=== PATIENT | male | born 1935 | race Caucasian/White ===

== ENCOUNTER 2019-05-20 05:11 | Emergency (ER) | payer MEDICARE, OTHER, SELFPAY ==
[2019-05-20 05:15] VITALS: BP 189/98; PULSE 67; RESP 18; TEMP 36.6; O2SAT 97; BMI 30.7
--- NOTE | 2019-05-20 05:26 | ED_ITS ---
Entered by Cherrie Lancaster, acting as scribe for Cindy Zamora May 20, 2019 05:11 Documented by User: Cindy Zaomra 05/20/19 06:03 HPI - Chest Pain General: Chief Complaint: Chest Pain Stated Complaint: CHEST PAINS Time Seen by Provider: 05/20/19 05:27 Source: patient Mode of arrival: ambulatory Limitations: no limitations History of Present Illness: HPI narrative: 84 yo m came to the er pov for chest pain. Onset was last night. Pt states that his chest pain is worse when he breaths in. Pt states that a week ago he fell on his left side and ever since he has had some pain. Pt states that the pain in his chest got worse last night. MD complaint: chest pain Onset (ago): day(s) (last night) Onset: during rest Pain radiation: none Severity: mild Treatment prior to arrival: nitroglycerin PFSH ED PFSH: Statuses (acute, chronic, etc) shown below reflect problem list status as previously entered and may not be historically accurate Medical History (Updated 05/20/19 @ 08:21 by Mohinder Jordan MD) Atrial fibrillation (Acute) CAD (coronary artery disease) (Acute) Diabetes mellitus (Acute) HTN (hypertension) (Acute) Peritoneal dialysis status (Acute) Renal failure (Acute) Thyroid disease (Acute) TIA (transient ischemic attack) (Acute) Surgical History S/P aortic valve replacement (Acute) S/P CABG (coronary artery bypass graft) (Acute) Family History Other CAD (coronary artery disease) Diabetes Myocardial infarction Social History Smoking and tobacco status: never smoked Physical Exam Const: COMMON NORMALS: no apparent distress, oriented x3, no limitations, healthy appearing and well nourished EXAM LIMITATIONS: no altered mental status GENERAL APPEARANCE: cooperative, well kempt and well developed ORIENTATION/CONSCIOUSNESS: Yes awake HENMT: COMMON NORMALS: normocephalic, head/scalp atraumatic, hearing grossly normal bilaterally, external ears normal, EAC's normal, external nose normal and moist oral mucous membranes HEAD & SCALP: normal to inspection, normocephalic and atraumatic FACE & SINUS: normal facial exam and face symmetric NOSE: external nose normal and nares normal EXTERNAL EAR: Yes external ears normal EXTERNAL AUDITORY CANAL: EAC's normal MOUTH: oral and palatal mucosa normal and tongue normal Eye: COMMON NORMALS: PERRL, EOMs intact bilaterally, conjunctivae normal and no scleral icterus GENERAL EYE: normal appearance of both eyes and normal light reflex CONJUNCTIVA: Yes conjunctivae normal SCLERA: sclerae normal CORNEA: Yes corneas normal PUPIL: Yes PERRL DIRECT OPHTHALMOSCOPY: Yes normal light reflex Neck/C-Spine: COMMON NORMALS: full ROM, no lymphadenopathy, supple, no meningeal signs and no JVD GENERAL: Yes normal visual inspection and Yes trachea midline CERVICAL SPINE: Yes cervical ROM normal Chest: COMMONS NORMALS: inspection of chest normal and palpation of chest normal Resp: COMMON NORMALS: normal respiratory effort, no retractions, no use of accessory muscles and clear to auscultation bilaterally EFFORT & INSPECTION: Yes able to speak in complete sentences AUSCULTATION: clear to auscultation bilaterally Cardio: COMMON NORMALS: no JVD, regular rate, regular rhythm, S1 normal heart sound, S2 normal heart sound, no gallops, no clicks, no murmurs and no rub JUGULAR VENOUS DISTENTION: no JVD RATE: regular rate RHYTHM: regular rhythm HEART SOUNDS: S1 normal and S2 normal GI: COMMON NORMALS: soft to palpation, non-tender, no hepatosplenomegaly and no masses INSPECTION: Yes normal to inspection PALPATION: Yes soft and Yes no hepatosplenomegaly : COMMON NORMALS: Yes no CVA tenderness BLADDER/KIDNEY EXAM: Yes no CVA tenderness Back/Pelvis: COMMON NORMALS: no CVA tenderness, thoracic and lumbar spine normal to inspection, no thoracic nor lumbar tenderness and thoraco-lumbar ROM normal Extremity: COMMON NORMALS: normal to inspection, full ROM, normal capillary refill, no joint enlargement, no clubbing, cyanosis or edema and no calf tenderness Neuro: COMMON NORMALS: oriented x3, CN's II-XII intact bilaterally, moves all extremities, no focal motor deficits and no sensory deficits noted MENINGEAL SIGNS: Yes no meningeal signs Psych: COMMON NORMALS: mental status grossly normal, thought process normal, cooperative, affect normal, speech normal and activity/motor behavior normal APPEARANCE: Yes well kempt SPEECH: Yes normal speech THOUGHT PROCESS: normal thought process Skin: COMMON NORMALS: no rashes or lesions noted, skin turgor normal, no jaundice, no petechiae and no mottling GENERAL SKIN EXAM: no rashes or lesions noted and turgor normal Course Vital Signs: Vital signs: Vital Signs Temperature 98.1 F 05/20/19 08:34 Pulse Rate 68 05/20/19 08:34 Respiratory Rate 17 05/20/19 08:34 Blood Pressure 143/81 05/20/19 08:34 Pulse Oximetry 99 05/20/19 08:34 MDM - Chest Pain Lab Data: Labs: Lab Results 05/20/19 05/20/19 05/20/19 Range/Units 05:55 05:55 05:55 WBC 8.8 (4.0-10.0) 10^3/ uL RBC 5.24 (4.1-5.3) 10^6/u L Hgb 15.1 (11.7-16.6) g/dL Hct 45.5 (42.0-52.0) % MCV 86.8 (80-94) fL MCH 28.8 (28.0-34.0) pg MCHC 33.2 (30.0-36.0) g/dL RDW 13.2 (12.1-15.1) % Plt Count 141 (130-400) 10^3/c mm MPV 11.2 H (7.4-10.4) fL Neut % (Auto) 70.3 % Lymph % (Auto) 16.0 % Marshall % (Auto) 9.5 % Eos % (Auto) 3.4 % Baso % (Auto) 0.3 % Neut # (Auto) 6.2 (1.8-7.7) 10^3/u L Lymph # (Auto) 1.4 (0.8-4.8) 10^3/u L Marshall # (Auto) 0.8 (0.2-0.9) 10^3/u L Eos # (Auto) 0.3 (0.0-0.8) 10^3/u L Baso # (Auto) 0.0 (0.0-0.1) 10^3/u L Nucleated RBC % (a uto) 0 % Nucleated RBCs # 0.0 /100WBC Sodium 139 (136-145) mmol/L Potassium 4.0 (3.5-5.1) mmol/L Chloride 102 (98-107) mmol/L Carbon Dioxide 28 (22-29) mmol/L Anion Gap 13.0 (5-19) BUN 53 H (8-23) mg/dL Creatinine 3.5 H (0.7-1.2) mg/dL Glucose 122 H (74-106) mg/dL Calcium 9.7 (8.5-10.5) mg/dL Magnesium 2.5 H (1.7-2.3) mg/dL Total Bilirubin 0.4 (0.15-1.2) mg/dL AST 26 (0-40) U/L ALT 17 (0-41) U/L Alkaline Phosphata se 103 (40-130) IU/L Troponin T Baselin e 54 H (0-15) ng/mL Troponin T 120 Min [facility] (0-15) ng/mL Delta Troponin T (0-10) ABS# Total Protein 6.4 L (6.6-8.7) g/dL Albumin 3.7 (3.5-5.2) g/dL Globulin 2.7 (1.3-4.6) g/dL 05/20/19 Range/Units 07:50 WBC (4.0-10.0) 10^3/ uL RBC (4.1-5.3) 10^6/u L Hgb (11.7-16.6) g/dL Hct (42.0-52.0) % MCV (80-94) fL MCH (28.0-34.0) pg MCHC (30.0-36.0) g/dL RDW (12.1-15.1) % Plt Count (130-400) 10^3/c mm MPV (7.4-10.4) fL Neut % (Auto) % Lymph % (Auto) % Marshall % (Auto) % Eos % (Auto) % Baso % (Auto) % Neut # (Auto) (1.8-7.7) 10^3/u L Lymph # (Auto) (0.8-4.8) 10^3/u L Marshall # (Auto) (0.2-0.9) 10^3/u L Eos # (Auto) (0.0-0.8) 10^3/u L Baso # (Auto) (0.0-0.1) 10^3/u L Nucleated RBC % (a uto) % Nucleated RBCs # /100WBC Sodium (136-145) mmol/L Potassium (3.5-5.1) mmol/L Chloride (98-107) mmol/L Carbon Dioxide (22-29) mmol/L Anion Gap (5-19) BUN (8-23) mg/dL Creatinine (0.7-1.2) mg/dL Glucose (74-106) mg/dL Calcium (8.5-10.5) mg/dL Magnesium (1.7-2.3) mg/dL Total Bilirubin (0.15-1.2) mg/dL AST (0-40) U/L ALT (0-41) U/L Alkaline Phosphata se (40-130) IU/L Troponin T Baselin e (0-15) ng/mL Troponin T 120 Min [facility] 49.07 H (0-15) ng/mL Delta Troponin T -4.93 L (0-10) ABS# Total Protein (6.6-8.7) g/dL Albumin (3.5-5.2) g/dL Globulin (1.3-4.6) g/dL Discharge Plan Discharge Patient Disposition: Home, Self-Care Clinical Impression: Chest pain Qualifiers: Chest pain type: unspecified Qualified Code(s): R07.9 - Chest pain, unspecified Condition: Stable Prescriptions: No Action cholecalciferol (vitamin D3) 1,000 unit capsule 1,000 unit PO QDAY RF: 0 gabapentin 100 mg capsule 200 mg PO BID RF: 0 escitalopram oxalate 20 mg tablet 20 mg PO QDAY RF: 0 furosemide 40 mg tablet 40 mg PO BID RF: 0 metoprolol tartrate 25 mg tablet 25 mg PO BID RF: 0 warfarin 1 mg tablet 1 mg PO DIRECTED RF: 0 tamsulosin 0.4 mg capsule 0.4 mg PO DAILY RF: 0 levothyroxine 88 mcg capsule 88 mcg PO DAILY RF: 0 isosorbide mononitrate 30 mg tablet extended release 24 hr 30 mg PO DAILY RF: 0 Lantus U-100 Insulin 100 unit/mL solution 10 unit SUBCUT DAILY RF: 0 Novolog U-100 Insulin aspart 100 unit/mL solution 5 unit SUBCUT .sliding scale RF: 0 nitroglycerin [Nitrostat] 0.4 mg tablet, sublingual 0.4 mg SUBLINGUAL DIRECTED RF: 0 atorvastatin 20 mg tablet 20 mg PO DAILY RF: 0 losartan 100 mg tablet 100 mg PO QDAY 30 Days Qty: 30 RF: 3 Discharge Orders: Discharge Order (Routine); Ordered 05/20/19 Ordered By: Mohinder Jordan Referrals: John Kauffman MD [Family Provider] - 4-7 days Discharge Diet: Advance as tolerated Discharge Activity: Resume usual activity Patient Instructions: Chest Pain (ED) Discharge Date/Time: 05/20/19 08:36 Coding Level of Care Code ED Sampler Pickup for Chg Fwd Exam Problem Focused Documented by User: Mohinder Jordan MD 05/20/19 09:04 HPI - Chest Pain General: Chief Complaint: Chest Pain Stated Complaint: CHEST PAINS Time Seen by Provider: 05/20/19 05:27 [facility] ED PFSH: Statuses (acute, chronic, etc) shown below reflect problem list status as previously entered and may not be historically accurate Medical History (Updated 05/20/19 @ 08:21 by Mohinder Jordan MD) Atrial fibrillation (Acute) CAD (coronary artery disease) (Acute) Diabetes mellitus (Acute) HTN (hypertension) (Acute) Peritoneal dialysis status (Acute) Renal failure (Acute) Thyroid disease (Acute) TIA (transient ischemic attack) (Acute) Surgical History S/P aortic valve replacement (Acute) S/P CABG (coronary artery bypass graft) (Acute) Family History Other CAD (coronary artery disease) Diabetes Myocardial infarction Social History Smoking and tobacco status: never smoked Course Vital Signs: Vital signs: Vital Signs Temperature 98.1 F 05/20/19 08:34 Pulse Rate 68 05/20/19 08:34 Respiratory Rate 17 05/20/19 08:34 Blood Pressure 143/81 05/20/19 08:34 Pulse Oximetry 99 05/20/19 08:34 MDM - Chest Pain MDM Narrative: Medical decision making narrative: Patient presents here with chest pain after a fall that is likely muscular in nature. Repeat troponin has no delta. patient is well-appearing here and EKGs are normal as well. He is stable for discharge and is to follow-up with primary care doctor in 3 to 5 days and return if worsening. Lab Data: Labs: Lab Results 05/20/19 05/20/19 05/20/19 Range/Units 05:55 05:55 05:55 WBC 8.8 (4.0-10.0) 10^3/ uL RBC 5.24 (4.1-5.3) 10^6/u L Hgb 15.1 (11.7-16.6) g/dL Hct 45.5 (42.0-52.0) % MCV 86.8 (80-94) fL MCH 28.8 (28.0-34.0) pg MCHC 33.2 (30.0-36.0) g/dL RDW 13.2 (12.1-15.1) % Plt Count 141 (130-400) 10^3/c mm MPV 11.2 H (7.4-10.4) fL Neut % (Auto) 70.3 % Lymph % (Auto) 16.0 % Marshall % (Auto) 9.5 % Eos % (Auto) 3.4 % Baso % (Auto) 0.3 % Neut # (Auto) 6.2 (1.8-7.7) 10^3/u L Lymph # (Auto) 1.4 (0.8-4.8) 10^3/u L Marshall # (Auto) 0.8 (0.2-0.9) 10^3/u L Eos # (Auto) 0.3 (0.0-0.8) 10^3/u L Baso # (Auto) 0.0 (0.0-0.1) 10^3/u L Nucleated RBC % (a uto) 0 % Nucleated RBCs # 0.0 /100WBC Sodium 139 (136-145) mmol/L Potassium 4.0 (3.5-5.1) mmol/L Chloride 102 (98-107) mmol/L Carbon Dioxide 28 (22-29) mmol/L Anion Gap 13.0 (5-19) BUN 53 H (8-23) mg/dL Creatinine 3.5 H (0.7-1.2) mg/dL Glucose 122 H (74-106) mg/dL Calcium 9.7 (8.5-10.5) mg/dL Magnesium 2.5 H (1.7-2.3) mg/dL Total Bilirubin 0.4 (0.15-1.2) mg/dL AST 26 (0-40) U/L ALT 17 (0-41) U/L Alkaline Phosphata se 103 (40-130) IU/L Troponin T Baselin e 54 H (0-15) ng/mL Troponin T 120 Min [facility] (0-15) ng/mL Delta Troponin T (0-10) ABS# Total Protein 6.4 L (6.6-8.7) g/dL Albumin 3.7 (3.5-5.2) g/dL Globulin 2.7 (1.3-4.6) g/dL 05/20/19 Range/Units 07:50 WBC (4.0-10.0) 10^3/ uL RBC (4.1-5.3) 10^6/u L Hgb (11.7-16.6) g/dL Hct (42.0-52.0) % MCV (80-94) fL MCH (28.0-34.0) pg MCHC (30.0-36.0) g/dL RDW (12.1-15.1) % Plt Count (130-400) 10^3/c mm MPV (7.4-10.4) fL Neut % (Auto) % Lymph % (Auto) % Marshall % (Auto) % Eos % (Auto) % Baso % (Auto) % Neut # (Auto) (1.8-7.7) 10^3/u L Lymph # (Auto) (0.8-4.8) 10^3/u L Marshall # (Auto) (0.2-0.9) 10^3/u L Eos # (Auto) (0.0-0.8) 10^3/u L Baso # (Auto) (0.0-0.1) 10^3/u L Nucleated RBC % (a uto) % Nucleated RBCs # /100WBC Sodium (136-145) mmol/L Potassium (3.5-5.1) mmol/L Chloride (98-107) mmol/L Carbon Dioxide (22-29) mmol/L Anion Gap (5-19) BUN (8-23) mg/dL Creatinine (0.7-1.2) mg/dL Glucose (74-106) mg/dL Calcium (8.5-10.5) mg/dL Magnesium (1.7-2.3) mg/dL Total Bilirubin (0.15-1.2) mg/dL AST (0-40) U/L ALT (0-41) U/L Alkaline Phosphata se (40-130) IU/L Troponin T Baselin e (0-15) ng/mL Troponin T [address] [facility] 49.07 H (0-15) ng/mL Delta Troponin T -4.93 L (0-10) ABS# Total Protein (6.6-8.7) g/dL Albumin (3.5-5.2) g/dL Globulin (1.3-4.6) g/dL EKG Data^: EKG 1: Attestation: I personally reviewed and interpreted this EKG as follows: EKG interpretation date: 05/20/19 EKG interpretation time: 07:13 Interpretation: nsr hr [address] or t wave abnormalities qrs 150 qtc 449 Discharge Plan Discharge Patient Disposition: Home, Self-Care Clinical Impression: Chest pain Qualifiers: Chest pain type: unspecified Qualified Code(s): R07.9 - Chest pain, unspecified Condition: Stable Prescriptions: No Action cholecalciferol (vitamin D3) 1,000 unit capsule 1,000 unit PO QDAY RF: 0 gabapentin 100 mg capsule 200 mg PO BID RF: 0 escitalopram oxalate 20 mg tablet 20 mg PO QDAY RF: 0 furosemide 40 mg tablet 40 mg PO BID RF: 0 metoprolol tartrate 25 mg tablet 25 mg PO BID RF: 0 warfarin 1 mg tablet 1 mg PO DIRECTED RF: 0 tamsulosin 0.4 mg capsule 0.4 mg PO DAILY RF: 0 levothyroxine 88 mcg capsule 88 mcg PO DAILY RF: 0 isosorbide mononitrate 30 mg tablet extended release 24 hr 30 mg PO DAILY RF: 0 Lantus U-100 Insulin 100 unit/mL solution 10 unit SUBCUT DAILY RF: 0 Novolog U-100 Insulin aspart 100 unit/mL solution 5 unit SUBCUT .sliding scale RF: 0 nitroglycerin [Nitrostat] 0.4 mg tablet, sublingual 0.4 mg SUBLINGUAL DIRECTED RF: 0 atorvastatin 20 mg tablet 20 mg PO DAILY RF: 0 losartan 100 mg tablet 100 mg PO QDAY 30 Days Qty: 30 RF: 3 Discharge Orders: Discharge Order (Routine); Ordered 05/20/19 Ordered By: Mohinder Jordan Referrals: John Kauffman MD [Family Provider] - 4-7 days Discharge Diet: Advance as tolerated Discharge Activity: Resume usual activity Patient Instructions: Chest Pain (ED) Discharge Date/Time: 05/20/19 08:36 Coding Level of Care Code ED Sampler Pickup for Chg Fwd Exam Problem Focused The documentation recorded by the Tonny chinchilla Stephanie Lyn, accurately reflects the service I personally performed and the decisions made by Sera bass Eli N May 20, 2019 05:11
--- NOTE | 2019-05-20 05:27 | PC.NURSE ---
EKG done at 0525 and shown to ER doctor
--- NOTE | 2019-05-20 05:37 | XR_ITS ---
WS: [id number] Portable AP upright chest, 05/20/2019 Clinical Data: cough Comparison: Lateral chest, 01/01/2018. Findings: No nodules, masses or effusions are seen. The heart is normal. The pulmonary vascularity is not increased. No pneumonia or pneumothorax is seen. The aortic arch and descending aorta show calci fication and tortuosity. There is minimal linear atelectasis at both lung bases. Monitor leads on the chest wall. There is an orthopedic anchor in the left humeral head. XR/XR chest 1V portable [id number] Impression: Atherosclerosis.
--- NOTE | 2019-05-20 05:38 | ECG_ITS ---
Measurements Intervals Bryce Rate: 57 P: ID: 0 QRS: -52 QRSD: 143 T: 7 QT: 432 QTc: 424 ATRIAL FLUTTER/TACHYCARDIA WITH SLOW VENTRICULAR RESPONSE LEFT AXIS DEVIATION [QRS AXIS < -30] LEFT BUNDLE BRANCH BLOCK [120+ ms QRS DURATION, 80+ ms Q/S IN V1/V2, 85+ ms R IN I/aVL/V5/V6] Compared to ECG 10/13/2016 16:05:00 Left-axis deviation now present Left bundle-branch block now present Intraventricular conduction delay no longer present Myocardial infarct finding no longer present Electronically Signed On 05-20-2019 15:55:22 3D DESIGNER by Ino Richter M.D. [id number]
[2019-05-20 06:00] LABS: Basophils % 0.3 %; Eosinophils # 0.3 10^3/uL (0.0-0.8); Eosinophils % 3.4 %; Hematocrit 45.5 % (42.0-52.0); Hemoglobin 15.1 g/dL (11.7-16.6); Lymphocytes # 1.4 10^3/uL (0.8-4.8); Mean Corpuscular HGB Conc 33.2 g/dL (30.0-36.0); Mean Corpuscular Hemoglobin 28.8 pg (28.0-34.0); Mean Corpuscular Volume 86.8 fL (80-94); Mean Platelet Volume 11.2 fL (7.4-10.4); Monocytes # 0.8 10^3/uL (0.2-0.9); Monocytes % 9.5 %; Neutrophils # 6.2 10^3/uL (1.8-7.7); Neutrophils % 70.3 %; Nucleated Red Blood Cells % 0 %; Platelet Count 141 10^3/cmm (130-400); Red Blood Count 5.24 10^6/uL (4.1-5.3); Red Cell Distribution Width 13.2 % (12.1-15.1); White Blood Count 8.8 10^3/uL (4.0-10.0)
[2019-05-20] MEDS: sodium chloride 0.9% 1,000 ML 100 ML IV (06:10)
[2019-05-20 06:13] VITALS: BP 124/70; PULSE 60; RESP 13; TEMP 36.9
--- NOTE | 2019-05-20 06:17 | PC.NURSE ---
Introduced self to patient and initiated vital signs. Pt is A&O x 4 and agreeable. Pt states that the reason for the ER visit today is due to left side chest pain which presented yesterday PM. Pt states that he fell last week on his side and also carried a heavy load of groceries into his home yesterday. Reassured patient of needs and will continue to monitor.
[2019-05-20 06:18] LABS: Alanine Aminotransferase 17 U/L (0-41); Albumin Level 3.7 g/dL (3.5-5.2); Alkaline Phosphatase 103 IU/L (40-130); Aspartate Amino Transferase 26 U/L (0-40); Blood Urea Nitrogen 53 mg/dL (8-23); Calcium 9.7 mg/dL (8.5-10.5); Carbon Dioxide 28 mmol/L (22-29); Chloride 102 mmol/L (98-107); Globulin 2.7 g/dL (1.3-4.6); Glucose 122 mg/dL (74-106); Magnesium 2.5 mg/dL (1.7-2.3); Sodium 139 mmol/L (136-145); Total Bilirubin 0.4 mg/dL (0.15-1.2); Total Protein 6.4 g/dL (6.6-8.7)
[2019-05-20 06:25] LABS: Troponin(5th) Baseline 54 ng/mL (0-15)
[2019-05-20 07:22] VITALS: BP 142/78; PULSE 68; RESP 16; O2SAT 97
--- NOTE | 2019-05-20 07:38 | ECG_ITS ---
Measurements Intervals Lane Rate: 67 P: 93 DE: 192 QRS: 242 QRSD: 150 T: 182 QT: 433 QTc: 460 Atrial flutter ARM LEADS REVERSED [INVERTED P AND QRS IN I] Incomplete left bundle branch block Left axis deviation Compared to ECG 10/13/2016 16:05:00 Intraventricular conduction delay no longer present Electronically Signed On 05-20-2019 15:59:15 [employer] by Ino Richter M.D. [id number]
[2019-05-20 07:44] VITALS: BP 159/81; PULSE 68; RESP 18; TEMP 36.6; O2SAT 97
[2019-05-20 08:14] LABS: Troponin 5 2HR 49.07 ng/mL (0-15)
[2019-05-20 08:34] VITALS: BP 143/81; PULSE 68; RESP 17; TEMP 36.7; O2SAT 99
== END 2019-05-20 08:36 | disposition home or self-care (01) ==
PROVIDERS: Emergency Medicine; Emergency Provider Emergency Medicine; Family Provider Family Medicine
DX: R07.9 Chest pain, unspecified (principal); Z79.01 Long term (current) use of anticoagulants; Z79.4 Long term (current) use of insulin; I48.91 Unspecified atrial fibrillation; I25.10 Atherosclerotic heart disease of native coronary artery without angina pectoris; E11.9 Type 2 diabetes mellitus without complications; I10 Essential (primary) hypertension; Z86.73 Personal history of transient ischemic attack (TIA), and cerebral infarction without residual deficits; Z95.1 Presence of aortocoronary bypass graft; E07.9 Disorder of thyroid, unspecified
CPT/HCPCS: 36415; 71045; 80053; 83735; 84484; 85025; 93005; 96360; 99283; J7030

== ENCOUNTER → 2019-11-08 13:18 | Outpatient (BNVA) | payer MEDICARE, OTHER, SELFPAY | PROVIDERS: Family Provider Family Medicine; Visit Provider Dermatology | DX: D48.9 Neoplasm of uncertain behavior, unspecified (principal); Z85.828 Personal history of other malignant neoplasm of skin | CPT/HCPCS: 11102; 11103; 88305; 99203 ==

== ENCOUNTER → 2019-11-11 09:58 | Outpatient (BNVA) | payer MEDICARE, OTHER, SELFPAY | PROVIDERS: Family Provider Family Medicine; Visit Provider Dermatology | DX: D48.9 Neoplasm of uncertain behavior, unspecified (principal) | CPT/HCPCS: 88304 ==

== ENCOUNTER 2019-12-07 15:10 | Outpatient (CLI) | payer MEDICARE, OTHER, SELFPAY ==
--- NOTE | 2019-12-07 15:00 | USCV_ITS ---
Heber Roach Age: 84 Gender: M : 1935 Exam Date: 12/07/2019 15:30 Ordering Phys: Kelin Rosas MD ([email or web address]) Technologist: Francia Morrison Exam Location: [facility] [place] Indication: CVA Risk Factors: Unknown Previous Vascular Surgery: Unknown Right Brachial BP: / Left Brachial BP: / Right Left Velocity (cm/s) Spectral Plaque Velocity (cm/s) Spectral Plaque Syst/Diast Broadening Syst/Diast Broadening 71.70/ 29.80 Prox CCA 63.80 / 12.90 49.30/ 11.20 Mid CCA 47.50 / 11.50 34.70/ 10.70 Distal CCA 48.90 / 8.80 60.70/ 19.70 Prox ICA 48.90 / 17.70 61.20/ 18.80 Mid ICA 55.80 / 17.30 62.50/ 19.90 Distal ICA 48.40 / 15.00 76.90 ECA 86.90 1.27 ICA/CCA 1.17 Antegrade Vertebral Antegrade 45.30/ 11.50 cm/s 29.00/ 9.70 cm/s Tri Subclavian Tri 70.30 53.20 FINDINGS Moderate dense irregular plaques bilaterally at the bifurcations and proximal internal carotid arteries. Intimal thickening and minimal plaques in the common carotid arteries bilaterally Antegrade flow in the vertebral arteries bilaterally Normal Doppler flow velocities in the external carotid arteries bilaterally CONCLUSIONS Moderate dense irregular plaques bilaterally at the bifurcations and proximal internal carotid arterieswith velocity elevation consistent with 16-49% stenosis. Intimal thickening and minimal plaques in the common carotid arteries bilaterally. Compared to the previous study from 09/09/2013, there is some progression of disease bilaterally Dr Douglas Vazquez MD [facility] (Electronically Signed) Final Date: 07 December 2019 21:11 S
== END 2019-12-07 15:11 | disposition home or self-care (01) ==
LOC: RAD 15:11
PROVIDERS: PCP Family Medicine; Visit Provider Internal Medicine Cardiovascular Disease
DX: G45.9 Transient cerebral ischemic attack, unspecified (principal)
CPT/HCPCS: 93880

== ENCOUNTER 2019-12-10 09:00 | Inpatient (IN) | payer MEDICARE, OTHER, SELFPAY ==
[2019-12-10] VITALS (63 sets, daily range): BP systolic 132–226; BP diastolic 52–126; PULSE 27–108; RESP 12–31; TEMP 36.5–36.9; O2SAT 89–97; BMI 30.4
--- NOTE | 2019-12-10 09:19 | W.ED.ARRPALP ---
HPI - Arrhythmia/Palpitations General: Chief Complaint: Arrhythmia/Palpitations Stated Complaint: LOW HR/WEAKNESS Time Seen by Provider: 12/10/19 09:19 History of Present Illness: HPI narrative: 84-year-old male brought in by the complaining of bradycardia. He is on metoprolol he took all of his medications this morning. He is a history of atrial fibrillation and also takes warfarin. Denies any change in medications recently.. He has had a little abdominal pain a few days ago but that resolved he denies any fever. He has a chronic baseline productive cough that does not change in character or volume. He has been a little tired and weak for the last few days whenever he tries to exert himself he has very poor stamina. This was quite a bit worse last night they did note that when they checked his heart rate last night it was in the 30s as well. On arrival here he is in the low 30s. MD complaint: irregular heart beat and atrial fibrillation Onset (ago): hour(s) Duration: constant Severity: moderate Context: occurred during rest and occurred during exertion Arrhythmia history: atrial fibrillation and on anti-coagulants Associated symptoms: Reports other (Early fatigue poor stamina); Deny anxiety, nausea, syncope or vomiting Review of Systems Const: Denies: fever(s), chills, body aches, fatigue, malaise or night sweats Eyes: Denies: change in vision or blurry vision ENMT: Denies: throat pain, oral sores, dental pain, nasal discharge or nasal congestion Card: Denies: chest pain, palpitations, irregular heart rhythm, edema, syncope, dyspnea on exertion, orthopnea or leg pain with exertion Resp: Denies: dyspnea, productive cough, non-productive cough or wheezing GI: Denies: abdominal pain, nausea, vomiting, hematemesis, coffee ground emesis, dysphagia, heartburn, diarrhea, constipation, GI cramping, hematochezia or melena : Denies: flank pain, difficulty urinating, dysuria, urinary frequency, urinary urgency, urinary incontinence or hematuria Musc: Denies: neck pain, back pain, extremity pain, extremity swelling, joint pain or joint swelling Skin/Breast: Denies: rash, pruritus or erythema Neuro: Denies: headache(s), numbness in extremities, weakness in extremities, sensory changes, lack of coordination, difficulty walking, frequent falls, dizziness, vertigo or confusion Psych: Denies: anxiety, depression, loss of interest, visual hallucinations, auditory hallucinations, suicidal ideation or homicidal ideation Endo: Denies: polyuria, polydipsia, tired all the time or cold intolerance Jasmeet/Lymph: Denies: easy bruising, easy bleeding, petechiae, enlarged lymph nodes or tender lymph nodes PFSH ED PFSH: Medical History (Updated 12/10/19 @ 14:50 by Timoteo Hernandez DO) Atrial fibrillation CAD (coronary artery disease) CHF (congestive heart failure) Diabetes mellitus End stage renal disease HTN (hypertension) Peritoneal dialysis catheter in place Peritoneal dialysis status Renal failure Thyroid disease TIA (transient ischemic attack) Surgical History (Updated 12/10/19 @ 14:50 by Timoteo Hernandez DO) S/P aortic valve replacement S/P CABG (coronary artery bypass graft) Family History (Updated 12/10/19 @ 12:36 by Tc Perdomo MD) Father Stroke Other CAD (coronary artery disease) Diabetes Myocardial infarction Social History Smoking and tobacco status: never smoked Alcohol intake: current History of recent travel: No Physical Exam Const: COMMON NORMALS: no acute distress GENERAL APPEARANCE: cooperative and comfortable ORIENTATION/CONSCIOUSNESS: Yes awake, Yes oriented to person, Yes oriented to place and Yes oriented to time HENMT: COMMON NORMALS: normocephalic and atraumatic HEAD & SCALP: normocephalic and atraumatic Eye: COMMON NORMALS: Equal, round and reactive pupils present, EOMs intact bilaterally, conjunctivae normal and no scleral icterus CONJUNCTIVA: Yes conjunctivae normal PUPIL: Yes Equal, round and reactive pupils present Neck/C-Spine: COMMON NORMALS: full ROM, no lymphadenopathy, supple and no JVD Lymph: LYMPHATIC: no lymphadenopathy noted and no lymphedema noted Resp: COMMON NORMALS: normal respiratory effort, No retractions, No use of accessory muscles and clear to auscultation bilaterally AUSCULTATION: clear to auscultation bilaterally Cardio: COMMON NORMALS: no JVD RATE: bradycardic RHYTHM: abnormal rhythm irregularly irregular HEART SOUNDS: Murmur heart sound present systolic Location: apex Intensity: IV/ GI: COMMON NORMALS: Soft to palpation and No hepatosplenomegaly present AUSCULTATION: Yes normoactive bowel sounds PALPATION: Yes Soft to palpation, No Tenderness to palpation present (GI), No Guarding due to palpation present (GI) and Yes No hepatosplenomegaly present Extremity: COMMON NORMALS: normal to inspection, capillary refill normal, no clubbing, cyanosis or edema, no calf tenderness and no pedal edema Neuro: SENSORIUM/ORIENTATION: Yes oriented to person, Yes oriented to place and Yes oriented to time Skin: COMMON NORMALS: no rashes or lesions noted GENERAL SKIN EXAM: no rashes or lesions noted Course Vital Signs: Vital signs: Vital Signs Temperature 97.7 F 12/10/19 09:09 Pulse Rate 40 L 12/10/19 13:00 Respiratory Rate 12 12/10/19 13:00 Blood Pressure 185/71 12/10/19 12:51 Pulse Oximetry 96 12/10/19 13:00 MDM - Arrhythmia/Palpitations MDM Narrative: Medical decision making narrative: While work-up was in process patient bradycardia down into the 20s was given 0.5 mg of atropine her heart rate increased transiently to the 70s and then decreased back to the 40s again patient symptoms did improve briefly. Patient had another episode and given a full milligram of atropine with he did have significant anxiety just prior to being discharge from the ER to the ICU was given 1/2 mg Ativan which resulted in a fairly significant amount of sedation reassurance given to the that is typical for an older person even with a small dose of Ativan. Lesser results only went up into the 50s or 60s for period of time. Lab Data: Labs: Lab Results 12/10/19 12/10/19 12/10/19 Range/Units 09:22 09: 09: WBC 8.6 (4.0-10.0) 10^3/ uL RBC 4.72 (4.1-5.3) 10^6/u L Hgb 13.8 (11.7-16.6) g/dL Hct 42.6 (42.0-52.0) % MCV 90.3 (80-94) fL MCH 29.2 (28.0-34.0) pg MCHC 32.4 (30.0-36.0) g/dL RDW 12.7 (12.1-15.1) % Plt Count 159 (130-400) 10^3/c mm MPV 11.6 H (7.4-10.4) fL Neut % (Auto) 61.5 % Lymph % (Auto) 21.8 % Freestone % (Auto) 10.4 % Eos % (Auto) 5.1 % Baso % (Auto) 0.7 % Neut # (Auto) 5.26 (1.8-7.7) 10^3/u L Lymph # (Auto) 1.9 (0.8-4.8) 10^3/u L Fre[place] # (Auto) 0.9 (0.2-0.9) 10^3/u L Eos # (Auto) 0.4 (0.0-0.8) 10^3/u L Baso # (Auto) 0.1 (0.0-0.1) 10^3/u L Nucleated RBC % (a uto) 0 % Nucleated RBCs # 0.0 /100WBC PT (12.1-14.9) SECO NDS INR (0.8-1.2) Sodium 138 (136-145) mmol/L Potassium 4.5 (3.5-5.1) mmol/L Chloride 104 (98-107) mmol/L Carbon Dioxide 25 (22-29) mmol/L Anion Gap 13.5 (5-19) BUN 45 H (8-23) mg/dL Creatinine 3.6 H (0.7-1.2) mg/dL GFR Calculation Not Reportable Glucose 147 H (65-115) mg/dL Calculated Osmolal ity 287 (285-295) mOsm/k g Calcium 9.3 (8.5-10.5) mg/dL Total Bilirubin 0.2 (0.15-1.2) mg/dL AST 27 (0-40) U/L ALT 19 (0-41) U/L Alkaline Phosphata se 116 (40-130) IU/L Troponin T Baselin e 60 H (0-15) ng/L Troponin T 120 Min alfonso (0-15) ng/L Delta Troponin T (0-10) ABS# Total Protein 5.6 L (6.6-8.7) g/dL Albumin 3.6 (3.5-5.2) g/dL Globulin 2.0 (1.3-4.6) g/dL 08/22/20 08/22/20 Range/Units 09:22 11:30 WBC (4.0-10.0) 10^3/ uL RBC (4.1-5.3) 10^6/u L Hgb (11.7-16.6) g/dL Hct (42.0-52.0) % MCV (80-94) fL MCH (28.0-34.0) pg MCHC (30.0-36.0) g/dL RDW (12.1-15.1) % Plt Count (130-400) 10^3/c mm MPV (7.4-10.4) fL Neut % (Auto) % Lymph % (Auto) % [place] % (Auto) % Eos % (Auto) % Baso % (Auto) % Neut # (Auto) (1.8-7.7) 10^3/u L Lymph # (Auto) (0.8-4.8) 10^3/u L Freestone # (Auto) (0.2-0.9) 10^3/u L Eos # (Auto) (0.0-0.8) 10^3/u L Baso # (Auto) (0.0-0.1) 10^3/u L Nucleated RBC % (a uto) % Nucleated RBCs # /100WBC PT 22.70 H (12.1-14.9) SECO NDS INR 1.93 H (0.8-1.2) Sodium (136-145) mmol/L Potassium (3.5-5.1) mmol/L Chloride (98-107) mmol/L Carbon Dioxide (22-29) mmol/L Anion Gap (5-19) BUN (8-23) mg/dL Creatinine (0.7-1.2) mg/dL GFR Calculation Glucose (65-115) mg/dL Calculated Osmolal ity (285-295) mOsm/k g Calcium (8.5-10.5) mg/dL Total Bilirubin (0.15-1.2) mg/dL AST (0-40) U/L ALT (0-41) U/L Alkaline Phosphata se (40-130) IU/L Troponin T Baselin e (0-15) ng/L Troponin T 120 Min alfonso 56.95 H (0-15) ng/L Delta Troponin T -3.05 L (0-10) ABS# Total Protein (6.6-8.7) g/dL Albumin (3.5-5.2) g/dL Globulin (1.3-4.6) g/dL Discharge Plan Discharge Patient Disposition: Admitted As Inpatient Admit Provider: Tc Perdomo Clinical Impression: Bradycardia, S/P aortic valve replacement, Atrial fibrillation, End stage renal disease, Peritoneal dialysis catheter in place Condition: Stable Interventions: ED Discharge Assessment Last Done: 12/10/19 12:51 ED Charges Last Done: 12/10/19 12:51 Discharge Date/Time: 12/10/19 13:30 Coding Level of Care Code 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
--- NOTE | 2019-12-10 09:32 | XR_ITS ---
WS: [id number] EXAM: AP CHEST: PORTABLE UPRIGHT DATE OF EXAM: 12/10/2019, 1010 hours COMPARISON: Chest x-ray from 05/20/2019 HISTORY: Patient is 84 years old with dyspnea. FINDINGS: The cardiac silhouette is upper limits of normal in size. The mediastinal contours are similar. Louis cified plaque in the aorta. Calcified lymph nodes left hilum. The pulmonary vascularity is normal. Lungs are clear. Calcified granuloma upper outer left chest again seen. There is no effusion or pne umothorax. Bone density appears slightly decreased. Post surgical anchor again noted in the left nina ulder. XR/XR chest 1V portable [id number] IMPRESSION: No acute pulmonary disease.
--- NOTE | 2019-12-10 09:33 | ECG_ITS ---
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 Measurements Intervals [place] Rate: 37 P: [place]: -1 QRS: -45 QRSD: 132 T: -46 QT: 540 QTc: 424 Interpretive Statements ATRIAL FLUTTER/TACHYCARDIA WITH SLOW VENTRICULAR RESPONSE INTRAVENTRICULAR CONDUCTION DELAY [130+ ms QRS DURATION] SEPTAL MYOCARDIAL INFARCTION , Probably old [40+ ms Q WAVE IN V1/V2] INTERPRETATION BASED ON A DEFAULT AGE OF 40 YEARS Compared to ECG 05/20/2019 07:13:26 Intraventricular conduction delay now present Myocardial infarct finding now present Left bundle-branch block no longer present Left-axis deviation no longer present Electronically Signed On 12-10-2019 19:18:06 CDT by Ean Hoover M.D. [id number] f
[2019-12-10 09:46] LABS: Basophils # 0.1 10^3/uL (0.0-0.1); Basophils % 0.7 %; Eosinophils # 0.4 10^3/uL (0.0-0.8); Eosinophils % 5.1 %; Hematocrit 42.6 % (42.0-52.0); Hemoglobin 13.8 g/dL (11.7-16.6); Lymphocytes # 1.9 10^3/uL (0.8-4.8); Lymphocytes % 21.8 %; Mean Corpuscular HGB Conc 32.4 g/dL (30.0-36.0); Mean Corpuscular Hemoglobin 29.2 pg (28.0-34.0); Mean Corpuscular Volume 90.3 fL (80-94); Mean Platelet Volume 11.6 fL (7.4-10.4); Monocytes # 0.9 10^3/uL (0.2-0.9); Monocytes % 10.4 %; Neutrophils # 5.26 10^3/uL (1.8-7.7); Neutrophils % 61.5 %; Nucleated Red Blood Cells % 0 %; Platelet Count 159 10^3/cmm (130-400); Red Blood Count 4.72 10^6/uL (4.1-5.3); Red Cell Distribution Width 12.7 % (12.1-15.1); White Blood Count 8.6 10^3/uL (4.0-10.0)
[2019-12-10] MEDS: atropine 0.1 mg/mL Syr 10 mL 0.5 MG IVP (09:54)
[2019-12-10 10:09] LABS: INR 1.93 (0.8-1.2)
[2019-12-10 10:15] LABS: Alanine Aminotransferase 19 U/L (0-41); Albumin Level 3.6 g/dL (3.5-5.2); Alkaline Phosphatase 116 IU/L (40-130); Anion Gap 13.5 (5-19); Aspartate Amino Transferase 27 U/L (0-40); Carbon Dioxide 25 mmol/L (22-29); Chloride 104 mmol/L (98-107); Glucose 147 mg/dL (65-115); Potassium 4.5 mmol/L (3.5-5.1); Sodium 138 mmol/L (136-145); Total Bilirubin 0.2 mg/dL (0.15-1.2); Total Protein 5.6 g/dL (6.6-8.7)
[2019-12-10 10:18] LABS: Troponin(5th) Baseline 60 ng/L (0-15)
[2019-12-10 10:31] LABS: Blood Urea Nitrogen 45 mg/dL (8-23); Calcium 9.3 mg/dL (8.5-10.5); Osmolality Calculated 287 mOsm/kg (285-295)
--- NOTE | 2019-12-10 10:41 | PC.NURSE ---
Pt HR dropped to 27bpm. Dr Hernandez notified.VO received to give 1mg atropine IVP now.
[2019-12-10] MEDS: atropine 0.1 mg/mL Syr 10 mL 1 MG IVP (10:44)
--- NOTE | 2019-12-10 11:33 | ECG_ITS ---
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 Measurements Intervals [place] Rate: 40 P: [place]: -1 QRS: -47 QRSD: 134 T: -43 QT: 501 QTc: 410 Interpretive Statements ATRIAL FLUTTER/TACHYCARDIA WITH SLOW VENTRICULAR RESPONSE INTRAVENTRICULAR CONDUCTION DELAY [130+ ms QRS DURATION] SEPTAL MYOCARDIAL INFARCTION , OF INDETERMINATE AGE [40+ ms Q WAVE IN V1/V2] Compared to ECG 12/10/2019 09:27:16 No significant changes Electronically Signed On 12-12-2019 12:13:38 CDT by Ean Hoover M.D. [id number]
[2019-12-10 12:04] LABS: Troponin 5 2HR 56.95 ng/L (0-15)
[2019-12-10 12:11] LABS: Troponin 5 2HR Delta -3.05 ABS# (0-10)
--- NOTE | 2019-12-10 12:28 | P.HP_ITS ---
Providers/Chief Complaint Admitting Physician: Tc Perdomo MD Primary Care Provider: John Kauffman MD Chief Complaint: LOW HR/WEAKNESS History of Present Illness Heber Roach is a 84 year old male presents to [facility] department with 2 to 3 days feeling very weak and being bradycardic down to 20s in the ER. Patient is on metoprolol for treatment of atrial fibrillation for long period of time but never had any issues prior. He denies any chest pain. He reports chronic dyspnea on exertion which is unchanged. He denies cough or difficulty swallowing. He is on peritoneal dialysis and denies any abdominal pain. Reports that he still makes some urine but denies dysuria. He reports being on laxative every day to have normal bowel movement. He denies seeing blood or black stool. In ER he was given 1 dose of atropine with improvement of his heart rate to 70s but then gradually came down to 40s. He is not symptomatic cardiac cabrera during my evaluation in ER. He complains of low back pain because of very uncomfortable gurney in ER. He usually reports being active to some degree. [place] and does some work on daily basis. He lives with his for more than 60 years. Reports that on December 19 he is scheduled to see a ediscovery project manager to be evaluated for home oxygen. He is diabetic for many years and had last cardiac intervention with stent in 2001. Reports that he had total of 3 stents placed. Reports that in 2007 he had bioprosthetic aortic valve replacement. He is on warfarin for stroke prevention. Reports that previously he had TIA and did not develop any neurological sequela. He could not sleep well last night but cannot tell me why. Review of Systems Narrative: Except as mentioned. Const: Denies: fever(s) or chills (But does report feeling cold lately.) Eyes: Denies: change in vision ENMT: Denies: throat pain or change in hearing Card: Denies: chest pain, edema or lightheadedness Resp: Reports: dyspnea; Denies: productive cough GI: Reports: constipation; Denies: abdominal pain, nausea, vomiting, dysphagia, diarrhea, hematochezia or melena Musc: Denies: joint pain or joint swelling Skin/Breast: Denies: rash or erythema Neuro: Denies: headache(s) or weakness in extremities (But does report being generally weak in the last 2 to 3 days.) Psych: Denies: depression or suicidal ideation Endo: Denies: excessive sweating Jasmeet/Lymph: Denies: easy bleeding or tender lymph nodes All/Imm: Denies: throat swelling Medications/Allergies Home Medications Medication Instructions Recorded Confirmed Last Taken Type atorvastatin 20 mg tablet 20 mg PO DAILY tab 05/10/19 12/10/19 12/09/19 History insulin aspart U-100 100 unit/mL 5 unit SUBCUT .sliding scale ml 05/10/19 12/10/19 Unknown History subcutaneous solution insulin glargine 100 unit/mL 10 unit SUBCUT DAILY ml 05/10/19 12/10/19 12/09/19 History subcutaneous solution levothyroxine 88 mcg capsule 88 mcg PO DAILY cap 05/10/19 12/10/19 12/09/19 History metoprolol tartrate 25 mg tablet 25 mg PO BID 05/10/19 12/10/19 12/10/19 History nitroglycerin 0.4 mg sublingual 0.4 mg SUBLINGUAL DIRECTED tab 05/10/19 12/10/19 Unknown History tablet tamsulosin 0.4 mg capsule 0.4 mg PO DAILY cap 05/10/19 12/10/19 12/10/19 History warfarin 1 mg tablet 1 mg PO DIRECTED tab 05/10/19 12/10/19 12/09/19 History cholecalciferol (vitamin D3) 25 1,000 unit PO DAILY 05/11/19 12/10/19 12/10/19 History mcg (1,000 unit) capsule gabapentin 100 mg capsule 200 mg PO BID cap 05/11/19 12/10/19 12/10/19 History amlodipine 5 mg tablet 2.5 mg PO BID 90 Days #90 tab 06/08/19 12/10/19 12/10/19 Rx aspirin 81 mg tablet,delayed 81 mg PO DAILY 11/11/19 12/10/19 12/10/19 History release donepezil 5 mg tablet 5 mg PO DAILY 11/11/19 12/10/19 12/09/19 History furosemide 20 mg tablet 20 mg PO DAILY #90 tab 11/11/19 12/10/19 12/09/19 Rx furosemide 40 mg tablet 40 mg PO DAILY tab 11/11/19 12/10/19 12/10/19 History isosorbide mononitrate 30 mg 30 mg PO DAILY #90 each 11/15/19 12/10/19 12/10/19 Rx tablet,extended release 24 hr Allergies Allergy/AdvReac Type Severity Reaction Status Date / Time apple Allergy Unknown Unknown Verified 12/10/19 11:43 morphine Allergy Unknown Unknown Verified 12/10/19 11:43 oxycodone [From Percocet] Allergy Unknown Unknown Verified 12/10/19 11:43 PFSH Acute PFSH: Medical History Atrial fibrillation CAD (coronary artery disease) CHF (congestive heart failure) Diabetes mellitus HTN (hypertension) Peritoneal dialysis status Renal failure Thyroid disease TIA (transient ischemic attack) Surgical History S/P aortic valve replacement S/P CABG (coronary artery bypass graft) Family History (Updated 12/10/19 @ 12:36 by Tc Perdomo MD) Father Stroke Other CAD (coronary artery disease) Diabetes Myocardial infarction Social History Smoking and tobacco status: never smoked Alcohol intake: current History of recent travel: No Vitals/I&O/Wt Last Vital Signs Temp 97.7 F 12/10/19 09:09 Pulse 39 L 12/10/19 12:00 Resp 22 H 12/10/19 12:00 BP 185/71 12/10/19 12:00 Pulse Ox 96 12/10/19 12:00 Weight last 48 hrs Weight 90.718 kg Physical Exam Const: COMMON NORMALS: no acute distress and patient oriented x3 OTHER: Somewhat somnolent. HENMT: COMMON NORMALS: normocephalic and atraumatic HEAD & SCALP: normocephalic and atraumatic Eye: COMMON NORMALS: EOMs intact bilaterally, conjunctivae normal and no scleral icterus CONJUNCTIVA: Yes conjunctivae normal Neck/C-Spine: COMMON NORMALS: no lymphadenopathy and no meningeal signs Lymph: LYMPHATIC: no lymphadenopathy noted Chest: COMMONS NORMALS: normal palpation of entire chest wall Resp: COMMON NORMALS: No use of accessory muscles and clear to auscultation bilaterally AUSCULTATION: clear to auscultation bilaterally Cardio: COMMON NORMALS: No murmurs present (Cardio) RATE: regular rate and bradycardic OTHER: No lower extremity edema GI: COMMON NORMALS: Soft to palpation and non-tender PALPATION: Yes Soft to palpation RECTAL EXAM: Yes deferred OTHER: Peritoneal catheter noted. Patient has small ventral hernia in epigastric area. : COMMON NORMALS: Yes no CVA tenderness BLADDER/KIDNEY EXAM: Yes no CVA tenderness Back/Pelvis: COMMON NORMALS: no CVA tenderness and thoracic and lumbar spine normal to inspection Extremity: COMMON NORMALS: normal to inspection and capillary refill normal Neuro: COMMON NORMALS: patient oriented x3 and no focal motor deficits SENSORIUM/ORIENTATION: Yes oriented to person, Yes oriented to place, Yes oriented to time and Yes somnolent MENINGEAL SIGNS: Yes no meningeal signs Psych: COMMON NORMALS: mental status grossly normal, Normal thought process present and cooperative THOUGHT PROCESS: Normal thought process present Skin: COMMON NORMALS: no rashes or lesions noted GENERAL SKIN EXAM: no rashes or lesions noted Data : 12/10/19 09:22 12/10/19 09:22 A&P Assessment and plan (1) Atrial flutter: Status: Acute (2) Bradycardia: This appears to be related to metoprolol. [place] felt unlikely. Status: Acute (3) Warfarin-induced coagulopathy: Status: Acute (4) End stage renal disease: Status: Acute (5) Peritoneal dialysis catheter in place: Status: Acute (6) Diabetes mellitus: Status: Acute Additional A&P Information PLAN: Patient will be closely monitored in ICU. Dr. Hernandez to consult cardiology. Atropine at bedside for heart rate less than 40. Hold shin blocking agents and allow several days to clear metoprolol and hopefully heart rate recovers. Patient may need to have temporary pacemaker placement. Patient is not in heart failure currently. We will continue warfarin for now and monitor hemoglobin and platelets. Nephrology service was consulted by Dr. Hernandez for peritoneal dialysis. I will check peritoneal dialysate fluid for signs of infection. Continue warfarin. No need for DVT prophylaxis. Restart other home medications including for hypothyroidism. Attestations Medical Necessity Statement*: Patient with symptomatic bradycardia requires close ICU monitoring, treatment and evaluation. I expect patient will require more than 2 midnights. Time Spent in Patient Care: Greater than 35 minutes Coding Level of Care Code Acute Vision Specialist for [facility] Diagnoses Atrial flutter I48.92 Bradycardia R00.1 Warfarin-induced coagulopathy D68.32; T45.515A End stage renal disease N18.6 Peritoneal dialysis catheter in place Z99.2 Diabetes mellitus E11.9
[2019-12-10 13:02] LABS: Glucose Point of Care 96 mg/dL (70-110)
[2019-12-10] MEDS: LORazepam 2 mg/mL INJ 1 mL 0.5 MG IVP (13:07)
--- NOTE | 2019-12-10 15:33 | ECG_ITS ---
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 Measurements Intervals [place] Rate: 45 P: [place]: -1 QRS: -53 QRSD: 134 T: -2 QT: 454 QTc: 395 Interpretive Statements ATRIAL FLUTTER/TACHYCARDIA WITH SLOW VENTRICULAR RESPONSE INTRAVENTRICULAR CONDUCTION DELAY [130+ ms QRS DURATION] SEPTAL MYOCARDIAL INFARCTION of indeterminate age compared to ECG 12/10/2019 11:32:27 No significant changes Electronically Signed On 12-12-2019 12:11:35 CDT by Ean Hoover M.D. [id number]
[2019-12-10 15:55] LABS: Troponin 5 6HR 54.33 ng/L (0-15)
[2019-12-10 16:02] LABS: Troponin 5 6HR Delta -5.67 ng/L (0-12)
[2019-12-10] MEDS: hyDRALAzine 20 mg/mL INJ 1 mL 10 MG IVP ×2 (16:52→19:36)
--- NOTE | 2019-12-10 16:58 | PC.NURSE ---
Peritoneal Dialysis Pt's states she uses two bags of 1.5% dialysis solution (each bag is 2,000 mls). First bag at infused at 1600. Second bag infused at 2000 and drained in AM. Seven days per week.
--- NOTE | 2019-12-10 17:08 | P.CONIM_ITS ---
Providers/Reason For Consult Consulting Physican/Specialty*: Dr. Ean Hoover/cardiology Reason for Consult*: A. fib with slow ventricular response/bradycardia Requesting Physcian: Dr. Hernandez Attending Physician: Tc Perdomo MD Primary Care Provider: John Kauffman MD History of Present Illness History of Present Illness 84 year old male with past medical history of atrial fibrillation on Coumadin, diabetes, hypertension and TIA, ESRD on peritoneal dialysis, coronary artery disease with cardiac intervention in 2001 and a bioprosthetic aortic valve replacement in 2007. He presented to the ER with 2 to 3 days feeling very weak and being bradycardic down to 20s in the ER. Patient is on metoprolol 25 mg twice daily for treatment of atrial fibrillation for long period of time but never had any issues prior. In the ER he was given a dose of atropine which increased heart rate to 70s but then it dropped again to 40s. At the time of my evaluation, patient had received a dose of Ativan in the ER and seemed confused since. His heart rate currently is in 40s to 50s. He is hypertensive. On review of his EKG, he is an atrial flutter with variable block. Review of Systems General: Reports: ROS unobtainable due to mental status Meds/Allergies Home Medications and Allergies Home Medications Medication Instructions Recorded Confirmed Last Taken Type atorvastatin 20 mg tablet 20 mg PO DAILY tab 05/10/19 12/10/19 12/09/19 History insulin aspart U-100 100 unit/mL 5 unit SUBCUT .sliding scale ml 05/10/19 12/10/19 Unknown History subcutaneous solution insulin glargine 100 unit/mL 10 unit SUBCUT DAILY ml 05/10/19 12/10/19 12/09/19 History subcutaneous solution levothyroxine 88 mcg capsule 88 mcg PO DAILY cap 05/10/19 12/10/19 12/09/19 History metoprolol tartrate 25 mg tablet 25 mg PO BID 05/10/19 12/10/19 12/10/19 History nitroglycerin 0.4 mg sublingual 0.4 mg SUBLINGUAL DIRECTED tab 05/10/19 12/10/19 Unknown History tablet tamsulosin 0.4 mg capsule 0.4 mg PO DAILY cap 05/10/19 12/10/19 12/10/19 History warfarin 1 mg tablet 1 mg PO DIRECTED tab 05/10/19 12/10/19 12/09/19 History cholecalciferol (vitamin D3) 25 1,000 unit PO DAILY 05/11/19 12/10/19 12/10/19 History mcg (1,000 unit) capsule gabapentin 100 mg capsule 200 mg PO BID cap 05/11/19 12/10/19 12/10/19 History amlodipine 5 mg tablet 2.5 mg PO BID 90 Days #90 tab 06/08/19 12/10/19 12/10/19 Rx aspirin 81 mg tablet,delayed 81 mg PO DAILY 11/11/19 12/10/19 12/10/19 History release donepezil 5 mg tablet 5 mg PO DAILY 11/11/19 12/10/19 12/09/19 History furosemide 20 mg tablet 20 mg PO DAILY #90 tab 11/11/19 12/10/19 12/09/19 Rx furosemide 40 mg tablet 40 mg PO DAILY tab 11/11/19 12/10/19 12/10/19 History isosorbide mononitrate 30 mg 30 mg PO DAILY #90 each 11/15/19 12/10/19 12/10/19 Rx tablet,extended release 24 hr Allergies Allergy/AdvReac Type Severity Reaction Status Date / Time apple Allergy Unknown Unknown Verified 12/10/19 11:43 morphine Allergy Unknown Unknown Verified 12/10/19 11:43 oxycodone [From Percocet] Allergy Unknown Unknown Verified 12/10/19 11:43 PFSH Acute PFSH: Medical History Atrial fibrillation CAD (coronary artery disease) CHF (congestive heart failure) Diabetes mellitus End stage renal disease HTN (hypertension) Peritoneal dialysis catheter in place Peritoneal dialysis status Renal failure Thyroid disease TIA (transient ischemic attack) Surgical History S/P aortic valve replacement S/P CABG (coronary artery bypass graft) Family History Father Stroke Other CAD (coronary artery disease) Diabetes Myocardial infarction Social History Smoking and tobacco status: never smoked Alcohol intake: current History of recent travel: No Vitals/I&O/Wt Last Vital Signs Temp 97.7 F 12/10/19 09:09 Pulse 40 L 12/10/19 13:00 Resp 12 12/10/19 13:00 BP 185/71 12/10/19 12:51 Pulse Ox 96 12/10/19 13:00 Weight last 48 hrs Weight 200 lb Physical Exam Narrative: EXAM NARRATIVE: GENERAL: Patient is alert, and appears confused ,oriented to person. [] NECK: No jugular vein distension. [] HEENT: No cyanosis. No icterus. No pallor. [] HEART: Bradycardic. Significant grade 4/6 systolic murmur, no rub or gallop. [] LUNGS: Clear to auscultate bilaterally. [] ABDOMEN: Soft, nontender and nondistended. Large abdominal hernia [] CENTRAL NERVOUS SYSTEM: Grossly nonfocal. [] EXTREMITIES: Lower extremities with no significant edema bilaterally. Pulses pal pable in the lower extremities, both dorsalis pedis and posterior tibial. [] A&P Assessment and plan (1) Bradycardia: Status: Acute (2) Atrial flutter: Status: Acute (3) HTN (hypertension): Status: Acute (4) S/P aortic valve replacement: Status: Acute Patient is in atrial flutter with variable block and is bradycardic. At time of my evaluation his heart rate has been running in 40s to 50s. He appeared confused and this was reported since getting Ativan. He is hypertensive. I would recommend keeping him off of any AV shin blocking agents at this time. Telemetry monitoring. Have atropine available on bedside. No indication for transvenous pacing at this time but we will continue monitoring. His blood pressure is significantly high. Please restart his p.o. amlodipine and as needed IV hydralazine to control the blood pressure. Continue anticoagulation with Coumadin. Thank you for involving us with care of this patient. We will continue to follow him. Please call with questions. 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
--- NOTE | 2019-12-10 17:41 | P.CONIM_ITS ---
Providers/Reason For Consult Consulting Physican/Specialty*: [facility]/Telenephrology Reason for Consult*: ESRD management and dialysis need Attending Physician: Tc Perdomo MD Primary Care Provider: John Kauffman MD History of Present Illness History of Present Illness Heber Roach is a 84 year old male with h/o ESRD on peritoneal dialysis presented to ER with generalised weakness, found to be bradycardic, so got atropine, admitted to ICU for further management. BP fluctuating. Pt slightly confused Review of Systems Const: Reports: malaise; Denies: fever(s) or chills Card: Reports: edema; Denies: chest pain, palpitations, lightheadedness or dyspnea on exertion Resp: Denies: dyspnea or productive cough GI: Denies: abdominal pain, nausea, vomiting or diarrhea Skin/Breast: Denies: rash Neuro: Reports: confusion Meds/Allergies Home Medications and Allergies Home Medications Medication Instructions Recorded Confirmed Last Taken Type atorvastatin 20 mg tablet 20 mg PO DAILY tab 05/10/19 12/10/19 12/09/19 History insulin aspart U-100 100 unit/mL 5 unit SUBCUT .sliding scale ml 05/10/19 12/10/19 Unknown History subcutaneous solution insulin glargine 100 unit/mL 10 unit SUBCUT DAILY ml 05/10/19 12/10/19 12/09/19 History subcutaneous solution levothyroxine 88 mcg capsule 88 mcg PO DAILY cap 05/10/19 12/10/19 12/09/19 History metoprolol tartrate 25 mg tablet 25 mg PO BID 05/10/19 12/10/19 12/10/19 History nitroglycerin 0.4 mg sublingual 0.4 mg SUBLINGUAL DIRECTED tab 05/10/19 12/10/19 Unknown History tablet tamsulosin 0.4 mg capsule 0.4 mg PO DAILY cap 05/10/19 12/10/19 12/10/19 History warfarin 1 mg tablet 1 mg PO DIRECTED tab 05/10/19 12/10/19 12/09/19 History cholecalciferol (vitamin D3) 25 1,000 unit PO DAILY 05/11/19 12/10/19 12/10/19 History mcg (1,000 unit) capsule gabapentin 100 mg capsule 200 mg PO BID cap 05/11/19 12/10/19 12/10/19 History amlodipine 5 mg tablet 2.5 mg PO BID 90 Days #90 tab 06/08/19 12/10/19 12/10/19 Rx aspirin 81 mg tablet,delayed 81 mg PO DAILY 11/11/19 12/10/19 12/10/19 History release donepezil 5 mg tablet 5 mg PO DAILY 11/11/19 12/10/19 12/09/19 History furosemide 20 mg tablet 20 mg PO DAILY #90 tab 11/11/19 12/10/19 12/09/19 Rx furosemide 40 mg tablet 40 mg PO DAILY tab 11/11/19 12/10/19 12/10/19 History isosorbide mononitrate 30 mg 30 mg PO DAILY #90 each 11/15/19 12/10/19 12/10/19 Rx tablet,extended release 24 hr Allergies Allergy/AdvReac Type Severity Reaction Status Date / Time apple Allergy Unknown Unknown Verified 12/10/19 11:43 morphine Allergy Unknown Unknown Verified 12/10/19 11:43 oxycodone [From Percocet] Allergy Unknown Unknown Verified 12/10/19 11:43 PFSH Acute PFSH: Medical History Atrial fibrillation CAD (coronary artery disease) CHF (congestive heart failure) Diabetes mellitus End stage renal disease HTN (hypertension) Peritoneal dialysis catheter in place Peritoneal dialysis status Renal failure Thyroid disease TIA (transient ischemic attack) Surgical History S/P aortic valve replacement S/P CABG (coronary artery bypass graft) Family History Father Stroke Other CAD (coronary artery disease) Diabetes Myocardial infarction Social History Smoking and tobacco status: never smoked Alcohol intake: current History of recent travel: No Vitals/I&O/Wt Last Vital Signs Temp 97.7 F 12/10/19 09:09 Pulse 40 L 12/10/19 13:00 Resp 12 12/10/19 13:00 BP 185/71 12/10/19 12:51 Pulse Ox 96 12/10/19 13:00 Weight last 48 hrs Weight 90.718 kg Physical Exam Const: COMMON NORMALS: no acute distress EXAM LIMITATIONS: altered mental status GENERAL APPEARANCE: comfortable ORIENTATION/CONSCIOUSNESS: Yes awake Resp: COMMON NORMALS: clear to auscultation bilaterally AUSCULTATION: clear to auscultation bilaterally Cardio: COMMON NORMALS: S1 normal heart sound present and S2 normal heart sound present RATE: bradycardic HEART SOUNDS: S1 normal heart sound present and S2 normal heart sound present GI: AUSCULTATION: Yes normoactive bowel sounds OTHER: PD catheter+ Extremity: GENERAL: Yes edema Skin: COMMON NORMALS: no rashes or lesions noted GENERAL SKIN EXAM: no rashes or lesions noted A&P Assessment and plan (1) End stage renal disease: Pt does not know his peritoneal dialysis regimen. Will get the info from his family. No indication of any dialysis tonight. Status: Acute (2) Bradycardia: Agree with holding metoprolol. 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
[2019-12-10] MEDS: nitroglycerin drip 50 MG/250 ML PREMIX IV (19:50)
[2019-12-10] MEDS: sennosides 8.6 mg Tablet 17.2 MG PO (19:51)
[2019-12-10] MEDS: gabapentin 100 mg Capsule 200 MG PO (20:01)
--- NOTE | 2019-12-10 20:42 | PC.NURSE ---
[id number]- Pt arrived on unit at 1328 from ED on bed. Pt was administered Ativan immediately before transfer per 's request. Pt extremely agitated upon arrival. Attempting to climb out of bed as ED nurse wheeling into room. Pt pulling off telemetry patches and O2 pulse ox. Pt extremely confused. ED nurse stated that pt's stated last time he received Ativan he acted similar. Unable to convince pt to remain in bed. Pt continued pulling at all of medical monitoring equipment. Pt believed he was trapped against his will. Refused all meds. Refused all medical monitoring devices. Dr Perdomo notified. Sitter requested. Order received but no sitter available. Pt unsteadily walked out of room multiple times. Attempted to walk in other pt's rooms multiple times. I was unable to manage pt safely on my own. Charge nurse and community recreation programmer asked for help. Charge nurse, community recreation programmer and myself unable to control pt. Pt stated he was going to slap us. Security called hoping that a male presence would help calm pt and maintain his safety. Security arrived. Pt responded well to male safety security officer. Continued to get out of bed. structural engineering drafting officer, house super, and myself remained with pt. Pt remains unsteady on feet this entire time. Swaying. Confused to everything except his person. Attempted to phone and son multiple times. eventually notified. Arrived at 1620 via security. Pt immediately calms and becomes pleasant. Pt remains calm and only gets out of bed twice for . Pt much more friendly and calm. asked to stay with pt past visiting hours due to staffing concerns and concerns for pt's safety. Pt remains calm and appears to be sleeping at times. Continues to refuse BP cuff but much more pleasant. leaves and pt tolerates. Seems to be much more coherent and aware of situation and place.
--- NOTE | 2019-12-10 20:54 | PC.NURSE ---
1830 Pt's creping machine operator helper notified of elevated BP. Orders received. Pt allows administration.
[2019-12-10 21:46] LABS: Glucose Point of Care 143 mg/dL (70-110)
[2019-12-11] VITALS (73 sets, daily range): BP systolic 115–227; BP diastolic 69–135; PULSE 41–85; RESP 12–32; TEMP 36.6–37.1; O2SAT 91–97
[2019-12-11] MEDS: acetaminophen 325 mg Tablet 650 MG PO ×2 (03:38→08:20)
[2019-12-11 03:51] LABS: INR 1.81 (0.8-1.2)
[2019-12-11 03:53] LABS: Basophils # 0.1 10^3/uL (0.0-0.1); Basophils % 0.6 %; Eosinophils # 0.2 10^3/uL (0.0-0.8); Eosinophils % 2.2 %; Hematocrit 42.1 % (42.0-52.0); Hemoglobin 13.7 g/dL (11.7-16.6); Lymphocytes # 1.4 10^3/uL (0.8-4.8); Lymphocytes % 14.4 %; Mean Corpuscular HGB Conc 32.5 g/dL (30.0-36.0); Mean Corpuscular Hemoglobin 29.2 pg (28.0-34.0); Mean Corpuscular Volume 89.8 fL (80-94); Mean Platelet Volume 11.6 fL (7.4-10.4); Monocytes # 0.8 10^3/uL (0.2-0.9); Monocytes % 8.4 %; Neutrophils # 7.07 10^3/uL (1.8-7.7); Neutrophils % 74.2 %; Nucleated Red Blood Cells % 0 %; Platelet Count 148 10^3/cmm (130-400); Red Blood Count 4.69 10^6/uL (4.1-5.3); Red Cell Distribution Width 12.7 % (12.1-15.1); White Blood Count 9.5 10^3/uL (4.0-10.0)
[2019-12-11 03:59] LABS: Alanine Aminotransferase 16 U/L (0-41); Albumin Level 3.5 g/dL (3.5-5.2); Alkaline Phosphatase 105 IU/L (40-130); Aspartate Amino Transferase 24 U/L (0-40); Blood Urea Nitrogen 45 mg/dL (8-23); Calcium 8.4 mg/dL (8.5-10.5); Carbon Dioxide 25 mmol/L (22-29); Chloride 107 mmol/L (98-107); Creatinine Clr Calc Pharmacy 19.4011; Globulin 2.2 g/dL (1.3-4.6); Glucose 146 mg/dL (65-115); Osmolality Calculated 291 mOsm/kg (285-295); Sodium 140 mmol/L (136-145); Total Bilirubin 0.5 mg/dL (0.15-1.2); Total Protein 5.7 g/dL (6.6-8.7)
[2019-12-11 04:00] LABS: Magnesium 2.3 mg/dL (1.7-2.3)
[2019-12-11 04:05] LABS: Anion Gap 12.4 (5-19); Potassium 4.4 mmol/L (3.5-5.1)
[2019-12-11 07:21] LABS: Glucose Point of Care 111 mg/dL (70-110)
[2019-12-11] MEDS: levothyroxine 88 mcg Tablet PO (08:06)
[2019-12-11] MEDS: atorvastatin 40 mg Tablet 20 MG PO (08:07)
[2019-12-11] MEDS: pantoprazole DR 40 mg Tablet PO (08:07)
[2019-12-11] MEDS: FUROsemide 40 mg Tablet PO (08:07)
[2019-12-11] MEDS: tamsulosin 0.4 mg Capsule PO (08:08)
[2019-12-11] MEDS: donepezil 5 MG Tablet PO (08:08)
[2019-12-11] MEDS: aspirin 81 mg EC Tablet PO (08:08)
[2019-12-11] MEDS: gabapentin 100 mg Capsule 200 MG PO ×2 (08:09→17:07)
[2019-12-11] MEDS: amlodipine 5 mg Tablet 2.5 MG PO (08:09)
[2019-12-11] MEDS: FUROsemide 20 mg Tablet PO (08:10)
[2019-12-11] MEDS: isosorbide mononitrate ER 30 mg Tablet PO (08:10)
--- NOTE | 2019-12-11 08:57 | P.PN_ITS ---
Subjective Subjective: Interval history: Patient denies shortness of breath or chest pain this morning. Patient is much more oriented. He was able to recall name of president. His heart rate improved and is in the 70s this morning. Patient had no peritoneal dialysis yesterday therefore fluid was not sent for analysis. Vitals/I&O/Wt Last Vital Signs Temp 97.9 F 12/11/19 04:00 Pulse 73 12/11/19 08:15 Resp 17 12/11/19 08:15 BP 176/90 12/11/19 08:15 Pulse Ox 95 12/11/19 08:15 12/10/19 12/11/19 12/11/19 22:59 06:59 14:59 Intake Total 108.525 / 108.525 328.525 / 437.050 481.003 / 481.003 Output Total 575 / 575 550 / 1125 0 / 0 Balance -466.475 / -466.475 -221.475 / -687.950 481.003 / 481.003 Weight last 48 hrs Weight 90.832 kg Weight 90.718 kg Physical Exam Const: COMMON NORMALS: no acute distress and patient oriented x3 Resp: COMMON NORMALS: normal respiratory effort and clear to auscultation bilaterally AUSCULTATION: clear to auscultation bilaterally Cardio: COMMON NORMALS: regular rate, regular rhythm and S2 normal heart sound present RATE: regular rate RHYTHM: regular rhythm HEART SOUNDS: S2 normal heart sound present OTHER: No lower extremity edema GI: COMMON NORMALS: Normal to inspection, nondistended, normoactive bowel sounds present, Soft to palpation and non-tender PALPATION: Yes Soft to palpation Neuro: COMMON NORMALS: patient oriented x3 and no focal motor deficits Data : 12/11/19 03:15 12/11/19 03:15 A&P Assessment and plan (1) Atrial flutter: Status: Acute (2) Bradycardia: This appears to be related to metoprolol. DE felt unlikely. Status: Acute (3) Warfarin-induced coagulopathy: Status: Acute (4) End stage renal disease: Status: Acute (5) Peritoneal dialysis catheter in place: Status: Acute (6) Diabetes mellitus: Status: Acute Additional A&P Information PLAN: I think it is safe for patient to be transferred to stepdown unit. We will monitor patient for 1 more day. Will send dialysate fluid for analysis today. Restart all antihypertensive medications patient takes at home. Advance to consistent carbohydrate diet Physical therapy. Appreciate Dr. Hoover's help. Attestations Medical Necessity Statement*: Patient with significant bradycardia requires close inpatient monitoring and treatment until deemed safe for discharge. 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
--- NOTE | 2019-12-11 09:44 | PC.CHAP ---
Pastoral Care Encounter/Spiritual Assessment Type of Contact [] Declined locomotive boilermaker visit [] Patient/Family/Request visit [] Outpatient visit [] Follow-up visit [] Physician referral [] Code/Alert [X] Routine visit [] Staff referral [] Actively dying [X] Patient sleeping [] Family support [] [] Out of room [] Palliative care [] [] Receiving care in room [] Pre-surgical visit [] Trauma [] Long length of stay [] ICU visit [] Other: Relational/Emotional Strength [] Patient feels connected with others/family/visitors/staff [] Distress [] Loneliness/isolation [] Abandonment Spirituality of Patient [] Person of Sofia [] Attends Spiritism of their Sofia [] Believes in Prayer [] Reads Bible or Baptist materials [] There are Spiritual issues to be addressed Steam Service Inspector Interventions [] Prayer [] Active listening [] Non-anxious presence [] Spiritual/emotional support [] Crisis/trauma care [] Spiritual counseling [] Bereavement support [] Provided bereavement packet [] Provided Bible/devotional materials [] Provided toy/stuffed animal, coloring book to patient or family member [] Provided Communion [] Anointing/[place] [] Salvation [] Completed spiritual assessment [] Other: Impact on Illness or Injury [] Angry [] Fearful [] Anxious [] Often cries [] Exhaustion [] Unable to work [] Unable to attend oriental orthodox [] Unable to walk/stand [] Unable to read [] Unable to drive [] Unable to eat/drink [] Unable to sleep [] Unable to be with family [] Patient intubated [] Other: Summary Time spent with patient
--- NOTE | 2019-12-11 09:57 | PC.NURSE ---
call to cardiology Patient currently in a-flutter with multiple pauses. heart rate is dropping to the mid 30s and 40s during these pauses. Pauses last approximately 3-5seconds. Patient hear rate will then jump back up to mid 70s in a-flutter again. notified of this and came down to evaluate patient. Per dr, that this is most likely cause of sleep apnea. continue to monitor patient and keep patient on telemetry. still okay to transfer patient off unit. Telemetry strips printed off and placed in patient chart. vital signs WNL during pauses. will continue to monitor.
[2019-12-11] MEDS: hyDRALAzine 20 mg/mL INJ 1 mL 10 MG IVP (10:30)
[2019-12-11 11:12] LABS: Glucose Point of Care 214 mg/dL (70-110)
[2019-12-11] MEDS: ondansetron 2 mg/ML SDV 2 mL 4 MG IVP (11:56)
[2019-12-11] MEDS: warfarin 5 mg Tablet PO (14:22)
--- NOTE | 2019-12-11 15:37 | PM.PN ---
Subjective Subjective: Interval history: I am seeing him in follow up for his ESRD management and dialsis needs. Feeling better, no nausea or vomiting Medications: Reviewed: Yes Vitals/I&O/Wt Last Vital Signs Temp 98.5 F 12/11/19 12:00 Pulse 70 12/11/19 14:15 Resp 20 H 12/11/19 14:15 BP 154/79 12/11/19 14:15 Pulse Ox 97 12/11/19 14:15 12/11/19 12/11/19 12/11/19 06:59 14:59 22:59 Intake Total 328.525 / 437.050 596.253 / 596.253 Output Total 550 / 1125 0 / 0 Balance -221.475 / -687.950 596.253 / 596.253 Weight last 48 hrs Weight 90.832 kg Weight 90.718 kg Physical Exam Const: COMMON NORMALS: no acute distress, patient oriented x3 and alert GENERAL APPEARANCE: cooperative ORIENTATION/CONSCIOUSNESS: Yes awake Resp: COMMON NORMALS: clear to auscultation bilaterally AUSCULTATION: clear to auscultation bilaterally Cardio: COMMON NORMALS: S1 normal heart sound present and S2 normal heart sound present HEART SOUNDS: S1 normal heart sound present and S2 normal heart sound present GI: AUSCULTATION: Yes normoactive bowel sounds Extremity: GENERAL: Yes edema Neuro: COMMON NORMALS: patient oriented x3 SENSORIUM/ORIENTATION: Yes alert Skin: COMMON NORMALS: no rashes or lesions noted GENERAL SKIN EXAM: no rashes or lesions noted Data : 12/11/19 03:15 12/11/19 03:15 A&P Assessment and plan (1) End stage renal disease: As per pt/s his PD regimen includes only 2 exchanges with 1.5%, 2 lit at 4pm and 8pm, so will do it tonight. 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
--- NOTE | 2019-12-11 17:00 | PC.NURSE ---
Call to Physician Patient does home PD. helps assist patient with PD at home. nurse called and informed Dr that patient is needing assistance with exchanges at . approved for , Betty to come in at to help assist. quality control supervisor and security notified. called report to JUDITH Nickerson.
[2019-12-11 17:06] LABS: Glucose Point of Care 214 mg/dL (70-110)
[2019-12-11] MEDS: nitroglycerin drip 50 MG/250 ML PREMIX 9 MG IV (17:08)
[2019-12-11 19:01] LABS: Glucose Point of Care 81 mg/dL (70-110)
[2019-12-11 20:23] LABS: Glucose Point of Care 206 mg/dL (70-110)
--- NOTE | 2019-12-11 20:25 | PC.NURSE ---
PT IS RESTING IN BED. PT DENIES PAIN AT THIS TIME. PT BS 206 AND REFUSES INSULIN BECAUSE HE ISN'T GOING TO EAT. WILL NOTIFY DR OR REFUSAL. WILL CONTINUE TO MONITOR.
[2019-12-11] MEDS: sennosides 8.6 mg Tablet 17.2 MG PO (20:39)
--- NOTE | 2019-12-11 21:44 | P.PN_ITS ---
Subjective Subjective: Interval history: Patient is doing well today. He is alert and patient is doing well today. He is alert and oriented. His heart rates have trended from 60s to 70s. He is still hypertensive. On nitro drip. Medications: Reviewed: Yes Vitals/I&O/Wt Last Vital Signs Temp 98.3 F 12/11/19 18:00 Pulse 75 12/11/19 18:00 Resp 20 H 12/11/19 18:00 BP 148/87 12/11/19 18:00 Pulse Ox 95 12/11/19 18:00 12/11/19 12/11/19 12/11/19 06:59 14:59 22:59 Intake Total 328.525 / 437.050 596.253 / 596.253 259.4 / 855.653 Output Total 550 / 1125 0 / 0 Balance -221.475 / -687.950 596.253 / 596.253 259.4 / 855.653 Weight last 48 hrs Weight 200 lb 4 oz Weight 200 lb Physical Exam Narrative: EXAM NARRATIVE: GENERAL: Patient is alert, awake and oriented x3. [] NECK: No jugular vein distension. [] HEENT: No cyanosis. No icterus. No pallor. [] HEART: Irregularly irregular. has grade 4/6 systolic murmur, rub or gallop. [] LUNGS: Clear to auscultate bilaterally. [] ABDOMEN: Soft, nontender and nondistended. Positive bowel sounds. No guarding, rebound or tenderness. [] CENTRAL NERVOUS SYSTEM: Grossly nonfocal. [] EXTREMITIES: Lower extremities with no significant edema. Pulses palpable in the lower extremities, both dorsalis pedis and posterior tibial Data : 12/11/19 03:15 12/11/19 03:15 A&P Assessment and plan (1) Bradycardia: Status: Acute (2) Atrial flutter: Status: Acute (3) HTN (hypertension): Status: Acute (4) S/P aortic valve replacement: Status: Acute Patient is in atrial flutter with variable block, Bradycardia has resolved. Keep holding metoprolol. Increase amlodipine to 10mg daily. Wean off nitro gtt.Continue anticoagulation with Coumadin. I have encouraged patient to start using CPAP as MAX can contribute to low heart rates Event monitor at time of discharge to monitor the heart rates closely and manage medications accordingly. Please call with questions Attestations Medical Necessity Statement*: Bradycardia Coding Level of Care Code Acute Services Rep for [facility] [place] [facility] Diagnoses Bradycardia R00.1 Atrial flutter I48.92 HTN (hypertension) I10 S/P aortic valve replacement Z95.2
[2019-12-12] VITALS (17 sets, daily range): BP systolic 114–173; BP diastolic 60–98; PULSE 73–112; RESP 14–26; TEMP 36.7; O2SAT 93–98
[2019-12-12 05:23] LABS: Basophils % 0.4 %; Eosinophils # 0.3 10^3/uL (0.0-0.8); Eosinophils % 3.6 %; Hematocrit 40.4 % (42.0-52.0); Hemoglobin 13.1 g/dL (11.7-16.6); Lymphocytes # 1.3 10^3/uL (0.8-4.8); Lymphocytes % 14.9 %; Mean Corpuscular HGB Conc 32.4 g/dL (30.0-36.0); Mean Corpuscular Hemoglobin 29.1 pg (28.0-34.0); Mean Corpuscular Volume 89.8 fL (80-94); Mean Platelet Volume 11.8 fL (7.4-10.4); Monocytes # 0.9 10^3/uL (0.2-0.9); Neutrophils # 5.94 10^3/uL (1.8-7.7); Neutrophils % 69.7 %; Nucleated Red Blood Cells % 0 %; Platelet Count 157 10^3/cmm (130-400); Red Cell Distribution Width 12.7 % (12.1-15.1); White Blood Count 8.5 10^3/uL (4.0-10.0)
--- NOTE | 2019-12-12 05:33 | PC.NURSE ---
PT IS RESTING IN BED. DENIES PAIN AT THIS TIME. PD IS STILL DWELLING AT THIS TIME. TO BE DRAINED AT 0800. WILL CONTINUE TO MONITOR.
[2019-12-12 05:47] LABS: INR 1.93 (0.8-1.2)
[2019-12-12 05:48] LABS: Alanine Aminotransferase 14 U/L (0-41); Albumin Level 3.3 g/dL (3.5-5.2); Alkaline Phosphatase 104 IU/L (40-130); Anion Gap 12.1 (5-19); Aspartate Amino Transferase 20 U/L (0-40); Blood Urea Nitrogen 38 mg/dL (8-23); Calcium 8.5 mg/dL (8.5-10.5); Carbon Dioxide 26 mmol/L (22-29); Chloride 105 mmol/L (98-107); Globulin 2.9 g/dL (1.3-4.6); Glucose 163 mg/dL (65-115); Magnesium 2.3 mg/dL (1.7-2.3); Osmolality Calculated 289 mOsm/kg (285-295); Potassium 4.1 mmol/L (3.5-5.1); Sodium 139 mmol/L (136-145); Total Bilirubin 0.5 mg/dL (0.15-1.2); Total Protein 6.2 g/dL (6.6-8.7)
[2019-12-12 06:07] LABS: Albumin Peritoneal Fluid 0.2 g/dL; Total Protein Peritoneal Fluid 0.2 g/dL
[2019-12-12 06:23] LABS: Glucose Point of Care 143 mg/dL (70-110)
--- NOTE | 2019-12-12 08:15 | PC.NURSE ---
Initiated peritoneal dialysis draining at 0750. Patient knowledgeable about process and aseptic technique. Drained 1800ml. Fluid is light clear yellow with no sediment.
[2019-12-12] MEDS: donepezil 5 MG Tablet PO (09:32)
[2019-12-12] MEDS: atorvastatin 40 mg Tablet 20 MG PO (09:32)
[2019-12-12] MEDS: FUROsemide 40 mg Tablet PO (09:32)
[2019-12-12] MEDS: FUROsemide 20 mg Tablet PO (09:32)
[2019-12-12] MEDS: aspirin 81 mg EC Tablet PO (09:32)
[2019-12-12] MEDS: tamsulosin 0.4 mg Capsule PO (09:32)
[2019-12-12] MEDS: isosorbide mononitrate ER 30 mg Tablet PO (09:33)
[2019-12-12] MEDS: levothyroxine 88 mcg Tablet PO (09:33)
[2019-12-12] MEDS: pantoprazole DR 40 mg Tablet PO (09:33)
[2019-12-12] MEDS: amlodipine 10 mg Tablet PO (09:33)
[2019-12-12] MEDS: gabapentin 100 mg Capsule 200 MG PO (09:33)
--- NOTE | 2019-12-12 10:50 | PC.PT ---
During rounding, noted that pt will d/c home today. PT eval was ordered but now seems unnecessary. Nursing staff reports that pt is independent with mobility and gait. Nursing relates that eval is no longer needed. Will notify supervising therapist.
--- NOTE | 2019-12-12 11:09 | PM.DCS ---
Discharge Providers Date of Admission: 12/10/19 12:03 Date of Discharge: December 12, 2019 Attending Provider at Admission: Tc Perdomo MD Attending Provider at Discharge: Tc Perdomo MD Primary Care Provider: John Kauffman MD Diagnoses at Discharge Discharge Diagnosis (1) Bradycardia: Status: Acute (2) Atrial flutter: Status: Acute (3) HTN (hypertension): Status: Acute (4) S/P aortic valve replacement: Status: Acute Reason for Visit Reason for Visit: LOW HR/WEAKNESS Hospital Course Discharge Summary: Patient presented with bradycardia secondary to metoprolol. Patient was admitted and closely monitored. Heart rate gradually improved and this morning patient reports feeling much better and strong enough to be dismissed home. He denies shortness of breath or chest pain. Denies abdominal pain. He was getting his peritoneal dialysis as scheduled and was doing well. His peritoneal dialysate fluid does not appear to be infected. He will continue with warfarin for stroke prevention. He was seen by cardiology service and deemed safe to be dismissed home. Outpatient 21-day event monitor was requested and will be followed by Dr. Rosas. Physical Exam Const: COMMON NORMALS: no acute distress and patient oriented x3 Resp: COMMON NORMALS: normal respiratory effort and clear to auscultation bilaterally AUSCULTATION: clear to auscultation bilaterally Cardio: COMMON NORMALS: S2 normal heart sound present RHYTHM: abnormal rhythm irregularly irregular HEART SOUNDS: S2 normal heart sound present OTHER: No lower extremity edema GI: COMMON NORMALS: Normal to inspection, nondistended, normoactive bowel sounds present, Soft to palpation and non-tender PALPATION: Yes Soft to palpation Neuro: COMMON NORMALS: patient oriented x3 and no focal motor deficits Discharge Data Data Completed and Pending: Completed Studies During Hospitalization Category Date Time Status XR chest 1V diogenes ble [id number] Stat Exams 12/10/19 09:32 Completed Pending at discharge Category Date Time Status Body Fluid Cultur e & GS Routine Lab 12/11/19 20:30 Results Complete Blood Co unt w/Auto AM LABS Lab 12/13/19 04:00 Ordered Complete Blood Co unt w/Auto AM LABS Lab 12/14/19 04:00 Ordered Comprehensive Met abolic Panel AM LA BS Lab 12/13/19 04:00 Ordered Comprehensive Met abolic Panel AM LA BS Lab 12/14/19 04:00 Ordered Magnesium AM LABS Lab 12/13/19 04:00 Ordered Magnesium AM LABS Lab 12/13/19 04:00 Ordered Magnesium AM LABS Lab 12/14/19 04:00 Ordered Prothrombin Time INR AM LABS Lab 12/13/19 04:00 Ordered Urinalysis and Mi croscopic Routine Lab 12/11/19 20:50 Ordered Labs from last 24 hours 12/12/19 12/12/19 12/12/19 06:10 04:54 04:54 WBC RBC Hgb Hct MCV MCH MCHC RDW Plt Count MPV Neut % (Auto) Lymph % (Auto) [place] % (Auto) Eos % (Auto) Baso % (Auto) Neut # (Auto) Lymph # (Auto) [place] # (Auto) Eos # (Auto) Baso # (Auto) Nucleated RBC % (a uto) Nucleated RBCs # PT 22.80 H INR 1.93 H Sodium 139 Potassium 4.1 Chloride 105 Carbon Dioxide 26 Anion Gap 12.1 BUN 38 H Creatinine 3.4 H GFR Calculation Not Reportable Glucose 163 H POC Glucose 143 Calculated Osmolal ity 289 Calcium 8.5 Magnesium 2.3 Total Bilirubin 0.5 AST 20 ALT 14 Alkaline Phosphata se 104 Total Protein 6.2 L Albumin 3.3 L Globulin 2.9 Peritoneal pH Peritoneal Tot Pro tein Peritoneal Albumin Peritoneal LDH Peritoneal Glucose 12/12/19 12/11/19 12/11/19 04:54 20:30 20:06 WBC 8.5 RBC 4.50 Hgb 13.1 Hct 40.4 L MCV 89.8 MCH 29.1 MCHC 32.4 RDW 12.7 Plt Count 157 MPV 11.8 H Neut % (Auto) 69.7 Lymph % (Auto) 14.9 J[place] % (Auto) 11.0 Eos % (Auto) 3.6 Baso % (Auto) 0.4 Neut # (Auto) 5.94 Lymph # (Auto) 1.3 [place] # (Auto) 0.9 Eos # (Auto) 0.3 Baso # (Auto) 0.0 Nucleated RBC % (a uto) 0 Nucleated RBCs # 0.0 PT INR Sodium Potassium Chloride Carbon Dioxide Anion Gap BUN Creatinine GFR Calculation Glucose POC Glucose 206 Calculated Osmolal ity Calcium Magnesium Total Bilirubin AST ALT Alkaline Phosphata se Total Protein Albumin Globulin Peritoneal pH 7.0 Peritoneal Tot Pro tein 0.2 Peritoneal Albumin 0.2 Peritoneal LDH 10.0 Peritoneal Glucose 799.0 12/11/19 12/11/19 12/10/19 17:04 11:09 18:01 WBC RBC Hgb Hct MCV MCH MCHC RDW Plt Count MPV Neut % (Auto) Lymph % (Auto) [place] % (Auto) Eos % (Auto) Baso % (Auto) Neut # (Auto) Lymph # (Auto) [place] # (Auto) Eos # (Auto) Baso # (Auto) Nucleated RBC % (a uto) Nucleated RBCs # PT INR Sodium Potassium Chloride Carbon Dioxide Anion Gap BUN Creatinine GFR Calculation Glucose POC Glucose 214 214 81 Calculated Osmolal ity Calcium Magnesium Total Bilirubin AST ALT Alkaline Phosphata se Total Protein Albumin Globulin Peritoneal pH Peritoneal Tot Pro tein Peritoneal Albumin Peritoneal LDH Peritoneal Glucose Vitals: Last Vital Signs Temp 98.0 F 12/12/19 10:40 Pulse 76 12/12/19 10:40 Resp 21 H 12/12/19 10:40 BP 154/82 12/12/19 10:40 Pulse Ox 98 12/12/19 10:40 Discharge Plan Discharge Patient Disposition: Home Condition: Stable Prescriptions: Continued cholecalciferol (vitamin D3) 1,000 unit capsule 1,000 unit PO DAILY RF: 0 gabapentin 100 mg capsule 200 mg PO BID RF: 0 warfarin 1 mg tablet 1 mg PO DIRECTED RF: 0 tamsulosin 0.4 mg capsule 0.4 mg PO DAILY RF: 0 levothyroxine 88 mcg capsule 88 mcg PO DAILY RF: 0 Lantus U-100 Insulin 100 unit/mL solution 10 unit SUBCUT DAILY RF: 0 Novolog U-100 Insulin aspart 100 unit/mL solution 5 unit SUBCUT .sliding scale RF: 0 nitroglycerin [Nitrostat] 0.4 mg tablet, sublingual 0.4 mg SUBLINGUAL DIRECTED RF: 0 atorvastatin 20 mg tablet 20 mg PO DAILY RF: 0 aspirin [Adult Aspirin Regimen] 81 mg tablet,delayed release (DR/EC) 81 mg PO DAILY RF: 0 donepezil [Aricept] 5 mg tablet 5 mg PO DAILY RF: 0 furosemide 40 mg tablet 40 mg PO DAILY RF: 0 furosemide 20 mg tablet 20 mg PO DAILY Qty: 90 RF: 3 amlodipine 5 mg tablet 2.5 mg PO BID 90 Days Qty: 90 RF: 3 isosorbide mononitrate 30 mg tablet extended release 24 hr 30 mg PO DAILY Qty: 90 RF: 3 Discontinued metoprolol tartrate 25 mg tablet 25 mg PO BID RF: 0 Discharge Orders: Discharge Order (Routine); Ordered 12/12/19 Ordered By: Tc Perdomo Referrals: Kelin Rosas MD [Physician] - 01/12/20 John Kauffman MD [Primary Care Provider] - 4-7 days Discharge Diet: Advance as tolerated Discharge Activity: Increase activity as tolerated Activity Restrictions/Additional Instructions: Please call your doctor or present to emergency department if your condition worsens or you develop diarrhea, lightheadedness, fatigue or see blood in your stool or black stool. Please do not take metoprolol as it is likely the cause of your bradycardia. Please follow-up with Dr. Rosas primary care physician and keep your blood sugar, blood pressure and heart rate log 3 times daily to present to your doctors for medication adjustment. 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
--- NOTE | 2019-12-12 11:25 | PC.NURSE ---
walked pt 75 ft he wak with no walker he held on to my hand he had no issues
[2019-12-12 11:35] LABS: Glucose Point of Care 103 mg/dL (70-110)
--- NOTE | 2019-12-12 14:27 | PC.NURSE ---
patient refused 1400 dose of warfarin due to discharge and patient reports he takes it at night and would like to resume his home schedule tonight.
--- NOTE | 2019-12-12 15:44 | PC.NURSE ---
Patient discharged and staff transported patient via w/c to heart care services per orders with spouse present. All patient belongings and discharge instructions were sent with patient. Patient verbalized understanding of discharge instructions. Patient denies any further questions at this time. IV line discontinued, catheter tip intact, patient tolerated well.
== END 2019-12-12 15:35 | disposition home or self-care (01) | DRG 308 ==
LOC: ER 09:19 → ICU 12:21 → CSU 12-11 17:21
PROVIDERS: Family Medicine; Admitting Provider Internal Medicine; PCP Family Medicine; Visit Provider Internal Medicine
DX: R00.1 Bradycardia, unspecified (principal); N18.6 End stage renal disease; I12.0 Hypertensive chronic kidney disease with stage 5 chronic kidney disease or end stage renal disease; N25.81 Secondary hyperparathyroidism of renal origin; T44.7X5A Adverse effect of beta-adrenoreceptor antagonists, initial encounter; I48.91 Unspecified atrial fibrillation; Z99.2 Dependence on renal dialysis; E11.22 Type 2 diabetes mellitus with diabetic chronic kidney disease; I25.10 Atherosclerotic heart disease of native coronary artery without angina pectoris; Z95.5 Presence of coronary angioplasty implant and graft; Z95.3 Presence of xenogenic heart valve; Z79.01 Long term (current) use of anticoagulants; Z86.73 Personal history of transient ischemic attack (TIA), and cerebral infarction without residual deficits; I48.92 Unspecified atrial flutter; Z79.4 Long term (current) use of insulin; Z79.82 Long term (current) use of aspirin
CPT/HCPCS: 12345; 36415; 36416; 71045; 80053; 82042; 82945; 82962; 83615; 83735; 83986; 84157; 84484; 85025; 85610; 87070; 87075; 87205; 90935; 93005; 93880; 96372; 96375; 99283; J0360; J0461; J1815; J2060; J2405; J3490; Q3014

== ENCOUNTER 2021-03-21 07:01 | Outpatient (CLI) | payer MEDICARE, OTHER, SELFPAY ==
--- NOTE | 2021-03-21 07:15 | USCV_ITS ---
Heber Roach Age: 86 Gender: M : 1935 Exam Date: 03/21/2021 07:29 Ordering Phys: Kelin Rosas MD ([email or web address]) Technologist: ALESHIA [place] [facility] [place]: SOB BP: 128 / 70 HR: 45 Rhythm: Sinus Technical Quality: Technically difficult study MEASUREMENTS (Male / Female) Normal Values 2D ECHO LV Diastolic Diameter PLAX 2.8 cm 4.2 - 5.9 / 3.9 - 5.3 cm LV Systolic Diameter PLAX 1.8 cm IVS Diastolic Thickness 1.8 cm 0.6 - 1.0 / 0.6 - 0.9 cm IVS Systolic Thickness 1.8 cm LVPW Diastolic Thickness 3.0 cm 0.6 - 1.0 / 0.6 - 0.9 cm LVPW Systolic Thickness 3.0 cm LVOT Diameter 2.0 cm LV Ejection Fraction 2D Teich 67.6 % LV Ejection Fraction MOD 2C 65.3 % LV Ejection Fraction 2C AL 64.4 % LA Diameter 4.5 cm LA Width 4.1 cm LA Height 6.2 cm RA Width 3.9 cm RA Height 5.2 cm Aorta at Sinotubular Diameter 2.3 cm M-MODE Aortic Annulus Diameter 3.0 cm LA Ao Ratio MM 1.6 MV E Point Septal Separation 0.7 cm DOPPLER AV Peak Velocity 473.0 cm/s LVOT Peak Velocity 108.0 cm/s AV Area Cont Eq vti 0.7 cm squared AV Area Cont Eq pk 0.7 cm squared MV Area PHT 2.3 cm squared Mitral E to A Ratio 0.8 MV E' Velocity 59.0 cm/s TR Peak Velocity 292.8 cm/s TR Peak Gradient 34.3 mmHg TR Mean Velocity 222.3 cm/s TR Mean Gradient 20.8 mmHg TR Velocity Time Integral 85.2 cm FINDINGS Left Ventricle Normal left ventricular cavity size. Normal left ventricular systolic function. No regional wall motion abnormalities. Left ventricular ejection fraction is estimated at 67 %. Grade I/IV diastolic dysfunction (abnormal relaxation filling pattern), normal to mildly elevated filling pressures. Right Ventricle The right ventricle is normal in size and function. RVSP could not be calculated due to incomplete tricuspid regurgitation velocity profile. Right Atrium The right atrium is normal in size. Left Atrium Mildly increased left atrial size. Mitral Valve Structurally normal mitral valve without significant stenosis or prolapse. There is no mitral regurgitation. Aortic Valve Bioprosthetic aortic valve is sitting normally. Severe bioprosthetic aortic valve stenosis, mean gradient 49.3 mmHg, RAYO 0.71 cm squared. Vbgs-we-mjivsrwi aortic valve regurgitation. Velocity across the aortic valve is 4.7 m/s Tricuspid Valve Mild tricuspid valve regurgitation. Pulmonic Valve Structurally normal pulmonic valve without significant stenosis. There is no pulmonic regurgitation. Pericardium Normal pericardium without effusion. Aorta Normal ascending aorta dimension. CONCLUSIONS 1-Normal left ventricular cavity size. Normal left ventricular systolic function. No regional wall motion abnormalities. Left ventricular ejection fraction is estimated at 67 %. Grade I/IV diastolic dysfunction (abnormal relaxation filling pattern), normal to mildly elevated filling pressures. 2-Bioprosthetic aortic valve is sitting normally. Severe bioprosthetic aortic valve stenosis, mean gradient 49.3 mmHg, RAYO 0.71 cm squared. Lqjz-hr-jggvtamr aortic valve regurgitation. Velocity across the aortic valve is 4.7 m/s 3-Structurally normal mitral valve without significant stenosis or prolapse. There is no mitral regurgitation. 4-Mild tricuspid valve regurgitation. 5-The right ventricle is normal in size and function. RVSP could not be calculated due to incomplete tricuspid regurgitation velocity profile. 6-There is no pericardial effusion. 7-When compared to the prior echocardiogram dated 07 January 2019 bioprosthetic aortic valve moderate stenosis has worsened to severe now. Kelin Rosas MD (Electronically Signed) Final Date: 26 March 2021 18:32 S
== END 2021-03-21 07:02 | disposition home or self-care (01) ==
LOC: RAD 07:04
PROVIDERS: PCP Family Medicine; Visit Provider Internal Medicine Cardiovascular Disease
DX: I08.2 Rheumatic disorders of both aortic and tricuspid valves (principal); R06.02 Shortness of breath; Z95.2 Presence of prosthetic heart valve
CPT/HCPCS: 93306

== ENCOUNTER → 2021-05-20 11:20 | Outpatient (BNVA) | payer MEDICARE, OTHER, SELFPAY | PROVIDERS: PCP Family Medicine; Referring Provider Internal Medicine Cardiovascular Disease; Visit Provider Internal Medicine Cardiovascular Disease | DX: I35.0 Nonrheumatic aortic (valve) stenosis (principal); I50.9 Heart failure, unspecified; I48.91 Unspecified atrial fibrillation; R55 Syncope and collapse; Z20.822 Contact with and (suspected) exposure to COVID-19 | CPT/HCPCS: 80048; 85025; 85610; 87635 ==

== ENCOUNTER 2021-05-23 07:32 | Outpatient (CLI) | payer MEDICARE, OTHER, SELFPAY ==
[2021-05-23] VITALS (21 sets, daily range): BP systolic 150–193; BP diastolic 77–145; PULSE 67–84; RESP 12–24; TEMP 36.8; O2SAT 93–98; BMI 32.4
--- NOTE | 2021-05-23 07:30 | XACV_ITS ---
Exam Room: 2 Ht: 170 cm Wt: 94 kg BSA: 2.14 m2 Gender: Male : 1935 Any Known Allergies: Other Exam Priority: Routine Procedure(s): Procedure Description: Diagnostic procedure Procedure Description: PCI procedure Procedure Description: Venous Graft Catheterization Procedure Description: SWEET Graft Catheterization Procedure Description: Coronary Angiography Diagnostic Cath Status: Elective Diagnostic Findings * Left Main has no disease. * Mid Left Anterior Descending: total occlusion, LEILA: 0 flow. * Left Internal Mammary Artery to Mid Left Anterior Descending graft: patent. * Proximal Right Coronary Artery: significant 80% stenosis, LEILA: 3 flow. * Mid Circumflex: obstructive 60% stenosis, LEILA: 3 flow. * First Obtuse Marginal Branch Segment: moderate 50% stenosis, LEILA: 3 flow. * Second Obtuse Marginal Branch Segment: severe 90% stenosis, LEILA: 1 flow. * Ascending Aorta to Second Obtuse Marginal Branch Segment graft: patent. * Two grafts visualized. * Coronary angiography shows right dominance. PCI Status: Elective Conclusions 1. Indication for coronary angiogram: 86-year-old male past medical history significant for history of aortic valve replacement, multivessel coronary artery disease with 2 grafts saphenous venous grafts to obtuse marginal and SWEET to LAD with history of end-stage renal disease on peritoneal dialysis. Both saphenous venous graft to obtuse marginal 2 and SWEET to LAD was patent. 2. Please note that patient has torturous iliac and aorta, despite of using long sheath including 45 and 90 cm flexor kinking of catheters were noted. Patient was also noncoperative. He had left main without significant disease mid LAD was known to be occluded, SWEET to mid LAD is patent, obtuse marginal 1 has proximal 50% stenosis mid circumflex has 60% stenosis while obtuse marginal 2 has long 90% stenosis which was bypassed with saphenous venous graft appeared to be patent. RCA has proximal significant 80 3. - 4. 85% stenosis this vessel was not bypassed. Initial plan was to perform IFR of mid left circumflex and PCI of proximal RCA as patient is going for aortic valve replacement however because of extreme tortuosity of the aorta not good engagement of guide catheter and noncoperation of the patient on the table with movements, we aborted intervention with the plan as patient may will be going for surgery or TAVR during that procedure those vessels can be addressed.. 5. There is total occlusion coronary artery disease with three vessel disease. 6. Two coronary grafts visualized: all grafts patent. 7. Patient has prior CABG. Recommendations * Usual post-cath care with. Diagnostic RX Recommendation: PCI w/o planned CABG Pressures Phase:Rest AO : 148 / 69 ( 101 ) @ 8:31:00 AM 127 / 76 ( 100 ) @ 8:36:00 AM 143 / 78 ( 108 ) @ 8:41:00 AM 188 / 65 ( 110 ) @ 8:54:00 AM 179 / 87 ( 122 ) @ 9:13:00 AM 197 / 93 ( 126 ) @ 9:20:00 AM Clinical Evaluation EBL: 5mL-10mL Procedural Details Procedure Consent Obtained. Pre-Procedure Time Out. Identified patient by full name and date of as verbalized by the patient/guarantor. Does the consent match the physician's order: Yes. Accurate & Complete Informed Consent: Yes. Inpatient/Outpatient History & Physical on Chart: Yes. If H&P is completed, is and addenduem needed: Yes; If yes, is the addendum complete: Yes. Visualize and Verify Site with Patient/Guarantor: N/A. Relevant Radiology Images available: Yes. Pre-op teaching completed and patient verbalized understanding. The risks, benefits, and alternatives of sedation and/or procedure were discussed by physician. The patient agrees to continue. Procedure started. [facility] Clinical Fraility Score: 4: Vulnerable. Supervisor Smoke Control Indications: Pre-operative Evaluation. Correct patient, site and procedure confirmed by cath team. PERRLA. Strong, equal hand wing coverer bilaterally. Lungs clear x 5 lobes. A 20 gauge IV was started in the right wrist using aseptic technique. IV Fluids: 0.9% NaCl at KVO. 0 mL infused prior to central lab technician. Oxygen started at 2liters/min via nasal canula. right groin was prepped with chloroprep then draped in the usual sterile fashion. Physician notified. Baseline sample Acquired. HR: 87 BPM. Physician arrived. Physician scrubbed in. Immediate Pre-Procedure Time Out. Correct Patient: Yes; Correct Procedure: Yes; Correct Site: Yes; Correct Patient Position: Yes; Correct Supplies: Yes; Dried Flammable Prep: Yes; Blood Products Available: N/A;. Lidocaine 1% infiltrated to the right groin. Arterial access obtained with micropuncture set. A Right femoral angiogram was performed to determine safe placement of closure device. A 5 [place] JL4 catheter in over wire. Catheter out. Sheath upsized to a 6 Fr. A 5 [place] JL4 catheter in over wire. Catheter out. Sheath upsized to a 6 Fr. A 5 [place] JL4 catheter in over wire. Catheter removed over the standard wire. 6 [place] XB 3.5 guide catheter was inserted over the wire. Guide catheter out. A new 6 [place] XB 3.5 guide catheter was inserted over the wire. Multiple views taken of left coronary artery. Catheter removed over the standard wire. A 5 [place] JR4 catheter in over wire. Multiple views taken of right coronary artery. SVG's to OM visualized and patent. SWEET to LAD visualized. Catheter removed over the standard wire. Physician review of cine films. PCI Indication: CAD (without ischemic symptoms). Side port of sheath attached to Normal Saline flush at KVO to maintain patency. 6 [place] JR 4 guide catheter was inserted over the wire. Guide catheter out. 6 [place] AL 0.75 guide catheter was inserted over the wire. [place] guidewire was advanced through the guide catheter to lesion in the mid RCA. Wire out. Guide catheter out. The 45cm 6Fr Flexor sheath exchanged for a 90cm 6Fr sheath. wire out. Inventory is TR Glidewire Angled Stiff Shaft .035 260cm. glidewire inserted. 6 [place] JR 4 guide catheter was inserted over the wire. Guide catheter out. 6 [place] JR 4 guide 125cm catheter was inserted over the wire. [place] guidewire was advanced through the guide catheter to lesion in the mid RCA. 2.5x15mm balloon inserted and advanced through the catheter. Balloon out. Wire out. Guide catheter out. The long sheath exchanged for a short 6Fr sheath. Side port of sheath attached to Normal Saline flush at KVO to maintain patency. A Angio-Seal VIP Lot#[id number] ([facility]) was successful obtaining hemostatsis at the Right Femoral artery insertion site. Post Procedure: Pulses reassessed and unchanged. PERRLA. Strong, equal hand wing coverer bilaterally. No VTE prophylaxis required. Total IV fluids: 135 mL. Complications: None. Estimated blood loss: 5mL-10mL. Responsiveness - Normal response to verbal stimuli; alert and oriented, PERRLA. Airway - Unaffected, no intervention required; spontaneous ventilation. Circulation: W/N/L, pulses unchanged. Nausea/Vomiting: No. Procedure completed. Patient transferred by stretcher to CPRU. Vital chart was stopped. Access Site Site: Right Femoral artery Sheath Size: 6 Fr Hemostasis Method: Angio-Seal VIP ([facility]) Hemostasis Success: Successful Procedure Medications Start: 10:02 AM Stop: 10:02 AM Medication: Versed 1 mg and Fentanyl 25 mcg Amount: 0.5 Route: I.V. Start: 10:58 AM Stop: 10:58 AM Medication: Plavix Amount: 600 mg Route: P.O. Start: 10:58 AM Stop: 10:58 AM Medication: Aggrastat 12.5 mg/250 mL Amount: 47 ml Route: I.V. bolus Start: 10:58 AM Stop: 10:58 AM Medication: Versed 1 mg and Fentanyl 25 mcg Amount: 0.5 Route: I.V. I, the attending physician, have reviewed and verified all procedure medications. Yes, all medications given per verbal order History/Risk Factors Hypertension: Yes Dyslipidemia: No Peripheral Arterial Disease (PAD): No Myocardial Infarction ([place]): No Obesity: No Renal Disease: Yes Dialysis: Current Prior Interventions PCI: No CABG: Yes Valve Surgery: No Report Signatures Finalized by Kelin Rosas MD on 05/28/2021 04:05 PM
[2021-05-23] MEDS: diphenhydrAMINE 50 mg Capsule PO (08:22)
--- NOTE | 2021-05-23 09:53 | W.PM.OPSFHP ---
Same Day Surgery H&P Indication for Procedure/HPI DATE OF PROCEDURE: May 23, 2021 CHIEF COMPLAINT/INDICATIONFOR SURGICAL PROCEDURE: Preaortic valve replacement PREOP DIAGNOSIS: Prevalve surgery angiogram of coronaries/PCI if indicated PLANNED PROCEDURE: Operation Date: 05/23/21 08:30 Proposed Procedures p Cardiac Catheterization(Left) - Kelin Rosas MD 86-year-old male past medical history significant for end-stage renal disease on peritoneal dialysis, history of CABG, atrial fibrillation history of aortic valve replacement history of PCI hypertension hyperlipidemia who is here for a redo aortic valve stenosis for severe aortic valve stenosis at [facility]. We have been asked to do prevalve angiogram for coronaries and graft with possible intervention if indicated. Patient has been explained all risk benefit and alternative for the procedure. He understand risk for stroke worsening of renal function electrolyte imbalance major minor bleed vascular injury urgent emergent bypass surgery and nerve damage. He understood along with his and give us permission to proceed with it. Medications/Allergies* Home Medications Medication Instructions Recorded Confirmed Type atorvastatin 20 mg tablet 20 mg PO DAILY tab 05/10/19 05/22/21 History insulin aspart U-100 100 unit/mL 5 unit SUBCUT .sliding scale ml 05/10/19 05/23/21 History subcutaneous solution (Novolog U-100 Insulin aspart) insulin glargine 100 unit/mL 10 unit SUBCUT DAILY ml 05/10/19 05/23/21 History subcutaneous solution (Lantus U-100 Insulin) levothyroxine 88 mcg capsule 88 mcg PO DAILY cap 05/10/19 05/23/21 History nitroglycerin 0.4 mg sublingual 0.4 mg SUBLINGUAL DIRECTED tab 05/10/19 05/22/21 History tablet (Nitrostat) warfarin 1 mg tablet 1 mg PO DIRECTED tab 05/10/19 05/22/21 History cholecalciferol (vitamin D3) 25 1,000 unit PO DAILY 05/11/19 05/22/21 History mcg (1,000 unit) capsule gabapentin 100 mg capsule 200 mg PO BID cap 05/11/19 05/22/21 History aspirin 81 mg tablet,delayed 81 mg PO DAILY 11/11/19 05/22/21 History release (Adult Aspirin Regimen) amlodipine 5 mg tablet 5 mg PO BID tab 02/01/20 05/22/21 History furosemide 40 mg tablet 40 mg PO BID tab 01/08/21 05/22/21 History tamsulosin 0.4 mg capsule 0.4 mg PO BID cap 01/08/21 05/22/21 History Allergies/Adverse Reactions Allergy/AdvReac Type Severity Reaction Status Date / Time apple Allergy Unknown Unknown Verified 04/03/21 14:54 morphine Allergy Unknown Unknown Verified 04/03/21 14:54 oxycodone [From Percocet] Allergy Unknown Unknown Verified 04/03/21 14:54 lorazepam [From Ativan] AdvReac Intermediate ADR-Agitate Verified 04/03/21 14:54 d Current Medications: Generic Name Dose Route Start Last Admin Trade Name Freq PRN Reason Stop Dose Admin Sodium Chloride 1,000 mls @ 50 mls/hr 05/23/21 07:30 05/23/21 08:23 Sodium Chloride 0.9% IV 05/24/21 03:29 Not Given .Q20H ONE Pertinent History/Comorbid Conditions* Medical History (Updated 04/03/21 @ 15:22 by RADHA Vargas) Aortic stenosis Atrial fibrillation CAD (coronary artery disease) CHF (congestive heart failure) Diabetes mellitus End stage renal disease HTN (hypertension) Peritoneal dialysis catheter in place Peritoneal dialysis status Renal failure Thyroid disease TIA (transient ischemic attack) Surgical History (Updated 12/10/19 @ 14:50 by Timoteo Hernandez DO) S/P aortic valve replacement S/P CABG (coronary artery bypass graft) Family History (Updated 12/10/19 @ 12:36 by Tc Perdomo MD) Father Diabetes CAD (coronary artery disease) Myocardial infarction Stroke Father Social History Alcohol intake: current History of recent travel: No Pertinent Exam Findings alert, oriented x 3, clear to auscultation bilaterally, regular rate & rhythm (Irregularly irregular) and operative site marked GENERAL: Patient is alert, awake and oriented x3. NECK: No jugular vein distension. HEENT: No cyanosis. No icterus. No pallor. HEART: Regular S1 and S2.2/6 systolic murmur, rub or gallop. LUNGS: Clear to auscultate bilaterally. Conscious Sedation Assessment PATIENT ASSESSED PRIOR TO SEDATION, WITH NO CHANGE NOTED: Yes AIRWAY EVAL/ANESTHESIA PLAN: ASA II and Risks, benefits & alternatives of sedation and/or procedure discussed Recommendations Surgery/Procedure today Other Plans: We will proceed coronary angiogram and PCI if indicated before the valve. Right groin approach will be adapted. 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
--- NOTE | 2021-05-23 11:58 | PC.NURSE ---
received pt via bed post cath. pt sleepy but able to wake and talk when stimulated. pt educated on restrictions of legs and stated understanding. pt complains of his back hurting and a bit of heartburn, but no pain at the site of procedure. pt placed on monitor and will be monitored per protocol. site dry and intact with no hematoma or bruising noted. plan is to bedrest for 3 hrs and will be up and home in 4 if no complications. pt family now at bedside and also state they understand his restriction of his leg.
--- NOTE | 2021-05-23 12:33 | PC.NURSE ---
poc glucose result of 103, no insulin needed.
[2021-05-23 12:53] LABS: Glucose Point of Care 103 mg/dL (70-110)
== END 2021-05-23 16:56 | disposition home or self-care (01) ==
PROVIDERS: PCP Family Medicine; Visit Provider Internal Medicine Cardiovascular Disease
DX: I35.0 Nonrheumatic aortic (valve) stenosis (principal); I25.10 Atherosclerotic heart disease of native coronary artery without angina pectoris; I25.82 Chronic total occlusion of coronary artery; E11.22 Type 2 diabetes mellitus with diabetic chronic kidney disease; I13.2 Hypertensive heart and chronic kidney disease with heart failure and with stage 5 chronic kidney disease, or end stage renal disease; I50.9 Heart failure, unspecified; N18.6 End stage renal disease; Z99.2 Dependence on renal dialysis; Z95.1 Presence of aortocoronary bypass graft; I48.91 Unspecified atrial fibrillation; E78.5 Hyperlipidemia, unspecified; Z79.4 Long term (current) use of insulin; Z79.82 Long term (current) use of aspirin; Z86.73 Personal history of transient ischemic attack (TIA), and cerebral infarction without residual deficits; Z82.49 Family history of ischemic heart disease and other diseases of the circulatory system; Z82.3 Family history of stroke
CPT/HCPCS: 36415; 36416; 82962; 93455; C1725; C1760; C1769; C1887; C1894; J1644; J2250; J3010; J7030; Q0163; Q9967

== ENCOUNTER → 2021-08-14 14:42 | Outpatient (BNVA) | payer MEDICARE, OTHER, SELFPAY | PROVIDERS: PCP Family Medicine; Visit Provider Internal Medicine Cardiovascular Disease | DX: I48.19 Other persistent atrial fibrillation (principal); I35.0 Nonrheumatic aortic (valve) stenosis; I11.0 Hypertensive heart disease with heart failure; I50.32 Chronic diastolic (congestive) heart failure; I25.10 Atherosclerotic heart disease of native coronary artery without angina pectoris; E11.9 Type 2 diabetes mellitus without complications; Z95.1 Presence of aortocoronary bypass graft; Z79.4 Long term (current) use of insulin | CPT/HCPCS: 99214 ==

== ENCOUNTER 2021-08-19 14:42 | Outpatient (RCR) | payer MEDICARE, OTHER, SELFPAY | END 2021-09-17 23:59 | disposition home or self-care (01) | LOC: CR 14:42 | PROVIDERS: PCP Family Medicine; Referring Provider Internal Medicine Cardiovascular Disease; Visit Provider Internal Medicine Cardiovascular Disease | DX: Z95.2 Presence of prosthetic heart valve (principal) | CPT/HCPCS: 93798 ==

== ENCOUNTER 2021-09-19 14:02 | Outpatient (RCR) | payer MEDICARE, OTHER, SELFPAY | END 2021-10-17 23:59 | disposition home or self-care (01) | LOC: CR 14:02 | PROVIDERS: PCP Family Medicine; Referring Provider Internal Medicine Cardiovascular Disease; Visit Provider Internal Medicine Cardiovascular Disease | DX: Z95.2 Presence of prosthetic heart valve (principal) | CPT/HCPCS: 93798 ==

== ENCOUNTER 2021-10-18 14:35 | Outpatient (RCR) | payer MEDICARE, OTHER, SELFPAY | END 2021-11-17 23:59 | disposition home or self-care (01) | LOC: CR 14:35 | PROVIDERS: PCP Family Medicine; Referring Provider Internal Medicine Cardiovascular Disease; Visit Provider Internal Medicine Cardiovascular Disease | DX: Z95.2 Presence of prosthetic heart valve (principal) | CPT/HCPCS: 93798 ==

== ENCOUNTER 2021-11-16 09:48 | Emergency (ER) | payer MEDICARE, OTHER, SELFPAY ==
--- NOTE | 2021-11-16 09:52 | XRR_ITS ---
PROCEDURE INFORMATION: Exam: XR Chest Exam date and time: 11/16/2021 10:44 AM Age: 86 years old Clinical indication: Cough and dyspnea; Additional info: Dyspnea/cough TECHNIQUE: Imaging protocol: Radiologic exam of the chest. Views: 1 view. COMPARISON: CR XR chest 1V portable [id number] 12/10/2019 10:09 AM FINDINGS: Lungs: Unremarkable. No consolidation. Pleural spaces: Unremarkable. No pleural effusion. No pneumothorax. Heart/Mediastinum: Unremarkable. No cardiomegaly. Bones/joints: Unremarkable. XR/XR chest 1V portable [id number] IMPRESSION: No acute findings.
[2021-11-16 09:55] VITALS: BP 156/94; PULSE 104; RESP 18; TEMP 36.8; O2SAT 94; BMI 33.3
--- NOTE | 2021-11-16 10:15 | ECG_ITS ---
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 Measurements Intervals [place] Rate: 83 P: [place]: QRS: -65 QRSD: 145 T: 65 QT: 394 QTc: 464 Interpretive Statements ATRIAL FLUTTER/TACHYCARDIA INTRAVENTRICULAR CONDUCTION DELAY [130+ ms QRS DURATION] Compared to ECG 12/10/2019 15:45:27 Myocardial infarct finding no longer present Electronically Signed On 11-16-2021 11:58:24 CDT by Ino Richter M.D. [id number]
[2021-11-16 10:26] LABS: Basophils # 0.1 10^3/uL (0.0-0.1); Basophils % 0.6 %; Eosinophils # 0.2 10^3/uL (0.0-0.8); Eosinophils % 2.4 %; Hematocrit 40.5 % (42.0-52.0); Hemoglobin 13.5 g/dL (11.7-16.6); Lymphocytes # 1.3 10^3/uL (0.8-4.8); Lymphocytes % 15.2 %; Mean Corpuscular HGB Conc 33.3 g/dL (30.0-36.0); Mean Corpuscular Hemoglobin 28.9 pg (28.0-34.0); Mean Corpuscular Volume 86.7 fl (80-94); Mean Platelet Volume 11.1 fL (7.4-10.4); Monocytes # 1.2 10^3/uL (0.2-0.9); Monocytes % 14.1 %; Neutrophils # 5.51 10^3/uL (1.8-7.7); Neutrophils % 67.3 %; Nucleated Red Blood Cells % 0 %; Platelet Count 154 10^3/cmm (130-400); Red Blood Count 4.67 10^6/uL (4.1-5.3); Red Cell Distribution Width 13.2 % (12.1-15.1); White Blood Count 8.2 10^3/uL (4.0-10.0)
--- NOTE | 2021-11-16 10:41 | ED_ITS ---
HPI - Weakness General: Chief complaint: Weakness Stated complaint: WEAKNESS; COVID EXPOSURE Time Seen by Provider: 11/16/21 09:52 Source: patient Mode of arrival: EMS Limitations: other (Mild cognitive deficits.) History of Present Illness: 86-year-old male presents emergency room complaining of low-grade fever weakness and cough for the last 2 days. No nausea vomiting no diarrhea. He is alert and oriented answers all questions but does seem to have a little bit of cognitive deficit. He answers well to time place and person but when asked more about his symptoms he is not able to provide a lot of detail. He does have a history of coronary disease and previously had a valvuloplasty. He is diabetic and is on clopidogrel. He has not previously tested positive for COVID he has been vaccinated. He is concerned he may have contracted COVID. His is here with relatively similar symptoms. He is on peritoneal dialysis. MD Complaint: generalized weakness Onset (ago): minute(s) Duration: intermittent Location: generalized Severity: mild Relieving factors: none Exacerbating factors: none Context: recent illness Associated symptoms: Reports chills, fever(s), headache(s), myalgias and nausea; Denies chest pain, confusion, melena, decreased appetite, diaphoresis, dysuria, easy bruising, short of breath, syncope or vomiting Review of Systems Const: Reports: fever(s) and chills; Denies: fatigue, malaise or diaphoresis ENMT: Denies: throat pain, ear or mastoid pain, nasal discharge or nasal congestion Card: Denies: chest pain or syncope Resp: Reports: dyspnea and non-productive cough; Denies: productive cough GI: Reports: nausea; Denies: abdominal pain, vomiting or melena : Denies: flank pain, difficulty urinating, dysuria, urinary frequency or urinary urgency Skin/Breast: Denies: rash or pruritus Neuro: Reports: headache(s); Denies: confusion Jasmeet/Lymph: Denies: easy bruising PFSH ED PFSH: Medical History Aortic stenosis Atrial fibrillation CAD (coronary artery disease) CHF (congestive heart failure) Diabetes mellitus End stage renal disease HTN (hypertension) Peritoneal dialysis catheter in place Peritoneal dialysis status Renal failure Sleep apnea Thyroid disease TIA (transient ischemic attack) Surgical History S/P aortic valve replacement S/P CABG (coronary artery bypass graft) S/P cataract surgery S/P knee surgery S/P PTCA (percutaneous transluminal coronary angioplasty) S/P shoulder surgery Family History Father Stroke Other CAD (coronary artery disease) Diabetes Myocardial infarction Social History Smoking and tobacco status: never smoked Alcohol intake: current History of recent travel: No Physical Exam Const: COMMON NORMALS: no acute distress GENERAL APPEARANCE: cooperative and comfortable ORIENTATION/CONSCIOUSNESS: Yes awake, Yes oriented to person, Yes oriented to place and Yes oriented to time HENMT: COMMON NORMALS: normocephalic, atraumatic and hearing grossly normal bilaterally HEAD & SCALP: normocephalic and atraumatic Lymph: LYMPHATIC: no lymphadenopathy noted and no lymphedema noted Resp: COMMON NORMALS: normal respiratory effort, No retractions, No use of accessory muscles and clear to auscultation bilaterally AUSCULTATION: clear to auscultation bilaterally Cardio: COMMON NORMALS: regular rate, regular rhythm and No murmurs present (Cardio) RATE: regular rate RHYTHM: regular rhythm GI: COMMON NORMALS: Soft to palpation and No hepatosplenomegaly present AUSCULTATION: Yes normoactive bowel sounds PALPATION: Yes Soft to palpation, No Tenderness to palpation present (GI), No Guarding due to palpation present (GI) and Yes No hepatosplenomegaly present Extremity: COMMON NORMALS: normal to inspection, capillary refill normal, no clubbing, cyanosis or edema, no calf tenderness and no pedal edema Neuro: SENSORIUM/ORIENTATION: Yes oriented to person, Yes oriented to place and Yes oriented to time Skin: COMMON NORMALS: no rashes or lesions noted GENERAL SKIN EXAM: no rashes or lesions noted Course Vital Signs: Vital signs: Vital Signs Temperature 98.3 F 11/16/21 09:55 Pulse Rate 82 11/16/21 11:57 Respiratory Rate 16 11/16/21 11:57 Blood Pressure 164/78 11/16/21 11:57 Pulse Oximetry 98 11/16/21 11:57 Oxygen Delivery Me thod 11/16/21 11:57 MDM - Weakness Medical Decision Making Based on history and on exposures suspect patient has COVID. He also has end- stage renal disease which is being addressed. His potassium is normal. We will go ahead and discharge patient home continue on his regular regimen of medications contact him when the results are returned on the COVID. Because of his end-stage renal disease he is not a candidate for pack Slo-Bid. Medical Records I reviewed the patient's medical records. Lab Data I reviewed the patient's lab results. : 11/16/21 10:10 11/16/21 10:10 Radiology Impressions Chest X-Ray 11/16/21 09:52 IMPRESSION: No acute findings. Laboratory Results WBC 8.2 10^3/uL (4.0-10.0) 11/16/21 10:10 RBC 4.67 10^6/uL (4.1-5.3) 11/16/21 10:10 Hgb 13.5 g/dL (11.7-16.6) 11/16/21 10:10 Hct 40.5 % (42.0-52.0) L 11/16/21 10:10 MCV 86.7 fl (80-94) 11/16/21 10:10 MCH 28.9 pg (28.0-34.0) 11/16/21 10:10 MCHC 33.3 g/dL (30.0-36.0) 11/16/21 10:10 RDW 13.2 % (12.1-15.1) 11/16/21 10:10 Plt Count 154 10^3/cmm (130-400) 11/16/21 10:10 MPV 11.1 fL (7.4-10.4) H 11/16/21 10:10 Neut % (Auto) 67.3 % 11/16/21 10:10 Lymph % (Auto) 15.2 % 11/16/21 10:10 Fisher % (Auto) 14.1 % 11/16/21 10:10 Eos % (Auto) 2.4 % 11/16/21 10:10 Baso % (Auto) 0.6 % 11/16/21 10:10 Neut # (Auto) 5.51 10^3/uL (1.8-7.7) 11/16/21 10:10 Lymph # (Auto) 1.3 10^3/uL (0.8-4.8) 11/16/21 10:10 Fisher # (Auto) 1.2 10^3/uL (0.2-0.9) H 11/16/21 10:10 Eos # (Auto) 0.2 10^3/uL (0.0-0.8) 11/16/21 10:10 Baso # (Auto) 0.1 10^3/uL (0.0-0.1) 11/16/21 10:10 Nucleated RBC % (auto) 0 % 11/16/21 10:10 Nucleated RBCs # 0.0 /100WBC 11/16/21 10:10 Sodium 138 mmol/L (136-145) 11/16/21 10:10 Potassium 3.9 mmol/L (3.5-5.1) 11/16/21 10:10 Chloride 98 mmol/L (98-107) 11/16/21 10:10 Carbon Dioxide 27 mmol/L (22-29) 11/16/21 10:10 Anion Gap 16.9 (5-19) 11/16/21 10:10 BUN 60 mg/dL (8-23) H 11/16/21 10:10 Creatinine 5.9 mg/dL (0.7-1.2) H* 11/16/21 10:10 GFR Calculation Not Reportable 11/16/21 10:10 Glucose 197 mg/dL (65-115) H 11/16/21 10:10 Calculated Osmolality 308 mOsm/kg (285-295) H 11/16/21 10:10 Calcium 9.4 mg/dL (8.5-10.5) 11/16/21 10:10 Coronavirus 229E (PCR) Not detected (NOT DETECT) 11/16/21 10:10 SARS-CoV-2 (PCR) Detected (NOT DETECT) A 11/16/21 10:10 Discharge Plan Discharge Patient Disposition: Home Clinical Impression: Suspected 2019-nCoV infection, End stage renal disease, Peritoneal dialysis catheter in place Condition: Stable Prescriptions: No Action cholecalciferol (vitamin D3) 1,000 unit capsule 1,000 unit PO DAILY gabapentin 100 mg capsule 300 mg PO DIRECTED Rx Instructions: Pt states that he takes 100 mg am and 200 mg pm clopidogrel 75 mg tablet 75 mg PO DAILY warfarin 10 mg tablet 5 mg PO DAILY Rx Instructions: Dose being adjusted by Dr. Kauffman levothyroxine 88 mcg capsule 88 mcg PO DAILY Lantus U-100 Insulin 100 unit/mL solution 10 unit SUBCUT DAILY Rx Instructions: Pt states the takes this at 9:00. Novolog U-100 Insulin aspart 100 unit/mL solution 5 unit SUBCUT .sliding scale nitroglycerin [Nitrostat] 0.4 mg tablet, sublingual 0.4 mg SUBLINGUAL DIRECTED atorvastatin 20 mg tablet 20 mg PO DAILY tamsulosin 0.4 mg capsule 0.4 mg PO DAILY furosemide 40 mg tablet 40 mg PO BID Rx Instructions: Take 1 tablet by mouth every morning. amlodipine 5 mg tablet 5 mg PO BID Rx Instructions: Take 1 tablet by mouth every morning isosorbide mononitrate 30 mg tablet extended release 24 hr 30 mg PO DAILY Qty: 90 3RF Discharge Orders: Discharge ED (Routine); Ordered 11/16/21 Ordered By: Timoteo Hernandez Referrals: John Kauffman MD [Primary Care Provider] - Discharge Diet: Usual diet Discharge Activity: Limit activity as instructed Patient Instructions: COVID-19 (Coronavirus Disease 2019) (ED), Opioid Safety Activity Restrictions/Additional Instructions: You were tested for COVID-19 I do suspect he may have it given the history of known exposure and your symptoms. We will contact you with results when they are available recommend you main self quarantine until that time. Monitor home oxygen sats with finger oximeter as instructed by nursing at the time of discharge. Coding Level of Care Code ED Assistant Distribution Manager for Ramu Fwwilbert Exam Comprehensive
[2021-11-16 10:45] LABS: Anion Gap 16.9 (5-19); Blood Urea Nitrogen 60 mg/dL (8-23); Calcium 9.4 mg/dL (8.5-10.5); Carbon Dioxide 27 mmol/L (22-29); Chloride 98 mmol/L (98-107); Glucose 197 mg/dL (65-115); Osmolality Calculated 308 mOsm/kg (285-295); Potassium 3.9 mmol/L (3.5-5.1); Sodium 138 mmol/L (136-145)
[2021-11-16 10:59] VITALS: BP 127/82; PULSE 93; RESP 17; O2SAT 97
[2021-11-16 11:00] VITALS: BP 144/88; PULSE 91; RESP 19; O2SAT 95
[2021-11-16 11:57] VITALS: BP 164/78; PULSE 82; RESP 16; O2SAT 98
[2021-11-16 12:28] LABS: Adenovirus Not Detected (NOT DETECT); Chlamydia Pneumoniae Not Detected (NOT DETECT); Coronavirus 229E,HKU1,NL63,OC4 Not Detected (NOT DETECT); Human Metapneumovirus Not Detected (NOT DETECT); Human Rhinovirus/Enterovirus Not Detected (NOT DETECT); Influenza A Not Detected (NOT DETECT); Influenza A H1 Not Detected (NOT DETECT); Influenza A H1-2009 Not Detected (NOT DETECT); Influenza A H3 Not Detected (NOT DETECT); Influenza B Not Detected (NOT DETECT); Mycoplasma Pneumoniae Not Detected (NOT DETECT); Parainfluenza Virus Type 1 Not Detected (NOT DETECT); Parainfluenza Virus Type 2 Not Detected (NOT DETECT); Parainfluenza Virus Type 3 Not Detected (NOT DETECT); Parainfluenza Virus Type 4 Not Detected (NOT DETECT); Respiratory Syncytial Virus A Not Detected (NOT DETECT); Respiratory Syncytial Virus B Not Detected (NOT DETECT); SARS-COV-2 Detected (NOT DETECT)
--- NOTE | 2021-11-16 12:32 | PC.NURSE ---
notified about postive covid reslt
== END 2021-11-16 12:15 | disposition home or self-care (01) ==
PROVIDERS: Emergency Provider Family Medicine; PCP Family Medicine
DX: U07.1 COVID-19 (principal); I13.2 Hypertensive heart and chronic kidney disease with heart failure and with stage 5 chronic kidney disease, or end stage renal disease; E11.22 Type 2 diabetes mellitus with diabetic chronic kidney disease; N18.6 End stage renal disease; I50.9 Heart failure, unspecified; Z99.2 Dependence on renal dialysis; Z79.01 Long term (current) use of anticoagulants; Z79.02 Long term (current) use of antithrombotics/antiplatelets; Z79.4 Long term (current) use of insulin; I25.10 Atherosclerotic heart disease of native coronary artery without angina pectoris; Z86.73 Personal history of transient ischemic attack (TIA), and cerebral infarction without residual deficits; Z95.1 Presence of aortocoronary bypass graft
CPT/HCPCS: 71045; 80048; 85025; 87635; 93005; 99285

== ENCOUNTER 2021-12-03 06:00 | Outpatient (RCR) | payer MEDICARE, OTHER, SELFPAY | END 2021-12-18 23:59 | disposition home or self-care (01) | LOC: SPT 06:00 | PROVIDERS: PCP Family Medicine; Referring Provider Family Medicine; Visit Provider Family Medicine | DX: R53.1 Weakness (principal) | CPT/HCPCS: 97110; 97161 ==

== ENCOUNTER 2021-12-19 06:00 | Outpatient (RCR) | payer MEDICARE, OTHER, SELFPAY | END 2022-01-17 23:59 | disposition home or self-care (01) | LOC: SPT 06:00 | PROVIDERS: PCP Family Medicine; Visit Provider Family Medicine | DX: R53.1 Weakness (principal) | CPT/HCPCS: 97110; 97116 ==

== ENCOUNTER → 2021-12-25 14:37 | Outpatient (BNVA) | payer MEDICARE, OTHER, SELFPAY | PROVIDERS: PCP Family Medicine; Visit Provider Internal Medicine Cardiovascular Disease | DX: I35.0 Nonrheumatic aortic (valve) stenosis (principal); I11.0 Hypertensive heart disease with heart failure; I50.9 Heart failure, unspecified; I48.91 Unspecified atrial fibrillation; E11.9 Type 2 diabetes mellitus without complications | CPT/HCPCS: 99214 ==

== ENCOUNTER 2022-01-18 06:00 | Outpatient (RCR) | payer MEDICARE, OTHER, SELFPAY | END 2022-02-17 23:59 | disposition home or self-care (01) | LOC: SPT 06:00 | PROVIDERS: PCP Family Medicine; Visit Provider Family Medicine | DX: R53.1 Weakness (principal) | CPT/HCPCS: 97110; 97116 ==

== ENCOUNTER 2022-02-18 16:49 | Inpatient (IN) | payer MEDICARE, OTHER, SELFPAY ==
[2022-02-18] VITALS (21 sets, daily range): BP systolic 126–212; BP diastolic 75–143; PULSE 84–133; RESP 16–21; TEMP 37.9; O2SAT 91–99; BMI 29.4
[2022-02-18 17:14] LABS: Glucose Point of Care 257 mg/dL (70-110)
--- NOTE | 2022-02-18 17:17 | PC.NURSE ---
pt unable to transfer self from wheelchair to bed, required 3 staff to assist him into the bed, pt noted to have emesis in basin with him. pt is oriented to self and place, disoriented to month and year. pt asking if this year is 1987. Pt having difficulty following commands, nurse assisted pt to open eyes, PERRL at 4 mm bilat. pt's reports pt received peritoneal dialysis nightly, last dialysis was yesterday. pt skin pink/warm/dry.
--- NOTE | 2022-02-18 17:21 | ECG_ITS ---
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 Measurements Intervals [place] Rate: 84 P: [place]: QRS: -26 QRSD: 153 T: 139 QT: 366 QTc: 434 Interpretive Statements UNCERTAIN REGULAR RHYTHM LEFT BUNDLE BRANCH BLOCK [120+ ms QRS DURATION, 80+ ms Q/S IN V1/V2, 85+ ms R IN I/aVL/V5/V6] LATERAL MYOCARDIAL INFARCTION , OF INDETERMINATE AGE [40+ ms Q WAVE AND/OR ST/T ABNORMALITY IN I/aVL/V5/V6] Compared to ECG 11/16/2021 10:15:29 Left bundle-branch block now present Myocardial infarct finding now present Atrial flutter no longer present Intraventricular conduction delay no longer present Heavy Baseline artifact, need to repeat Electronically Signed On 02-18-2022 21:46:39 CDT by Douglas Vazquez M.D. [id number]
--- NOTE | 2022-02-18 17:36 | CTR_ITS ---
PROCEDURE INFORMATION: Exam: CT Head Without Contrast Exam date and time: 02/18/2022 5:48 PM Age: 86 years old Clinical indication: Stroke-like symptoms; Altered mental status/memory loss; Additional info: Symptoms of acute stroke TECHNIQUE: Imaging protocol: Computed tomography of the head without contrast. Radiation optimization: All CT scans at this facility use at least one of these dose optimization techniques: automated exposure control; mA and/or kV adjustment per patient size (includes targeted exams where dose is matched to clinical indication); or iterative reconstruction. Other technique: STROKE PROTOCOL was implemented. COMPARISON: No relevant prior studies available. RADIATION DOSE METRICS: Total DLP (mGy-cm): 1080.98 FINDINGS: Brain: There is moderate cortical atrophy. Low-density changes in the white matter are consistent with nonspecific small vessel chronic ischemic change. There is no intracranial mass, hemorrhage or edema. 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 Cerebral ventricles: No ventriculomegaly. Paranasal sinuses: Visualized sinuses are unremarkable. No fluid levels. Mastoid air cells: Visualized mastoid air cells are well aerated. Bones/joints: There is old healed blowout fracture medial wall right orbit. Soft tissues: Unremarkable. CT/CT head thrombolytic [id number] IMPRESSION: Atrophy, chronic ischemic changes and old infarct. No acute intracranial abnormality. ASSESSMENT: ASPECTS ([place] Stroke Program Early CT Score) is 10.
--- NOTE | 2022-02-18 17:37 | ED_ITS ---
HPI - Altered Mental Status General: Chief Complaint: Altered Mental Status Stated Complaint: Headache, slurred speech Time Seen by Provider: 02/18/22 17:30 Source: patient and family Mode of arrival: wheelchair Limitations: no limitations History of Present Illness: This patient was transported to the emergency department accompanied by his spouse. She gives the majority of the history. She states that he was at his normal state of affairs in [facility] until approximately 2 PM he complained of a headache. He states that this was occurring during her lunch. States that since that time he has progressively become more confused. She states he did throw up his lunch after the onset of symptoms. She states there was no fall or trauma associated with his current presentation. He has a history of aortic valve replacement both an open procedure and then a TAVR done recently. States he also takes Coumadin because of atrial fibrillation. He also has chronic kidney disease and gets peritoneal dialysis on a nightly basis. Timing confirmed by: spouse Consistency of symptoms: Getting Worse Associated symptoms: Reports no associated symptoms Review of Systems Const: Denies: fever(s) or chills Eyes: Denies: change in vision ENMT: Denies: throat pain or odynophagia Card: Reports: irregular heart rhythm; Denies: chest pain, syncope or pre-syncope Resp: Denies: dyspnea, productive cough or non-productive cough GI: Reports: vomiting; Denies: abdominal pain or diarrhea : Denies: flank pain, difficulty urinating or dysuria Musc: Denies: neck pain, back pain, extremity pain or extremity swelling Skin/Breast: Denies: rash or pruritus Neuro: Reports: headache(s) and difficulty communicating thoughts; Denies: seizure-like activity Jasmeet/Lymph: Denies: easy bruising PFSH ED PFSH: Medical History Aortic stenosis Atrial fibrillation CAD (coronary artery disease) CHF (congestive heart failure) Diabetes mellitus End stage renal disease HTN (hypertension) Peritoneal dialysis catheter in place Peritoneal dialysis status Renal failure Sleep apnea Thyroid disease TIA (transient ischemic attack) Surgical History S/P aortic valve replacement S/P CABG (coronary artery bypass graft) S/P cataract surgery S/P knee surgery S/P PTCA (percutaneous transluminal coronary angioplasty) S/P shoulder surgery Family History Father Stroke Other CAD (coronary artery disease) Diabetes Myocardial infarction Social History Smoking and tobacco status: never smoked Alcohol intake: current History of recent travel: No Physical Exam Narrative: Patient keeps his eyes closed will open his eyes to command. He will answer simple questions and 1 word answers but does not engage in any prolonged conversation. Const: COMMON NORMALS: average body habitus and alert GENERAL APPEARANCE: anxious ORIENTATION/CONSCIOUSNESS: Yes awake HENMT: COMMON NORMALS: normocephalic, atraumatic, Normal nasal mucous membranes and turbinates present, moist oral mucous membranes and oropharynx nor mal HEAD & SCALP: normocephalic and atraumatic FACE & SINUS: normal facial exam NOSE: Normal nasal mucous membranes and turbinates present Eye: COMMON NORMALS: Equal, round and reactive pupils present, EOMs intact bilaterally and conjunctivae normal CONJUNCTIVA: Yes conjunctivae normal PUPIL: Yes Equal, round and reactive pupils present Neck/C-Spine: COMMON NORMALS: supple, no meningeal signs, no JVD and No carotid bruits Chest: COMMONS NORMALS: normal inspection of the chest Resp: COMMON NORMALS: normal respiratory effort, No use of accessory muscles and clear to auscultation bilaterally AUSCULTATION: clear to auscultation bilaterally Cardio: COMMON NORMALS: no JVD and Peripheral pulses 2+ throughout JUGULAR VENOUS DISTENTION: no JVD RHYTHM: abnormal rhythm irregularly irregular HEART SOUNDS: Murmur heart sound present (4/6 systolic) PERIPHERAL PULSES: Peripheral pulses 2+ throughout GI: COMMON NORMALS: Normal to inspection, nondistended, normoactive bowel sounds present, Soft to palpation and non-tender PALPATION: Yes Soft to palpation OTHER: He has PD catheter site does not have any erythema or drainage. His abdomen is soft to palpation. No peritoneal signs. : COMMON NORMALS: Yes no CVA tenderness BLADDER/KIDNEY EXAM: Yes no CVA tenderness Back/Pelvis: COMMON NORMALS: no CVA tenderness, thoracic and lumbar spine normal to inspection and no thoracic nor lumbar tenderness Extremity: COMMON NORMALS: normal to inspection, full ROM, capillary refill normal, no calf tenderness and no pedal edema Neuro: SENSORIUM/ORIENTATION: Yes alert and Yes Orientation impaired MENINGEAL SIGNS: Yes no meningeal signs SPEECH: abnormal speech MOTOR EXAM: Abnormal motor strength present Skin: COMMON NORMALS: no rashes or lesions noted, turgor normal and no jaundice GENERAL SKIN EXAM: no rashes or lesions noted and turgor normal Course Reevaluation(s): Reevaluation #1: Patient's head CT was reviewed. Repeat examination reveals him to be still active and to answer most if any questions. He will deny that he is having any pain at this time but otherwise would not get to be extensive answers. No other new findings. Time: 18:38 Reevaluation #2: We will send peritoneal fluid, give a small bolus of IV fluids and begin empiric antibiotics. At this point have no other indication of etiology of his mental status changes other than perhaps uremic encephalopathy. He is nonfocal on his clinical neurologic exam. Time: 19:30 Reevaluation #3: The patient remains unchanged. I have shared current status and the results of her work-up in detail with the spouse who is appropriately concerned. At this point we are treating him for uncertain etiology to his encephalopathy we will plan on admitting, continue antibiotics, begin peritoneal dialysis and follow his response. Time: 21:15 Consultations: Consultation #1: Discussed with the evening hospitalist and reviewed all current findings. She agreed to admit Time: 21:15 Vital Signs: Vital signs: Vital Signs Pulse Rate 86 02/18/22 20:30 Respiratory Rate 18 02/18/22 20:30 Blood Pressure 182/143 02/18/22 20:30 Pulse Oximetry 97 02/18/22 20:30 Oxygen Delivery Me thod 02/18/22 17:00 MDM - Altered Mental Status Medical Decision Making Patient with a known history of chronic atrial fibrillation, status post aortic valve replacement x2, chronic kidney disease on peritoneal dialysis presented with altered mental status that progressed over this afternoon prior to arrival to the emergency department. Initial work-up to exclude acute hemorrhagic CVA o r other acute pathologies were unrevealing. The differential was then broadened to include potential infection, to include Villanueva bacterial peritoneal peritonitis, uremic encephalopathy etc. He was empirically loaded with antibiotics and continued supportive care and will be admitted to the hospital for further care and work-up. Differential Diagnosis Likely altered mental status Medical Records I reviewed the patient's medical records. Lab Data I reviewed the patient's lab results. : 02/18/22 17:21 02/18/22 17:[address] 02/18/22 17:36 IMPRESSION: Atrophy, chronic ischemic changes and old infarct. No acute intracranial abnormality. ASSESSMENT: ASPECTS ([place] Stroke Program Early CT Score) is 10. Abdomen/Pelvis CT 02/18/22 19:30 IMPRESSION: 1. No acute abdominopelvic abnormality is identified. 2. Bilateral hyperdense renal lesions are incompletely characterized on single phase noncontrast imaging. Most likely proteinaceous cysts, but solid lesions cannot be excluded. COMMENTS: Consistent with the [employer]'s Incidental Findings Committee white paper (J Am Chandra Radiol 2018): Any incidental renal lesion less than 1 cm or classified as too small to characterize, or any incidental cystic renal lesion characterized as simple-appearing, is likely benign. No follow-up imaging is recommended for these lesions per consensus recommendations based on imaging criteria. Laboratory Results WBC 16.2 10^3/uL (4.0-10.0) H 02/18/22 17:21 RBC 4.20 10^6/uL (4.1-5.3) 02/18/22 17:21 Hgb 13.0 g/dL (11.7-16.6) 02/18/22 17:21 Hct 36.8 % (42.0-52.0) L 02/18/22 17:21 MCV 87.6 fl (80-94) 02/18/22 17:21 MCH 31.0 pg (28.0-34.0) 02/18/22 17:21 MCHC 35.3 g/dL (30.0-36.0) 02/18/22 17:21 RDW 12.4 % (12.1-15.1) 02/18/22 17:21 Plt Count 225 10^3/cmm (130-400) 02/18/22 17:21 MPV 11.2 fL (7.4-10.4) H 02/18/22 17:21 Neut % (Auto) 78.0 % 02/18/22 17:21 Lymph % (Auto) 7.3 % 02/18/22 17:21 [place] % (Auto) 10.9 % 02/18/22 17: Eos % (Auto) 1.6 % 02/18/22 17:21 Baso % (Auto) 0.2 % 02/18/22 17:21 Neut # (Auto) 12.62 10^3/uL (1.8-7.7) H 02/18/22 17:21 Lymph # (Auto) 1.2 10^3/uL (0.8-4.8) 02/18/22 17:21 [place] # (Auto) 1.8 10^3/uL (0.2-0.9) H 02/18/22 17:21 Eos # (Auto) 0.3 10^3/uL (0.0-0.8) 02/18/22 17:21 Baso # (Auto) 0.0 10^3/uL (0.0-0.1) 02/18/22 17:21 Nucleated RBC % (auto) 0 % 02/18/22 17: Nucleated RBCs # 0.0 /100WBC 02/18/22 17:21 PT 28.30 SECONDS (12.1-14.9) H 02/18/22 17:21 INR 2.62 (0.8-1.2) H 02/18/22 17:21 APTT 32.5 SECONDS (23.9-36.7) 02/18/22 17:21 Sodium 134 mmol/L (136-145) L 02/18/22 17:21 Potassium 4.5 mmol/L (3.5-5.1) 02/18/22 17:21 Chloride 94 mmol/L (98-107) L 02/18/22 17:21 Carbon Dioxide 22 mmol/L (22-29) 02/18/22 17:21 Anion Gap 22.5 (5-19) H 02/18/22 17:21 BUN 98 mg/dL (8-23) H* D 02/18/22 17:21 Creatinine 7.0 mg/dL (0.7-1.2) H* 02/18/22 17:21 GFR Calculation Not Reportable 02/18/22 17:21 Glucose 256 mg/dL (65-115) H 02/18/22 17:21 POC Glucose 257 mg/dL (70-110) H 02/18/22 17:11 Calculated Osmolality 317 mOsm/kg (285-295) H 02/18/22 17:21 Calcium 9.7 mg/dL (8.5-10.5) 02/18/22 17:21 Total Bilirubin 0.4 mg/dL (0.15-1.2) 02/18/22 17:21 AST 25 U/L (0-40) 02/18/22 17:21 ALT 20 U/L (0-41) 02/18/22 17:21 Alkaline Phosphatase 100 U/L (40-130) 02/18/22 17:21 Total Protein 7.2 g/dL (6.6-8.7) 02/18/22 17:21 Albumin 4.0 g/dL (3.5-5.2) 02/18/22 17:21 Globulin 3.2 g/dL (1.3-4.6) 02/18/22 17:21 EKG Data EKG 1: I personally reviewed and interpreted this EKG as follows: Interpretation: EKG shows a ventricular rate of 84 bpm. No discernible P waves at this time. Has a widening QRS complex consistent with a left bundle branch block. Some baseline tremor but no obvious acute ST-T wave changes.This patient QRS complexes appear to be unchanged from EKG in 2020 Discharge Plan Discharge Patient Disposition: Admitted As Inpatient Clinical Impression: Encephalopathy, Chronic kidney disease, Atrial fibrillation, chronic, Chronic uremia Condition: Stable Prescriptions: No Action cholecalciferol (vitamin D3) 1,000 unit capsule 1,000 unit PO DAILY gabapentin 100 mg capsule 300 mg PO DIRECTED Rx Instructions: Pt states that he takes 100 mg am and 200 mg pm clopidogrel 75 mg tablet 75 mg PO DAILY warfarin 10 mg tablet 5 mg PO DAILY Rx Instructions: Dose being adjusted by Dr. Kauffman: 10mg and 5mg all other days levothyroxine 88 mcg capsule 88 mcg PO DAILY Lantus U-100 Insulin 100 unit/mL solution 10 unit SUBCUT DAILY Rx Instructions: Pt states the takes this at 9:00. Novolog U-100 Insulin aspart 100 unit/mL solution 5 unit SUBCUT .sliding scale nitroglycerin [Nitrostat] 0.4 mg tablet, sublingual 0.4 mg SUBLINGUAL DIRECTED atorvastatin 20 mg tablet 20 mg PO DAILY tamsulosin 0.4 mg capsule 0.4 mg PO DAILY furosemide 40 mg tablet 40 mg PO BID Rx Instructions: Take 1 tablet by mouth every morning. amlodipine 5 mg tablet 5 mg PO BID Rx Instructions: Take 1 tablet by mouth every morning isosorbide mononitrate 30 mg tablet extended release 24 hr 30 mg PO DAILY Qty: 90 3RF Referrals: John Kauffman MD [Primary Care Provider] - Coding Level of Care Code ED Digital Sales Director for Chg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
--- NOTE | 2022-02-18 17:46 | PC.NURSE ---
pt taken to CT via stretcher
[2022-02-18 17:53] LABS: Basophils % 0.2 %; Eosinophils # 0.3 10^3/uL (0.0-0.8); Eosinophils % 1.6 %; Hematocrit 36.8 % (42.0-52.0); Lymphocytes # 1.2 10^3/uL (0.8-4.8); Lymphocytes % 7.3 %; Mean Corpuscular HGB Conc 35.3 g/dL (30.0-36.0); Mean Corpuscular Volume 87.6 fl (80-94); Mean Platelet Volume 11.2 fL (7.4-10.4); Monocytes # 1.8 10^3/uL (0.2-0.9); Monocytes % 10.9 %; Neutrophils # 12.62 10^3/uL (1.8-7.7); Nucleated Red Blood Cells % 0 %; Platelet Count 225 10^3/cmm (130-400); Red Cell Distribution Width 12.4 % (12.1-15.1); White Blood Count 16.2 10^3/uL (4.0-10.0)
[2022-02-18 18:00] LABS: INR 2.62 (0.8-1.2); Partial Thromboplastin Time 32.5 SECONDS (23.9-36.7)
[2022-02-18 18:07] LABS: Alanine Aminotransferase 20 U/L (0-41); Alkaline Phosphatase 100 U/L (40-130); Anion Gap 22.5 (5-19); Aspartate Amino Transferase 25 U/L (0-40); Calcium 9.7 mg/dL (8.5-10.5); Carbon Dioxide 22 mmol/L (22-29); Chloride 94 mmol/L (98-107); Globulin 3.2 g/dL (1.3-4.6); Glucose 256 mg/dL (65-115); Osmolality Calculated 317 mOsm/kg (285-295); Potassium 4.5 mmol/L (3.5-5.1); Sodium 134 mmol/L (136-145); Total Bilirubin 0.4 mg/dL (0.15-1.2); Total Protein 7.2 g/dL (6.6-8.7)
[2022-02-18 18:11] LABS: Blood Urea Nitrogen 98 mg/dL (8-23)
--- NOTE | 2022-02-18 19:15 | PC.NURSE ---
report given to JUDITH Shell
--- NOTE | 2022-02-18 19:30 | CTR_ITS ---
PROCEDURE INFORMATION: Exam: CT Abdomen And Pelvis Without Contrast Exam date and time: 02/18/2022 7:39 PM Age: 86 years old Clinical indication: Abnormal findings; Abnormal lab test; Abnormal kidney function lab tests and elevated wbc; Prior surgery; Surgery type: Cabg. Aortic valve. Cardiac stents. Dialysis cath. Patient HX: Elevated wbc and creat of 7.0. Patient unresponsive. ; Additional info: Mschanges and evaluating for abd pathology TECHNIQUE: Imaging protocol: Computed tomography of the abdomen and pelvis without contrast. Radiation optimization: All CT scans at this facility use at least one of these dose optimization techniques: automated exposure control; mA and/or kV adjustment per patient size (includes targeted exams where dose is matched to clinical indication); or iterative reconstruction. COMPARISON: CT abdomen pelvis wo con [id number] 10/15/2016 10:17 AM RADIATION DOSE METRICS: Total DLP (mGy-cm): 1112.99 FINDINGS: Tubes, catheters and devices: Left lower quadrant tunneled peritoneal dialysis catheter with unremarkable position. Heart: Dilated cardiac chambers. TAVR. Liver: Normal. No mass. Gallbladder and bile ducts: Normal. No calcified stones. No ductal dilation. Pancreas: Normal. No ductal dilation. Spleen: Normal. No splenomegaly. Adrenal glands: Normal. No mass. Kidneys and ureters: Severely atrophic renal parenchyma. Negative hydronephrosis. Bilateral renal lesions of variable densities including simple cysts and other small hyperdense lesions, some of which have enlarged to a mild degree since comparison. Stomach and bowel: Diverticulosis coli. No inflammatory bowel wall thickening. Negative bowel obstruction. Negative for bowel perforation. Appendix: No evidence of appendicitis. Intraperitoneal space: Unremarkable. No free air. No significant fluid collection. Vasculature: Diffuse abdominal aorta atherosclerosis without aneurysm. Lymph nodes: Unremarkable. No enlarged lymph nodes. Urinary bladder: Unremarkable as visualized. Reproductive: Unremarkable as visualized. Bones/joints: The lumbar spine demonstrates marked discogenic and apophyseal joint degenerative changes at multiple levels. Soft tissues: Large epigastric region fat containing ventral abdominal wall hernia CT/CT abdomen pelvis wo con [id number] IMPRESSION: 1. No acute abdominopelvic abnormality is identified. 2. Bilateral hyperdense renal lesions are incompletely characterized on single phase noncontrast imaging. Most likely proteinaceous cysts, but solid lesions cannot be excluded. COMMENTS: Consistent with the [employer]'s Incidental Findings Committee white paper (J Am Chandra Radiol 2018): Any incidental renal lesion less than 1 cm or classified as too small to characterize, or any incidental cystic renal lesion characterized as simple-appearing, is likely benign. No follow-up imaging is recommended for these lesions per consensus recommendations based on imaging criteria.
[2022-02-18] MEDS: iohexol 350 mg/mL 500 mL Btl (per mL) IV (19:46)
[2022-02-18] MEDS: sodium chloride 0.9% 250 ML IV (20:09)
[2022-02-18 21:14] LABS: Lactate (Lactic Acid level) 1.3 mmol/L (0.5-2.2)
[2022-02-18] MEDS: piperacillin-tazobactam 3.375 GM in sodium chloride 0.9% (plus) 50 ML IV (21:18)
[2022-02-18 21:38] LABS: Mononuclear #, Pertinoneal Fl 0.045 10^3/uL; Polynuclear # Cells, Perit 0.007 10^3/uL
[2022-02-18 21:39] LABS: SARS Covid-2 Antigen negative (Negative)
[2022-02-18 21:50] LABS: Amphetamines Screen Urine Negative (Negative); Barbiturates Screen Urine Negative (Negative); Benzodiazepines Screen Urine Negative (Negative); Cocaine Screen Urine Negative (Negative); Opiate Screen Urine Negative (Negative); PCP Screen Urine Negative (Negative); THC Screen Urine Negative (Negative)
--- NOTE | 2022-02-18 22:20 | PC.NURSE ---
ADMIT NOTE Pt was received to floor from ER. Is unresponsive to any commands. Opened eyes when moved to bed from [facility] but will not respond verbally or follow any commands. says he does not respond to her either. Tells me he had c/o severe headache earlier in the day then just became less and less responsive. Says he is normally alert, oriented and up walking. Tells me he hardly ever has headaches. Was reported by ER nurse with that pt was responding with one word answers then later was no longer doing so. VS done and BP is improved. Has temp of 100.5 AX. RN completing admission assessment. Dr Yao was notified of concern for pts LOC and she is going to come see pt.
--- NOTE | 2022-02-18 22:25 | PC.NURSE ---
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 She states every night patient is to have area cleansed with soap and water, vaseline applied, and bandaid x 7 days. Started 02-14-22. also states patient is allergic to most tape, and that she uses silk tape only for patient.
[2022-02-18 22:40] LABS: Appearance, Peritoneal Fluid Clear (Clear); Color, Peritoneal Fluid Pale Yellow (Pale Yellow); Cyto Order Verification Order Verified
[2022-02-18 22:41] LABS: RBC Pertioneal Fluid 1000 10^3/uL; WBC Peritoneal Fluid 52 /uL
[2022-02-18 22:59] LABS: Urine Appearance Clear (CLEAR); Urine Color Yellow (Yellow)
[2022-02-18 23:00] LABS: Blood Urine 2+ (Negative); Glucose Urine UA 2+ (Normal); Ketones Urine Negative (Negative); Protein Urine 3+ (Negative); Specific Gravity, Urine 1.015 (1.005-1.030); pH Urine 5 (5-7)
[2022-02-18 23:01] LABS: Add Urine Microscopic? YES; Bilirubin Urine Neg (Negative); Leukocyte Esterase Urine Negative (Negative); Nitrate Urine Negative (Negative); Urobilinogen Urine Norm (Negative)
--- NOTE | 2022-02-18 23:01 | ECG_ITS ---
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 Measurements Intervals [place] Rate: 87 P: -10 DE: 159 QRS: -46 QRSD: 151 T: 77 QT: 377 QTc: 454 Interpretive Statements SINUS RHYTHM WITH SINUS ARRHYTHMIA LEFT AXIS DEVIATION [QRS AXIS < -30] LEFT BUNDLE BRANCH BLOCK [120+ ms QRS DURATION, 80+ ms Q/S IN V1/V2, 85+ ms R IN I/aVL/V5/V6] Compared to ECG 02/18/2022 17:23:53 Left-axis deviation now present Myocardial infarct finding no longer present Electronically Signed On 02-19-2022 12:09:07 CDT by Netta Rodriguez M.D. [email or web address]
--- NOTE | 2022-02-18 23:02 | PC.NURSE ---
PATIENT CAME UP FROM ED BY STRETCHER WITH AT BEDSIDE. 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 PATIENT'S STATES THAT THIS BEHAVIOR IS ABNORMAL FOR HIM. DR HERNANDEZ CONTACTED TO ASSESS PATIENT. DR HERNANDEZ SPOKE WITH FAMILY REGARDING CAUSES OF CURRENT STATUS. CODE STATUS INQUIRED ABOUT AND FAMILY NOT COMPLETELY SURE. PATIENT REMAINS FULL CODE UNTIL OTHERWISE INDICATED.
[2022-02-18 23:03] LABS: Add Urine Culture? No
--- NOTE | 2022-02-18 23:04 | PM.HP ---
Providers/Chief Complaint Admitting Physician: Regina Yao MD Primary Care Provider: John Kauffman MD Chief Complaint: Headache, slurred speech History of Present Illness Heber Roach is a 86 year old male with PMH CAD, A fib, AVR 2007 with bioprosthetic AV valve more recently s/p TAVR 06/2021, HTN, CKD on PD nightly. Patient is brought to the emergency room today by his for reports that he was in his usual state of health until about 2 PM this afternoon. Then he started to complain of severe headache which was not relieved by 3 Tylenol's that was given. Soon after his started noting slurring of his speech and word finding difficulty. At first this did not seem abnormal as he has a history of dementia, however as the day progressed he started to become less responsive, increasingly lethargic. At the onset of symptoms he was able to speak a few simple words to his , however later this evening he has become nonverbal. He needed a two-person assist to get into the car and come into the emergency room, he was dragging and shuffling his feet whereas at baseline he is able to ambulate with a cane. Review of systems is obtained by his at bedside is negative for any chest pain dyspnea palpitations prior to onset of the symptoms. He had 1 episode of emesis yesterday and had been complaining of some vague abdominal discomfort. He also had 2 episodes of diarrhea. thinks that is why his abdomen appears to be more distended similar to when he had C. difficile colitis in the past. He does have a ventral hernia, however it is easily reducible, no signs of incarceration. He has not had any fever or chills recently. No recent URI symptoms or cough. He has a history of bioprosthetic AV valve replacement in 2007, more recently status post TAVR in June of this year at [facility] in [place] for severe aortic stenosis. No perisurgical complications. No past history of infective endocarditis. He undergoes PD every night, has been on PD at least the past 7 to 8 years. Current catheter has been in place for about 5 years. Has a history of PD associated peritonitis about 8 years ago. No recent changes in medications. No history of opiate or sedative use. He has been on prednisone 50 mg p.o. daily for the last 5 days for a pruritic skin rash which appears to be now resolving. No other history of chronic steroid use. Review of Systems General: Reports: ROS unobtainable due to mental status Medications/Allergies Home Medications Medication Instructions Recorded Confirmed Last Taken Type atorvastatin 20 mg tablet 20 mg PO BEDTIME 05/10/19 02/18/22 1 Day Ago History ~02/17/22 insulin aspart U-100 100 unit/mL See Rx Instructions .Route .COMPLEX 05/10/19 02/18/22 05/22/21 12:00 History subcutaneous solution (Novolog U-100 Insulin aspart) insulin glargine 100 unit/mL 15 unit SUBCUT BEDTIME 05/10/19 02/18/22 05/22/21 20:00 History subcutaneous solution (Lantus U-100 Insulin) levothyroxine 88 mcg capsule 88 mcg PO QAM 05/10/19 02/18/22 02/18/22 History nitroglycerin 0.4 mg sublingual 0.4 mg sublingual DIRECTED 05/10/19 02/18/22 Unknown History tablet (Nitrostat) amlodipine 5 mg tablet 5 mg PO BID 02/01/20 02/18/22 02/18/22 History furosemide 40 mg tablet 40 mg PO BID 01/08/21 02/18/22 02/18/22 History isosorbide mononitrate 30 mg 30 mg PO DAILY #90 ea 02/26/21 02/18/22 02/18/22 Rx tablet,extended release 24 hr clopidogrel 75 mg tablet 75 mg PO DAILY 08/14/21 02/18/22 02/18/22 History gabapentin 100 mg capsule 100 mg PO DAILY 08/14/21 02/18/22 02/18/22 History tamsulosin 0.4 mg capsule 0.4 mg PO DAILY 08/14/21 02/18/22 02/18/22 History warfarin 10 mg tablet See Rx Instructions .Route .COMPLEX 12/25/21 02/18/22 1 Day Ago History ~02/17/22 diphenhydramine 25 ml BEDTIME PRN Sleep 02/18/22 Unknown History mg-acetaminophen 500 mg/15 mL oral solution gabapentin 100 mg capsule 200 mg PO BEDTIME 02/18/22 02/18/22 1 Day Ago History ~02/17/22 prednisone 50 mg tablet 50 mg PO DAILY 02/18/22 02/18/22 02/18/22 History vit B,C-folic ac 800 mcg-zinc 12.5 1 tab PO DAILY 02/18/22 02/18/22 02/18/22 History mg-selen-D3 2,000 unit-vit E tablet (RenaPlex-D) Allergies Allergy/AdvReac Type Severity Reaction Status Date / Time apple Allergy Unknown ADR-Nausea Verified 02/18/22 22:00 morphine Allergy Unknown ADR-Confusi Verified 02/18/22 22:00 on oxycodone [From Percocet] Allergy Unknown ADR-Confusi Verified 02/18/22 22:00 on adhesive tape Allergy ALGY-Rash Verified 02/18/22 22:27 lorazepam [From Ativan] AdvReac Intermediate ADR-Agitate Verified 04/03/21 14:54 d any pain pills or sleeping Allergy ADR-Confusi Uncoded 02/18/22 22:00 pills on PFSH Acute PFSH: Medical History Aortic stenosis Atrial fibrillation CAD (coronary artery disease) CHF (congestive heart failure) Diabetes mellitus End stage renal disease HTN (hypertension) Peritoneal dialysis catheter in place Peritoneal dialysis status Renal failure Sleep apnea Thyroid disease TIA (transient ischemic attack) Surgical History S/P aortic valve replacement S/P CABG (coronary artery bypass graft) S/P cataract surgery S/P knee surgery S/P PTCA (percutaneous transluminal coronary angioplasty) S/P shoulder surgery Family History Father Stroke Other CAD (coronary artery disease) Diabetes Myocardial infarction Social History Smoking and tobacco status: never smoked Alcohol intake: current History of recent travel: No Vitals/I&O/Wt Last Vital Signs Pulse 84 02/18/22 21:31 Resp 18 02/18/22 21:31 BP 165/129 02/18/22 21:31 Pulse Ox 96 02/18/22 21:31 O2 Del Method 02/18/22 17:00 02/18/22 02/18/22 02/19/22 14:59 22:59 06:59 Intake Total 250 / 250 Balance 250 / 250 Weight last 48 hrs Weight 92.986 kg Physical Exam Narrative: General: Lethargic, obtunded does not follow any commands. HEENT: PERRLA, pupils bilaterally equal and reactive, pallors not present Chest: Normal vesicular breath sounds, no added sounds, equal good air entry bilaterally, noted to be coughing intermittently during exam. CVS: S1-S2 irregular, systolic murmur , no tachycardia, no gallops, no rubs Abdomen: Soft, PD catheter in place near umbilicus, no obvious discharge at entry site. No surrounding cellulitis. Noted ventral hernia, no signs of incarceration or obstruction. Neuro: Unable to complete neuro exam as patient is not following any commands. Does flinch on palpation of the abdomen and pressure on bilateral lower extremities. Data : 02/18/22 17:21 02/18/22 17:21 Other Labs: Radiology Impressions Head CT 02/18/22 17:36 IMPRESSION: Atrophy, chronic ischemic changes and old infarct. No acute intracranial abnormality. ASSESSMENT: ASPECTS ([place] Stroke Program Early CT Score) is 10. Abdomen/Pelvis CT 02/18/22 19:30 IMPRESSION: 1. No acute abdominopelvic abnormality is identified. 2. Bilateral hyperdense renal lesions are incompletely characterized on single phase noncontrast imaging. Most likely proteinaceous cysts, but solid lesions cannot be excluded. COMMENTS: Consistent with the [employer]'s Incidental Findings Committee white paper (J Am Chandra Radiol 2018): Any incidental renal lesion less than 1 cm or classified as too small to characterize, or any incidental cystic renal lesion characterized as simple-appearing, is likely benign. No follow-up imaging is recommended for these lesions per consensus recommendations based on imaging criteria. Laboratory Results WBC 16.2 10^3/uL (4.0-10.0) H 02/18/22 17:21 RBC 4.20 10^6/uL (4.1-5.3) 02/18/22 17:21 Hgb 13.0 g/dL (11.7-16.6) 02/18/22 17:21 Hct 36.8 % (42.0-52.0) L 02/18/22 17:21 MCV 87.6 fl (80-94) 02/18/22 17:21 MCH 31.0 pg (28.0-34.0) 02/18/22 17: MCHC 35.3 g/dL (30.0-36.0) 02/18/22 17: RDW 12.4 % (12.1-15.1) 02/18/22 17:21 Plt Count 225 10^3/cmm (130-400) 02/18/22 17:21 MPV 11.2 fL (7.4-10.4) H 02/18/22 17: Neut % (Auto) 78.0 % 02/18/22 17:21 Lymph % (Auto) 7.3 % 02/18/22 17:21 [place] % (Auto) 10.9 % 02/18/22 17: Eos % (Auto) 1.6 % 02/18/22 17: Baso % (Auto) 0.2 % 02/18/22 17: Neut # (Auto) 12.62 10^3/uL (1.8-7.7) H 02/18/22 17: Lymph # (Auto) 1.2 10^3/uL (0.8-4.8) 02/18/22 17: [place] # (Auto) 1.8 10^3/uL (0.2-0.9) H 02/18/22 17: Eos # (Auto) 0.3 10^3/uL (0.0-0.8) 02/18/22 17: Baso # (Auto) 0.0 10^3/uL (0.0-0.1) 02/18/22 17: Nucleated RBC % (auto) 0 % 02/18/22 17: Nucleated RBCs # 0.0 /100WBC 02/18/22 17: PT 28.30 SECONDS (12.1-14.9) H 02/18/22 17: INR 2.62 (0.8-1.2) H 02/18/22 17: APTT 32.5 SECONDS (23.9-36.7) 02/18/22 17:21 Specimen Type Arterial 02/18/22 23:00 Sample Site Radial, left 02/18/22 23:00 ABG pH 7.46 (7.35-7.45) H 02/18/22 23:00 ABG pCO2 34.0 mmHg (35-45) L 02/18/22 23:00 ABG pO2 62.6 mmHg (80.0-100.0) L 02/18/22 23:00 ABG HCO3 24.2 mmol/L (22-26) 02/18/22 23:00 ABG O2 Saturation 95.4 02/18/22 23:00 ABG Base Excess 0.8 mmol/L (-2.0-2.0) 02/18/22 23:00 Sebas Test Pos 02/18/22 23:00 A-a O2 Gradient 5.9 mmHg (5-10) 02/18/22 23:00 Hematocrit 37.4 % (42-52) L 02/18/22 23:00 Hgb O2 Saturation 93.3 % (95-100) L 02/18/22 23:00 Carboxyhemoglobin 1.2 %THgb (0.4-20.1) 02/18/22 23:00 Methemoglobin 0.9 % (0.4-1.5) 02/18/22 23:00 Total Hemoglobin 12.2 g/dL (14-18) L 02/18/22 23:00 Sodium 135.0 mmol/L (131-143) 02/18/22 23:00 Potassium 3.9 mmol/L (3.5-5.0) 02/18/22 23:00 Glucose 304.0 mg/dL (70-115) H 02/18/22 23:00 Ionized Calcium 1.2 mmol/L (1.1-1.4) 02/18/22 23:00 O2 Delivery Device Room air 02/18/22 23:00 FiO2 21.0 % 02/18/22 23:00 Weed Burner ID glc 02/18/22 23:00 Sodium 134 mmol/L (136-145) L 02/18/22 17:21 Potassium 4.5 mmol/L (3.5-5.1) 02/18/22 17:21 Chloride 94 mmol/L (98-107) L 02/18/22 17:21 Carbon Dioxide 22 mmol/L (22-29) 02/18/22 17:21 Anion Gap 22.5 (5-19) H 02/18/22 17:21 BUN 98 mg/dL (8-23) H* D 02/18/22 17:21 Creatinine 7.0 mg/dL (0.7-1.2) H* 02/18/22 17:21 GFR Calculation Not Reportable 02/18/22 17:21 Glucose 256 mg/dL (65-115) H 02/18/22 17:21 POC Glucose 257 mg/dL (70-110) H 02/18/22 17:11 Calculated Osmolality 317 mOsm/kg (285-295) H 02/18/22 17:21 Lactate 1.3 mmol/L (0.5-2.2) 02/18/22 20:50 Calcium 9.7 mg/dL (8.5-10.5) 02/18/22 17:21 Total Bilirubin 0.4 mg/dL (0.15-1.2) 02/18/22 17:21 AST 25 U/L (0-40) 02/18/22 17:21 ALT 20 U/L (0-41) 02/18/22 17:21 Alkaline Phosphatase 100 U/L (40-130) 02/18/22 17:21 Total Protein 7.2 g/dL (6.6-8.7) 02/18/22 17:21 Albumin 4.0 g/dL (3.5-5.2) 02/18/22 17:21 Globulin 3.2 g/dL (1.3-4.6) 02/18/22 17:21 Urine Color Yellow (Yellow) 02/18/22 20:35 Urine Appearance Clear (CLEAR) 02/18/22 20:35 Urine pH 5 (5-7) 02/18/22 20:35 Ur Specific [place] 1.015 (1.005-1.030) 02/18/22 20:35 Urine Protein 3+ (Negative) H 02/18/22 20:35 Urine Glucose (UA) 2+ (Normal) H 02/18/22 20:35 Urine Ketones Negative (Negative) 02/18/22 20:35 Urine Blood 2+ (Negative) H 02/18/22 20:35 Urine Nitrate Negative (Negative) 02/18/22 20:35 Urine Bilirubin Neg (Negative) 02/18/22 20:35 Urine Urobilinogen Norm mg/dL (Negative) 02/18/22 20:35 Ur Leukocyte Esterase Negative (Negative) 02/18/22 20:35 Amorphous Sediment Not Reportable 02/18/22 20:35 Peritoneal Color Pale yellow (Pale Yellow) 02/18/22 20:45 Peritoneal Appearance Clear (Clear) 02/18/22 20:45 Peritoneal WBC 52 /uL 02/18/22 20:45 Peritoneal RBC 1000 10^3/uL 02/18/22 20:45 Periton Mononu # Auto 0.045 10^3/uL 02/18/22 20:45 Mononuclear WBCs % 86.500 % 02/18/22 20:45 Polynuclear WBCs % 13.500 % 02/18/22 20:45 Perit Polynuc WBCs # 0.007 10^3/uL 02/18/22 20:45 Urine Opiates Screen Negative ng/mL (Negative) 02/18/22 20:35 Ur Barbiturates Screen Negative ng/mL (Negative) 02/18/22 20:35 Ur Phencyclidine Scrn Negative ng/mL (Negative) 02/18/22 20:35 Ur Amphetamines Screen Negative ng/mL (Negative) 02/18/22 20:35 U Benzodiazepines Scrn Negative ng/mL (Negative) 02/18/22 20:35 Urine Cocaine Screen Negative ng/mL (Negative) 02/18/22 20:35 U Marijuana (THC) Screen Negative ng/mL (Negative) 02/18/22 20:35 SARS-CoV-2 Ag (Rapid) negative (Negative) 02/18/22 21:20 Micro: Microbiology 02/18/22 21:20 Blood Culture - Preliminary Blood SPECIMEN COLLECTED 02/18/22 21:10 Blood Culture - Preliminary Blood SPECIMEN COLLECTED A&P Assessment and plan (1) Altered mental status: Patient presenting today with altered mental status with symptoms starting at about 2 PM. Through the day he has had progressive worsening in mentation. Currently appears to be encephalopathic. CT head upon admission negative for any intracranial bleeding. Changes of chronic ischemic disease are noted. Ischemic stroke certainly remains a possibility at this time. Patient is already on appropriate management with Plavix 75 mg p.o. daily, statin and appropriately anticoagulated with warfarin with an INR of 2.6. He is not a candidate for tPA. Last echocardiogram from March 2021 with LVEF of 67%, bioprosthetic AV valve with severe AV stenosis. He has had a TAVR in the interim. We will check echocardiogram again today. Other differentials include metabolic encephalopathy. Will check urine drug screen, TSH, ammonia level, EKG and troponin series. To evaluate for possible infection including PD peritonitis given elevated white blood cell count, diarrhea and pain with abdominal palpation, will check acetic fluid cell count, culture, blood culture, UA with reflex culture if positive, C. difficile PCR. Empiric ceftriaxone 1 g IV every 24 while undergoing infectious work-up. Patient is currently able to maintain his airway, saturating 96% on room air, respiratory rate at 15/min. He is currently hemodynamically stable. Through the night we will allow for permissive hypertension for possibility of stroke. (2) Atrial fibrillation, chronic: Currently rate controlled. Continue warfarin with target INR of 2-3. If patient remains significantly somnolent and unable to tolerate p.o. intake over the next 24 hours or so may need to switch to Lovenox versus heparin. (3) Severe aortic stenosis: Status post TAVR June 2021 Check echocardiogram (4) Chronic kidney disease: On peritoneal dialysis. Nephrology consult to maintain PD inpatient. Plan DVT prophylaxis: Currently on warfarin, INR 2.6, Full code for now, however contemplating DNR/DNI given his multiple comorbidities and advanced age, has not decided yet. Attestations Medical Necessity Statement*: Anticipate greater than 2 midnight admission for above defined care. 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
[2022-02-18 23:12] LABS: ABG PH Result 7.46 (7.35-7.45); Alveolar-Arterial Oxygen Gradi 5.9 mmHg (5-10); Arterial Blood Gas Hematocrit 37.4 % (42-52); Base Excess ABG 0.8 mmol/L (-2.0-2.0); Blood Gas Allen Test Pos; Blood Gas Operator Identificat glc; Blood Gas Sample Site Radial, left; Blood Gas Sample Type Arterial; Carboxyhemoglobin 1.2 %THgb (0.4-20.1); HCO3 ABG 24.2 mmol/L (22-26); HGB O2 Sat 93.3 % (95-100); Ionized Calcium Level - ABG 1.2 mmol/L (1.1-1.4); Methemoglobin 0.9 % (0.4-1.5); Oxygen Device ROOM AIR; Oxygen Saturation ABG 95.4; PO2 ABG 62.6 mmHg (80.0-100.0); Potassium Level - ABG 3.9 mmol/L (3.5-5.0); Total Hemoglobin 12.2 g/dL (14-18)
[2022-02-18 23:19] LABS: Amorphous Sediment Urine 2+ /hpf; Hyaline Casts Urine 0-4 /lpf; RBC Urine 0-4 /hpf (0-2); Squamous Epithelial Cell Urine 0-4 /hpf (0-5); WBC Urine 0-4 /hpf (0-5)
--- NOTE | 2022-02-18 23:22 | P.CONIM_ITS ---
Providers/Reason For Consult Consulting Physician/Specialty*: nancy lawrence md / telenephrology Reason for Consult*: ESRD care Requesting Physician: Dr Regina Yao Attending Physician: Regina Yao MD Primary Care Provider: John Kauffman MD History of Present Illness History of Present Illness Heber Roach is a 86 year old male w/ PMHX of ESRD on PD, IDDM, CAD, a fib, AVR in 2007 w/ bioprosthetic AV valve more recently s/p TAVR 06/2021, HTN. Pt was admitted earlier today w/ h/a, slurred speech, AMS, and weakness. renal called for ESRD care. Review of Systems 2 Narrative: weakness, lethargy, AMS, poor appetite. Medications/Allergies Home Medications Medication Instructions Recorded Confirmed Last Taken Type atorvastatin 20 mg tablet 20 mg PO BEDTIME 05/10/19 02/18/22 1 Day Ago History ~02/17/22 insulin aspart U-100 100 unit/mL See Rx Instructions .Route .COMPLEX 05/10/19 02/18/22 05/22/21 12:00 History subcutaneous solution (Novolog U-100 Insulin aspart) insulin glargine 100 unit/mL 15 unit SUBCUT BEDTIME 05/10/19 02/18/22 05/22/21 20:00 History subcutaneous solution (Lantus U-100 Insulin) levothyroxine 88 mcg capsule 88 mcg PO QAM 05/10/19 02/18/22 02/18/22 History nitroglycerin 0.4 mg sublingual 0.4 mg sublingual DIRECTED 05/10/19 02/18/22 Unknown History tablet (Nitrostat) amlodipine 5 mg tablet 5 mg PO BID 02/01/20 02/18/22 02/18/22 History furosemide 40 mg tablet 40 mg PO BID 01/08/21 02/18/22 02/18/22 History isosorbide mononitrate 30 mg 30 mg PO DAILY #90 ea 02/26/21 02/18/22 02/18/22 Rx tablet,extended release 24 hr clopidogrel 75 mg tablet 75 mg PO DAILY 08/14/21 02/18/22 02/18/22 History gabapentin 100 mg capsule 100 mg PO DAILY 08/14/21 02/18/22 02/18/22 History tamsulosin 0.4 mg capsule 0.4 mg PO DAILY 08/14/21 02/18/22 02/18/22 History warfarin 10 mg tablet See Rx Instructions .Route .COMPLEX 12/25/21 02/18/22 1 Day Ago History ~02/17/22 diphenhydramine 25 ml BEDTIME PRN Sleep 02/18/22 Unknown History mg-acetaminophen 500 mg/15 mL oral solution gabapentin 100 mg capsule 200 mg PO BEDTIME 02/18/22 02/18/22 1 Day Ago History ~02/17/22 prednisone 50 mg tablet 50 mg PO DAILY 02/18/22 02/18/22 02/18/22 History vit B,C-folic ac 800 mcg-zinc 12.5 1 tab PO DAILY 02/18/22 02/18/22 02/18/22 History mg-selen-D3 2,000 unit-vit E tablet (RenaPlex-D) Allergies Allergy/AdvReac Type Severity Reaction Status Date / Time apple Allergy Unknown ADR-Nausea Verified 02/18/22 22:00 morphine Allergy Unknown ADR-Confusi Verified 02/18/22 22:00 on oxycodone [From Percocet] Allergy Unknown ADR-Confusi Verified 02/18/22 22:00 on adhesive tape Allergy ALGY-Rash Verified 02/18/22 22:27 lorazepam [From Ativan] AdvReac Intermediate ADR-Agitate Verified 04/03/21 14:54 d any pain pills or sleeping Allergy ADR-Confusi Uncoded 02/18/22 22:00 pills on PFSH Acute PFSH: Medical History Aortic stenosis Atrial fibrillation CAD (coronary artery disease) CHF (congestive heart failure) Diabetes mellitus End stage renal disease HTN (hypertension) Peritoneal dialysis catheter in place Peritoneal dialysis status Renal failure Sleep apnea Thyroid disease TIA (transient ischemic attack) Surgical History S/P aortic valve replacement S/P CABG (coronary artery bypass graft) S/P cataract surgery S/P knee surgery S/P PTCA (percutaneous transluminal coronary angioplasty) S/P shoulder surgery Family History Father Stroke Other CAD (coronary artery disease) Diabetes Myocardial infarction Social History Smoking and tobacco status: never smoked Alcohol intake: current History of recent travel: No Vitals/I&O/Wt Last Vital Signs Pulse 84 02/18/22 21:31 Resp 18 02/18/22 21:31 BP 165/129 02/18/22 21:31 Pulse Ox 96 02/18/22 21:31 O2 Del Method 02/18/22 21:40 02/18/22 02/18/22 02/19/22 14:59 22:59 06:59 Intake Total 250 / 250 Balance 250 / 250 Weight last 48 hrs Weight 92.986 kg Physical Exam Narrative: examined w/ RN- telehealth visit comfortable in bed, NARD- minimally responsive heent- nc/at neck supple lungs clear heart reg abd soft, nt, nd, + bs ext no edema neuro- minimally responsive to pain Data : 02/18/22 17:21 02/18/22 17:21 Micro: Microbiology 02/18/22 21:20 Blood Culture - Preliminary Blood SPECIMEN COLLECTED 02/18/22 21:10 Blood Culture - Preliminary Blood SPECIMEN COLLECTED A&P Assessment and plan (1) End stage renal disease: 86 year old male w/ PMHX of ESRD on PD, IDDM, CAD, a fib, AVR in 2007 w/ bioprosthetic AV valve more recently s/p TAVR 06/2021, HTN. Pt was admitted earlier today w/ h/a, slurred speech, AMS, and weakness. renal called for ESRD care. 1. AMS- per medicine- evaluate for CVA vs infection vs other 2. eSRD- CAPD - 4 exchanges a day of low glucose -pd cell count 52 wbc, 1000 rbc- bloody- monitor 3. hgb high for ESRD- no MCKAY 4. resp alkalosis per medicine 5. hyponatremia- mild and gluc of 256 Plan see above informed consent for telehealth obtained from family seen w/ rN- telehelath discussed w/ Dr Yao time spent 50 min Consult Attestations Medical Necessity Statement: AMS Time Spent in Patient Care: Greater than 35 minutes (>than 50% of time spent in counselling and/or direct pt care on unit) . 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
[2022-02-18 23:26] LABS: Ammonia 25 umol/L (16-60)
[2022-02-18] MEDS: famotidine 20 mg/2 mL INJ IVP (23:53)
[2022-02-18] MEDS: FUROsemide 10 mg/mL SDV 2mL 20 MG IVP (23:53)
[2022-02-18] MEDS: cefTRIAXone 1,000 MG in sodium chloride 0.9% (plus) 50 ML 100 MG IV (23:54)
[2022-02-18 23:57] LABS: Troponin(5th) Baseline 97 ng/L (0-15)
[2022-02-19] VITALS (14 sets, daily range): BP systolic 170–210; BP diastolic 81–108; PULSE 84–107; RESP 16–23; TEMP 36.8–38.1; O2SAT 91–97
[2022-02-19 00:04] LABS: Thyroid Stimulating Hormone 0.22 uIU/mL (0.27-4.20)
--- NOTE | 2022-02-19 00:49 | ECG_ITS ---
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 Measurements Intervals [place] Rate: 86 P: -25 MT: 171 QRS: -46 QRSD: 148 T: 80 QT: 380 QTc: 457 Interpretive Statements SINUS RHYTHM LEFT AXIS DEVIATION [QRS AXIS < -30] LEFT BUNDLE BRANCH BLOCK [120+ ms QRS DURATION, 80+ ms Q/S IN V1/V2, 85+ ms R IN I/aVL/V5/V6] Compared to ECG 02/18/2022 23:01:28 Sinus arrhythmia no longer present Electronically Signed On 02-19-2022 12:14:03 CDT by Netta Rodriguez M.D. [id number]
[2022-02-19 03:15] LABS: Troponin 5 2HR 105.2 ng/L (0-15); Troponin 5 2HR Delta 8.2 ABS# (0-10)
--- NOTE | 2022-02-19 03:19 | PC.NURSE ---
CRITICAL LABS TAKEN, TROPONIN REPORTED 102.2. DR HERNANDEZ NOTIFIED VIA SECURE MESSAGING.
--- NOTE | 2022-02-19 03:50 | PC.NURSE ---
Dr. Yao notified of patient having pauses on heart monitor. Heart rate ranges from 100 at times to 40 at times. Images of pauses and rhythm from tele monitor sent to doctor via voalte.
--- NOTE | 2022-02-19 04:25 | ECG_ITS ---
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 Measurements Intervals [place] Rate: 80 P: -11 FL: 173 QRS: -47 QRSD: 149 T: 79 QT: 384 QTc: 445 Interpretive Statements SINUS RHYTHM WITH SINUS ARRHYTHMIA LEFT AXIS DEVIATION [QRS AXIS < -30] LEFT BUNDLE BRANCH BLOCK [120+ ms QRS DURATION, 80+ ms Q/S IN V1/V2, 85+ ms R IN I/aVL/V5/V6] Compared to ECG 02/19/2022 00:49:41 No significant changes Electronically Signed On 02-19-2022 12:13:58 CDT by Netta Rodriguez M.D. [id number]
[2022-02-19 05:09] LABS: Basophils % 0.2 %; Hematocrit 35.3 % (42.0-52.0); Hemoglobin 12.2 g/dL (11.7-16.6); Lymphocytes # 0.7 10^3/uL (0.8-4.8); Lymphocytes % 3.8 %; Mean Corpuscular HGB Conc 34.6 g/dL (30.0-36.0); Mean Corpuscular Hemoglobin 30.7 pg (28.0-34.0); Mean Corpuscular Volume 88.7 fl (80-94); Mean Platelet Volume 10.9 fL (7.4-10.4); Monocytes # 2.4 10^3/uL (0.2-0.9); Monocytes % 13.4 %; Neutrophils # 14.78 10^3/uL (1.8-7.7); Neutrophils % 81.4 %; Nucleated Red Blood Cells % 0 %; Platelet Count 198 10^3/cmm (130-400); Red Blood Count 3.98 10^6/uL (4.1-5.3); Red Cell Distribution Width 12.6 % (12.1-15.1); White Blood Count 18.1 10^3/uL (4.0-10.0)
[2022-02-19] MEDS: perflutren protein-a microsphr 0.22 mg/mL SDV 3 mL IV (05:33)
[2022-02-19 05:42] LABS: Alanine Aminotransferase 21 U/L (0-41); Albumin Level 3.6 g/dL (3.5-5.2); Alkaline Phosphatase 84 U/L (40-130); Anion Gap 19.5 (5-19); Aspartate Amino Transferase 22 U/L (0-40); Calcium 9.1 mg/dL (8.5-10.5); Carbon Dioxide 23 mmol/L (22-29); Chloride 97 mmol/L (98-107); Globulin 2.7 g/dL (1.3-4.6); Glucose 330 mg/dL (65-115); Magnesium 2.8 mg/dL (1.7-2.3); Osmolality Calculated 322 mOsm/kg (285-295); Potassium 4.5 mmol/L (3.5-5.1); Sodium 135 mmol/L (136-145); Total Bilirubin 0.4 mg/dL (0.15-1.2); Total Protein 6.3 g/dL (6.6-8.7)
[2022-02-19 06:04] LABS: Troponin 5 6HR 123.2 ng/L (0-15); Troponin 5 6HR Delta 26.2 ng/L (0-12)
[2022-02-19 06:05] LABS: Blood Urea Nitrogen 95 mg/dL (8-23)
[2022-02-19 06:51] LABS: T3 Free 1.6 PG/ML (2.0-4.4)
[2022-02-19 06:51] LABS: Glucose Point of Care 307 mg/dL (70-110)
--- NOTE | 2022-02-19 07:10 | PC.NURSE ---
Dr. Yao notified of blood pressure of 210/110.
--- NOTE | 2022-02-19 07:27 | P.PN_ITS ---
Subjective Subjective: minimally responsive to pain and voice. not verbal. not interactive. Medications: Reviewed: Yes Medication Review Details: Current Medications Acetaminophen (Acetaminophen 650 Mg Supp) 650 mg RI Q6H PRN PRN Reason: pain, fever Atorvastatin Calcium (Atorvastatin 40 Mg Tablet) 20 mg PO BEDTIME [facility] Clopidogrel Bisulfate (Clopidogrel 75 Mg Tablet) 75 mg PO DAILY [facility] Dextrose (Dextrose 50% Syringe 50 Ml) 25 ml IVP ONCE PRN; Protocol PRN Reason: hypoglycemia protocol Dextrose (Dextrose 50% Syringe 50 Ml) 50 ml IVP PRN PRN; Protocol PRN Reason: hypoglycemia protocol Famotidine (Famotidine 20 Mg/2 Ml Inj) 20 mg IVP Q12H [facility] Last Admin: 02/18/22 23:53 Dose: 20 mg Furosemide (Furosemide 10 Mg/Ml Sdv 2ml) 20 mg IVP Q12H [facility] Last Admin: 02/18/22 23:53 Dose: 20 mg Glucagon (Glucagon 1 Mg/Ml Inj 1 Ml) 1 mg IM ONCE PRN; Protocol PRN Reason: Adult Acute Hypoglycemia Prot. Ceftriaxone Sodium 1,000 mg/ (Sodium Chloride) 50 mls @ 100 mls/hr IV Q24H [facility]; Protocol Last Titration: 02/19/22 00:43 Dose: Infused Dextrose (D5w) 500 mls @ 100 mls/hr IV ONCE PRN; Protocol PRN Reason: Adult Acute Hypoglycemia Prot Insulin Human Lispro (Insulin Lispro 100 Unit/1 Ml) 0 unit SUBCUT WM&BEDTIME [facility]; Protocol Isosorbide Mononitrate (Isosorbide Mononitrate Er 30 Mg Tablet) 30 mg PO DAILY [facility] Lactulose (Lactulose Oral Liq 20 Gm/30 Ml Udc) 20 gm PO Q12H PRN PRN Reason: CONSTIPATION Levothyroxine Sodium (Levothyroxine 88 Mcg Tablet) 88 mcg PO QAM [facility] Last Admin: 02/19/22 04:58 Dose: Not Given Ondansetron HCl (Ondansetron 2 Mg/Ml Sdv 2 Ml) 4 mg IVP Q8H PRN PRN Reason: vomiting, or N/V if npo Peritoneal Dialysis Solution (Dianeal Low Ca W/1.5% Dex 2,000 Ml Bag) 2,000 ml INTRAPERIT QID [facility] Tamsulosin HCl (Tamsulosin 0.4 Mg Capsule) 0.4 mg PO DAILY [facility] Warfarin Sodium (Warfarin 10 Mg Tablet) 10 mg PO [id number]@1400 [facility] Warfarin Sodium (Warfarin 5 Mg Tablet) 5 mg PO [id number]@1400 [facility] Vitals/I&O/Wt Last Vital Signs Temp 99.2 F 02/19/22 03:27 Pulse 85 02/19/22 03:27 Resp 17 02/19/22 03:27 BP 197/90 02/19/22 03:27 Pulse Ox 91 02/19/22 03:27 O2 Del Method 02/19/22 03:27 02/18/22 02/19/22 02/19/22 22:59 06:59 14:59 Intake Total 250 / 250 100 / 350 Output Total 550 / 550 Balance 250 / 250 -450 / -200 Weight last 48 hrs Weight 92.986 kg Physical Exam Narrative: examined w/ RN- telehealth visit comfortable in bed, NARD- minimally responsive to pain bp noted and elevated heent- nc/at neck supple lungs clear heart reg abd soft, nt, nd, + bs ext no edema neuro- minimally responsive to pain Data : 02/19/22 04:55 02/19/22 04:55 Micro: Microbiology 02/18/22 21:20 Blood Culture - Preliminary Blood SPECIMEN COLLECTED 02/18/22 21:10 Blood Culture - Preliminary Blood SPECIMEN COLLECTED A&P Assessment and plan (1) End stage renal disease: 86 year old male w/ PMHX of ESRD on PD, IDDM, CAD, a fib, AVR in 2007 w/ bioprosthetic AV valve more recently s/p TAVR 06/2021, HTN. Pt was admitted earlier today w/ h/a, slurred speech, AMS, and weakness. renal called for ESRD care. 1. AMS- per medicine- evaluate for CVA vs infection vs other 2. eSRD- CAPD - 4 exchanges a day of low glucose -pd cell count 52 wbc, 1000 rbc- bloody- monitor 3. hgb high for ESRD- no MCKAY 4. resp alkalosis per medicine 5. hypertension- slowly correct-in case of cva 6. dm control per medicine seen and examined w/ RN- telehealth visit time spent 30 min Plan see above Attestations Medical Necessity Statement*: ams, htn Time Spent in Patient Care: 16 - 35 minutes (>than 50% of time spent in counselling and/or direct pt care on unit) . Coding Level of Care Code Acute Certified Alcohol And Drug Counselor for [facility] Fwd Diagnoses End stage renal disease N18.6
--- NOTE | 2022-02-19 07:27 | PC.NURSE ---
BEDSIDE REPORT GIVEN TO RAMBO WONG.
[2022-02-19] MEDS: hyDRALAzine 20 mg/mL INJ 1 mL 10 MG IVP (07:37)
--- NOTE | 2022-02-19 08:01 | PC.PHAR ---
Addendum entered by Annalisa Hilario 02/19/22 11:07: called pts irasema no answer Addendum entered by Annalisa Hilario 02/19/22 09:03: pt unable to verify medications-called pts [facility]ema [phone] no answer Original Note: [facility]
--- NOTE | 2022-02-19 08:40 | USCV_ITS ---
Heber Roach Age: 86 Gender: M : 1935 Exam Date: 02/19/2022 09:02 Ordering Phys: José Antonio Chaudhry MD Technologist: RENETTA [place] [facility] [place]: AMS Risk Factors: Previous Vascular Surgery: Right Brachial BP: / Left Brachial BP: / Right Left Velocity (cm/s) Spectral Plaque Velocity (cm/s) Spectral Plaque Syst/Diast Broadening Syst/Diast Broadening 98.10/ 5.50 Prox CCA 134.70/ 20.10 78.30/ 5.50 Mid CCA 146.80/ 12.10 83.80/ 9.90 Hetro Distal CCA 84.10 / 7.90 Hetro 68.40/ 7.80 Hetro Prox ICA 103.90/ 17.10 Hetro 79.40/ 16.50 Hetro Mid ICA 89.40 / 15.80 Hetro 73.90/ 9.90 Hetro Distal ICA 103.90/ 21.00 Hetro 149.10 Hetro ECA Hetro 0.81 ICA/CCA 0.71 Antegrade Vertebral Antegrade 128.8/ 25.00 cm/s 99.90/ 11.80 cm/s 0 Tri Subclavian Tri 257.4 153.8 0 0 FINDINGS TDS due to PT altered mental status. 3 nursing students helping hold PT's arms down and head. PT movement limited exam. PT somewhat combative. CONCLUSIONS Right ICA stenosis <50%. Moderate atheromatous plaque right carotid bulb/ICA. Left ICA stenosis <50%. Moderate atheromatous plaque left carotid bulb/ICA. Normal antegrade Doppler flow noted in the right vertebral artery. Normal antegrade Doppler flow noted in the left vertebral artery. Nicholas Persaud MD (Electronically Signed) Final Date: 19 February 2022 16:38 S
--- NOTE | 2022-02-19 08:41 | XR_ITS ---
WS: [id number] PORTABLE CHEST HISTORY: fever COMPARISON: 11/16/2021 Lung volumes are decreased. Benign granuloma LEFT upper lobe. Partial obscuration the LEFT hemidiaphragm is probably an area of atelectasis or the heart shadow. No pneumonia. No pleural effusion or pneumothorax. Cardiac size: Mildly enlarged cardiac silhouette. Mediastinum/Aorta: Moderate atherosclerosis aorta. Aortic valve and stent noted. No osseous abnormality seen. XR/XR chest 1V portable [id number] IMPRESSION: 1. No pneumonia. 2. Partial atelectasis LEFT lung base. 3. Ectatic thoracic aorta. 4. Aortic valve replacement with proximal stent.
[2022-02-19 09:34] LABS: Procalcitonin 0.96 ng/mL (0-0.5)
[2022-02-19] MEDS: sodium chloride 0.9% 1,000 ML 75 ML IV ×2 (09:57→22:58)
[2022-02-19] MEDS: piperacillin-tazobactam 3.375 GM in sodium chloride 0.9% (plus) 50 ML IV ×2 (09:58→23:04)
[2022-02-19] MEDS: Dianeal low Ca w/1.5% dex 2,000 mL Bag 2000 ML INTRAPERIT ×3 (10:00→21:30)
--- NOTE | 2022-02-19 10:29 | P.PN_ITS ---
Subjective Subjective: Patient was seen this morning, is alert, but moans, does not really follow commands, overnight, had low-grade fevers, is hypertensive Vitals/I&O/Wt Last Vital Signs Temp 99.9 F H 02/19/22 08:00 Pulse 88 02/19/22 08:00 Resp 18 02/19/22 08:00 BP 210/108 02/19/22 08:00 Pulse Ox 97 02/19/22 08:00 O2 Del Method 02/19/22 08:00 02/18/22 02/19/22 02/19/22 22:59 06:59 14:59 Intake Total 250 / 250 100 / 350 Output Total 550 / 550 Balance 250 / 250 -450 / -200 Weight last 48 hrs Weight 92.986 kg Physical Exam Const: COMMON NORMALS: no acute distress EXAM LIMITATIONS: altered mental status ORIENTATION/CONSCIOUSNESS: Yes awake; not oriented to person, not oriented to place and not oriented to time OTHER: Not alert to person place or time Resp: COMMON NORMALS: normal respiratory effort, No retractions, No use of accessory muscles and clear to auscultation bilaterally AUSCULTATION: clear to auscultation bilaterally Cardio: COMMON NORMALS: regular rate, regular rhythm, S1 normal heart sound present and S2 normal heart sound present RATE: regular rate RHYTHM: regul ar rhythm HEART SOUNDS: S1 normal heart sound present and S2 normal heart sound present GI: COMMON NORMALS: Normal to inspection, nondistended, normoactive bowel sounds present, non-tender and no masses Extremity: COMMON NORMALS: no pedal edema Neuro: SENSORIUM/ORIENTATION: No oriented to person, No oriented to place and No oriented to time Data : 02/19/22 04:55 02/19/22 04:55 Micro: Microbiology 02/18/22 21:20 Blood Culture - Preliminary Blood SPECIMEN COLLECTED 02/18/22 21:10 Blood Culture - Preliminary Blood SPECIMEN COLLECTED A&P Assessment and plan (1) Altered mental status: Patient presenting today with altered mental status with symptoms starting at about 2 PM. Through the day he has had progressive worsening in mentation. Currently appears to be encephalopathic, and his symptoms are global CT head upon admission negative for any intracranial bleeding. Changes of chronic ischemic disease are noted. Ischemic stroke certainly remains a possibility at this time., MRI of the brain ordered Patient is already on appropriate management with Plavix 75 mg p.o. daily, statin and appropriately anticoagulated with warfarin with an INR of 2.6. He is not a candidate for tPA. Monitor INR, as he has inability to take p.o. intake, will switch over to heparin drip Last echocardiogram from March 2021 with LVEF of 67%, bioprosthetic AV valve with severe AV stenosis. He has had a TAVR in the interim. We will check echocardiogram again today. Other differentials include metabolic encephalopathy. Secondary to uremia, receiving peritoneal dialysis Possible UTI, started on Zosyn Chest x-ray does show atelectasis left lung base, possible pneumonia with his fevers, encephalopathy, continue Zosyn, add on vancomycin, MRSA nares PCR sputum cultures Follow urine cultures, blood cultures, sputum cultures, COVID testing, flu testing To evaluate for possible infection including PD peritonitis given elevated white blood cell count, diarrhea and pain with abdominal palpation, will check acetic fluid cell count, culture, blood culture, UA with reflex culture if positive, C. difficile PCR. Continue Zosyn Patient is currently able to maintain his airway, saturating 96% on room air, respiratory rate at 15/min. He is currently hemodynamically stable. Through the night we will allow for permissive hypertension for possibility of stroke. Treat if systolic greater than 220 or diastolic greater than 120 neurochecks, aspiration precautions, and NIH stroke scale (2) Atrial fibrillation, chronic: Currently rate controlled. Continue warfarin with target INR of 2-3. Will place on heparin drip. (3) Severe aortic stenosis: Status post TAVR June 2021 Check echocardiogram (4) Chronic kidney disease: On peritoneal dialysis. Nephrology consult to maintain PD inpatient. Plan DVT prophylaxis: Currently on warfarin, repeat INR pending, start heparin drip Insulin-dependent diabetes mellitus, low-dose sliding scale Full code for now, however contemplating DNR/DNI given his multiple comorbidities and advanced age, has not decided yet. Attestations Medical Necessity Statement*: Patient requires hospitalization for concerns for acute CVA, encephalopathy, Coding Level of Care Code Acute Car Wiper for [facility] Fwd Diagnoses Altered mental status R41.82 Atrial fibrillation, chronic I48.20 Severe aortic stenosis I35.0 Chronic kidney disease N18.9
[2022-02-19 10:30] LABS: Glucose Point of Care 265 mg/dL (70-110)
[2022-02-19 11:12] LABS: INR 2.44 (0.8-1.2)
[2022-02-19] MEDS: FUROsemide 10 mg/mL SDV 2mL 20 MG IVP ×2 (11:26→23:40)
[2022-02-19] MEDS: famotidine 20 mg/2 mL INJ IVP ×2 (11:26→23:40)
[2022-02-19 11:40] LABS: Cortisol Random 34.35 ug/dL (2.47-19.5)
[2022-02-19 11:47] LABS: Glucose Point of Care 337 mg/dL (70-110)
[2022-02-19] MEDS: insulin lispro 100 unit/1 mL SUBCUT ×3 (12:51→21:46)
[2022-02-19 16:46] LABS: Add Urine Microscopic? YES; Bilirubin Urine Neg (Negative); Blood Urine 3+ (Negative); Glucose Urine UA 4+ (Normal); Ketones Urine Negative (Negative); Leukocyte Esterase Urine Negative (Negative); Nitrate Urine Negative (Negative); Protein Urine 3+ (Negative); Specific Gravity, Urine 1.015 (1.005-1.030); Urine Appearance Clear (CLEAR); Urine Color Yellow (Yellow); Urobilinogen Urine Norm (Negative); pH Urine 5 (5-7)
[2022-02-19 16:50] LABS: Bacteria Urine 1+ /hpf; RBC Urine 25-40 /hpf (0-2); Squamous Epithelial Cell Urine 0-4 /hpf (0-5)
[2022-02-19 16:51] LABS: Add Urine Culture? No; Hyaline Casts Urine 0-4 /lpf; Mucus Urine 1+ /hpf
[2022-02-19 16:56] LABS: Influenza A by IFA negative (Negative); Influenza B by IFA negative (Negative)
[2022-02-19 17:11] LABS: Glucose Point of Care 152 mg/dL (70-110)
[2022-02-19] MEDS: vancomycin 1,000 MG in sodium chloride 0.9% 250 ML 250 MG IV (17:17)
--- NOTE | 2022-02-19 17:25 | PC.SLP ---
The patient has not been alert enough to participate in a COLLECTIONS CLERK evaluation today. COLLECTIONS CLERK will attempt to evaluate tomorrow morning, if the patient is able.
--- NOTE | 2022-02-19 17:28 | PC.NURSE ---
Notified Dr. Chaudhry vanc was hung late and Hydralazine PO. Patient unresponsive. Dr. Chaudhry stated to hold.
[2022-02-19 18:19] LABS: Adenovirus Not Detected (NOT DETECT); Chlamydia Pneumoniae Not Detected (NOT DETECT); Coronavirus 229E,HKU1,NL63,OC4 Not Detected (NOT DETECT); Human Metapneumovirus Not Detected (NOT DETECT); Human Rhinovirus/Enterovirus Not Detected (NOT DETECT); Influenza A Not Detected (NOT DETECT); Influenza A H1 Not Detected (NOT DETECT); Influenza A H1-2009 Not Detected (NOT DETECT); Influenza A H3 Not Detected (NOT DETECT); Influenza B Not Detected (NOT DETECT); Mycoplasma Pneumoniae Not Detected (NOT DETECT); Parainfluenza Virus Type 1 Not Detected (NOT DETECT); Parainfluenza Virus Type 2 Not Detected (NOT DETECT); Parainfluenza Virus Type 3 Not Detected (NOT DETECT); Parainfluenza Virus Type 4 Not Detected (NOT DETECT); Respiratory Syncytial Virus A Not Detected (NOT DETECT); Respiratory Syncytial Virus B Not Detected (NOT DETECT); SARS-COV-2 Not Detected (NOT DETECT)
--- NOTE | 2022-02-19 18:23 | PC.NURSE ---
Notified Dr. Chaudhry for 1 positive blood culture bottle of four with gram positive cocci in chains
[2022-02-19 21:46] LABS: Glucose Point of Care 197 mg/dL (70-110)
[2022-02-19] MEDS: heparin drip 25,000 UNIT/500 ML PREMIX 28 UNIT IV (22:55)
[2022-02-19] MEDS: heparin 5,000 unit/mL INJ 1 mL IV (22:58)
--- NOTE | 2022-02-19 23:22 | USCV_ITS ---
Heber Roach Age: 86 Gender: M : 1935 Exam Date: 02/19/2022 01:43 Ordering Phys: Regina Yao MD Technologist: VALDEZ Exam Location: [facility] [place] Indication: CP, dyspnea, history CAD, Afib. AVR bio 2007, TAVR 06/2021. HTN, CKD, slurred speech, nonverbal now. prior 03/21/2021 BP: 165 / 129 HR: 84 Rhythm: Sinus Technical Quality: Technically difficult study with Optison MEASUREMENTS (Male / Female) Normal Values 2D ECHO LV Diastolic Diameter PLAX 4.1 cm 4.2 - 5.9 / 3.9 - 5.3 cm LV Systolic Diameter PLAX 2.8 cm IVS Diastolic Thickness 1.6 cm 0.6 - 1.0 / 0.6 - 0.9 cm IVS Systolic Thickness 1.6 cm LVPW Diastolic Thickness 1.7 cm 0.6 - 1.0 / 0.6 - 0.9 cm LVPW Systolic Thickness 1.8 cm LVOT Diameter 1.9 cm LV Ejection Fraction 2D Teich 59.2 % LV Ejection Fraction MOD 2C 57.5 % LV Ejection Fraction 2C AL 59.1 % LA Diameter 7.1 cm LA Width 5.8 cm LA Height 7.5 cm RA Width 3.1 cm RA Height 4.6 cm Aorta at Sinotubular Diameter 2.5 cm DOPPLER AV Peak Velocity 426.3 cm/s LVOT Peak Velocity 132.0 cm/s AV Area Cont Eq vti 1.0 cm squared AV Area Cont Eq pk 0.9 cm squared MV Peak Velocity 130.0 cm/s MV Area PHT 2.4 cm squared Mitral E to A Ratio 0.9 MV E' Velocity 70.0 cm/s Mitral E to MV E' Ratio 9.6 Mitral E to LV E' Lateral Ratio 9.0 Mitral E to LV E' Septal Ratio 10.3 TR Peak Velocity 318.0 cm/s TR Peak Gradient 40.4 mmHg TV Peak E Velocity 63.0 cm/s Right Atrial Pressure 10.0 mmHg Pulmonary Artery Systolic Pressu 50.4 mmHg PV Peak Velocity 157.0 cm/s RV Acceleration Time 0.1 s RV Ejection Time 0.3 s RV AcT/ET 0.3 FINDINGS Left Ventricle Normal left ventricular cavity size. Normal left ventricular systolic function. Left ventricular ejection fraction is estimated at 65 %. No diagnostic regional wall motion abnormality. Abnormal septal motion. Right Ventricle Normal right ventricular size and systolic function. Right Atrium Normal right atrial size. Left Atrium Moderately increased left atrial size. Mitral Valve Mildly thickened mitral valve. No mitral valve stenosis. Aortic Valve Aortic valve not well visualized. S/p TAVR of bioprosthetic aortic valve. Possible prosthetic aortic valve stenosis. Peak velocity 4.2 m/s, peak gradient 69 mmHg, mean gradient 33 mmHg, RAYO 1.1 cm squared. DVI=0.31. AT =95 msec. No significant valvular or perivalvular regurgitation. Tricuspid Valve Tricuspid valve not well visualized. Pulmonic Valve Pulmonic valve not well visualized. Pericardium No pericardial effusion. Aorta Aorta not well visualized. IVC Inferior vena cava not visualized. CONCLUSIONS 1. This is a technically very difficult study. Optison was used per protocol. 2. S/p TAVR of bioprosthetic aortic valve. Possible prosthetic aortic valve stenosis. Peak velocity 4.2 m/s, peak gradient 69 mmHg, mean gradient 33 mmHg, RAYO 1.1 cm squared. DVI=0.31. AT =95 msec. No significant valvular or perivalvular regurgitation. 3. When compared to study dated 03/21/2021, there is TAVR valve now. No studies available post TAVR to compare to. Netta Rodriguez MD (Electronically Signed) Final Date: 19 February 2022 16:53 S
[2022-02-20] VITALS (13 sets, daily range): BP systolic 154–216; BP diastolic 75–102; PULSE 82–108; RESP 17–26; TEMP 36.6–39.4; O2SAT 94–96
[2022-02-20] MEDS: Dianeal low Ca w/1.5% dex 2,000 mL Bag 2000 ML INTRAPERIT ×4 (03:18→20:30)
[2022-02-20 05:02] LABS: Basophils % 0.2 %; Eosinophils # 0.1 10^3/uL (0.0-0.8); Eosinophils % 0.5 %; Hematocrit 38.4 % (42.0-52.0); Lymphocytes % 5.6 %; Mean Corpuscular HGB Conc 33.9 g/dL (30.0-36.0); Mean Corpuscular Hemoglobin 30.4 pg (28.0-34.0); Mean Corpuscular Volume 89.9 fl (80-94); Mean Platelet Volume 11.1 fL (7.4-10.4); Monocytes # 2.1 10^3/uL (0.2-0.9); Monocytes % 11.2 %; Neutrophils # 14.53 10^3/uL (1.8-7.7); Neutrophils % 79.5 %; Nucleated Red Blood Cells % 0 %; Platelet Count 190 10^3/cmm (130-400); Red Blood Count 4.27 10^6/uL (4.1-5.3); White Blood Count 18.3 10^3/uL (4.0-10.0)
[2022-02-20 05:15] LABS: INR 2.55 (0.8-1.2)
[2022-02-20 05:20] LABS: Lactate (Lactic Acid level) 1.1 mmol/L (0.5-2.2)
[2022-02-20 05:23] LABS: Alanine Aminotransferase 18 U/L (0-41); Albumin Level 3.8 g/dL (3.5-5.2); Alkaline Phosphatase 87 U/L (40-130); Anion Gap 17.5 (5-19); Aspartate Amino Transferase 20 U/L (0-40); Blood Urea Nitrogen 80 mg/dL (8-23); Calcium 9.3 mg/dL (8.5-10.5); Carbon Dioxide 22 mmol/L (22-29); Chloride 101 mmol/L (98-107); Globulin 2.8 g/dL (1.3-4.6); Glucose 262 mg/dL (65-115); Magnesium 2.5 mg/dL (1.7-2.3); Osmolality Calculated 317 mOsm/kg (285-295); Phosphorus 4.4 mg/dL (2.5-4.5); Potassium 3.5 mmol/L (3.5-5.1); Sodium 137 mmol/L (136-145); Total Bilirubin 0.7 mg/dL (0.15-1.2); Total Protein 6.6 g/dL (6.6-8.7)
[2022-02-20 05:28] LABS: Procalcitonin 1.16 ng/mL (0-0.5)
[2022-02-20 06:04] LABS: Partial Thromboplastin Time > 150.0 SECONDS (23.9-36.7)
[2022-02-20 06:18] LABS: Glucose Point of Care 262 mg/dL (70-110)
--- NOTE | 2022-02-20 08:23 | PC.NURSE ---
Physician at bedside. Orders given to hold heparin gtt for additional 24HR d/t elevated INR.
--- NOTE | 2022-02-20 08:34 | PM.PN ---
Subjective Subjective: moving, weak, dysarthia, bp high Medications: Reviewed: Yes Medication Review Details: Current Medications Acetaminophen (Acetaminophen 650 Mg Supp) 650 mg MT Q6H PRN PRN Reason: pain, fever Atorvastatin Calcium (Atorvastatin 40 Mg Tablet) 20 mg PO BEDTIME [facility] Last Admin: 02/19/22 20:19 Dose: Not Given Clopidogrel Bisulfate (Clopidogrel 75 Mg Tablet) 75 mg PO DAILY [facility] Last Admin: 02/19/22 10:26 Dose: Not Given Dextrose (Dextrose 50% Syringe 50 Ml) 25 ml IVP ONCE PRN; Protocol PRN Reason: hypoglycemia protocol Dextrose (Dextrose 50% Syringe 50 Ml) 50 ml IVP PRN PRN; Protocol PRN Reason: hypoglycemia protocol Dextrose (Dextrose 50% Syringe 50 Ml) 25 ml IVP ONCE PRN; Protocol PRN Reason: hypoglycemia protocol Dextrose (Dextrose 50% Syringe 50 Ml) 50 ml IVP PRN PRN; Protocol PRN Reason: hypoglycemia protocol Famotidine (Famotidine 20 Mg/2 Ml Inj) 20 mg IVP Q12H [facility] Last Admin: 02/19/22 23:40 Dose: 20 mg Furosemide (Furosemide 10 Mg/Ml Sdv 2ml) 20 mg IVP Q12H [facility] Last Admin: 02/19/22 23:40 Dose: 20 mg Glucagon (Glucagon 1 Mg/Ml Inj 1 Ml) 1 mg IM ONCE PRN; Protocol PRN Reason: Adult Acute Hypoglycemia Prot. Glucagon (Glucagon 1 Mg/Ml Inj 1 Ml) 1 mg IM ONCE PRN; Protocol PRN Reason: Adult Acute Hypoglycemia Prot. Heparin Sodium (Porcine) (Heparin 5,000 Unit/Ml Inj 1 Ml) 0 unit IV PRN PRN; Protocol PRN Reason: Heparin weight-base protocol Last Admin: 02/19/22 22:58 Dose: 5,000 unit Hydralazine HCl (Hydralazine 25 Mg Tablet) 25 mg PO TID [facility] Last Admin: 02/19/22 20:20 Dose: Not Given Dextrose (D5w) 500 mls @ 100 mls/hr IV ONCE PRN; Protocol PRN Reason: Adult Acute Hypoglycemia Prot Dextrose (D5w) 500 mls @ 100 mls/hr IV ONCE PRN; Protocol PRN Reason: Adult Acute Hypoglycemia Prot Piperacillin Sod/Tazobactam (Sod 3.375 gm/ Sodium Chloride) 50 mls @ 12.5 mls/hr IV Q12H [facility]; Protocol Last Infusion: 02/20/22 03:04 Dose: Infused Sodium Chloride (Sodium Chloride 0.9%) 1,000 mls @ 75 mls/hr IV .[id number] [facility] Last Admin: 02/19/22 22:58 Dose: 75 mls/hr Heparin Sodium/Sodium Chloride (Heparin Drip) 25,000 unit in 500 mls @ 0 mls/hr IV .Q0M [facility]; Protocol Last Titration: 02/20/22 06:05 Dose: 0 unit/kg/hr, 0 mls/hr Vancomycin HCl 1,000 mg/ (Sodium Chloride) 250 mls @ 250 mls/hr IV Q48H [facility]; Protocol Last Infusion: 02/19/22 19:00 Dose: Infused Acyclovir 930 mg/ Sodium (Chloride) 118.6 mls @ 120 mls/hr IV Q24H [facility] Last Admin: 02/19/22 12:52 Dose: 120 mls/hr Insulin Human Lispro (Insulin Lispro 100 Unit/1 Ml) 0 unit SUBCUT WM&BEDTIME [facility]; Protocol Last Admin: 02/19/22 21:46 Dose: 4 unit Isosorbide Mononitrate (Isosorbide Mononitrate Er 30 Mg Tablet) 30 mg PO DAILY [facility] Last Admin: 02/19/22 10:27 Dose: Not Given Labetalol HCl (Labetalol 5 Mg/Ml Sdv 20ml) 10 mg IVP Q4H PRN PRN Reason: SBP>180 or DBP>90 Lactulose (Lactulose Oral Liq 20 Gm/30 Ml Udc) 20 gm PO Q12H PRN PRN Reason: CONSTIPATION Levothyroxine Sodium (Levothyroxine 88 Mcg Tablet) 88 mcg PO QAM [facility] Last Admin: 02/20/22 05:57 Dose: Not Given Ondansetron HCl (Ondansetron 2 Mg/Ml Sdv 2 Ml) 4 mg IVP Q8H PRN PRN Reason: vomiting, or N/V if npo Peritoneal Dialysis Solution (Dianeal Low Ca W/1.5% Dex 2,000 Ml Bag) 2,000 ml INTRAPERIT QID [facility] Last Admin: 02/20/22 03:18 Dose: 2,000 ml Tamsulosin HCl (Tamsulosin 0.4 Mg Capsule) 0.4 mg PO DAILY [facility] Last Admin: 02/19/22 10:28 Dose: Not Given Vitals/I&O/Wt Last Vital Signs Temp 98.3 F 02/20/22 07:38 Pulse 93 02/20/22 07:38 Resp 17 02/20/22 07:38 BP 203/96 02/20/22 07:38 Pulse Ox 94 02/20/22 07:38 O2 Del Method 02/20/22 07:38 02/19/22 02/20/22 02/20/22 22:59 06:59 14:59 Intake Total 1226.25 / 1276.25 250.667 / 1526.917 Output Total 725 / 725 Balance 501.25 / 551.25 250.667 / 801.917 Weight last 48 hrs Weight 98.656 kg Weight 98.656 kg Weight 92.986 kg Weight 92.986 kg Physical Exam Narrative: examined w/ RN- telehealth visit obese man in bed, sob, moving, interactive bp noted and elevated heent- nc/at neck supple lungs clear heart reg abd soft, nt, nd, + bs ext no edema neuro- more alert. moving legs and rt arm, moves left arm less. trying to talk Data : 02/20/22 04:48 02/20/22 04:48 Micro: Microbiology 02/18/22 21:20 Blood Culture - Preliminary Blood NEGATIVE TO DATE 02/18/22 21:10 Blood Culture - Preliminary Blood 02/18/22 20:45 Gram Stain - Final Amniotic Fluid A&P Assessment and plan (1) End stage renal disease: 86 year old male w/ PMHX of ESRD on PD, IDDM, CAD, a fib, AVR in 2007 w/ bioprosthetic AV valve more recently s/p TAVR 06/2021, HTN. Pt was admitted earlier today w/ h/a, slurred speech, AMS, and weakness. renal called for ESRD care. 1. AMS- per medicine- evaluate for CVA vs infection vs other -consider repeat ct scan 2. eSRD- CAPD - 5 exchanges a day of low glucose -pd cell count 52 wbc, 1000 rbc- bloody- repeat pd cell count 3. hgb high for ESRD- no MCKAY 4. resp alkalosis per medicine 5. hypertension- slowly correct-in case of cva- add toprol 6. dm control per medicine seen and examined w/ RN- telehealth visit time spent 30 min Plan see above Attestations Medical Necessity Statement*: esrd, ams, Q CVA, htn Time Spent in Patient Care: 16 - 35 minutes (>than 50% of time spent in counselling and/or direct pt care on unit). Coding Level of Care Code Acute Director Of Housing And Energy Services for [facility]u [facility] Diagnoses End stage renal disease N18.6
[2022-02-20] MEDS: insulin lispro 100 unit/1 mL SUBCUT ×4 (09:24→20:38)
[2022-02-20] MEDS: labetalol 5 mg/mL SDV 20mL 10 MG IVP (09:26)
[2022-02-20 09:48] LABS: Partial Thromboplastin Time > 250.0 SECONDS (23.9-36.7)
--- NOTE | 2022-02-20 09:55 | P.PN_ITS ---
Subjective Subjective: Patient was seen this morning, at bedside, she tells me overnight, his mentation improved to some degree, he is moving all his extremities, does awaken, was hypertensive, low-grade fever 99.9, this morning he does awaken to sternal rub, does not withdraw from pain, on room air, Vitals/I&O/Wt Last Vital Signs Temp 98.3 F 02/20/22 07:38 Pulse 93 02/20/22 07:38 Resp 18 02/20/22 09:34 BP 203/96 02/20/22 07:38 Pulse Ox 94 02/20/22 07:38 O2 Del Method 02/20/22 07:38 02/19/22 02/20/22 02/20/22 22:59 06:59 14:59 Intake Total 1226.25 / 1276.25 250.667 / 1526.917 118.6 / 118.6 Output Total 725 / 725 Balance 501.25 / 551.25 250.667 / 801.917 118.6 / 118.6 Weight last 48 hrs Weight 98.656 kg Weight 98.656 kg Weight 92.986 kg Weight 92.986 kg Physical Exam Const: COMMON NORMALS: no acute distress EXAM LIMITATIONS: altered mental status OTHER: Does awaken to sternal rub, not alert to person place or time Neck/C-Spine: COMMON NORMALS: no JVD Resp: COMMON NORMALS: normal respiratory effort, No retractions, No use of accessory muscles and clear to auscultation bilaterally AUSCULTATION: clear to auscultation bilaterally Cardio: COMMON NORMALS: no JVD, regular rate, regular rhythm, S1 normal heart sound present and S2 normal heart sound present RATE: regular rate RHYTHM: regular rhythm HEART SOUNDS: S1 normal heart sound present and S2 normal heart sound present GI: COMMON NORMALS: Normal to inspection, nondistended, normoactive bowel sounds present and non-tender Extremity: COMMON NORMALS: no pedal edema Psych: COMMON NORMALS: mental status grossly normal Data : 02/20/22 04:48 02/20/22 04:48 Micro: Microbiology 02/18/22 21:20 Blood Culture - Preliminary Blood NEGATIVE TO DATE 02/18/22 21:10 Blood Culture - Preliminary Blood 02/18/22 20:45 Gram Stain - Final Amniotic Fluid A&P Assessment and plan (1) Gram-positive bacteremia: (2) Altered mental status: Patient presenting today with altered mental status with symptoms starting at about 2 PM. Through the day he has had progressive worsening in mentation. Currently appears to be encephalopathic, and his symptoms are global CT head upon admission negative for any intracranial bleeding. Changes of chronic ischemic disease are noted. Ischemic stroke certainly remains a possibility at this time., MRI of the brain ordered Patient is already on appropriate management with Plavix 75 mg p.o. daily, statin and appropriately anticoagulated with warfarin with an INR of 2.6. He is not a candidate for tPA. Monitor INR, as he has inability to take p.o. intake, will switch over to heparin drip Last echocardiogram from March 2021 with LVEF of 67%, bioprosthetic AV valve with severe AV stenosis. He has had a TAVR in the interim. We will check echocardiogram again today. Other differentials include metabolic encephalopathy. Secondary to uremia, receiving peritoneal dialysis Possible UTI, started on Zosyn Chest x-ray does show atelectasis left lung base, possible pneumonia with his fevers, encephalopathy, continue Zosyn, add on vancomycin, MRSA nares PCR sputum cultures Follow urine cultures, blood cultures, sputum cultures, COVID testing, flu testing To evaluate for possible infection including PD peritonitis given elevated white blood cell count, diarrhea and pain with abdominal palpation, will check acetic fluid cell count, culture, blood culture, UA with reflex culture if positive, C. difficile PCR. Continue Zosyn Patient is currently able to maintain his airway, saturating 96% on room air, respiratory rate at 15/min. He is currently hemodynamically stable. Through the night we will allow for permissive hypertension for possibility of stroke. Treat if systolic greater than 220 or diastolic greater than 120 neurochecks, aspiration precautions, and NIH stroke scale (3) Atrial fibrillation, chronic: Currently rate controlled. Continue warfarin with target INR of 2-3. Will place on heparin drip. (4) Severe aortic stenosis: Status post TAVR June 2021 Check echocardiogram (5) Chronic kidney disease: On peritoneal dialysis. Nephrology consult to maintain PD inpatient. Plan Altered mental status -Possible bacterial meningitis, as his complaints to his yesterday was he had a headache and then he started becoming confused -CT of the head no acute findings -Chest x-ray potential pneumonia -UA possible UTI -Has gram-positive cocci in 1 blood culture -Is hypertensive, possible hypertensive encephalopathy -There is also concerns for acute CVA, although no focal symptoms, more global symptoms Plan -Cannot do an MRI as there is concerns for his TAVR, collecting information from [facility] hopefully can perform MRI in the next 24 to 48 hours -Cannot perform lumbar puncture as the last consumed Plavix 48 hours ago, need to wait at least 5 days continue to hold, INR 2.55 -INR 2.55, elevated PTT, hold heparin drip, monitor INR, monitor PTT -Follows urine cultures, blood cultures -PD gram stain within normal limits, will obtain PD culture -Monitor mentation, neurochecks, aspiration precautions, -Given persistently elevated blood pressure, its been about 48 hours for the therapeutic hypertension after possible CVA, start clonidine patch, as needed labetalol, will consider scheduled metoprolol IV -Cannot take any p.o. medication due to mentation, high risk of aspiration -Continue vancomycin, Zosyn, acyclovir added for possible viral meningitis -Add viral studies, follow blood cultures, urine cultures -Was on high-dose prednisone burst for a rash across his chest, will consider antifungals based on clinical progress - at bedside, updated -Full code -INR 2.5, SCDs for DVT prophylaxis Atrial fibrillation, rate well controlled, holding Coumadin, holding heparin, monitor Hypertension, as above CKD, nephrology consulted CAD aortic stenosis as above DVT prophylaxis: Elevated INR Insulin-dependent diabetes mellitus, low-dose sliding scale Full code for now, however contemplating DNR/DNI given his multiple comorbidities and advanced age, has not decided yet. Attestations Medical Necessity Statement*: Patient requires hospitalization for altered mental status, Coding Level of Care Code Acute Housing And Residence Life Director for [facility] Fwd Diagnoses Gram-positive bacteremia R78.81 Altered mental status R41.82 Atrial fibrillation, chronic I48.20 Severe aortic stenosis I35.0 Chronic kidney disease N18.9
[2022-02-20] MEDS: piperacillin-tazobactam 3.375 GM in sodium chloride 0.9% (plus) 50 ML IV ×2 (09:57→20:34)
[2022-02-20] MEDS: FUROsemide 10 mg/mL SDV 2mL 20 MG IVP ×2 (10:01→22:10)
[2022-02-20] MEDS: famotidine 20 mg/2 mL INJ IVP ×2 (10:01→22:11)
[2022-02-20] MEDS: cloNIDine 0.1 mg/24 hr Patch 1 PATCH TRANSDERMA (10:25)
[2022-02-20] MEDS: dextrose 5%-sod chloride 0.9% 1,000 ML 50 ML IV (10:25)
--- NOTE | 2022-02-20 10:32 | PC.SLP ---
Patient is still not alert enough to participate in BEHAVIORAL SCIENCE CHAIR evaluation. He is not alert enough for oral intake. BEHAVIORAL SCIENCE CHAIR will follow up the patient, when the patient is able.
[2022-02-20 10:54] LABS: Glucose Point of Care 252 mg/dL (70-110)
--- NOTE | 2022-02-20 10:54 | PC.CHAP ---
Pastoral Care Encounter/Spiritual Assessment Type of Contact [] Declined cylinder block mechanic visit [] Patient/Family/Request visit [] Outpatient visit [] Follow-up visit [] Physician referral [] Code/Alert [] Routine visit [] Staff referral [] Actively dying [] Patient sleeping [] Family support [] [] Out of room [] Palliative care [] [] Receiving care in room [] Pre-surgical visit [] Trauma [] Long length of stay [] ICU visit [x] Other: Isolation Relational/Emotional Strength [] Patient feels connected with others/family/visitors/staff [] Distress [] Loneliness/isolation [] Abandonment Spirituality of Patient [] Person of Sofia [] Attends Adventism of their [place] [] Believes in Prayer [] Reads Bible or Pentecostalism materials [] There are Spiritual issues to be addressed Sociology Faculty Member Interventions [] Prayer [] Active listening [] Non-anxious presence [] Spiritual/emotional support [] Crisis/trauma care [] Spiritual counseling [] Bereavement support [] Provided bereavement packet [] Provided Bible/devotional materials [] Provided toy/stuffed animal, coloring book to patient or family member [] Provided Communion [] Anointing/[place] [] Salvation [] Completed spiritual assessment [] Other: Impact on Illness or Injury [] Angry [] Fearful [] Anxious [] Often cries [] Exhaustion [] Unable to work [] Unable to attend druze [] Unable to walk/stand [] Unable to read [] Unable to drive [] Unable to eat/drink [] Unable to sleep [] Unable to be with family [] Patient intubated [] Other: Summary Isolation Time spent with patient 5 mins
--- NOTE | 2022-02-20 11:19 | XRR_ITS ---
PROCEDURE INFORMATION: Exam: XR Chest Exam date and time: 02/20/2022 11:37 AM Age: 86 years old Clinical indication: NG tube placement. TECHNIQUE: Imaging protocol: Radiologic exam of the chest. Views: 1 view. COMPARISON: CR XR chest 1V portable [id number] 02/19/2022 8:48 AM FINDINGS: Tubes, catheters and devices: Nasogastric tube with tip in the gastric body. Lungs: Calcified left hilar lymph node. A nodule in the left chest is unchanged since November 2019 and likely represents a benign calcified granuloma. Minimal left basilar scarring or atelectasis. Pleural spaces: Possible trace left pleural effusion. No pneumothorax. Heart/Mediastinum: Probable prior TAVR. No gross evidence of pneumomediastinum. Bones/joints: Suture anchor in the proximal left humerus. No gross fracture. XR/XR chest 1V portable [id number] IMPRESSION: 1. Nasogastric tube with tip in the gastric body. 2. Possible trace left pleural effusion.
[2022-02-20] MEDS: metoprolol tartrate 25 mg Tablet PO (13:08)
[2022-02-20] MEDS: hyDRALAzine 25 mg Tablet PO ×2 (14:57→20:33)
[2022-02-20 15:19] LABS: Mononuclear #, Pertinoneal Fl 0.005 10^3/uL
--- NOTE | 2022-02-20 15:19 | PC.NURSE ---
bp consistently been elevated for 7a shift.nurse been in constant contact with dr. luong. po meds not given at 9a d/t pt unable to swallow in obtunded state. physician notified. ngt placed for po meds . labetalol given ivp before ngt placed for htn. once ngt was placed and xray obtained, physician notified. orders were given for po meds to be given down ngt. metoprolol first was given , bp checked in one hour as ordered. hydralazine given next with orders to give imdur in one hour. Orders given for next dose of meds to be at least twelve hours from previous dose of specific med. pt suctioned with copious sputum.
[2022-02-20 15:20] LABS: Cyto Order Verification No Order
[2022-02-20 15:21] LABS: Appearance, Peritoneal Fluid Clear (Clear); Color, Peritoneal Fluid Colorless (Pale Yellow); RBC Pertioneal Fluid 0 10^3/uL; WBC Peritoneal Fluid 5 /uL
[2022-02-20] MEDS: isosorbide mononitrate ER 30 mg Tablet PO (15:59)
[2022-02-20 16:55] LABS: Glucose Point of Care 254 mg/dL (70-110)
--- NOTE | 2022-02-20 17:17 | PC.NURSE ---
patient on continuous bladder irrigation throughout the shift. c/o pain, physician notified. morphine added for breakthrough pain. Patient irrigated manually x 3 with clots retrieved each time. Patient currently tolerating CBI well, no pain reported. Currently CBI at a steady fast drip. Clear w hint of pink in color with no clots.
[2022-02-20 20:32] LABS: Glucose Point of Care 299 mg/dL (70-110)
[2022-02-20] MEDS: atorvastatin 40 mg Tablet 20 MG PO (20:33)
[2022-02-21] VITALS (10 sets, daily range): BP systolic 147–187; BP diastolic 75–100; PULSE 81–107; RESP 16–21; TEMP 36.6–38.8; O2SAT 94–98; BMI 34.0
[2022-02-21] MEDS: metoprolol tartrate 25 mg Tablet PO ×2 (00:58→08:28)
[2022-02-21] MEDS: Dianeal low Ca w/1.5% dex 2,000 mL Bag 2000 ML INTRAPERIT ×5 (01:45→22:34)
[2022-02-21 02:52] LABS: Basophils # 0.1 10^3/uL (0.0-0.1); Basophils % 0.4 %; Hematocrit 40.4 % (42.0-52.0); Hemoglobin 13.5 g/dL (11.7-16.6); Lymphocytes # 1.3 10^3/uL (0.8-4.8); Lymphocytes % 7.9 %; Mean Corpuscular HGB Conc 33.4 g/dL (30.0-36.0); Mean Corpuscular Volume 89.8 fl (80-94); Mean Platelet Volume 11.4 fL (7.4-10.4); Monocytes # 1.8 10^3/uL (0.2-0.9); Monocytes % 10.3 %; Neutrophils # 13.25 10^3/uL (1.8-7.7); Neutrophils % 78.2 %; Nucleated Red Blood Cells % 0 %; Platelet Count 201 10^3/cmm (130-400); Red Cell Distribution Width 13.2 % (12.1-15.1); White Blood Count 16.9 10^3/uL (4.0-10.0)
[2022-02-21 03:09] LABS: Lactate (Lactic Acid level) 1.3 mmol/L (0.5-2.2)
[2022-02-21 03:13] LABS: Vancomycin Random 8.5 ug/mL (20.0-40.0)
[2022-02-21 03:14] LABS: Alanine Aminotransferase 17 U/L (0-41); Albumin Level 3.4 g/dL (3.5-5.2); Alkaline Phosphatase 82 U/L (40-130); Anion Gap 19.3 (5-19); Aspartate Amino Transferase 18 U/L (0-40); Blood Urea Nitrogen 70 mg/dL (8-23); C Reactive Protein 230.8 mg/L (0.0-4.9); Calcium 9.3 mg/dL (8.5-10.5); Carbon Dioxide 24 mmol/L (22-29); Chloride 103 mmol/L (98-107); Globulin 3.2 g/dL (1.3-4.6); Glucose 264 mg/dL (65-115); Magnesium 2.6 mg/dL (1.7-2.3); Osmolality Calculated 326 mOsm/kg (285-295); Phosphorus 4.4 mg/dL (2.5-4.5); Potassium 3.3 mmol/L (3.5-5.1); Sodium 143 mmol/L (136-145); Total Bilirubin 0.6 mg/dL (0.15-1.2); Total Protein 6.6 g/dL (6.6-8.7)
[2022-02-21] MEDS: acetaminophen 325 mg Tablet 650 MG PO ×2 (06:27→17:18)
[2022-02-21] MEDS: levothyroxine 88 mcg Tablet PO (06:27)
[2022-02-21 06:36] LABS: Glucose Point of Care 307 mg/dL (70-110)
[2022-02-21] MEDS: tamsulosin 0.4 mg Capsule PO (08:28)
[2022-02-21] MEDS: hyDRALAzine 25 mg Tablet PO (08:28)
[2022-02-21] MEDS: insulin lispro 100 unit/1 mL SUBCUT ×4 (08:28→21:52)
[2022-02-21] MEDS: isosorbide mononitrate ER 30 mg Tablet PO (08:28)
[2022-02-21] MEDS: piperacillin-tazobactam 3.375 GM in sodium chloride 0.9% (plus) 50 ML IV (08:29)
[2022-02-21] MEDS: amlodipine 10 mg Tablet PO (08:41)
--- NOTE | 2022-02-21 10:00 | MR_ITS ---
WS: [id number] MRI HEAD WITHOUT CONTRAST TECHNIQUE: Sagittal T1, T2 axial, T2 axial FLAIR, axial and coronal T1 images, axial susceptibility w eighted imaging, axial diffusion weighted images, and coronal T2 images were obtained. CLINICAL INFORMATION: evaluate for CVA vs PRES COMPARISON: CT February 18, 2022 FINDINGS: Images moderately degraded by patient motion. Layering debris within the occipital horns and lateral ventricles with restricted effusion. Findings are suspicious for purulent debris due to ventriculitis. Recommend correlation for meningitis infecti on. In addition, mild ventriculomegaly with suggestion of transependymal edema about the occipital ho rns. Moderate to advanced small vessel changes. Moderate parenchymal volume loss. Small vessel changes in the maryuri. Normal vascular flow voids at the skull base. No extra-axial fluid collections. No evidence of mass o r mass effect. Mucosal thickening paranasal sinuses. Mastoid air cells are well aerated. Mild to mode rate central canal stenosis in the upper cervical spine seen on compensation expert imaging. Normal optic chiasm and pituitary infundibulum. Advanced symmetric atrophy temporal lobes and hippoca mpal formations. MR/MR head wo con* [id number] IMPRESSION: Images moderately degraded by motion artifact. 1. No definite evidence of restricted diffusion to suggest acute ischemia cons idering motion artifact. 2. Layering debris in the occipital horns and posterior lateral ventricles erin picious for ventriculitis with purulent debris. Recommend correlation for menin gitis and infection. 3. Associated mild ventriculomegaly with suggestion of transependymal edema ab out the posterior lateral ventricles and occipital horns. 4. Advanced symmetric atrophy of the temporal lobes and hippocampal formations . 5. Moderate to advanced small vessel changes with moderate parenchymal volume loss. 6. No other acute findings. Notified Dr. Chaudhry at 02/21/2022 11:33 AM.
--- NOTE | 2022-02-21 11:02 | P.PN_ITS ---
Subjective Subjective: No new complaints Medications: Reviewed: Yes Vitals/I&O/Wt Last Vital Signs Temp 99.1 F 02/21/22 07:41 Pulse 92 02/21/22 07:41 Resp 18 02/21/22 07:41 BP 170/94 02/21/22 07:41 Pulse Ox 97 02/21/22 07:41 O2 Del Method 02/21/22 07:41 02/20/22 02/21/22 02/21/22 22:59 06:59 14:59 Intake Total 50 / 1337.2 1000 / 1000 Output Total 250 / 950 400 / 1350 Balance -250 / 337.2 -350 / -12.8 1000 / 1000 Weight last 48 hrs Weight 98.656 kg Weight 98.656 kg Physical Exam Const: COMMON NORMALS: no acute distress EXAM LIMITATIONS: altered mental status Neck/C-Spine: COMMON NORMALS: no JVD Resp: COMMON NORMALS: normal respiratory effort, No retractions, No use of accessory muscles and clear to auscultation bilaterally AUSCULTATION: clear to auscultation bilaterally OTHER: per report Cardio: COMMON NORMALS: no JVD, regular rate and regular rhythm RATE: regular rate RHYTHM: regular rhythm GI: COMMON NORMALS: Normal to inspection, nondistended, normoactive bowel sounds present and non-tender : OTHER: per report Extremity: COMMON NORMALS: no pedal edema Psych: COMMON NORMALS: mental status grossly normal Data : 02/21/22 02:33 02/21/22 02:33 Micro: Microbiology 02/19/22 15:36 MRSA Culture - Final Nose 02/18/22 20:45 Gram Stain - Final Amniotic Fluid Body Fluid Culture - Preliminary 02/18/22 21:10 Blood Culture - Preliminary Blood A&P Assessment and plan (1) Peritoneal dialysis status: [place] [address] Progress Note Signed Patient: Heber Roach MR#: [id number] : 1935 Age/Sex: 86 / M ADM Date: 02/18/22 Loc: [facility]? Room/Bed: [facility] Encounter Date: 02/20/[address]: José Antonio Chaudhry MD Report Number: [id number] Subjective Subjective:?? moving, weak, dysarthia,? bp high Medications:?? Reviewed: Yes? Medication Review Details: Current Medications Acetaminophen (Acetaminophen 650 Mg Supp)? 650 mg ID Q6H PRN PRN Reason: pain, fever Atorvastatin Calcium (Atorvastatin 40 Mg Tablet)? 20 mg PO BEDTIME [facility] Last Admin: 02/19/22 20:19 Dose:? Not Given Clopidogrel Bisulfate (Clopidogrel 75 Mg Tablet)? 75 mg PO DAILY [facility] Last Admin: 02/19/22 10:26 Dose:? Not Given Dextrose (Dextrose 50% Syringe 50 Ml)? 25 ml IVP ONCE PRN; Protocol PRN Reason: hypoglycemia protocol Dextrose (Dextrose 50% Syringe 50 Ml)? 50 ml IVP PRN PRN; Protocol PRN Reason: hypoglycemia protocol Dextrose (Dextrose 50% Syringe 50 Ml)? 25 ml IVP ONCE PRN; Protocol PRN Reason: hypoglycemia protocol Dextrose (Dextrose 50% Syringe 50 Ml)? 50 ml IVP PRN PRN; Protocol PRN Reason: hypoglycemia protocol Famotidine (Famotidine 20 Mg/2 Ml Inj)? 20 mg IVP Q12H [facility] Last Admin: 02/19/22 23:40 Dose:? 20 mg Furosemide (Furosemide 10 Mg/Ml Sdv 2ml)? 20 mg IVP Q12H [facility] Last Admin: 02/19/22 23:40 Dose:? 20 mg Glucagon (Glucagon 1 Mg/Ml Inj 1 Ml)? 1 mg IM ONCE PRN; Protocol PRN Reason: Adult Acute Hypoglycemia Prot. Glucagon (Glucagon 1 Mg/Ml Inj 1 Ml)? 1 mg IM ONCE PRN; Protocol PRN Reason: Adult Acute Hypoglycemia Prot. Heparin Sodium (Porcine) (Heparin 5,000 Unit/Ml Inj 1 Ml)? 0 unit IV PRN PRN; Protocol PRN Reason: Heparin weight-base protocol Last Admin: 02/19/22 22:58 Dose:? 5,000 unit Hydralazine HCl (Hydralazine 25 Mg Tablet)? 25 mg PO TID [facility] Last Admin: 02/19/22 20:20 Dose:? Not Given Dextrose (D5w)? 500 mls @ 100 mls/hr IV ONCE PRN; Protocol PRN Reason: Adult Acute Hypoglycemia Prot Dextrose (D5w)? 500 mls @ 100 mls/hr IV ONCE PRN; Protocol PRN Reason: Adult Acute Hypoglycemia Prot Piperacillin Sod/Tazobactam (Sod 3.375 gm/ Sodium Chloride)? 50 mls @ 12.5 mls/hr IV Q12H [facility]; Protocol Last Infusion: 02/20/22 03:04 Dose:? Infused Sodium Chloride (Sodium Chloride 0.9%)? 1,000 mls @ 75 mls/hr IV .[id number] [facility] Last Admin: 02/19/22 22:58 Dose:? 75 mls/hr Heparin Sodium/Sodium Chloride (Heparin Drip)? 25,000 unit in 500 mls @ 0 mls/hr IV .Q0M [facility]; Protocol Last Titration: 02/20/22 06:05 Dose:? 0 unit/kg/hr, 0 mls/hr Vancomycin HCl 1,000 mg/ (Sodium Chloride)? 250 mls @ 250 mls/hr IV Q48H [facility]; Protocol Last Infusion: 02/19/22 19:00 Dose:? Infused Acyclovir 930 mg/ Sodium (Chloride)? 118.6 mls @ 120 mls/hr IV Q24H [facility] Last Admin: 02/19/22 12:52 Dose:? 120 mls/hr Insulin Human Lispro (Insulin Lispro 100 Unit/1 Ml)? 0 unit SUBCUT WM&BEDTIME [facility]; Protocol Last Admin: 02/19/22 21:46 Dose:? 4 unit Isosorbide Mononitrate (Isosorbide Mononitrate Er 30 Mg Tablet)? 30 mg PO DAILY [facility] Last Admin: 02/19/22 10:27 Dose:? Not Given Labetalol HCl (Labetalol 5 Mg/Ml Sdv 20ml)? 10 mg IVP Q4H PRN PRN Reason: SBP>180 or DBP>90 Lactulose (Lactulose Oral Liq 20 Gm/30 Ml Udc)? 20 gm PO Q12H PRN PRN Reason: CONSTIPATION Levothyroxine Sodium (Levothyroxine 88 Mcg Tablet)? 88 mcg PO QAM [facility] Last Admin: 02/20/22 05:57 Dose:? Not Given Ondansetron HCl (Ondansetron 2 Mg/Ml Sdv 2 Ml)? 4 mg IVP Q8H PRN PRN Reason: vomiting, or N/V if npo Peritoneal Dialysis Solution (Dianeal Low Ca W/1.5% Dex 2,000 Ml Bag)? 2,000 ml INTRAPERIT QID [facility] Last Admin: 02/20/22 03:18 Dose:? 2,000 ml Tamsulosin HCl (Tamsulosin 0.4 Mg Capsule)? 0.4 mg PO DAILY [facility] Last Admin: 02/19/22 10:28 Dose:? Not Given ? Vitals/I&O/Wt Last Vital Signs Temp ?98.3 F ?02/20/22 07:38 Pulse ?93 ?02/20/22 07:38 Resp ?17 ?02/20/22 07:38 BP ?203/96 ?02/20/22 07:38 Pulse Ox ?94 ?02/20/22 07:38 O2 Del Method ? ?02/20/22 07:38 ? 02/19/22 02/20/22 02/20/22 ? 22:59 06:59 14:59 Intake Total 1226.25 / 1276.25 250.667 / 1526.917 ? Output Total 725 / 725 ? ? Balance 501.25 / 551.25 250.667 / 801.917 ? Weight last 48 hrs Weight? 98.656 kg ? Weight? 98.656 kg ? Weight? 92.986 kg ? Weight? 92.986 kg ? Physical Exam Narrative:?? examined w/ RN- telehealth visit obese man in bed, sob, moving, interactive bp noted and elevated heent- nc/at neck supple lungs clear heart reg abd soft, nt, nd, + bs ext no edema neuro- more alert. moving legs and rt arm, moves left arm less.? trying to talk Data : 02/20/22 04:48? 02/20/22 04:48? Micro: Microbiology ?02/18/22 21:20 Blood Culture - Preliminary ?Blood ?? NEGATIVE TO DATE ?02/18/22 21:10 Blood Culture - Preliminary ?Blood ? ?02/18/22 20:45 Gram Stain - Final ?Amniotic Fluid ? A&P Assessment and plan (1) End stage renal disease: 86 year old male w/ PMHX of ESRD on PD, IDDM,? 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 Pt was admitted , AMS, and weakness.?Getting PD 1. AMS- per medicine-? evaluate for CVA vs infection vs other s/p MRI today 2. eSRD-? CAPD - 5 exchanges a day of low glucose -pd cell count 52 wbc, 1000 rbc- bloody- repeat pd cell count 3. hgb high for ESRD- no MCKAY 4. resp alkalosis per medicine 5.? hypertension- slowly correct-in case of cva- add toprol 6. 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
[2022-02-21] MEDS: haloperidol inj 5 mg/mL INJ 1 mL 1 MG IM (11:05)
[2022-02-21] MEDS: dextrose 5%-sod chloride 0.9% 1,000 ML 50 ML IV ×2 (11:06→17:18)
[2022-02-21 11:08] LABS: Glucose Point of Care 242 mg/dL (70-110)
[2022-02-21] MEDS: FUROsemide 10 mg/mL SDV 2mL 20 MG IVP ×2 (11:20→21:52)
[2022-02-21] MEDS: famotidine 20 mg/2 mL INJ IVP ×2 (11:25→21:51)
--- NOTE | 2022-02-21 11:39 | FL_ITS ---
WS: [id number] LUMBAR PUNCTURE CLINICAL INFORMATION: meningitis r/o COMPARISON: None. TECHNIQUE: Informed consent: The procedure and its potential risk and complications were discussed with the jayna ent. Verbal and written consent was obtained. Timeout: A timeout was performed to confirm correct patient, procedure, and site. Patient was prepped and draped in the usual sterile fashion. Lidocaine 1% was used for local anesthes ia. Utilizing fluoroscopic guidance, a 3.5 inch 22-gauge spinal needle was advanced into the subarach noid space at L2-L3 via LEFT oblique sublaminar approach. Free flow of cloudy CSF was obtained. 6-7 c c of CSF was collected and sent the lab for further analysis. CSF flow stopped after 6 to 7 cc. CSF w as cloudy and opaque FLUOROSCOPIC TIME: 1min [id number] # of spot films: 1 FL/FL guided lumbarpunc dx* [id number] IMPRESSION: 1. Fluoroscopically guided lumbar puncture. No immediate complications 2. Removal of 6-7 cc cloudy opaque CSF.
--- NOTE | 2022-02-21 11:52 | PC.SOCIAL ---
IMM update IMM updated with patient's . Verbalized an understanding. Copy Pg 2 left at bedside. Initialled, dated, timed, and placed in chart.
[2022-02-21 12:33] LABS: EBV IGM TEST <36.00 U/mL
--- NOTE | 2022-02-21 13:01 | P.PN_ITS ---
Subjective Subjective: Patient was seen this morning, he remained afebrile overnight, according to nursing staff they were able to get him up off the side of bed, he did open his eyes, did not respond to commands, this morning he does not open his eyes, he does respond and withdraw from pain during sternal rub, but that is only responses I can get from him, pinpoint pupils, are minimally reactive to light, remains hypertensive, on room air, no significant tachycardia episodes, patient is MRI was performed after his TAVR card was received, and deemed reasonable for him to have an MRI I went over MRI results with radiology, there is evidence of meningitis I discussed findings with patient's , patient has been on medical therapy and antiviral therapy for the last 48 hours, so far one of his blood cultures has shown gram-positive cocci, but nothing is really grown so far, his mentation has not improved on 48 hours of antibiotics and antiviral therapy, he was on high-dose steroids for a rash that was on his chest, 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 I discussed performing a lumbar puncture, its been roughly 4 days since his last dose of Plavix according to his his INR is 1.8, it is discussed the case with radiology, and our urgent need for a lumbar puncture. I discussed the risks and benefits of a lumbar puncture with his , including bleeding, infection, however in my opinion its been 4 days since his Plavix dose, his INR is 1.8 baseline to receive FFP. We need to have a good answer in terms of the cause of his changes in mentation, either are we dealing with bacterial versus fungal meningitis or aseptic or viral meningitis. Thus it is prudent to do a lumbar puncture, discussed risks and benefits with patient's , she voiced understanding, all questions answered, agreed to proceed. We will proceed with lumbar puncture this afternoon, according to nursing staff this afternoon after his lumbar puncture he had some episodes of jerking motion, potentially seizure-like episodes however uncertain, not witnessed by me we will start him on Keppra in the meantime Vitals/I&O/Wt Last Vital Signs Temp 97.8 F 02/21/22 11:07 Pulse 87 02/21/22 11:07 Resp 20 H 02/21/22 11:07 BP 187/88 02/21/22 11:07 Pulse Ox 95 02/21/22 11:07 O2 Del Method 02/21/22 11:07 02/20/22 02/21/22 02/21/22 22:59 06:59 14:59 Intake Total 50 / 1337.2 1278.6 / 1278.6 Output Total 250 / 950 400 / 1350 Balance -250 / 337.2 -350 / -12.8 1278.6 / 1278.6 Weight last 48 hrs Weight 107.501 kg Weight 98.656 kg Weight 98.656 kg Physical Exam Const: COMMON NORMALS: no acute distress EXAM LIMITATIONS: altered mental status ORIENTATION/CONSCIOUSNESS: Yes awake; not oriented to person, not oriented to place and not oriented to time OTHER: Alert, Eye: OTHER: Bilateral pupils pinpoint, minimally reactive to light Neck/C-Spine: COMMON NORMALS: no JVD Resp: COMMON NORMALS: normal respiratory effort, No retractions, No use of accessory muscles and clear to auscultation bilaterally AUSCULTATION: clear to auscultation bilaterally Cardio: COMMON NORMALS: no JVD, regular rate, regular rhythm, S1 normal heart sound present and S2 normal heart sound present RATE: regular rate RHYTHM: regular rhythm HEART SOUNDS: S1 normal heart sound present and S2 normal heart sound present GI: COMMON NORMALS: Normal to inspection, nondistended, normoactive bowel sounds present and non-tender Extremity: COMMON NORMALS: no pedal edema Neuro: SENSORIUM/ORIENTATION: No oriented to person, No oriented to place and No oriented to time Data : 02/21/22 02:33 02/21/22 02:33 Micro: Microbiology 02/19/22 15:36 MRSA Culture - Final Nose 02/18/22 20:45 Gram Stain - Final Amniotic Fluid Body Fluid Culture - Preliminary 02/18/22 21:10 Blood Culture - Preliminary Blood A&P Assessment and plan (1) Gram-positive bacteremia: (2) Altered mental status: Patient presenting today with altered mental status with symptoms starting at about 2 PM. Through the day he has had progressive worsening in mentation. Currently appears to be encephalopathic, and his symptoms are global CT head upon admission negative for any intracranial bleeding. Changes of chronic ischemic disease are noted. Ischemic stroke certainly remains a possibility at this time., MRI of the brain ordered Patient is already on appropriate management with Plavix 75 mg p.o. daily, statin and appropriately anticoagulated with warfarin with an INR of 2.6. He is not a candidate for tPA. Monitor INR, as he has inability to take p.o. intake, will switch over to heparin drip Last echocardiogram from March 2021 with LVEF of 67%, bioprosthetic AV valve with severe AV stenosis. He has had a TAVR in the interim. We will check echocardiogram again today. Other differentials include metabolic encephalopathy. Secondary to uremia, receiving peritoneal dialysis Possible UTI, started on Zosyn Chest x-ray does show atelectasis left lung base, possible pneumonia with his fevers, encephalopathy, continue Zosyn, add on vancomycin, MRSA nares PCR sputum cultures Follow urine cultures, blood cultures, sputum cultures, COVID testing, flu testing To evaluate for possible infection including PD peritonitis given elevated white blood cell count, diarrhea and pain with abdominal palpation, will check acetic fluid cell count, culture, blood culture, UA with reflex culture if positive, C. difficile PCR. Continue Zosyn Patient is currently able to maintain his airway, saturating 96% on room air, respiratory rate at 15/min. He is currently hemodynamically stable. Through the night we will allow for permissive hypertension for possibility of stroke. Treat if systolic greater than 220 or diastolic greater than 120 neurochecks, aspiration precautions, and NIH stroke scale (3) Atrial fibrillation, chronic: Currently rate controlled. Continue warfarin with target INR of 2-3. Will place on heparin drip. (4) Severe aortic stenosis: Status post TAVR June 2021 Check echocardiogram (5) Chronic kidney disease: On peritoneal dialysis. Nephrology consult to maintain PD inpatient. (6) Meningitis: Plan Altered mental status MRI brain -Possible bacterial meningitis, as his complaints to his yesterday was he had a headache and then he started becoming confused -CT of the head no acute findings -1.? No definite evidence of restricted diffusion to suggest acute ischemia considering motion artifact. 2.? Layering debris in the occipital horns and posterior lateral ventricles suspicious for ventriculitis with purulent debris. Recommend correlation for meningitis and infection. 3.? Associated mild ventriculomegaly with suggestion of transependymal edema about the posterior lateral ventricles and occipital horns. 4.? Advanced symmetric atrophy of the temporal lobes and hippocampal formations. 5.? Moderate to advanced small vessel changes with moderate parenchymal volume loss. 6.? No other acute findings -Chest x-ray potential pneumonia, although felt unlikely -UA possible UTI, although felt unlikely -Has gram-positive cocci in 1 blood culture, repeat blood ordered -Is hypertensive, possible hypertensive encephalopathy, blood pressure improving -unlikely to be cva, mri no acute cva Plan -will do lumbar puncture, 1 unit ffp -Hold heparin for another 24 hours and plans on lumbar puncture -Follows urine cultures, blood cultures -Follow CSF studies, fungal studies, viral studies, HIV, hep C -PD gram stain within normal limits, follow PD culture -Monitor mentation, neurochecks, aspiration precautions,, seizure precautions -Possible seizure-like episode? Start Keppra, will hold off on steroids until C SF studies are back, want ensure that there is no evidence of fungal meningitis -Has a risk of fungal meningitis, as he has been on high-dose steroids for the last week for a rash -Continue vancomycin -Given immunocompromise state stop Zosyn and switch to meropenem -Continue acyclovir -Add doxycycline for atypical coverage, Lyme meningitis -Add voriconazole for fungal meningitis -Cannot take any p.o. medication due to mentation, high risk of aspiration, NG tube placed -Increase hydralazine to 50 every 8 hours, metoprolol 50 twice daily continue clonidine patch, add Norvasc - at bedside, updated -Full code -INR 1.8, SCDs for DVT prophylaxis Atrial fibrillation, rate well controlled, holding Coumadin, holding heparin, monitor Hypertension, as above CKD, nephrology consulted CAD aortic stenosis as above DVT prophylaxis: SCDs Insulin-dependent diabetes mellitus, low-dose sliding scale Full code for now, however contemplating DNR/DNI given his multiple comorbidities and advanced age, has not decided yet. 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
[2022-02-21 13:40] LABS: Hepatitis A Antibody IgM Non-Reactive (Nonreactive); Hepatitis B Core IgM Non-Reactive (Nonreactive); Hepatitis B Surface Antigen Non-Reactive (Nonreactive); Hepatitis C Virus Antibody Non-Reactive (Nonreactive)
[2022-02-21] MEDS: vancomycin 1,000 MG in sodium chloride 0.9% 250 ML 250 MG IV (13:42)
[2022-02-21 13:43] LABS: HIV 1 & 2 Antibody Non-Reactive (Non-Reactiv); HIV 1 & 2 Antigen Non-Reactive (Non-Reactiv)
[2022-02-21] MEDS: meropenem 1,000 MG in sodium chloride 0.9% (plus) 50 ML 100 MG IV (14:31)
[2022-02-21] MEDS: hyDRALAzine 25 mg Tablet 50 MG PO ×2 (14:31→21:52)
[2022-02-21] MEDS: sodium chloride 0.9% (100 ml) 100 ML 426 ML (14:42)
[2022-02-21] MEDS: doxycycline 100 MG in sodium chloride 0.9% (plus) 100 ML IV (15:05)
--- NOTE | 2022-02-21 15:55 | PC.SLP ---
Patient is unresponsive and unable to participate in a bedside swallowing evaluation.
[2022-02-21 16:58] LABS: Glucose Point of Care 246 mg/dL (70-110)
[2022-02-21 17:00] LABS: Cyto Order Verification No Order
[2022-02-21 17:08] LABS: Appearance CSF CLEAR (CLEAR); CSF Specific Gravity 1.015; Color CSF COLORLESS (COLORLESS)
[2022-02-21 17:10] LABS: CSF Mononuclear # 0.125 10^3/uL (50-90); Mononuclear WBC CSF % 20 % (50-90); Polynuclear Cells ,CSF # 0.501 10^3/uL (0-10); Polynuclear WBC CSF % 80 % (0-10); Red Blood Cell CSF 0 10^3/uL (0-0); White Blood Cell CSF 626 /uL (0-5)
[2022-02-21] MEDS: metoprolol tartrate 25 mg Tablet 50 MG PO (17:19)
[2022-02-21 17:28] LABS: Total Protein CSF 232 mg/dL (15-45)
--- NOTE | 2022-02-21 20:42 | PC.NURSE ---
Physician notified of patient's temperature of 100.4, no new orders at this time.
[2022-02-21 21:25] LABS: Glucose Point of Care 221 mg/dL (70-110)
[2022-02-21] MEDS: atorvastatin 40 mg Tablet 20 MG PO (21:53)
[2022-02-21] MEDS: ampicillin 2,000 MG in sodium chloride 0.9% (plus) 50 ML 100 MG IV (21:53)
[2022-02-21 23:18] LABS: Glucose CSF 95 mg/dL (40-70)
[2022-02-22] VITALS (11 sets, daily range): BP systolic 139–160; BP diastolic 72–79; PULSE 72–98; RESP 16–18; TEMP 37.2–38.3; O2SAT 93–95
--- NOTE | 2022-02-22 00:18 | PC.NURSE ---
Throughout night patient is experiencing increase in labored breathing, abdominal breathing and patient has started wheezing, oxygen saturation WNL. Physician notified and order received for respiratory treatment.
[2022-02-22] MEDS: ipratropium-albuterol 3 mL Neb INHALATION ×4 (01:41→19:59)
[2022-02-22] MEDS: ampicillin 2,000 MG in sodium chloride 0.9% (plus) 50 ML 100 MG IV ×6 (02:19→22:03)
[2022-02-22] MEDS: meropenem 1,000 MG in sodium chloride 0.9% (plus) 50 ML 100 MG IV ×2 (02:19→15:02)
[2022-02-22] MEDS: doxycycline 100 MG in sodium chloride 0.9% (plus) 100 ML IV ×2 (03:28→16:19)
[2022-02-22] MEDS: Dianeal low Ca w/1.5% dex 2,000 mL Bag 2000 ML INTRAPERIT ×5 (04:12→22:03)
[2022-02-22 05:26] LABS: Basophils % 0.3 %; Eosinophils % 0.2 %; Hematocrit 36.8 % (42.0-52.0); Hemoglobin 12.1 g/dL (11.7-16.6); Lymphocytes # 1.4 10^3/uL (0.8-4.8); Lymphocytes % 9.4 %; Mean Corpuscular HGB Conc 32.9 g/dL (30.0-36.0); Mean Corpuscular Volume 91.1 fl (80-94); Mean Platelet Volume 11.6 fL (7.4-10.4); Monocytes # 1.4 10^3/uL (0.2-0.9); Monocytes % 9.4 %; Neutrophils # 11.34 10^3/uL (1.8-7.7); Neutrophils % 76.4 %; Nucleated Red Blood Cells % 0 %; Platelet Count 190 10^3/cmm (130-400); Red Blood Count 4.04 10^6/uL (4.1-5.3); Red Cell Distribution Width 13.4 % (12.1-15.1); White Blood Count 14.8 10^3/uL (4.0-10.0)
[2022-02-22 05:33] LABS: INR 1.69 (0.8-1.2)
[2022-02-22] MEDS: hyDRALAzine 25 mg Tablet 50 MG PO ×3 (05:35→21:13)
[2022-02-22] MEDS: levothyroxine 88 mcg Tablet PO (05:35)
[2022-02-22] MEDS: metoprolol tartrate 25 mg Tablet 50 MG PO ×2 (05:36→17:53)
[2022-02-22 05:54] LABS: Lactate (Lactic Acid level) 1.2 mmol/L (0.5-2.2)
[2022-02-22 05:57] LABS: Procalcitonin 0.68 ng/mL (0-0.5)
[2022-02-22 06:12] LABS: Alanine Aminotransferase 16 U/L (0-41); Alkaline Phosphatase 73 U/L (40-130); Anion Gap 21.1 (5-19); Aspartate Amino Transferase 20 U/L (0-40); Blood Urea Nitrogen 62 mg/dL (8-23); C Reactive Protein 117.8 mg/L (0.0-4.9); Calcium 8.7 mg/dL (8.5-10.5); Carbon Dioxide 23 mmol/L (22-29); Chloride 105 mmol/L (98-107); Glucose 233 mg/dL (65-115); Magnesium 2.4 mg/dL (1.7-2.3); Osmolality Calculated 327 mOsm/kg (285-295); Phosphorus 4.2 mg/dL (2.5-4.5); Potassium 3.1 mmol/L (3.5-5.1); Sodium 146 mmol/L (136-145); Total Bilirubin 0.3 mg/dL (0.15-1.2)
[2022-02-22 06:49] LABS: Glucose Point of Care 259 mg/dL (70-110)
[2022-02-22] MEDS: insulin lispro 100 unit/1 mL SUBCUT ×4 (08:22→22:01)
[2022-02-22] MEDS: amlodipine 10 mg Tablet PO (08:24)
[2022-02-22] MEDS: isosorbide mononitrate ER 30 mg Tablet PO (08:24)
[2022-02-22] MEDS: famotidine 20 mg/2 mL INJ IVP ×2 (11:03→22:37)
[2022-02-22] MEDS: FUROsemide 10 mg/mL SDV 2mL 20 MG IVP ×2 (11:03→22:37)
[2022-02-22 11:07] LABS: Glucose Point of Care 204 mg/dL (70-110)
--- NOTE | 2022-02-22 12:23 | PC.SLP ---
Patient remains unable to participate in his swallowing evaluation due to decreased responsiveness.
--- NOTE | 2022-02-22 12:24 | P.PN_ITS ---
Subjective Subjective: Remains confused Vitals stabe Vitals/I&O/Wt Last Vital Signs Temp 98.9 F 02/22/22 11:18 Pulse 75 02/22/22 11:18 Resp 18 02/22/22 11:18 BP 143/75 02/22/22 11:18 Pulse Ox 94 02/22/22 11:18 O2 Del Method 02/22/22 11:18 02/21/22 02/22/22 02/22/22 22:59 06:59 14:59 Intake Total 7263 / 8891.6 655 / 9546.6 Output Total 6400 / 6400 600 / 7000 Balance 863 / 2491.6 55 / 2546.6 Weight last 48 hrs Weight 107.501 kg Physical Exam Const: COMMON NORMALS: no acute distress EXAM LIMITATIONS: altered mental status ORIENTATION/CONSCIOUSNESS: Yes awake; not oriented to person, not oriented to place and not oriented to time OTHER: Alert, Eye: OTHER: Bilateral pupils pinpoint, minimally reactive to light Neck/C-Spine: COMMON NORMALS: no JVD Resp: COMMON NORMALS: normal respiratory effort, No retractions, No use of accessory muscles and clear to auscultation bilaterally AUSCULTATION: clear to auscultation bilaterally Cardio: COMMON NORMALS: no JVD, regular rate and regular rhythm RATE: regular rate RHYTHM: regular rhythm Extremity: COMMON NORMALS: no pedal edema Neuro: SENSORIUM/ORIENTATION: No oriented to person, No oriented to place and No oriented to time Data : 02/22/22 04:05 02/22/22 04:05 Micro: Microbiology 02/21/22 15:54 Cryptococcal Antigen - Final Cerebrospinal Fluid 02/21/22 15:54 Gram Stain - Final Cerebrospinal Fluid 02/18/22 20:45 Gram Stain - Final Amniotic Fluid Body Fluid Culture - Preliminary 02/20/22 15:08 Gram Stain - Final Peritoneal Fluid Body Fluid Culture - Preliminary 02/21/22 12:30 Blood Culture - Preliminary Blood SPECIMEN COLLECTED 02/21/22 12:30 Blood Culture - Preliminary Blood SPECIMEN COLLECTED A&P Assessment and plan (1) Peritoneal dialysis status: Plan [address] [address] Progress Note Signed Patient: Heber Roach MR#: [id number] : 1935 Age/Sex: 86 / M ADM Date: 02/18/22 Loc: [facility]? Room/Bed: 263-1 Encounter Date: 02/21/[address]: José Antonio Chaudhry MD Report Number: [id number] Subjective Subjective:?? No new complaints Medications:?? Reviewed: Yes Vitals/I&O/Wt Last Vital Signs Temp ?99.1 F ?02/21/22 07:41 Pulse ?92 ?02/21/22 07:41 Resp ?18 ?02/21/22 07:41 BP ?170/94 ?02/21/22 07:41 Pulse Ox ?97 ?02/21/22 07:41 O2 Del Method ? ?02/21/22 07:41 ? 02/20/22 02/21/22 02/21/22 ? 22:59 06:59 14:59 Intake Total ? 50 / 1337.2 1000 / 1000 Output Total 250 / 950 400 / 1350 ? BalanceB -250 / 337.2 -350 / -12.8 1000 / 1000 Weight last 48 hrs Weight? 98.656 kg ? Weight? 98.656 kg ? Physical Exam Const:?? COMMON NORMALS: no acute distress? EXAM LIMITATIONS: altered mental status Neck/C-Spine:?? COMMON NORMALS: no JVD Resp:?? COMMON NORMALS: normal respiratory effort, No retractions, No use of accessory muscles and clear to auscultation bilaterally? AUSCULTATION: clear to auscultation bilaterally? OTHER: per report Cardio:?? COMMON NORMALS: no JVD, regular rate and regular rhythm? RATE: regular rate? RHYTHM: regular rhythm GI:?? COMMON NORMALS: Normal to inspection, nondistended, normoactive bowel sounds present and non-tender :?? OTHER: per report Extremity:?? COMMON NORMALS: no pedal edema Psych:?? COMMON NORMALS: mental status grossly normal Data : 02/21/22 02:33? 02/21/22 02:33? Micro: Microbiology ?02/19/22 15:36E MRSA Culture - Final ?Nose ? ?02/18/22 20:45 Gram Stain - Final ?Amniotic Fluid Body Fluid Culture - Preliminary ?02/18/22 21:10 Blood Culture - Preliminary ?Blood ? A&P Assessment and plan (1) Peritoneal dialysis status: [place] [address] Progress Note SignedPatient: Heber Roach MR#: [id number] : 1935 Age/Sex: 86 / M ADM Date: 02/18/22 Loc: [facility]? Room/Bed: 263-1 Encounter Date: 02/20/[address]: José Antonio Chaudhry MD Report Number: [id number] Subjective Subjective:?? AMS not improved A Medications:??? Reviewed: Yes? Medication Review Details: Current MedicationsAcetaminophen (Acetaminophen 650 Mg Supp)? 650 mg AL Q6H PRN PRN Reason: pain, fever Atorvastatin Calcium (Atorvastatin 40 Mg Tablet)? 20 mg PO BEDTIME [facility] Last Admin: 02/19/22 20:19 Dose:? Not Given Clopidogrel Bisulfate (Clopidogrel 75 Mg Tablet)? 75 mg PO DAILY [facility] Last Admin: 02/19/22 10:26 Dose:? Not Given Dextrose (Dextrose 50% Syringe 50 Ml)? 25 ml IVP ONCE PRN; Protocol PRN Reason: hypoglycemia protocol Dextrose (Dextrose 50% Syringe 50 Ml)? 50 ml IVP PRN PRN; Protocol PRN Reason: hypoglycemia protocol Dextrose (Dextrose 50% Syringe 50 Ml)? 25 ml IVP ONCE PRN; Protocol PRN Reason: hypoglycemia protocol Dextrose (Dextrose 50% Syringe 50 Ml)? 50 ml IVP PRN PRN; Protocol PRN Reason: hypoglycemia protocol Famotidine (Famotidine 20 Mg/2 Ml Inj)? 20 mg IVP Q12H [facility] Last Admin: 02/19/22 23:40 Dose:? 20 mg Furosemide (Furosemide 10 Mg/Ml Sdv 2ml)? 20 mg IVP Q12H [facility] Last Admin: 02/19/22 23:40 Dose:? 20 mg Glucagon (Glucagon 1 Mg/Ml Inj 1 Ml)? 1 mg IM ONCE PRN; Protocol PRN Reason: Adult Acute Hypoglycemia Prot. Glucagon (Glucagon 1 Mg/Ml Inj 1 Ml)? 1 mg IM ONCE PRN; Protocol PRN Reason: Adult Acute Hypoglycemia Prot. Heparin Sodium (Porcine) (Heparin 5,000 Unit/Ml Inj 1 Ml)? 0 unit IV PRN PRN; Protocol PRN Reason: Heparin weight-base protocol Last Admin: 02/19/22 22:58 Dose:? 5,000 unit Hydralazine HCl (Hydralazine 25 Mg Tablet)? 25 mg PO TID [facility] Last Admin: 02/19/22 20:20 Dose:? Not Given Dextrose (D5w)? 500 mls @ 100 mls/hr IV ONCE PRN; Protocol PRN Reason: Adult Acute Hypoglycemia Prot Dextrose (D5w)? 500 mls @ 100 mls/hr IV ONCE PRN; Protocol PRN Reason: Adult Acute Hypoglycemia Prot Piperacillin Sod/Tazobactam (Sod 3.375 gm/ Sodium Chloride)? 50 mls @ 12.5 mls/hr IV Q12H [facility]; Protocol Last Infusion: 02/20/22 03:04 Dose:? Infused Sodium Chloride (Sodium Chloride 0.9%)? 1,000 mls @ 75 mls/hr IV .[id number] [facility] Last Admin: 02/19/22 22:58 Dose:? 75 mls/hr Heparin Sodium/Sodium Chloride (Heparin Drip)? 25,000 unit in 500 mls @ 0 mls/hr IV .Q0M [facility]; Protocol Last Titration: 02/20/22 06:05 Dose:? 0 unit/kg/hr, 0 mls/hr Vancomycin HCl 1,000 mg/ (Sodium Chloride)? 250 mls @ 250 mls/hr IV Q48H [facility]; Protocol Last Infusion: 02/19/22 19:00 Dose:? Infused Acyclovir 930 mg/ Sodium (Chloride)? 118.6 mls @ 120 mls/hr IV Q24H [facility] Last Admin: 02/19/22 12:52 Dose:? 120 mls/hr Insulin Human Lispro (Insulin Lispro 100 Unit/1 Ml)? 0 unit SUBCUT WM&BEDTIME [facility]; Protocol Last Admin: 02/19/22 21:46 Dose:? 4 unit Isosorbide Mononitrate (Isosorbide Mononitrate Er 30 Mg Tablet)? 30 mg PO DAILY [facility] Last Admin: 02/19/22 10:27 Dose:? Not Given Labetalol HCl (Labetalol 5 Mg/Ml Sdv 20ml)? 10 mg IVP Q4H PRN PRN Reason: SBP>180 or DBP>90 Lactulose (Lactulose Oral Liq 20 Gm/30 Ml Udc)? 20 gm PO Q12H PRN PRN Reason: CONSTIPATION Levothyroxine Sodium (Levothyroxine 88 Mcg Tablet)? 88 mcg PO QAM [facility] Last Admin: 02/20/22 05:57 Dose:? Not Given Ondansetron HCl (Ondansetron 2 Mg/Ml Sdv 2 Ml)? 4 mg IVP Q8H PRN PRN Reason: vomiting, or N/V if npo Peritoneal Dialysis Solution (Dianeal Low Ca W/1.5% Dex 2,000 Ml Bag)? 2,000 ml INTRAPERIT QID [facility] Last Admin: 02/20/22 03:18 Dose:? 2,000 ml Tamsulosin HCl (Tamsulosin 0.4 Mg Capsule)? 0.4 mg PO DAILY [facility] Last Admin: 02/19/22 10:28 Dose:? Not Given ? Vitals/I&O/Wt Last Vital Signs Temp? ?98.3 F? ?02/20/22 07:38 Pulse? ?93? ?02/20/22 07:38 Resp? ?17? ?02/20/22 07:38 BP? ?203/96? ?02/20/22 07:38 Pulse Ox? ?94? ?02/20/22 07:38 O2 Del Method?02/20/22 07:38 ?? 02/19/22? 02/20/22? 02/20/22 ?? 22:59? 06:59?B 14:59 Intake Total? 1226.25 / 1276.25? 250.667 / 1526.917? ? Output Total? 725 / 725? Balance? 501.25 / 551.25? 250.667 / 801.917? ? Weight last 48 hrs Weight? 98.656 kg ? Weight? 98.656 kg ? Weight? 92.986 kg ? Weight? 92.986 kg ? Physical Exam Narrative:??? examined w/ RN- telehealth visit obese man in bed, sob, moving, interactive bp noted and elevated heent- nc/at neck supple lungs clear heart reg abd soft, nt, nd, + bs ext no edema neuro- more alert. moving legs and rt arm, moves left arm less.? trying to talk Data : 02/20/22 04:48? 02/20/22 04:48? Micro: Microbiology ?02/18/22 21:20? Blood Culture - Preliminary ?Blood? ?? NEGATIVE TO DATE ?02/18/22 21:10? Blood Culture - Preliminary ?Blood? ? ?02/18/22 20:45? Gram Stain - Final ?Amniotic Fluid? ? A&P Assessment and plan: (1) End stage renal disease: 86 year old male w/ PMHX of ESRD on PD, IDDM,? 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 Pt was admitted , AMS, and weakness.?Getting PD 1. AMS- per medicine-? evaluate for CVA vs infection vs other MRI results reviewed -? Meningitis , Mx per primary team 2. ESRD-? CAPD - 5 exchanges a day of low glucose -pd cell count 52 wbc, 1000 rbc- bloody- 3. hgb high for ESRD- no MCKAY 4. resp alkalosis per medicine 5.? hypertension- 6. 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
[2022-02-22] MEDS: potassium chloride premix 100 ML 50 MEQ IV (13:55)
--- NOTE | 2022-02-22 14:35 | PM.PN ---
Subjective Subjective: Patient was seen this morning, patient's and son are at bedside, he does open his eyes, but falls back asleep, no nuchal rigidity, no significant stiffness, pupils are pinpoint but reactive to light, he does withdraw from pain, was febrile overnight, on room air, -I discussed with family members at bedside, are concerned for bacterial meningitis, his antibiotic therapy has been broadened -Plan is to continue monitoring his mentation, monitor for possible complications associate with meningitis including but not limited to seizures, brain abscess, neurologic dysfunction -We will start feeding through the NG tube today -All parties in agreement Vitals/I&O/Wt Last Vital Signs Temp 98.9 F 02/22/22 11:18 Pulse 72 02/22/22 14:18 Resp 18 02/22/22 14:18 BP 143/75 02/22/22 11:18 Pulse Ox 95 02/22/22 14:18 O2 Del Method 02/22/22 14:18 02/21/22 02/22/22 02/22/22 22:59 06:59 14:59 Intake Total 7263 / 8891.6 655 / 9546.6 1273.6 / 1273.6 Output Total 6400 / 6400 600 / 7000 Balance 863 / 2491.6 55 / 2546.6 1273.6 / 1273.6 Weight last 48 hrs Weight 107.501 kg Physical Exam Const: COMMON NORMALS: no acute distress OTHER: Alert, does not withdraw from pain Resp: COMMON NORMALS: normal respiratory effort, No retractions, No use of accessory muscles and clear to auscultation bilaterally AUSCULTATION: clear to auscultation bilaterally Cardio: COMMON NORMALS: regular rate, regular rhythm, S1 normal heart sound present and S2 normal heart sound present RATE: regular rate RHYTHM: regular rhythm HEART SOUNDS: S1 normal heart sound present and S2 normal heart sound present GI: COMMON NORMALS: Normal to inspection, nondistended, normoactive bowel sounds present and non-tender Extremity: COMMON NORMALS: no pedal edema Data : 02/22/22 04:05 02/22/22 04:05 Micro: Microbiology 02/21/22 12:30 Blood Culture - Preliminary Blood NEGATIVE TO DATE 02/21/22 12:30 Blood Culture - Preliminary Blood NEGATIVE TO DATE 02/21/22 15:54 Cryptococcal Antigen - Final Cerebrospinal Fluid 02/21/22 15:54 Gram Stain - Final Cerebrospinal Fluid 02/18/22 20:45 Gram Stain - Final Amniotic Fluid Body Fluid Culture - Preliminary 02/20/22 15:08 Gram Stain - Final Peritoneal Fluid Body Fluid Culture - Preliminary A&P Assessment and plan (1) Gram-positive bacteremia: (2) Altered mental status: (3) Atrial fibrillation, chronic: (4) Severe aortic stenosis: Status post TAVR June 2021 Check echocardiogram (5) Chronic kidney disease: On peritoneal dialysis. Nephrology consult to maintain PD inpatient. (6) Meningitis: Plan Altered mental status -Likely secondary to acute meningitis -CSF no organisms, culture pending, cryptococcal antigen negative -However he has been on broad-spectrum antibiotic therapy since admission -CRP downward trending to 117.8, Pro-[place] 0.68 -Febrile throughout the night, managing fevers -CSF shows clear, colorless, 626 WBCs, 0 RBCs, 80% PMN, glucose 95, total protein 232 MRI brain -Possible bacterial meningitis, as his complaints to his yesterday was he had a headache and then he started becoming confused -CT of the head no acute findings -1.? No definite evidence of restricted diffusion to suggest acute ischemia considering motion artifact. 2.? Layering debris in the occipital horns and posterior lateral ventricles suspicious for ventriculitis with purulent debris. Recommend correlation for meningitis and infection. 3.? Associated mild ventriculomegaly with suggestion of transependymal edema about the posterior lateral ventricles and occipital horns. 4.? Advanced symmetric atrophy of the temporal lobes and hippocampal formations. 5.? Moderate to advanced small vessel changes with moderate parenchymal volume loss. 6.? No other acute findings -Chest x-ray potential pneumonia, although felt unlikely -UA possible UTI, although felt unlikely -Has gram-positive cocci in 1 blood culture, repeat blood ordered -Is hypertensive, possible hypertensive encephalopathy, blood pressure improving -unlikely to be cva, mri no acute cva Plan -Follow CSF studies, viral studies, fungal studies, culture -We will resume therapeutic Lovenox tonight -Follows urine cultures, blood cultures -Follow CSF studies, fungal studies, viral studies -PD gram stain within normal limits, follow PD culture -Monitor mentation, neurochecks, aspiration precautions,, seizure precautions -Possible seizure-like episode? Continue Keppra 500 every 12 hours -Has a risk of fungal meningitis, as he has been on high-dose steroids for the last week for a rash, received 2 doses of voriconazole, hold for now -Continue vancomycin -Continue meropenem -Continue ampicillin for Listeria coverage -Continue acyclovir -Add doxycycline for atypical coverage, Lyme meningitis -Received 2 doses of voriconazole hold for now -Cannot take any p.o. medication due to mentation, high risk of aspiration, NG tube placed -Increase hydralazine to 50 every 8 hours, metoprolol 50 twice daily continue clonidine patch, add Norvasc -Start tube feeds, trickle tube feeds - at bedside, updated -Full code -Heparin, SCDs for DVT prophylaxis Atrial fibrillation, rate well controlled, holding Coumadin, receiving heparin, monitor Hypertension, as above CKD, nephrology consulted CAD aortic stenosis as above DVT prophylaxis: SCDs Insulin-dependent diabetes mellitus, low-dose sliding scale Full code for now, however contemplating DNR/DNI given his multiple comorbidities and advanced age, has not decided yet. Attestations Medical Necessity Statement*: Patient requires hospitalization for acute bacterial meningitis Coding Level of Care Code Acute Etl Analyst for [facility] Diagnoses Gram-positive bacteremia R78.81 Altered mental status R41.82 Atrial fibrillation, chronic I48.20 Severe aortic stenosis I35.0 Chronic kidney disease N18.9 Meningitis G03.9
--- NOTE | 2022-02-22 14:37 | PC.NUTR ---
TF consult received. ordered Glucerna beginning @ 10 mls/hr with 100 mls flushes Q4H. Recommend increasing 10 mls Q8H as tolerated until reach goal rate of 50 mls/hr. Details in RD assessment
[2022-02-22] MEDS: insulin glargine 100 units/1 mL 10 UNIT SUBCUT (16:01)
[2022-02-22] MEDS: [UNRECOGNIZED DRUG - REMARK] 300 EACH NG-TUBE (16:08)
[2022-02-22 16:57] LABS: Glucose Point of Care 186 mg/dL (70-110)
[2022-02-22] MEDS: enoxaparin 100 mg/mL Syringe SUBCUT (17:53)
[2022-02-22 20:42] LABS: Glucose Point of Care 177 mg/dL (70-110)
[2022-02-22] MEDS: atorvastatin 40 mg Tablet 20 MG PO (21:12)
[2022-02-23] VITALS (14 sets, daily range): BP systolic 118–152; BP diastolic 72–85; PULSE 75–92; RESP 14–20; TEMP 36.9–37.7; O2SAT 94–97
[2022-02-23] MEDS: ipratropium-albuterol 3 mL Neb INHALATION ×3 (01:20→20:40)
[2022-02-23] MEDS: meropenem 1,000 MG in sodium chloride 0.9% (plus) 50 ML 100 MG IV (01:42)
[2022-02-23] MEDS: ampicillin 2,000 MG in sodium chloride 0.9% (plus) 50 ML 100 MG IV ×6 (02:14→21:59)
[2022-02-23] MEDS: doxycycline 100 MG in sodium chloride 0.9% (plus) 100 ML IV (04:07)
[2022-02-23 04:18] LABS: Basophils % 0.2 %; Eosinophils # 0.1 10^3/uL (0.0-0.8); Eosinophils % 0.5 %; Hematocrit 36.9 % (42.0-52.0); Hemoglobin 12.2 g/dL (11.7-16.6); Lymphocytes # 1.1 10^3/uL (0.8-4.8); Lymphocytes % 7.4 %; Mean Corpuscular HGB Conc 33.1 g/dL (30.0-36.0); Mean Corpuscular Hemoglobin 30.1 pg (28.0-34.0); Mean Corpuscular Volume 91.1 fl (80-94); Mean Platelet Volume 11.9 fL (7.4-10.4); Monocytes # 1.4 10^3/uL (0.2-0.9); Monocytes % 9.1 %; Neutrophils # 11.64 10^3/uL (1.8-7.7); Nucleated Red Blood Cells % 0.3 %; Platelet Count 179 10^3/cmm (130-400); Red Blood Count 4.05 10^6/uL (4.1-5.3); Red Cell Distribution Width 13.7 % (12.1-15.1); White Blood Count 14.9 10^3/uL (4.0-10.0)
[2022-02-23 04:32] LABS: INR 1.89 (0.8-1.2)
[2022-02-23 04:45] LABS: Lactate (Lactic Acid level) 1.5 mmol/L (0.5-2.2)
[2022-02-23 04:48] LABS: Alanine Aminotransferase 15 U/L (0-41); Alkaline Phosphatase 69 U/L (40-130); Aspartate Amino Transferase 27 U/L (0-40); Blood Urea Nitrogen 65 mg/dL (8-23); C Reactive Protein 61.6 mg/L (0.0-4.9); Calcium 8.5 mg/dL (8.5-10.5); Carbon Dioxide 24 mmol/L (22-29); Chloride 103 mmol/L (98-107); Globulin 2.8 g/dL (1.3-4.6); Glucose 233 mg/dL (65-115); Magnesium 2.3 mg/dL (1.7-2.3); Osmolality Calculated 322 mOsm/kg (285-295); Phosphorus 5.1 mg/dL (2.5-4.5); Sodium 143 mmol/L (136-145); Total Bilirubin 0.3 mg/dL (0.15-1.2); Total Protein 5.8 g/dL (6.6-8.7)
[2022-02-23 04:50] LABS: Procalcitonin 0.55 ng/mL (0-0.5)
[2022-02-23] MEDS: hyDRALAzine 25 mg Tablet 50 MG PO ×3 (05:53→20:58)
[2022-02-23] MEDS: metoprolol tartrate 25 mg Tablet 50 MG PO ×2 (05:53→17:08)
[2022-02-23] MEDS: levothyroxine 88 mcg Tablet PO (05:53)
[2022-02-23 06:47] LABS: Glucose Point of Care 250 mg/dL (70-110)
--- NOTE | 2022-02-23 07:37 | CTR_ITS ---
PROCEDURE INFORMATION: Exam: CT Thoracic Spine Without Contrast Exam date and time: 02/23/2022 9:57 AM Age: 86 years old Clinical indication: Other: Fever; Additional info: Fevers TECHNIQUE: Imaging protocol: Computed tomography of the thoracic spine without contrast. Radiation optimization: All CT scans at this facility use at least one of these dose optimization techniques: automated exposure control; mA and/or kV adjustment per patient size (includes targeted exams where dose is matched to clinical indication); or iterative reconstruction. COMPARISON: CT cervical spin wo con* [id number] 02/23/2022 9:52 AM RADIATION DOSE METRICS: Total DLP (mGy-cm): 0 FINDINGS: Bones/joints: Chronic degenerative changes are present in the thoracic spine with disc space narrowing sclerosis and osteophytes. There is no malalignment. There is no significant spinal stenosis or neural foraminal narrowing. No fracture or other acute abnormality is seen. Soft tissues: Unremarkable. 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 No acute abnormality.
--- NOTE | 2022-02-23 07:37 | CTR_ITS ---
PROCEDURE INFORMATION: Exam: CT Head Without Contrast Exam date and time: 02/23/2022 9:52 AM Age: 86 years old Clinical indication: Altered mental status/memory loss; Other: Unresponsive; Additional info: AMS TECHNIQUE: Imaging protocol: Computed tomography of the head without contrast. Total images: 504 Radiation optimization: All CT scans at this facility use at least one of these dose optimization techniques: automated exposure control; mA and/or kV adjustment per patient size (includes targeted exams where dose is matched to clinical indication); or iterative reconstruction. COMPARISON: MR head wo con* [id number] 02/21/2022 10:18 AM RADIATION DOSE METRICS: Total DLP (mGy-cm): 1229.29 FINDINGS: Brain: Global brain atrophy and chronic white matter ischemic changes are present. Chronic lacunar infarctions in the basal ganglia. Area of encephalomalacia in the right frontal lobe. Cerebral ventricles: Ventricles are appropriate in size for degree of atrophy. Paranasal sinuses: Visualized sinuses are unremarkable. No fluid levels. Mastoid air cells: Visualized mastoid air cells are well aerated. Orbital cavities: Prior bilateral lens replacements noted. Senescent scleral calcification noted bilateral. Bones/joints: Unremarkable. No acute fracture. Soft tissues: Unremarkable. Other findings: Streak artifact from dental amalgam. Nasoenteric tube partially visualized. CT/CT head wo con* [id number] IMPRESSION: No acute intracranial pathology detected.
--- NOTE | 2022-02-23 07:37 | CTR_ITS ---
PROCEDURE INFORMATION: Exam: CT Cervical Spine Without Contrast Exam date and time: 02/23/2022 9:52 AM Age: 86 years old Clinical indication: Other: Fever; Additional info: Fevers TECHNIQUE: Imaging protocol: Computed tomography of the cervical spine without contrast. Total images: 277 Radiation optimization: All CT scans at this facility use at least one of these dose optimization techniques: automated exposure control; mA and/or kV adjustment per patient size (includes targeted exams where dose is matched to clinical indication); or iterative reconstruction. COMPARISON: MR head wo con* [id number] 02/21/2022 10:18 AM RADIATION DOSE METRICS: Total DLP (mGy-cm): 286.7 FINDINGS: Tubes, catheters and devices: Enteric tube partially visualized extending into thoracic esophagus with tip not seen. Bones/joints: Facet joint degenerative changes are present. Prominent atlantodental degenerative changes. C3-6 and C7-T1 degenerative disc disease with disc space narrowing and osteophyte formation. Uncovertebral joint degeneration is present. Lungs: Lung apices are normal. Vasculature: Moderate atherosclerotic disease is evident. Calcified atherosclerotic plaque is noted at the carotid bifurcations bilaterally. Soft tissues: Unremarkable. CT/CT cervical spin wo con* [id number] IMPRESSION: No acute cervical spine pathology.
--- NOTE | 2022-02-23 07:37 | CTR_ITS ---
PROCEDURE INFORMATION: Exam: CT Lumbar Spine Without Contrast Exam date and time: 02/23/2022 9:57 AM Age: 86 years old Clinical indication: Other: Fever; Additional info: Fevers TECHNIQUE: Imaging protocol: Computed tomography of the lumbar spine without contrast. Radiation optimization: All CT scans at this facility use at least one of these dose optimization techniques: automated exposure control; mA and/or kV adjustment per patient size (includes targeted exams where dose is matched to clinical indication); or iterative reconstruction. COMPARISON: CT abdomen pelvis wo con [id number] 02/18/2022 7:39 PM RADIATION DOSE METRICS: Total DLP (mGy-cm): 0 FINDINGS: Bones/joints: No fracture, malalignment or acute abnormality is seen in the lumbar spine. Chronic degenerative changes are present throughout the lumbar spine with disc space narrowing, sclerosis and osteophytes on the vertebral bodies. There is narrowing sclerosis and hypertrophy of the lumbar facet joints. There is severe spinal stenosis at the L1-L2, L3-L4 and L4-L5 levels due to diffuse disc protrusion and osteophytes. Soft tissues: Unremarkable. CT/CT lumbar spine recon [id number] IMPRESSION: 1. No acute abnormality. 2. Multilevel level chronic degenerative disease with severe spinal stenosis at L1-L2, L3-L4 and L4-L5.
--- NOTE | 2022-02-23 07:38 | CTR_ITS ---
PROCEDURE INFORMATION: Exam: CT Chest Without Contrast; Diagnostic Exam date and time: 02/23/2022 9:57 AM Age: 86 years old Clinical indication: Other: Fever; Dyspnea; Additional info: Fevers TECHNIQUE: Imaging protocol: Diagnostic computed tomography of the chest without contrast. Radiation optimization: All CT scans at this facility use at least one of these dose optimization techniques: automated exposure control; mA and/or kV adjustment per patient size (includes targeted exams where dose is matched to clinical indication); or iterative reconstruction. COMPARISON: CR XR chest 1V portable [id number] 02/20/2022 11:37 AM RADIATION DOSE METRICS: Total DLP (mGy-cm): 1168.88 FINDINGS: Lungs: Subsegmental atelectasis in the lung bases. Pleural spaces: Unremarkable. No pneumothorax. No pleural effusion. Heart: Heart is enlarged. The coronary arteries are calcified. An aortic valve replacement is present. Lymph nodes: Unremarkable. No enlarged lymph nodes. Vasculature: The thoracic aorta is calcified. The ascending aorta measures 4.0 cm in diameter. Bones/joints: Chronic degenerative changes are present in the spine. No acute bony abnormality. Soft tissues: Unremarkable. PROCEDURE INFORMATION: Exam: CT Abdomen And Pelvis Without Contrast Exam date and time: 02/23/2022 9:57 AM Age: 86 years old Clinical indication: Other: Fever; Dyspnea; Additional info: Fevers TECHNIQUE: Imaging protocol: Computed tomography of the abdomen and pelvis without contrast. Radiation optimization: All CT scans at this facility use at least one of these dose optimization techniques: automated exposure control; mA and/or kV adjustment per patient size (includes targeted exams where dose is matched to clinical indication); or iterative reconstruction. COMPARISON: CT abdomen pelvis con [id number] 02/18/2022 7:39 PM RADIATION DOSE METRICS: Total DLP (mGy-cm): 1168.88 FINDINGS: Liver: Normal. No mass. Gallbladder and bile ducts: Normal. No calcified stones. No ductal dilation. Pancreas: Normal. No ductal dilation. Spleen: Normal. No splenomegaly. Adrenal glands: Normal. No mass. Kidneys and ureters: There is bilateral renal atrophy. Multiple bilateral renal masses are present measuring up to 3.2 cm in diameter. The very from hypodense the hyperdense. There is similar to the previous study. They are not adequately characterized on this noncontrast scan. No hydronephrosis. Stomach and bowel: Prominent sigmoid diverticulosis. No evidence of acute diverticulitis. There is no bowel obstruction or dilatation. Appendix: No evidence of appendicitis. Intraperitoneal space: Free fluid is present in the abdomen and pelvis. Small bubbles of free air are present in the upper anterior abdomen and also in the ventral hernia sac. Vasculature: Abdominal aorta and iliac arteries are calcified. No abdominal aortic aneurysm. Lymph nodes: Unremarkable. No enlarged lymph nodes. Urinary bladder: A Molina catheter is present in the urinary bladder. A peritoneal dialysis catheter is present in the pelvis. Reproductive: Unremarkable as visualized. Bones/joints: Unremarkable. No acute fracture. Soft tissues: There is a midline ventral hernia in the upper abdomen which contains short loop of the transverse colon and omentum. Several bubbles of extraluminal air are present in the hernia sac.. CT/[place] [id number] IMPRESSION: No acute abnormalities are seen in the chest. IMPRESSION: 1. Free fluid is present in the abdomen and pelvis. This may be consistent with peritoneal dialysis. A peritoneal dialysis catheter is present in the pelvis. 2. There is a midline ventral hernia in the upper abdomen containing short loop of transverse colon. 3. There is a small amount of of extraluminal air in the ventral hernia sac and also in the upper anterior abdomen. This could be secondary to the peritoneal dialysis. 4. Diverticulosis. No diverticulitis. COMMENTS: Consistent with the [employer]'s Incidental Findings Committee white paper (J Am Chandra Radiol 2018): Any incidental renal lesion less than 1 cm or classified as too small to characterize, or any incidental cystic renal lesion characterized as simple-appearing, is likely benign. No follow-up imaging is recommended for these lesions per consensus recommendations based on imaging criteria.
[2022-02-23] MEDS: Dianeal low Ca w/1.5% dex 2,000 mL Bag 2000 ML INTRAPERIT ×4 (07:50→21:16)
--- NOTE | 2022-02-23 09:00 | PC.SOCIAL ---
IMM Updated Updated pt's family on IMM. No questions voiced. Provided pt a copy. Initialed, dated, & timed copy in chart.
[2022-02-23] MEDS: cefTRIAXone 2,000 MG in sodium chloride 0.9% (plus) 50 ML 100 MG IV ×2 (09:28→20:02)
[2022-02-23] MEDS: isosorbide mononitrate ER 30 mg Tablet PO (09:28)
[2022-02-23] MEDS: potassium chloride ER 20 mEq Tablet 40 MEQ PO (09:28)
[2022-02-23] MEDS: amlodipine 10 mg Tablet PO (09:28)
[2022-02-23] MEDS: insulin lispro 100 unit/1 mL SUBCUT ×4 (09:31→21:34)
[2022-02-23] MEDS: [UNRECOGNIZED DRUG - REMARK] 300 EACH NG-TUBE ×2 (09:31→15:24)
--- NOTE | 2022-02-23 10:50 | PM.PN ---
Subjective Subjective: Mental status not improved getting PD exchanges Vitals/I&O/Wt Last Vital Signs Temp 98.8 F 02/23/22 08:00 Pulse 77 02/23/22 08:00 Resp 20 H 02/23/22 08:00 BP 124/79 02/23/22 08:00 Pulse Ox 95 02/23/22 08:00 O2 Del Method 02/23/22 01:13 CDT 02/22/22 02/23/22 02/23/22 23:59 06:59 14:59 Intake Total 50 / 50 Output Total Balance 50 / 50 Physical Exam Const: COMMON NORMALS: no acute distress OTHER: Alert, does not withdraw from pain Resp: COMMON NORMALS: normal respiratory effort GI: COMMON NORMALS: Normal to inspection, nondistended, normoactive bowel sounds present Extremity: COMMON NORMALS: no pedal edema Data : 02/23/22 03:05 02/23/22 04:00 Micro: Microbiology 02/18/22 20:45 Gram Stain - Final Amniotic Fluid Body Fluid Culture - Preliminary Coag negative Staphylococcus 02/21/22 15:54 Gram Stain - Final Cerebrospinal Fluid CSF Culture - Preliminary 02/20/22 15:08 Gram Stain - Final Peritoneal Fluid Body Fluid Culture - Final 02/23/22 08:42 Blood Culture - Preliminary Blood SPECIMEN COLLECTED 02/23/22 08:35 Blood Culture - Preliminary Blood SPECIMEN COLLECTED 02/21/22 12:30 Blood Culture - Preliminary Blood NEGATIVE TO DATE 02/21/22 12:30 Blood Culture - Preliminary Blood NEGATIVE TO DATE 02/21/22 15:54 Cryptococcal Antigen - Final Cerebrospinal Fluid A&P Assessment and plan (1) Peritoneal dialysis status: Plan (1) End stage renal disease: 86 year old male w/ PMHX of ESRD on PD, IDDM,? 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 Pt was admitted , AMS, and weakness.?Getting PD 1. AMS- per medicine-? evaluate for CVA vs infection vs other MRI results reviewed -? Meningitis , Mx per primary team 2. ESRD-? CAPD - 5 exchanges a day of low glucose -pd cell count 52 wbc, 1000 rbc- bloody- 3. hgb high for ESRD- no MCKAY 5.? hypertension-bp controlled 6. dm control per medicine seen and examined w/ RN- telehealth visit time spent 30 min Attestations Medical Necessity Statement*: Patient requires hospitalization for acute bacterial meningitis Coding Level of Care Code Established Pt Acute Private Investigator Surveillance for Chg Fwd Patient Type Established History Problem Focused Exam Problem Focused Medical Decision Making Straight Forward Diagnoses Peritoneal dialysis status Z99.2
[2022-02-23] MEDS: famotidine 20 mg/2 mL INJ IVP ×2 (11:22→22:37)
[2022-02-23] MEDS: FUROsemide 10 mg/mL SDV 2mL 20 MG IVP ×2 (11:23→22:37)
[2022-02-23 11:50] LABS: Glucose Point of Care 224 mg/dL (70-110)
--- NOTE | 2022-02-23 12:35 | PC.PT ---
Patient and family refused therapy today.
[2022-02-23 13:49] LABS: Vancomycin Trough 11.3 ug/mL (10-15)
[2022-02-23] MEDS: vancomycin 1,000 MG in sodium chloride 0.9% 250 ML 250 MG IV (14:41)
[2022-02-23] MEDS: ibuprofen 200 mg Tablet 400 MG PO (14:44)
--- NOTE | 2022-02-23 14:56 | P.PN_ITS ---
Subjective Subjective: Patient was seen this morning, does not respond to his name, does withdraw from pain, does withdraw from sternal rub, pupils are 5 mm, reactive to light, does not track, Babinski is downward going does have a cough reflex does not have any other significant responses, remained febrile overnight, n ormotensive on room air -Patient's was at bedside, I advised my concern as patient has had no s ignificant neurologic responses, I am worried that he is suffered significant neurologic injury and dysfunction from his meningitis, he continues to have fevers, continues to not have any significant responses which indicate poor prognosis -Its been roughly 5 days since admission, his cognition status remains poor, although his blood work looks better, his infectious inflammatory markers look better, cultures are unrevealing, -I discussed doing a pacheco CT scan to rule out any indolent infections, discitis, vertebral osteomyelitis, other sources of infection and fever -Pacheco CT scan had no acute findings, nothing revealing -I had a family meeting with patient's , son and daughter and 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 -I in detail discussed patient's current medical status -I discussed that on admission according to the patient's , patient has a history of dementia, he is able to ambulate, but has confusion to some degree at baseline -He also had this rash across his chest, that was a macular rash, that he saw his primary care provider for, was given prednisone 50 for 4 days -When he came in the symptomatology that was concerning was headaches, and sudden neurologic deterioration and nonresponsiveness -I advised family that since his admission his neurologic status has been the same -He still nonresponsive, does not respond to his name, neurologic responses as above -This is highly concerning in any acute or severe neurologic dysfunction and neurologic injury -Initially there was thoughts that he could possibly have a UTI, however his cultures have been unrevealing -Initially there was thought to possibly he could have a pneumonia however his further imaging have been unrevealing, cultures have been unrevealing, not really requiring any oxygen, no struggle breathing -Initially there was thoughts of his PD catheter being infected however his PD cultures have been unremarkable his CT of his abdomen abdomen pelvis was unrevealing -There was also concern that with his elevated blood pressures he could have possibly had press syndrome versus an acute CVA, however if it was an acute CVA given his global symptoms it likely would have been a brainstem stroke -However since then his MRI has not shown any significant evidence of press syndrome or or a severe neurologic ischemic damage, he is blood pressures are better controlled, and repeat CT scans even today do not show any significant evidence of an acute infarct or embolic infarct from his atrial fibrillation -The other thought is is that he does have a TAVR, there is a risk of endocarditis, although his transesophageal echocardiogram remains unremarkable, and his cultures so far have been unrevealing -However we could pursue a transesophageal echocardiogram if they wanted us to, but I would recommend after neurology's evaluation, and after an EEG -I did advise that 1 blood culture on admission has grown coagulase-negative Staphylococcus, likely contaminant, however there are other isolates that the lab is setting up that will need to be followed up on the could be possible growth on those culture plates -However on admission as there was concerns for possible meningitis, he was managed with broad-spectrum antibiotic therapy vancomycin, Zosyn as over the next 24 hours his mentation did improve antivirals were added, then doxycycline for possible tickborne illness, then antifungals such as voriconazle but was only given a loading dose trial then stopped, then his antibiotic therapy was b roadened to meropenem, and ampicillin without improvement -Now we have continued vancomycin, Rocephin, acyclovir -And as he continues to have fevers I have started him on caspofungin -He is an MRI was delayed because of his TAVR, we did not have information if it was compatible with an MRI we eventually got his MRI card and MRI was performed on Thursday which showed ventriculitis, with ventricular debris highly suspicious for meningitis -In as he had taken Plavix and he was on Coumadin with an elevated INR this also precluded us from performing a lumbar puncture, our radiology department wanted to wait a full 5 days after taking Plavix before performing the lumbar puncture and wanted the INR to be more reasonable due to high risk of bleeding, and complications, but given his MRI findings I was able to have radiology perform lumbar puncture on Thursday roughly his last dose of Plavix on Thursday. His lumbar puncture results are highly suspicious for bacterial meningitis there could be's some evidence of viral meningitis. I think fungal meningitis is highly unlikely however we have sent out further studies, but his cryptococcal antigens were negative. However his Gram stain and cultures have been unrevealing, this could be that he received antibiotics from day 1 and they could have interfered with the gram stain results. -I did voice my frustration with family as no cultures really have grown anything and he continues to have fevers -I advised family that I have 2 concerns first concern is that he continues to have fevers these could be from persistent infection viral or bacterial or even a likely fungal but also could be indicator of central fevers from significant neurologic damage. 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 I feel that this is likely going to be his level of functioning, and likely to improve he will likely feel like this for the rest of his life, he will require a PEG tube placement, and potentially might require a trach placement -Based on the history that I have received, my suspicion is is that this meningitis was brewing from some period of time, and on Thursday when he started complaining of headaches and suddenly became nonresponsive was possibly the last final straw. As typically infection such as meningitis will have a course of headaches, weakness, neurologic dysfunction before they declare themselves. However in his case he has had some dementia so changes in his neurologic status might have been difficult to pick out, and then when he suddenly deteriorated on Thursday was the final straw in a few words. In our receiving in the hospital is a serious and likely permanent neurologic injury. -I discussed options available to patient -The family has elected to continue medical therapy, we will have neurology Dr. Mccoy see patient tomorrow, for consultation, and hopefully perform an EEG tomorrow hopefully this can help in her decision-making. In addition we can see what patient's culture show tomorrow and some of the send out test show -Briefly patient's tells me that she does not want to have aggressive interventions, she does not want him to be hooked up to artificial life support, she wants him to be comfortable, and if he were to be like this for the rest of his life she would want him to be on hospice and to pass away comfortably but she is not ready to make that decision yet, she wants to give him time and see what the follow-up test show -In terms of transesophageal echocardiogram this certainly could be performed, however I would wait until the results of the neurology evaluation and the EEG are performed -Opportunity answer questions, all parties voiced consent, all questions answered, agreed to proceed Vitals/I&O/Wt Last Vital Signs Temp 99.5 F 02/23/22 12:00 Pulse 89 02/23/22 13:50 Resp 19 H 02/23/22 13:50 BP 124/79 02/23/22 08:00 Pulse Ox 96 02/23/22 13:50 O2 Del Method 02/23/22 13:50 02/22/22 02/23/22 02/23/22 23:59 06:59 14:59 Intake Total 468.6 / 468.6 Output Total Balance 468.6 / 468.6 Physical Exam Const: COMMON NORMALS: no acute distress OTHER: Pupils 6 mm, reactive to light, withdraws from pain, withdraws from sternal rub Resp: COMMON NORMALS: normal respiratory effort, No retractions, No use of accessory muscles and clear to auscultation bilaterally AUSCULTATION: clear to auscultation bilaterally Cardio: COMMON NORMALS: regular rate, regular rhythm, S1 normal heart sound present and S2 normal heart sound present RATE: regular rate RHYTHM: regular rhythm HEART SOUNDS: S1 normal heart sound present and S2 normal heart sound present GI: COMMON NORMALS: Normal to inspection, nondistended, normoactive bowel sounds present and non-tender Extremity: COMMON NORMALS: no pedal edema Data : 02/23/22 03:05 02/23/22 04:00 Micro: Microbiology 02/18/22 20:45 Gram Stain - Final Amniotic Fluid Body Fluid Culture - Preliminary Coag negative Staphylococcus 02/21/22 15:54 Gram Stain - Final Cerebrospinal Fluid CSF Culture - Preliminary 02/20/22 15:08 Gram Stain - Final Peritoneal Fluid Body Fluid Culture - Final 02/23/22 08:42 Blood Culture - Preliminary Blood SPECIMEN COLLECTED 02/23/22 08:35 Blood Culture - Preliminary Blood SPECIMEN COLLECTED 02/21/22 12:30 Blood Culture - Preliminary Blood NEGATIVE TO DATE 02/21/22 12:30 Blood Culture - Preliminary Blood NEGATIVE TO DATE A&P Assessment and plan (1) Gram-positive bacteremia: (2) Altered mental status: (3) Atrial fibrillation, chronic: (4) Severe aortic stenosis: Status post TAVR June 2021 Check echocardiogram (5) Chronic kidney disease: On peritoneal dialysis. Nephrology consult to maintain PD inpatient. (6) Meningitis: (7) Major neurologic dysfunction: Plan Altered mental status -Likely secondary to acute meningitis -With evidence of significant neurologic injury, seems like persistent vegetative state -CSF no organisms, culture pending, cryptococcal antigen negative -However he has been on broad-spectrum antibiotic therapy since admission -CRP and Pro-Louis trending down -Febrile throughout the night, managing fevers -CSF shows clear, colorless, 626 WBCs, 0 RBCs, 80% PMN, glucose 95, total protein 232, Gram stain unremarkable MRI brain -Possible bacterial meningitis, as his complaints to his yesterday was he had a headache and then he started becoming confused -CT of the head no acute findings -1.? No definite evidence of restricted diffusion to suggest acute ischemia considering motion artifact. 2.? Layering debris in the occipital horns and posterior lateral ventricles suspicious for ventriculitis with purulent debris. Recommend correlation for meningitis and infection. 3.? Associated mild ventriculomegaly with suggestion of transependymal edema about the posterior lateral ventricles and occipital horns. 4.? Advanced symmetric atrophy of the temporal lobes and hippocampal formations. 5.? Moderate to advanced small vessel changes with moderate parenchymal volume loss. 6.? No other acute findings -Chest x-ray potential pneumonia, although felt unlikely -UA possible UTI, although felt unlikely -Has gram-positive cocci in 1 blood culture, repeat blood ordered -Is hypertensive, possible hypertensive encephalopathy, blood pressure improving -unlikely to be cva, mri no acute cva Plan -Follow CSF studies, viral studies, fungal studies, culture -Continue therapeutic Lovenox -Follows CS F studies, CSF cultures, blood cultures -I spoke to lab, his initial blood culture has some more isolates that they want a work-up, they will set those up tomorrow -Follow fungal studies, viral studies -PD gram stain within normal limits, follow PD culture -Monitor mentation, neurochecks, aspiration precautions,, seizure precautions -Possible seizure-like episode? We will hold Carolynn for now, in preparation for EEG tomorrow -Ordered EEG -Has a risk of fungal meningitis, as he has been on high-dose steroids for the last week for a rash, received 2 doses of voriconazole, they were initially held, I have switched to caspofungin today as patient mentation has not significantly improved and remains febrile -Continue vancomycin -Meropenem de-escalated to ceftriaxone 2 g every 12 hours -Continue ampicillin for Listeria coverage, until history antigen comes back negative -Continue acyclovir -Discontinue doxycycline as Rocephin will cover -Start caspofungin -Cannot take any p.o. medication due to mentation, high risk of aspiration, NG tube placed -Increase hydralazine to 50 every 8 hours, metoprolol 50 twice daily continue clonidine patch, add Norvasc -Start tube feeds, trickle tube feeds - at bedside, updated -Family will consider comfort care, after giving him another 24 to 48 hours, consultation with neurology, EEG -In terms of transesophageal echocardiogram, I would not wait until neurology evaluation EEG before pursuing transesophageal echocardiogram this would be more for infection control, as I would doubt he would be a good candidate for surgery, but could provide an answer for his persistent fevers -Full code -Lovenox, SCDs for DVT prophylaxis Atrial fibrillation, rate well controlled, holding Coumadin, receiving heparin, monitor Hypertension, as above CKD, nephrology consulted CAD aortic stenosis as above DVT prophylaxis: SCDs Insulin-dependent diabetes mellitus, low-dose sliding scale Full code for now, however contemplating DNR/DNI given his multiple comorbidities and advanced age, has not decided yet. Attestations Medical Necessity Statement*: Patient requires hospitalization for meningitis Time Spent in Patient Care: Greater than 35 minutes (>than 50% of time spent in counselling and/or direct pt care on unit) . 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
[2022-02-23] MEDS: insulin glargine 100 units/1 mL 10 UNIT SUBCUT (15:23)
[2022-02-23] MEDS: enoxaparin 100 mg/mL Syringe SUBCUT (17:07)
[2022-02-23] MEDS: lanolin oint 7 gm 1 APPLIC TOPICAL (17:09)
[2022-02-23 17:11] LABS: Glucose Point of Care 180 mg/dL (70-110)
[2022-02-23] MEDS: atorvastatin 40 mg Tablet 20 MG PO (20:58)
[2022-02-23 21:31] LABS: Glucose Point of Care 159 mg/dL (70-110)
[2022-02-24] VITALS (12 sets, daily range): BP systolic 119–148; BP diastolic 69–81; PULSE 76–92; RESP 16–20; TEMP 36.9–37.7; O2SAT 95–98
[2022-02-24] MEDS: Dianeal low Ca w/1.5% dex 2,000 mL Bag 2000 ML INTRAPERIT ×2 (01:52→06:22)
[2022-02-24] MEDS: ampicillin 2,000 MG in sodium chloride 0.9% (plus) 50 ML 100 MG IV ×4 (02:27→22:32)
[2022-02-24 02:35] LABS: Basophils # 0.1 10^3/uL (0.0-0.1); Basophils % 0.4 %; Eosinophils # 0.2 10^3/uL (0.0-0.8); Eosinophils % 1.3 %; Hematocrit 40.7 % (42.0-52.0); Hemoglobin 13.4 g/dL (11.7-16.6); Lymphocytes # 0.6 10^3/uL (0.8-4.8); Lymphocytes % 3.4 %; Mean Corpuscular HGB Conc 32.9 g/dL (30.0-36.0); Mean Corpuscular Volume 91.1 fl (80-94); Mean Platelet Volume 11.9 fL (7.4-10.4); Monocytes # 1.2 10^3/uL (0.2-0.9); Monocytes % 6.3 %; Neutrophils # 15.61 10^3/uL (1.8-7.7); Neutrophils % 85.3 %; Nucleated Red Blood Cells % 0.1 %; Platelet Count 184 10^3/cmm (130-400); Red Blood Count 4.47 10^6/uL (4.1-5.3); Red Cell Distribution Width 14.1 % (12.1-15.1); White Blood Count 18.3 10^3/uL (4.0-10.0)
[2022-02-24 02:48] LABS: INR 1.71 (0.8-1.2)
[2022-02-24 02:51] LABS: Ammonia 20 umol/L (16-60); Lactate (Lactic Acid level) 1.3 mmol/L (0.5-2.2)
[2022-02-24 02:53] LABS: Alanine Aminotransferase 32 U/L (0-41); Albumin Level 2.9 g/dL (3.5-5.2); Alkaline Phosphatase 71 U/L (40-130); Anion Gap 18.1 (5-19); Aspartate Amino Transferase 93 U/L (0-40); Blood Urea Nitrogen 64 mg/dL (8-23); C Reactive Protein 48.7 mg/L (0.0-4.9); Calcium 8.7 mg/dL (8.5-10.5); Carbon Dioxide 25 mmol/L (22-29); Chloride 102 mmol/L (98-107); Globulin 2.9 g/dL (1.3-4.6); Glucose 178 mg/dL (65-115); Magnesium 2.4 mg/dL (1.7-2.3); Osmolality Calculated 317 mOsm/kg (285-295); Phosphorus 6.1 mg/dL (2.5-4.5); Potassium 3.1 mmol/L (3.5-5.1); Sodium 142 mmol/L (136-145); Total Bilirubin 0.3 mg/dL (0.15-1.2); Total Protein 5.8 g/dL (6.6-8.7)
[2022-02-24 02:59] LABS: Procalcitonin 0.49 ng/mL (0-0.5)
[2022-02-24] MEDS: metoprolol tartrate 25 mg Tablet 50 MG PO ×2 (05:12→17:15)
[2022-02-24] MEDS: hyDRALAzine 25 mg Tablet 50 MG PO ×3 (05:12→22:19)
[2022-02-24] MEDS: levothyroxine 88 mcg Tablet PO (05:12)
--- NOTE | 2022-02-24 06:25 | PC.NURSE ---
SHIFT SUMMARY Pt has not responded to any verbal commands. Does not open eyes to name. Does grimace with painful stimuli and sternal rub. Occ groan/grunting noises. Tube feeding of Glucerna 1.2 infusing well per NG tube and has indira well. No residual with checks and rate was increased to 40ml/hr rate. Receiving po meds via tube. Continues to receive IV antibiotics. Had 75ml urine from [place]. Receiving peritoneal dialysis treatments with dwell time of 4 hours. Fluid is clear and pale yellow. Has been repositioned through night with oral care given. Does bite down on swab with this. Has had X4 liquid BM's tonight and stomach has been heard rumbling.
[2022-02-24 06:26] LABS: Glucose Point of Care 244 mg/dL (70-110)
[2022-02-24] MEDS: ipratropium-albuterol 3 mL Neb INHALATION ×3 (08:21→20:48)
--- NOTE | 2022-02-24 09:03 | P.PN_ITS ---
Subjective Subjective: moans. not verbal. not following commands. can not obtaina ROS. Medications: Reviewed: Yes Medication Review Details: Current Medications Acetaminophen (Acetaminophen 325 Mg Supp) 650 mg VT Q6H PRN PRN Reason: pain, fever Last Admin: 02/22/22 05:34 Dose: 650 mg Albuterol/Ipratropium (Ipratropium-Albuterol 3 Ml Neb) 3 ml INHALATION Q6H.RESP [facility] Last Admin: 02/24/22 08:21 Dose: 3 ml Amlodipine Besylate (Amlodipine 10 Mg Tablet) 10 mg PO DAILY [facility] Last Admin: 02/23/22 09:28 Dose: 10 mg Atorvastatin Calcium (Atorvastatin 40 Mg Tablet) 20 mg PO BEDTIME [facility] Last Admin: 02/23/22 20:58 Dose: 20 mg Clonidine HCl (Clonidine 0.1 Mg/24 Hr Patch) 1 patch TRANSDERMA Q7D [facility] Last Admin: 02/20/22 10:25 Dose: 1 patch Clopidogrel Bisulfate (Clopidogrel 75 Mg Tablet) 75 mg PO DAILY [facility] Last Admin: 02/19/22 10:26 Dose: Not Given Dextrose (Dextrose 50% Syringe 50 Ml) 25 ml IVP ONCE PRN; Protocol PRN Reason: hypoglycemia protocol Dextrose (Dextrose 50% Syringe 50 Ml) 50 ml IVP PRN PRN; Protocol PRN Reason: hypoglycemia protocol Dextrose (Dextrose 50% Syringe 50 Ml) 25 ml IVP ONCE PRN; Protocol PRN Reason: hypoglycemia protocol Dextrose (Dextrose 50% Syringe 50 Ml) 50 ml IVP PRN PRN; Protocol PRN Reason: hypoglycemia protocol Enoxaparin Sodium (Enoxaparin 100 Mg/Ml Syringe) 100 mg SUBCUT Q24H [facility] Last Admin: 02/23/22 17:07 Dose: 100 mg Famotidine (Famotidine 20 Mg/2 Ml Inj) 20 mg IVP Q12H [facility] Last Admin: 02/23/22 22:37 Dose: 20 mg Furosemide (Furosemide 10 Mg/Ml Sdv 2ml) 20 mg IVP Q12H [facility] Last Admin: 02/23/22 22:37 Dose: 20 mg Glucagon (Glucagon 1 Mg/Ml Inj 1 Ml) 1 mg IM ONCE PRN; Protocol PRN Reason: Adult Acute Hypoglycemia Prot. Glucagon (Glucagon 1 Mg/Ml Inj 1 Ml) 1 mg IM ONCE PRN; Protocol PRN Reason: Adult Acute Hypoglycemia Prot. Hydralazine HCl (Hydralazine 25 Mg Tablet) 50 mg PO Q8H GABE Last Admin: 02/24/22 05:12 Dose: 50 mg Dextrose (D5w) 500 mls @ 100 mls/hr IV ONCE PRN; Protocol PRN Reason: Adult Acute Hypoglycemia Prot Dextrose (D5w) 500 mls @ 100 mls/hr IV ONCE PRN; Protocol PRN Reason: Adult Acute Hypoglycemia Prot Vancomycin HCl 1,000 mg/ (Sodium Chloride) 250 mls @ 250 mls/hr IV Q48H GABE; Protocol Last Infusion: 02/23/22 15:58 Dose: Infused Acyclovir 930 mg/ Sodium (Chloride) 118.6 mls @ 120 mls/hr IV Q24H [facility] Last Infusion: 02/23/22 13:49 Dose: Infused Levetiracetam 500 mg/ Sodium (Chloride) 105 mls @ 420 mls/hr IV Q12H [facility] Last Infusion: 02/23/22 01:00 CDT Dose: Infused Ampicillin Sodium 2,000 mg/ (Sodium Chloride) 50 mls @ 100 mls/hr IV Q4H GABE; Protocol Last Infusion: 02/24/22 06:23 Dose: Infused Ceftriaxone Sodium 2,000 mg/ (Sodium Chloride) 50 mls @ 100 mls/hr IV Q12H GABE; Protocol Last Infusion: 02/23/22 21:41 Dose: Infused Caspofungin 50 mg/ Sodium (Chloride) 250 mls @ 250 mls/hr IV Q24H [facility] Ibuprofen (Ibuprofen 200 Mg Tablet) 400 mg PO Q6H PRN PRN Reason: FEVER Last Admin: 02/23/22 14:44 Dose: 400 mg Insulin Glargine (Insulin Glargine 100 Units/1 Ml) 10 unit SUBCUT Q24H [facility] Last Admin: 02/23/22 15:23 Dose: 10 unit Insulin Human Lispro (Insulin Lispro 100 Unit/1 Ml) 0 unit SUBCUT WM&BEDTIME GABE; Protocol Last Admin: 02/23/22 21:34 Dose: 2 unit Isosorbide Mononitrate (Isosorbide Mononitrate Er 30 Mg Tablet) 30 mg PO DAILY [facility]ABE Last Admin: 02/23/22 09:28 Dose: 30 mg Labetalol HCl (Labetalol 5 Mg/Ml Sdv 20ml) 10 mg IVP Q4H PRN PRN Reason: SBP>180 or DBP>90 Last Admin: 02/20/22 09:26 Dose: 10 mg Lactulose (Lactulose Oral Liq 20 Gm/30 Ml Udc) 20 gm PO Q12H PRN PRN Reason: CONSTIPATION Lanolin (Lanolin Oint 7 Gm) 1 applic TOPICAL PRN PRN PRN Reason: DRYNESS Last Admin: 02/23/22 17:09 Dose: 1 applic Levothyroxine Sodium (Levothyroxine 88 Mcg Tablet) 88 mcg PO QAM [facility] Last Admin: 02/24/22 05:12 Dose: 88 mcg Metoprolol Tartrate (Metoprolol Tartrate 25 Mg Tablet) 50 mg PO Q12H [facility] Last Admin: 02/24/22 05:12 Dose: 50 mg Non-Formulary Medication (Free Water) 300 ml NG-TUBE BID@08,16 [facility] Last Admin: 02/23/22 15:24 Dose: 300 ml Ondansetron HCl (Ondansetron 2 Mg/Ml Sdv 2 Ml) 4 mg IVP Q8H PRN PRN Reason: vomiting, or N/V if npo Peritoneal Dialysis Solution (Dianeal Low Ca W/1.5% Dex 2,000 Ml Bag) 2,000 ml INTRAPERIT 5XD [facility] Last Admin: 02/24/22 06:22 Dose: 2,000 ml Vitals/I&O/Wt Last Vital Signs Temp 98.5 F 02/24/22 07:41 Pulse 81 02/24/22 08:28 Resp 18 02/24/22 08:24 BP 128/81 02/24/22 07:41 Pulse Ox 96 02/24/22 08:24 O2 Del Method 02/24/22 08:24 02/23/22 02/24/22 02/24/22 22:59 06:59 14:59 Intake Total 450 / 918.6 500 / 1418.6 Output Total 230 / 230 75 / 305 Balance 220 / 688.6 425 / 1113.6 Physical Exam Narrative: examined w/ RN- telehealth visit obese man in bed, tlethargic, ng tube, weak VS noted heent- nc/at neck supple lungs clear heart reg abd soft, nt, nd, + bs, +PD catheter ext arm > leg edema neuro- more alert. moving legs and rt arm, moves left arm less. skin + rash Data : 02/24/22 01:52 02/24/22 01:52 Micro: Microbiology 02/23/22 08:35 Blood Culture - Preliminary Blood NEGATIVE TO DATE 02/23/22 08:42 Blood Culture - Preliminary Blood NEGATIVE TO DATE 02/20/22 15:08 Bacterial Antigens - Final Cerebrospinal Fluid 02/18/22 21:20 Blood Culture - Final Blood NO GROWTH AFTER 5 DAYS 02/18/22 20:45 Gram Stain - Final Amniotic Fluid Body Fluid Culture - Preliminary Coag negative Staphylococcus 02/21/22 15:54 Gram Stain - Final Cerebrospinal Fluid CSF Culture - Preliminary 02/20/22 15:08 Gram Stain - Final Peritoneal Fluid Body Fluid Culture - Final A&P Assessment and plan (1) Peritoneal dialysis status: Plan (1) End stage renal disease: 86 year old male w/ PMHX of ESRD on PD, IDDM,? 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 Pt was admitted , AMS, and weakness.?Getting PD 1. AMS and fevers- Meningitis , Management per primary team 2. ESRD-? CAPD - 5 exchanges a day-alternate 1.5% and 2.5% gluc -pd cell count 52 wbc, 1000 rbc- bloody- 3. hgb high for ESRD- no MCKAY 5.? hypertension-bp controlled - mar meds 6. dm control per medicine seen and examined w/ RN- telehealth visit time spent 25 min Attestations Medical Necessity Statement*: meningitis Time Spent in Patient Care: 16 - 35 minutes (>than 50% of time spent in counselling and/or direct pt care on unit) . Coding Level of Care Code Acute Cloth Examiner for Chg Fwd Diagnoses Peritoneal dialysis status Z99.2
[2022-02-24] MEDS: [UNRECOGNIZED DRUG - REMARK] 300 EACH NG-TUBE ×2 (09:05→15:56)
[2022-02-24] MEDS: cefTRIAXone 2,000 MG in sodium chloride 0.9% (plus) 50 ML 100 MG IV ×2 (09:05→20:54)
[2022-02-24] MEDS: insulin lispro 100 unit/1 mL SUBCUT ×4 (09:06→22:18)
[2022-02-24] MEDS: isosorbide mononitrate ER 30 mg Tablet PO (09:06)
[2022-02-24] MEDS: clopidogrel 75 mg Tablet PO (09:06)
[2022-02-24] MEDS: amlodipine 10 mg Tablet PO (09:06)
[2022-02-24] MEDS: Dianeal low Ca w/2.5% dex 2,000 mL Bag 2000 ML INTRAPERIT ×2 (10:25→17:15)
[2022-02-24] MEDS: potassium chloride premix 100 ML 50 MEQ IV (10:51)
[2022-02-24] MEDS: potassium chloride oral liq 20 mEq/15 mL UDC NG-TUBE (10:51)
[2022-02-24 10:55] LABS: Vancomycin Random 18.1 ug/mL (20.0-40.0)
[2022-02-24 11:31] LABS: Glucose Point of Care 266 mg/dL (70-110)
[2022-02-24 11:38] LABS: Cytomegalovirus Antibody (IGG) >10.00 U/mL; Cytomegalovirus Antibody (IGM) <30.00 AU/mL
[2022-02-24] MEDS: FUROsemide 10 mg/mL SDV 2mL 20 MG IVP ×2 (12:03→22:18)
[2022-02-24] MEDS: famotidine 20 mg/2 mL INJ IVP ×2 (12:03→22:17)
[2022-02-24 12:08] LABS: Lymes IGG WB <0.90 index
--- NOTE | 2022-02-24 14:04 | P.PN_ITS ---
Subjective Subjective: Patient is getting dialyzed today He does not open his eyes Pupils are reactive to light He is able to localize pain Getting tube feeding No fever in last 22 hours hours Will touch base with Dr. Mccoy Family is at the bedside Plan for EEG today Vitals/I&O/Wt Last Vital Signs Temp 98.9 F 02/24/22 11:36 Pulse 92 02/24/22 13:45 Resp 20 H 02/24/22 13:38 BP 148/74 02/24/22 11:36 Pulse Ox 95 02/24/22 13:38 O2 Del Method 02/24/22 13:38 02/23/22 02/24/22 02/24/22 22:59 06:59 14:59 Intake Total 450 / 918.6 500 / 1418.6 568.6 / 568.6 Output Total 230 / 230 75 / 305 Balance 220 / 688.6 425 / 1113.6 568.6 / 568.6 Physical Exam Narrative: Patient is nonverbal Does not open eyes to verbal command Even with painful stimuli he does not open eyes, his pupils are reactive to light bilaterally He localizes pain Peritoneal dialysis catheter in place Abdomen is soft Lower extremity no edema Data : 02/25/22 05:43 02/25/22 05:43 Micro: Microbiology 02/21/22 15:54 Gram Stain - Final Cerebrospinal Fluid CSF Culture - Final 02/23/22 08:35 Blood Culture - Preliminary Blood NEGATIVE TO DATE 02/23/22 08:42 Blood Culture - Preliminary Blood NEGATIVE TO DATE 02/20/22 15:08 Bacterial Antigens - Final Cerebrospinal Fluid 02/18/22 21:20 Blood Culture - Final Blood NO GROWTH AFTER 5 DAYS 02/18/22 20:45 Gram Stain - Final Amniotic Fluid Body Fluid Culture - Preliminary Coag negative Staphylococcus 02/20/22 15:08 Gram Stain - Final Peritoneal Fluid Body Fluid Culture - Final A&P Assessment and plan (1) Major neurologic dysfunction: (2) Meningitis: (3) Peritoneal dialysis status: (4) Anemia: (5) Chronic kidney disease: (6) Encephalopathy: (7) Altered mental status: (8) Peritoneal dialysis catheter in place: (9) End stage renal disease: (10) Warfarin-induced coagulopathy: Plan Case discussed with Dr. Mccoy Patient has not been able to eat on his own Still getting tube feeding Cryptococcal antigen negative Blood culture positive with strep. In species Will request cardiology for transesophageal echo to decide whether he will need 4 or [address] Mccoy did discuss this case with Dr. Yao as well Afebrile, leukocytosis trending down since initiation of caspofungin Peritoneal dialysis management by nephrology LTAC placement Dr. 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
[2022-02-24 15:08] LABS: Quantiferon Mitogen >10.00 IU/mL; Quantiferon Nil 0.01 IU/mL; Quantiferon TB Gold NEGATIVE (NEGATIVE)
[2022-02-24] MEDS: insulin glargine 100 units/1 mL 10 UNIT SUBCUT (15:30)
[2022-02-24 16:41] LABS: Glucose Point of Care 274 mg/dL (70-110)
[2022-02-24] MEDS: enoxaparin 100 mg/mL Syringe SUBCUT (17:15)
--- NOTE | 2022-02-24 17:17 | PM.CONSULT ---
Providers/Reason For Consult Consulting Physician/Specialty*: Neurology Reason for Consult*: Altered mental status Requesting Physician: Dr. Chaudhry Attending Physician: José Antonio Chaudhry MD Primary Care Provider: John Kauffman MD History of Present Illness History of Present Illness Heber Roach is a 86 year old male who came to our emergency department with confusion and headache 02/18/2022. He became progressively more confused and vomited. He was on Coumadin for atrial fibrillation and dialysis for kidney disease. He has a history of dementia. He had TAVR in June for severe aortic stenosis. On arrival Dr. Lenz noted that he was not answering questions very well. His CT of the head was unremarkable (diffuse atrophy). He was admitted to Dr. aYo who described that the patient had become increasingly lethargic to the point of being nonverbal. He could not walk whereas normally he walked with a cane. His white count was L faded at 16.2. His blood gases were unremarkable. His peritoneal fluid was clear with 52 white blood cells, 86% monocytes. His blood pressure was elevated. He had low-grade fever (100). He was started on Zosyn for possible UTI and for concern of infected peritonitis because of elevated white count in the peritoneal fluid. His echocardiogram showed TAVR and possible prosthetic aortic valve stenosis. His neurologic exam remained nonfocal and he was diffusely encephalopathic. There was concern about meningitis from the outset and so broad-spectrum antibiotic therapy with vancomycin and Zosyn with later addition of doxycycline. He was also given meropenem and ampicillin, Rocephin and acyclovir. Dr. Chaudhry arranged for the patient to have an MRI of the brain on 02/21. Dr. Persaud was concerned about meningitis because of layering debris in the occipital horns and posterior lateral ventricles suspicious for ventriculitis with purulent debris. He also noted mild ventriculomegaly. The patient received fresh frozen plasma for his elevated INR and lumbar puncture was done 02/21/2022 by radiology and cloudy opaque CSF was obtained. 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 Dr. Stewart's note from yesterday documents that the patient had gradually worsening neurologic function despite antibiotic treatments. CT of the head continuing to show no acute changes. On previous evaluations with cardiology and the ER the patient has shown evidence of cognitive dysfunction but he was able to answer for himself. CSF obtained 02/21/2022 CSF WBC 626 20% monos 80% PMN Glucose 95 Protein 232 Cryptococcal antigen pending Review of Systems Narrative: Everything is in the HPI. He has not talked with anyone since he got here. He was able to say a few things the first night and not since then. Medications/Allergies Home Medications Medication Instructions Recorded Confirmed Last Taken Type atorvastatin 20 mg tablet 20 mg PO BEDTIME 05/10/19 02/19/22 05/22/21 07:00 History insulin glargine 100 unit/mL 15 unit SUBCUT BEDTIME 05/10/19 02/18/22 05/22/21 20:00 History subcutaneous solution (Lantus U-100 Insulin) amlodipine 5 mg tablet 5 mg PO BID 02/01/20 02/19/22 05/22/21 19:00 History furosemide 40 mg tablet 40 mg PO BID 01/08/21 02/19/22 05/22/21 19:00 History isosorbide mononitrate 30 mg 30 mg PO DAILY #90 ea 02/26/21 02/19/22 05/22/21 07:00 Rx tablet,extended release 24 hr clopidogrel 75 mg tablet 75 mg PO QAM 08/14/21 02/19/22 Unknown History gabapentin 100 mg capsule See Rx Instructions .Route .COMPLEX 08/14/21 02/19/22 02/18/22 History tamsulosin 0.4 mg capsule 0.8 mg PO QAM 08/14/21 02/19/22 Unknown History warfarin 10 mg tablet See Rx Instructions .Route .COMPLEX 12/25/21 02/19/22 Unknown History vit B,C-folic ac 800 mcg-zinc 12.5 1 tab PO BEDTIME 02/18/22 02/19/22 Unknown History mg-selen-D3 2,000 unit-vit E tablet (RenaPlex-D) Vitamin D3 1 cap PO DAILY 02/19/22 02/19/22 Unknown History diphenhydramine 25 1 tab PO BEDTIME PRN Sleep 02/19/22 02/19/22 Unknown History mg-acetaminophen 500 mg tablet (Tylenol PM Extra Strength) gentamicin 0.1 % topical cream See Rx Instructions .Route .COMPLEX 02/19/22 02/19/22 Unknown History insulin aspart U-100 100 unit/mL See Rx Instructions .Route .COMPLEX 02/19/22 02/19/22 Unknown History (3 mL) subcutaneous pen (Novolog Flexpen U-100 Insulin aspart) levothyroxine 100 mcg tablet 100 mcg PO DAILY 02/19/22 02/19/22 Unknown History (Euthyrox) nitroglycerin 0.4 mg sublingual 0.4 mg sublingual Q5M PRN Chest 02/19/22 02/19/22 Unknown History tablet (Nitrostat) Pain prednisone 10 mg tablet See Rx Instructions .Route .COMPLEX 02/19/22 02/19/22 Unknown History pyridoxine (vitamin B6) 25 mg 25 mg PO DAILY 02/19/22 02/19/22 Unknown History tablet (Vitamin B-6) triamcinolone acetonide 0.1 % 1 applic topical BID 02/19/22 02/19/22 Unknown History topical ointment Allergies Allergy/AdvReac Type Severity Reaction Status Date / Time apple Allergy Unknown ADR-Nausea Verified 02/18/22 22:00 morphine Allergy Unknown ADR-Confusi Verified 02/18/22 22:00 on oxycodone [From Percocet] Allergy Unknown ADR-Confusi Verified 02/18/22 22:00 on adhesive tape Allergy ALGY-Rash Verified 02/18/22 22:27 alprazolam [From Xanax] Allergy Unknown Verified 02/19/22 12:48 lisinopril Allergy Unknown Verified 02/19/22 12:48 lorazepam [From Ativan] AdvReac Intermediate ADR-Agitate Verified 04/03/21 14:54 d any pain pills or sleeping Allergy ADR-Confusi Uncoded 02/18/22 22:00 pills on Current Medications Generic Name Dose Route Start Last Admin Trade Name Freq PRN Reason Stop Dose Admin Acetaminophen 650 mg 02/20/22 20:10 02/22/22 05:34 Acetaminophen 325 Mg Supp CA 650 mg Q6H PRN Administration pain, fever Albuterol/Ipratropium 3 ml 02/22/22 00:15 02/24/22 13:34 Ipratropium-Albuterol 3 Ml Neb INHALATION 3 ml Q6H.RESP GABE Administration Atorvastatin Calcium 20 mg 02/19/22 21:00 02/23/22 20:58 Atorvastatin 40 Mg Tablet PO 20 mg BEDTIME GABE Administration Clonidine HCl 1 patch 02/20/22 10:30 02/20/22 10:25 Clonidine 0.1 Mg/24 Hr Patch TRANSDERMA 1 patch Q7D GABE Administration Clopidogrel Bisulfate 75 mg 02/19/22 09:00 02/24/22 09:06 Clopidogrel 75 Mg Tablet PO 75 mg DAILY GABE Administration Enoxaparin Sodium 100 mg 02/22/22 18:00 02/24/22 17:15 Enoxaparin 100 Mg/Ml Syringe SUBCUT 100 mg Q24H GABE Administration Famotidine 20 mg 02/18/22 23:00 02/24/22 12:03 Famotidine 20 Mg/2 Ml Inj IVP 20 mg Q12H GABE Administration Furosemide 20 mg 02/18/22 23:15 02/24/22 12:03 Furosemide 10 Mg/Ml Sdv 2ml IVP 20 mg Q12H GABE Administration Hydralazine HCl 50 mg 02/21/22 14:00 02/24/22 13:53 Hydralazine 25 Mg Tablet PO 50 mg Q8H GABE Administration Vancomycin HCl 1,000 mg/ 250 mls @ 250 mls/hr 02/19/22 14:00 02/23/22 15:58 Sodium Chloride IV Infused Q48H [facility] Infusion Protocol Acyclovir 930 mg/ Sodium 118.6 mls @ 120 mls/hr 02/19/22 11:30 02/24/22 13:09 Chloride IV Infused Q24H [facility] Infusion Levetiracetam 500 mg/ Sodium 105 mls @ 420 mls/hr 02/22/22 00:00 02/23/22 01:00 CDT Chloride IV Infused Q12H [facility] Infusion Ceftriaxone Sodium 2,000 mg/ 50 mls @ 100 mls/hr 02/23/22 08:00 02/24/22 09:43 Sodium Chloride IV Infused Q12H [facility] Infusion Protocol Caspofungin 50 mg/ Sodium 250 mls @ 250 mls/hr 02/24/22 11:00 02/24/22 12:25 Chloride IV Infused Q24H [facility] Infusion Insulin Glargine 10 unit 02/22/22 15:00 02/24/22 15:30 Insulin Glargine 100 Units/1 Ml SUBCUT 10 unit Q24H GABE Administration Insulin Human Lispro 0 unit 02/19/22 12:00 02/24/22 17:15 Insulin Lispro 100 Unit/1 Ml SUBCUT 8 unit WM&BEDTIME GABE Administration Protocol Isosorbide Mononitrate 30 mg 02/19/22 09:00 02/24/22 09:06 Isosorbide Mononitrate Er 30 Mg Tablet PO 30 mg DAILY GABE Administration Labetalol HCl 10 mg 02/20/22 08:08 02/20/22 09:26 Labetalol 5 Mg/Ml Sdv 20ml IVP 10 mg Q4H PRN Administration SBP>180 or DBP>90 Lanolin 1 applic 02/20/22 16:40 02/23/22 17:09 Lanolin Oint 7 Gm TOPICAL 1 applic PRN PRN Administration DRYNESS Levothyroxine Sodium 88 mcg 02/19/22 06:00 02/24/22 05:12 Levothyroxine 88 Mcg Tablet PO 88 mcg QAM GABE Administration Metoprolol Tartrate 50 mg 02/21/22 18:00 02/24/22 17:15 Metoprolol Tartrate 25 Mg Tablet PO 50 mg Q12H GABE Administration Non-Formulary Medication 300 ml 02/22/22 16:00 02/24/22 15:56 Free Water NG-TUBE 300 ml BID@08,16 GABE Administration Peritoneal Dialysis Solution 2,000 ml 02/24/22 11:00 02/24/22 17:15 Dianeal Low Ca W/2.5% Dex 2,000 Ml Bag INTRAPERIT 2,000 ml Q6H GABE Administration PFSH Acute PFSH: Medical History Aortic stenosis Atrial fibrillation CAD (coronary artery disease) CHF (congestive heart failure) Diabetes mellitus HTN (hypertension) Kidney disease Peritoneal dialysis catheter in place Peritoneal dialysis status Renal failure Sleep apnea Thyroid disease TIA (transient ischemic attack) Surgical History S/P aortic valve replacement S/P CABG (coronary artery bypass graft) S/P cataract surgery S/P knee surgery S/P PTCA (percutaneous transluminal coronary angioplasty) S/P shoulder surgery Family History Father Stroke Other CAD (coronary artery disease) Diabetes Myocardial infarction Peritoneal dialysis status Social History Smoking and tobacco status: never smoked Alcohol intake: current History of recent travel: No Vitals/I&O/Wt Last Vital Signs Temp 98.9 F 02/24/22 15:39 Pulse 89 02/24/22 15:39 Resp 18 02/24/22 15:39 BP 142/77 02/24/22 15:39 Pulse Ox 95 02/24/22 15:39 O2 Del Method 02/24/22 15:39 02/24/22 02/24/22 02/24/22 06:59 14:59 22:59 Intake Total 500 / 1418.6 568.6 / 568.6 Output Total 75 / 305 Balance 425 / 1113.6 568.6 / 568.6 Physical Exam Narrative: The patient was lying quietly on his back with his head tilted to the left. He has grunting respirations. General: Corpulent elderly man in no distress. Mental status exam: He resists eye opening with forced eye closure. Oculocephalic movements were absent because he was too alert. He does not follow any commands after prolonged stimulation but he made multiple voluntary movements. I tickled his ear with his sheet and he shook his head strongly to get away from the tickling stimulus. He responded briskly to pain and localized pain. He did not go so far as to reach for the offending object. Cranial nerves: Impossible to bankruptcy judge visual robles by threat as the patient resisted eye opening. Eyes midline. Pupils pinpoint. No gaze preference. Facial grimace brisk and strong on both sides. Tongue midline in the mouth and he is managing his secretions. Motor: He withdraws briskly from pain in all 4 extremities. Deep tendon reflexes: Hypoactive throughout. Toes upgoing bilaterally. Coordination no specific cerebellar signs. HEENT: Conjunctiva not injected. Sclera nonicteric. Oropharynx not visualized. Neck: Stiff but not rigid. Chest: Clear to auscultation cardiovascular: Loud S1. Irregularly irregular. Soft systolic murmur. Abdomen soft. Extremities: No deformities. CT of the head from 02/23 shows no significant increase in size of the lateral ventricles compared to 02/18. MRI of the brain from 02/21 shows layering of debris in the posterior aspect of the lateral ventricles. Data : 02/24/22 01:52 02/24/22 01:52 Micro: Microbiology 02/21/22 15:54 Gram Stain - Final Cerebrospinal Fluid CSF Culture - Final 02/23/22 08:35 Blood Culture - Preliminary Blood NEGATIVE TO DATE 02/23/22 08:42 Blood Culture - Preliminary Blood NEGATIVE TO DATE 02/20/22 15:08 Bacterial Antigens - Final Cerebrospinal Fluid 02/18/22 21:20 Blood Culture - Final Blood NO GROWTH AFTER 5 DAYS A&P Assessment and plan (1) Meningitis: 86-year-old man with profound alteration of consciousness in the setting of partially treated meningitis. He has underlying dementia based upon the history given by his family and by providers in the clinic. It would be expected that with definite treatment of the definite organism causing his meningitis it might takes weeks for him to regain conscious brain activity and considering the degree of illness with gross pus in his lateral ventricles I am rather impressed with the fair degree of responsiveness of the patient on exam today. I cannot extend a clear expectation for prognosis but I do not see any sign of premorbid neurologic illness on exam today. I think the biggest question is what kind of meningitis he has whether this is partially treated bacterial or fungal meningitis. His marked elevation of CSF protein may be a sign of fungal meningitis and his cryptococcal levels are pending. He was not on any form of immunotherapy but he has been on dialysis for quite some time. His valvular heart disease would place him at greater risk for bacterial endocarditis with meningitis. I do not see any reason to suspect a viral source for his infection and consideration of his CSF markers. I do not see any sign of seizure activity. I would recommend explaining to the family that this is going to be a drawnout process, lay out a plan for a year antibacterial and/or antifungal treatment (mainly for cryptococcus) and look into residential placement for treatment or [facility] placement, which may be necessary for ongoing antibiotic and antifungal treatment. 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
[2022-02-24 20:54] LABS: Glucose Point of Care 244 mg/dL (70-110)
[2022-02-24] MEDS: atorvastatin 40 mg Tablet 20 MG PO (22:10)
--- NOTE | 2022-02-24 22:57 | XRR_ITS ---
PROCEDURE INFORMATION: Exam: XR Chest Exam date and time: 02/24/2022 11:04 PM Age: 86 years old Clinical indication: Device placement; Prior surgery; Surgery type: Cabg. Aortic valve replacement; Patient HX: Hard fluid push on ng tube. Check for placement. ; Additional info: Check ngt placement TECHNIQUE: Imaging protocol: Radiologic exam of the chest. Views: 1 view. COM[place]ISON[place] [id number] 02/23/2022 9:57 AM FINDINGS: Tubes, catheters and devices: Tube coursing via esophagus extends into the abdomen and is not fully imaged. Lungs: Calcified pulmonary granulomatous change. Mild scarring or atelectasis lower left chest. Pleural spaces: Unremarkable. No pleural effusion. No pneumothorax. Heart/Mediastinum: Clips noted. No cardiomegaly. Vasculature: Prosthesis is in place at aortic root. Bones/joints: Suture anchor seen at left humeral head. XR/XR chest 1V portable [id number] IMPRESSION: No acute findings. Tube coursing via esophagus extends into the abdomen and is not fully imaged.
[2022-02-25] VITALS (10 sets, daily range): BP systolic 132–177; BP diastolic 66–81; PULSE 75–90; RESP 16–22; TEMP 36.7–37.4; O2SAT 94–98
[2022-02-25] MEDS: Dianeal low Ca w/2.5% dex 2,000 mL Bag 2000 ML INTRAPERIT ×4 (00:21→17:19)
--- NOTE | 2022-02-25 01:06 | XRR_ITS ---
PROCEDURE INFORMATION: Exam: XR Chest Exam date and time: 02/25/2022 1:27 AM Age: 86 years old Clinical indication: Device placement; Prior surgery; Surgery type: Cabg. Aortic valve; Patient HX: Check S/P placement of new ng tube. ; Additional info: New ngt placement TECHNIQUE: Imaging protocol: Radiologic exam of the chest. Views: 1 view. COMPARISON: CR (CHEST, ) 02/24/2022 11:04 PM FINDINGS: Tubes, catheters and devices: Nasogastric tube is looped distally with tip positioned in distal thoracic esophagus. Lungs: Calcified pulmonary granulomatous change. Pleural spaces: Unremarkable. No pleural effusion. No pneumothorax. Heart/Mediastinum: Unchanged. Vasculature: Prosthesis noted at aortic root. Bones/joints: No acute findings. Suture anchor noted at left humeral head. XR/XR chest 1V portable [id number] IMPRESSION: Nasogastric tube is looped distally with tip positioned in distal thoracic esophagus; repositioning recommended.
[2022-02-25] MEDS: ipratropium-albuterol 3 mL Neb INHALATION ×4 (03:11→21:57)
[2022-02-25 05:55] LABS: Basophils # 0.1 10^3/uL (0.0-0.1); Basophils % 0.3 %; Eosinophils # 0.3 10^3/uL (0.0-0.8); Hematocrit 37.4 % (42.0-52.0); Hemoglobin 12.4 g/dL (11.7-16.6); Lymphocytes % 5.9 %; Mean Corpuscular HGB Conc 33.2 g/dL (30.0-36.0); Mean Corpuscular Volume 90.3 fl (80-94); Mean Platelet Volume 11.8 fL (7.4-10.4); Monocytes # 1.2 10^3/uL (0.2-0.9); Monocytes % 6.9 %; Neutrophils % 81.6 %; Nucleated Red Blood Cells % 0 %; Platelet Count 174 10^3/cmm (130-400); Red Blood Count 4.14 10^6/uL (4.1-5.3); White Blood Count 17.3 10^3/uL (4.0-10.0)
[2022-02-25] MEDS: levothyroxine 88 mcg Tablet PO (06:07)
[2022-02-25] MEDS: hyDRALAzine 25 mg Tablet 50 MG PO (06:07)
[2022-02-25] MEDS: metoprolol tartrate 25 mg Tablet 50 MG PO ×2 (06:07→17:20)
[2022-02-25 06:10] LABS: INR 1.35 (0.8-1.2); Lactate (Lactic Acid level) 1.4 mmol/L (0.5-2.2)
[2022-02-25 06:17] LABS: Vancomycin Random 17.5 ug/mL (20.0-40.0)
[2022-02-25 06:18] LABS: Alanine Aminotransferase 40 U/L (0-41); Albumin Level 2.9 g/dL (3.5-5.2); Alkaline Phosphatase 74 U/L (40-130); Anion Gap 20.3 (5-19); Aspartate Amino Transferase 93 U/L (0-40); Blood Urea Nitrogen 76 mg/dL (8-23); C Reactive Protein 41.3 mg/L (0.0-4.9); Calcium 8.7 mg/dL (8.5-10.5); Carbon Dioxide 24 mmol/L (22-29); Chloride 97 mmol/L (98-107); Globulin 2.9 g/dL (1.3-4.6); Glucose 244 mg/dL (65-115); Magnesium 2.4 mg/dL (1.7-2.3); Osmolality Calculated 317 mOsm/kg (285-295); Phosphorus 6.4 mg/dL (2.5-4.5); Potassium 3.3 mmol/L (3.5-5.1); Sodium 138 mmol/L (136-145); Total Bilirubin 0.3 mg/dL (0.15-1.2); Total Protein 5.8 g/dL (6.6-8.7)
[2022-02-25 06:25] LABS: Procalcitonin 0.53 ng/mL (0-0.5)
[2022-02-25 06:44] LABS: Glucose Point of Care 261 mg/dL (70-110)
--- NOTE | 2022-02-25 07:02 | P.PN_ITS ---
Subjective Subjective: not verbal. responds to pain. not following commands. Medications: Reviewed: Yes Medication Review Details: Current Medications Acetaminophen (Acetaminophen 325 Mg Supp) 650 mg PA Q6H PRN PRN Reason: pain, fever Last Admin: 02/22/22 05:34 Dose: 650 mg Albuterol/Ipratropium (Ipratropium-Albuterol 3 Ml Neb) 3 ml INHALATION Q6H.RESP [facility] Last Admin: 02/25/22 03:11 Dose: 3 ml Amlodipine Besylate (Amlodipine 5 Mg Tablet) 5 mg PO DAILY [facility] Atorvastatin Calcium (Atorvastatin 40 Mg Tablet) 20 mg PO BEDTIME [facility] Last Admin: 02/24/22 22:10 Dose: 20 mg Clonidine HCl (Clonidine 0.1 Mg/24 Hr Patch) 1 patch TRANSDERMA Q7D [facility] Last Admin: 02/20/22 10:25 Dose: 1 patch Clopidogrel Bisulfate (Clopidogrel 75 Mg Tablet) 75 mg PO DAILY [facility] Last Admin: 02/24/22 09:06 Dose: 75 mg Dextrose (Dextrose 50% Syringe 50 Ml) 25 ml IVP ONCE PRN; Protocol PRN Reason: hypoglycemia protocol Dextrose (Dextrose 50% Syringe 50 Ml) 50 ml IVP PRN PRN; Protocol PRN Reason: hypoglycemia protocol Dextrose (Dextrose 50% Syringe 50 Ml) 25 ml IVP ONCE PRN; Protocol PRN Reason: hypoglycemia protocol Dextrose (Dextrose 50% Syringe 50 Ml) 50 ml IVP PRN PRN; Protocol PRN Reason: hypoglycemia protocol Enoxaparin Sodium (Enoxaparin 100 Mg/Ml Syringe) 100 mg SUBCUT Q24H [facility] Last Admin: 02/24/22 17:15 Dose: 100 mg Famotidine (Famotidine 20 Mg/2 Ml Inj) 20 mg IVP Q12H [facility] Last Admin: 02/24/22 22:17 Dose: 20 mg Furosemide (Furosemide 10 Mg/Ml Sdv 2ml) 20 mg IVP Q12H [facility] Last Admin: 02/24/22 22:18 Dose: 20 mg Glucagon (Glucagon 1 Mg/Ml Inj 1 Ml) 1 mg IM ONCE PRN; Protocol PRN Reason: Adult Acute Hypoglycemia Prot. Glucagon (Glucagon 1 Mg/Ml Inj 1 Ml) 1 mg IM ONCE PRN; Protocol PRN Reason: Adult Acute Hypoglycemia Prot. Hydralazine HCl (Hydralazine 25 Mg Tablet) 50 mg PO Q8H [facility] Last Admin: 02/25/22 06:07 Dose: 50 mg Dextrose (D5w) 500 mls @ 100 mls/hr IV ONCE PRN; Protocol PRN Reason: Adult Acute Hypoglycemia Prot Dextrose (D5w) 500 mls @ 100 mls/hr IV ONCE PRN; Protocol PRN Reason: Adult Acute Hypoglycemia Prot Vancomycin HCl 1,000 mg/ (Sodium Chloride) 250 mls @ 250 mls/hr IV Q48H [facility]; Protocol Last Infusion: 02/23/22 15:58 Dose: Infused Acyclovir 930 mg/ Sodium (Chloride) 118.6 mls @ 120 mls/hr IV Q24H [facility] Last Infusion: 02/24/22 13:09 Dose: Infused Levetiracetam 500 mg/ Sodium (Chloride) 105 mls @ 420 mls/hr IV Q12H [facility] Last Infusion: 02/23/22 01:00 CDT Dose: Infused Ceftriaxone Sodium 2,000 mg/ (Sodium Chloride) 50 mls @ 100 mls/hr IV Q12H [facility]; Protocol Last Infusion: 02/24/22 22:53 Dose: Infused Caspofungin 50 mg/ Sodium (Chloride) 250 mls @ 250 mls/hr IV Q24H [facility] Last Infusion: 02/24/22 12:25 Dose: Infused Ampicillin Sodium 2,000 mg/ (Sodium Chloride) 50 mls @ 100 mls/hr IV Q12H [facility]; Protocol Last Infusion: 02/24/22 23:26 Dose: Infused Insulin Glargine (Insulin Glargine 100 Units/1 Ml) 10 unit SUBCUT Q24H [facility] Last Admin: 02/24/22 15:30 Dose: 10 unit Insulin Human Lispro (Insulin Lispro 100 Unit/1 Ml) 0 unit SUBCUT WM&BEDTIME [facility]; Protocol Last Admin: 02/24/22 22:18 Dose: 6 unit Isosorbide Mononitrate (Isosorbide Mononitrate Er 30 Mg Tablet) 30 mg PO DAILY [facility] Last Admin: 02/24/22 09:06 Dose: 30 mg Labetalol HCl (Labetalol 5 Mg/Ml Sdv 20ml) 10 mg IVP Q4H PRN PRN Reason: SBP>180 or DBP>90 Last Admin: 02/20/22 09:26 Dose: 10 mg Lactulose (Lactulose Oral Liq 20 Gm/30 Ml Udc) 20 gm PO Q12H PRN PRN Reason: CONSTIPATION Lanolin (Lanolin Oint 7 Gm) 1 applic TOPICAL PRN PRN PRN Reason: DRYNESS Last Admin: 02/23/22 17:09 Dose: 1 applic Levothyroxine Sodium (Levothyroxine 88 Mcg Tablet) 88 mcg PO QAM [facility] Last Admin: 02/25/22 06:07 Dose: 88 mcg Metoprolol Tartrate (Metoprolol Tartrate 25 Mg Tablet) 50 mg PO Q12H [facility] Last Admin: 02/25/22 06:07 Dose: 50 mg Non-Formulary Medication (Free Water) 300 ml NG-TUBE BID@08,16 [facility] Last Admin: 02/24/22 15:56 Dose: 300 ml Ondansetron HCl (Ondansetron 2 Mg/Ml Sdv 2 Ml) 4 mg IVP Q8H PRN PRN Reason: vomiting, or N/V if npo Peritoneal Dialysis Solution (Dianeal Low Ca W/2.5% Dex 2,000 Ml Bag) 2,000 ml INTRAPERIT Q6H [facility] Last Admin: 02/25/22 06:21 Dose: 2,000 ml Vitals/I&O/Wt Last Vital Signs Temp 99.3 F 02/25/22 04:00 Pulse 86 02/25/22 06:00 Resp 18 02/25/22 04:00 BP 144/76 02/25/22 04:00 Pulse Ox 96 02/25/22 04:00 O2 Del Method 02/25/22 02:00 02/24/22 02/25/22 02/25/22 22:59 06:59 14:59 Intake Total 50 / 618.6 50 / 668.6 Output Total 175 / 175 Balance 50 / 618.6 -125 / 493.6 Weight last 48 hrs Weight 107.501 kg Physical Exam Narrative: examined w/ RN- telehealth visit temps improving- under 100f obese man in bed, not verbal. he is moving, ng tube VS noted heent- nc/at neck supple lungs crackles heart reg abd soft, nt, nd, + bs, +PD catheter ext arm > leg edema neuro- more alert. moving. not verbal. not following commands skin + rash Data : 02/25/22 05:43 02/25/22 05:43 Micro: Microbiology 02/18/22 21:10 Blood Culture - Final Blood Streptococcus mitis oralis 02/18/22 21:20 Blood Culture - Final Blood Streptococcus mitis oralis#2 02/21/22 15:54 Gram Stain - Final Cerebrospinal Fluid CSF Culture - Final 02/23/22 08:35 Blood Culture - Preliminary Blood NEGATIVE TO DATE 02/23/22 08:42 Blood Culture - Preliminary Blood NEGATIVE TO DATE 02/20/22 15:08 Bacterial Antigens - Final Cerebrospinal Fluid A&P Assessment and plan (1) Peritoneal dialysis status: Plan (1) End stage renal disease: 86 year old male w/ PMHX of ESRD on PD, IDDM,? 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 Pt was admitted , AMS, and weakness.?Getting PD 1. AMS and fevers- Meningitis , Management per primary team -wbc remains 17 2. ESRD-? CAPD - 5 exchanges a day- 2.5% gluc -replace k 3. hgb high for ESRD- no MCKAY 5.? hypertension-bp controlled - dec meds 6. dm control per medicine seen and examined w/ RN- telehealth visit time spent 30 min Attestations Medical Necessity Statement*: esrd, AMS/ meningitis Time Spent in Patient Care: 16 - 35 minutes (>than 50% of time spent in counselling and/or direct pt care on unit) . Coding Level of Care Code Acute Printed Circuit Boards Beveler for Chg Fwd Diagnoses Peritoneal dialysis status Z99.2
--- NOTE | 2022-02-25 07:31 | PC.NURSE ---
bedside report given to JUDITH holt
[2022-02-25] MEDS: amlodipine 5 mg Tablet PO (08:42)
[2022-02-25] MEDS: insulin lispro 100 unit/1 mL SUBCUT ×4 (08:42→21:25)
[2022-02-25] MEDS: sevelamer 800 mg Tablet 1600 MG PO ×3 (08:42→20:46)
[2022-02-25] MEDS: FUROsemide 10 mg/mL SDV 2mL 40 MG IVP ×2 (08:43→18:23)
[2022-02-25] MEDS: ampicillin 2,000 MG in sodium chloride 0.9% (plus) 50 ML 100 MG IV (08:44)
[2022-02-25] MEDS: isosorbide mononitrate ER 30 mg Tablet PO (08:44)
[2022-02-25] MEDS: clopidogrel 75 mg Tablet PO (08:44)
[2022-02-25] MEDS: hyDRALAzine 25 mg Tablet PO ×3 (08:44→23:56)
[2022-02-25] MEDS: cefTRIAXone 2,000 MG in sodium chloride 0.9% (plus) 50 ML 100 MG IV ×2 (08:45→20:45)
[2022-02-25] MEDS: [UNRECOGNIZED DRUG - REMARK] 300 EACH NG-TUBE ×2 (08:45→15:26)
--- NOTE | 2022-02-25 10:23 | PC.SOCIAL ---
IMM Update pg 2 of IMM updated and reviewed w/ patients via telephone. Offered # if she needed. Copy dated, initialed and placed in chart.
[2022-02-25 10:34] LABS: Aspergillus Source NG
--- NOTE | 2022-02-25 11:31 | P.PN_ITS ---
Subjective Subjective: Potassium repleted No need of EEG Antiviral antifungal discontinued Will request cardiology for transesophageal echo Will discuss with the family as well Afebrile for last 1 day Patient is still keeping his eyes closed however able to locate pain Moving his extremities Select LTAC referral sent Vitals/I&O/Wt Last Vital Signs Temp 98.1 F 02/25/22 08:00 Pulse 75 02/25/22 08:00 Resp 17 02/25/22 08:00 BP 136/78 02/25/22 08:00 Pulse Ox 95 02/25/22 08:00 O2 Del Method 02/25/22 08:00 02/24/22 02/25/22 02/25/22 22:59 06:59 14:59 Intake Total 50 / 618.6 50 / 668.6 100 / 100 Output Total 175 / 175 Balance 50 / 618.6 -125 / 493.6 100 / 100 Weight last 48 hrs Weight 107.501 kg Physical Exam Narrative: Patient does locate pain full stimuli Does not open his eyes Pupils are reactive to light Does moan in pain Moving his extremities No signs of edema of legs Peritoneal dialysis catheter in place Abdomen is distended, nontender Patient clinically does not look fluid overloaded Nonpurposeful movements of upper extremities Data : 02/25/22 05:43 02/25/22 05:43 Micro: Microbiology 02/23/22 13:30 Urine Culture - Final Urine Catheterized 02/18/22 21:10 Blood Culture - Final Blood Streptococcus mitis oralis 02/18/22 21:20 Blood Culture - Final Blood Streptococcus mitis oralis#2 02/21/22 15:54 Gram Stain - Final Cerebrospinal Fluid CSF Culture - Final 02/23/22 08:35 Blood Culture - Preliminary Blood NEGATIVE TO DATE 02/23/22 08:42 Blood Culture - Preliminary Blood NEGATIVE TO DATE 02/20/22 15:08 Bacterial Antigens - Final Cerebrospinal Fluid A&P Assessment and plan (1) Toxic metabolic encephalopathy: (2) Major neurologic dysfunction: (3) Meningitis: (4) Peritoneal dialysis status: (5) Gram-positive bacteremia: (6) Altered mental status: (7) Encephalopathy: (8) Chronic kidney disease: (9) Atrial fibrillation, chronic: (10) Severe aortic stenosis: (11) Diabetes mellitus: (12) Warfarin-induced coagulopathy: (13) S/P aortic valve replacement: Plan Streptococcus bacteremia, repeat cultures negative Febrile episode subsided Continue antibiotics Antifungal antiviral discontinued Will ask cardiology for transesophageal echo INR 1.3 Leukocytosis has not worsened Repeat blood cultures -02/23 LTAC placement Full code Patient is getting NG tube. 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
[2022-02-25] MEDS: famotidine 20 mg/2 mL INJ IVP ×2 (11:42→23:56)
--- NOTE | 2022-02-25 12:01 | PC.PT ---
Patient still unable to participate meaningfully with physical therapy, patient now being discharged from physical therapy, until improvements, and able to participate meaningfully with physical therapy.
[2022-02-25 12:32] LABS: Glucose Point of Care 284 mg/dL (70-110)
[2022-02-25] MEDS: potassium chloride oral liq 20 mEq/15 mL UDC 40 MEQ NG-TUBE (13:02)
[2022-02-25] MEDS: insulin glargine 100 units/1 mL 15 UNIT SUBCUT (14:02)
--- NOTE | 2022-02-25 14:42 | PC.NURSE ---
pd drain dressing changed, 4x4 gauze, gentamycin cream used, see mar. secured w tape.
[2022-02-25] MEDS: lanolin oint 7 gm 1 APPLIC TOPICAL (15:26)
[2022-02-25 16:44] LABS: Glucose Point of Care 334 mg/dL (70-110)
[2022-02-25] MEDS: enoxaparin 100 mg/mL Syringe SUBCUT (17:19)
[2022-02-25 18:43] LABS: Aspergillus AG,EIA,Serum NOT DETECTED; Aspergillus Galactomannan Inde <0.50
[2022-02-25] MEDS: atorvastatin 40 mg Tablet 20 MG PO (20:46)
[2022-02-25 21:16] LABS: Glucose Point of Care 288 mg/dL (70-110)
[2022-02-26] VITALS (14 sets, daily range): BP systolic 129–174; BP diastolic 69–85; PULSE 79–93; RESP 18–22; TEMP 36.5–36.9; O2SAT 94–98
[2022-02-26] MEDS: Dianeal low Ca w/2.5% dex 2,000 mL Bag 2000 ML INTRAPERIT ×5 (00:24→20:16)
[2022-02-26] MEDS: ipratropium-albuterol 3 mL Neb INHALATION ×4 (02:19→21:11)
[2022-02-26] MEDS: metoprolol tartrate 25 mg Tablet 50 MG PO ×2 (05:34→18:22)
[2022-02-26] MEDS: levothyroxine 88 mcg Tablet PO (05:34)
[2022-02-26 05:42] LABS: Basophils % 0.3 %; Eosinophils # 0.5 10^3/uL (0.0-0.8); Hematocrit 35.2 % (42.0-52.0); Hemoglobin 11.5 g/dL (11.7-16.6); Lymphocytes # 1.5 10^3/uL (0.8-4.8); Lymphocytes % 9.5 %; Mean Corpuscular HGB Conc 32.7 g/dL (30.0-36.0); Mean Corpuscular Hemoglobin 30.3 pg (28.0-34.0); Mean Corpuscular Volume 92.9 fl (80-94); Mean Platelet Volume 12.2 fL (7.4-10.4); Monocytes # 1.4 10^3/uL (0.2-0.9); Monocytes % 9.3 %; Neutrophils % 74.4 %; Nucleated Red Blood Cells % 0 %; Platelet Count 190 10^3/cmm (130-400); Red Blood Count 3.79 10^6/uL (4.1-5.3); White Blood Count 15.6 10^3/uL (4.0-10.0)
[2022-02-26 06:08] LABS: Anion Gap 21.9 (5-19); Blood Urea Nitrogen 80 mg/dL (8-23); Carbon Dioxide 25 mmol/L (22-29); Chloride 98 mmol/L (98-107); Glucose 251 mg/dL (65-115); Osmolality Calculated 325 mOsm/kg (285-295); Potassium 3.9 mmol/L (3.5-5.1); Sodium 141 mmol/L (136-145)
[2022-02-26] MEDS: FUROsemide 10 mg/mL SDV 2mL 40 MG IVP ×2 (06:45→18:18)
[2022-02-26] MEDS: hyDRALAzine 25 mg Tablet PO ×2 (06:46→16:17)
[2022-02-26 06:48] LABS: Glucose Point of Care 283 mg/dL (70-110)
--- NOTE | 2022-02-26 07:48 | PC.NURSE ---
bedside report given to JUDITH santana
--- NOTE | 2022-02-26 08:50 | PM.PN ---
Subjective Subjective: more alert, eyes opening, swollen, not verbal. does move Medications: Reviewed: Yes Medication Review Details: Current Medications Acetaminophen (Acetaminophen 325 Mg Supp) 650 mg PA Q6H PRN PRN Reason: pain, fever Last Admin: 02/22/22 05:34 Dose: 650 mg Albuterol/Ipratropium (Ipratropium-Albuterol 3 Ml Neb) 3 ml INHALATION Q6H.RESP [facility] Last Admin: 02/26/22 02:19 Dose: 3 ml Amlodipine Besylate (Amlodipine 5 Mg Tablet) 5 mg PO DAILY [facility] Last Admin: 02/25/22 08:42 Dose: 5 mg Atorvastatin Calcium (Atorvastatin 40 Mg Tablet) 20 mg PO BEDTIME [facility] Last Admin: 02/25/22 20:46 Dose: 20 mg Clonidine HCl (Clonidine 0.1 Mg/24 Hr Patch) 1 patch TRANSDERMA Q7D [facility] Last Admin: 02/20/22 10:25 Dose: 1 patch Clopidogrel Bisulfate (Clopidogrel 75 Mg Tablet) 75 mg PO DAILY [facility] Last Admin: 02/25/22 08:44 Dose: 75 mg Dextrose (Dextrose 50% Syringe 50 Ml) 25 ml IVP ONCE PRN; Protocol PRN Reason: hypoglycemia protocol Dextrose (Dextrose 50% Syringe 50 Ml) 50 ml IVP PRN PRN; Protocol PRN Reason: hypoglycemia protocol Dextrose (Dextrose 50% Syringe 50 Ml) 25 ml IVP ONCE PRN; Protocol PRN Reason: hypoglycemia protocol Dextrose (Dextrose 50% Syringe 50 Ml) 50 ml IVP PRN PRN; Protocol PRN Reason: hypoglycemia protocol Enoxaparin Sodium (Enoxaparin 100 Mg/Ml Syringe) 100 mg SUBCUT Q24H [facility] Last Admin: 02/25/22 17:19 Dose: 100 mg Famotidine (Famotidine 20 Mg/2 Ml Inj) 20 mg IVP Q12H [facility] Last Admin: 02/25/22 23:56 Dose: 20 mg Furosemide (Furosemide 10 Mg/Ml Sdv 2ml) 40 mg IVP Q12H [facility] Last Admin: 02/26/22 06:45 Dose: 40 mg Gentamicin Sulfate (Gentamicin 0.1% Cream 15 Gm) 1 applic TOPICAL DAILY [facility] Stop: 02/26/22 14:01 Last Admin: 02/25/22 14:03 Dose: 1 applic Glucagon (Glucagon 1 Mg/Ml Inj 1 Ml) 1 mg IM ONCE PRN; Protocol PRN Reason: Adult Acute Hypoglycemia Prot. Glucagon (Glucagon 1 Mg/Ml Inj 1 Ml) 1 mg IM ONCE PRN; Protocol PRN Reason: Adult Acute Hypoglycemia Prot. Hydralazine HCl (Hydralazine 25 Mg Tablet) 25 mg PO Q8H [facility] Last Admin: 02/26/22 06:46 Dose: 25 mg Dextrose (D5w) 500 mls @ 100 mls/hr IV ONCE PRN; Protocol PRN Reason: Adult Acute Hypoglycemia Prot Dextrose (D5w) 500 mls @ 100 mls/hr IV ONCE PRN; Protocol PRN Reason: Adult Acute Hypoglycemia Prot Levetiracetam 500 mg/ Sodium (Chloride) 105 mls @ 420 mls/hr IV Q12H [facility] Last Infusion: 02/23/22 01:00 CDT Dose: Infused Ceftriaxone Sodium 2,000 mg/ (Sodium Chloride) 50 mls @ 100 mls/hr IV Q12H [facility]; Protocol Last Infusion: 02/25/22 21:16 Dose: Infused Insulin Glargine (Insulin Glargine 100 Units/1 Ml) 15 unit SUBCUT Q24H [facility] Last Admin: 02/25/22 14:02 Dose: 15 unit Insulin Human Lispro (Insulin Lispro 100 Unit/1 Ml) 0 unit SUBCUT WM&BEDTIME [facility]; Protocol Last Admin: 02/25/22 21:25 Dose: 8 unit Isosorbide Mononitrate (Isosorbide Mononitrate Er 30 Mg Tablet) 30 mg PO DAILY [facility] Last Admin: 02/25/22 08:44 Dose: 30 mg Labetalol HCl (Labetalol 5 Mg/Ml Sdv 20ml) 10 mg IVP Q4H PRN PRN Reason: SBP>180 or DBP>90 Last Admin: 02/20/22 09:26 Dose: 10 mg Lactulose (Lactulose Oral Liq 20 Gm/30 Ml Udc) 20 gm PO Q12H PRN PRN Reason: CONSTIPATION Lanolin (Lanolin Oint 7 Gm) 1 applic TOPICAL PRN PRN PRN Reason: DRYNESS Last Admin: 02/25/22 15:26 Dose: 1 applic Levothyroxine Sodium (Levothyroxine 88 Mcg Tablet) 88 mcg PO QAM [facility] Last Admin: 02/26/22 05:34 Dose: 88 mcg Metoprolol Tartrate (Metoprolol Tartrate 25 Mg Tablet) 50 mg PO Q12H [facility] Last Admin: 02/26/22 05:34 Dose: 50 mg Non-Formulary Medication (Free Water) 300 ml NG-TUBE BID@08,16 [facility] Last Admin: 02/25/22 15:26 Dose: 300 ml Ondansetron HCl (Ondansetron 2 Mg/Ml Sdv 2 Ml) 4 mg IVP Q8H PRN PRN Reason: vomiting, or N/V if npo Peritoneal Dialysis Solution (Dianeal Low Ca W/2.5% Dex 2,000 Ml Bag) 2,000 ml INTRAPERIT Q5H [facility] Last Admin: 02/26/22 05:34 Dose: 2,000 ml Sevelamer Carbonate (Sevelamer 800 Mg Tablet) 1,600 mg PO TID [facility] Last Admin: 02/25/22 20:46 Dose: 1,600 mg Vitals/I&O/Wt Last Vital Signs Temp 98.3 F 02/26/22 08:00 Pulse 81 02/26/22 08:00 Resp 18 02/26/22 08:00 BP 156/77 02/26/22 08:00 Pulse Ox 98 02/26/22 08:00 O2 Del Method 02/26/22 08:00 02/25/22 02/26/22 02/26/22 22:59 06:59 14:59 Intake Total 50 / 150 Output Total 400 / 400 Balance 50 / 150 -400 / -250 Weight last 48 hrs Weight 109.316 kg Weight 107.501 kg Physical Exam Narrative: examined w/ RN- telehealth visit obese man in bed, not verbal. he is moving, ng tube VS noted, afebrile heent- nc/at neck supple lungs crackles heart reg abd soft, nt, nd, + bs, +PD catheter ext arm > leg edema neuro- more alert. moving. not verbal. not following commands skin + rash Data : 02/26/22 05:30 02/26/22 05:30 Micro: Microbiology 02/25/22 09:54 C.difficile Toxin B Gene (PCR) - Final Stool 02/18/22 20:45 Gram Stain - Final Amniotic Fluid Body Fluid Culture - Final Staphylococcus capitis subsp c 02/24/22 14:12 Gram Stain - Final Sputum - Endotracheal Wash Sputum Culture - Preliminary 02/23/22 13:30 Urine Culture - Final Urine Catheterized A&P Assessment and plan (1) Peritoneal dialysis status: Plan (1) End stage renal disease: 86 year old male w/ PMHX of ESRD on PD, IDDM,? 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 Pt was admitted , AMS, and weakness.?Getting PD 1. AMS and fevers- Meningitis , Management per primary team -wbc high, but down to 15.6 2. ESRD-? CAPD - 6 exchanges a day- 2.5% gluc -lasix 3. hgb okay for ESRD- no MCKAY 5.? hypertension-bp okay 6. dm control per medicine if needs a PEG, will need to transition form PD to HD seen and examined w/ RN- telehealth visit time spent 25 min Attestations Medical Necessity Statement*: meningitis per medicine Time Spent in Patient Care: 16 - 35 minutes (>than 50% of time spent in counselling and/or direct pt care on unit). 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
[2022-02-26] MEDS: cefTRIAXone 2,000 MG in sodium chloride 0.9% (plus) 50 ML 100 MG IV ×2 (09:19→20:05)
[2022-02-26] MEDS: sevelamer 800 mg Tablet 1600 MG PO ×3 (09:21→20:05)
[2022-02-26] MEDS: isosorbide mononitrate ER 30 mg Tablet PO (09:22)
[2022-02-26] MEDS: amlodipine 5 mg Tablet PO (09:22)
[2022-02-26] MEDS: clopidogrel 75 mg Tablet PO (09:22)
[2022-02-26] MEDS: insulin lispro 100 unit/1 mL SUBCUT ×4 (09:22→21:57)
[2022-02-26] MEDS: [UNRECOGNIZED DRUG - REMARK] 300 EACH NG-TUBE ×2 (09:25→18:23)
--- NOTE | 2022-02-26 10:39 | P.PN_ITS ---
Subjective Subjective: Patient looks more fluid overloaded Spoke with Dr. Shannon who is recommending that in case family decides to go with PEG tube patent dialysis catheter has to be removed and converted to hemodialysis Is not at the bedside Patient is opening his eyes today however not able to make eye contact Nonpurposeful movement of upper extremities Vitals/I&O/Wt Last Vital Signs Temp 98.3 F 02/26/22 08:00 Pulse 81 02/26/22 09:11 Resp 18 02/26/22 09:11 BP 156/77 02/26/22 08:00 Pulse Ox 97 02/26/22 09:11 O2 Del Method 02/26/22 09:11 02/25/22 02/26/22 02/26/22 22:59 06:59 14:59 Intake Total 50 / 150 Output Total 400 / 400 Balance 50 / 150 -400 / -250 Weight last 48 hrs Weight 106.594 kg Weight 109.316 kg Weight 107.501 kg Physical Exam Narrative: Patient opens eyes but not make eye contact Nonpurposeful movement of upper extremities Able to locate painful stimuli Fluid overloaded clinical appearance today Currently on room air NG tube feeding sitting at the bedside Pupils are reactive, cough reflex intact Data : 02/26/22 05:30 02/26/22 05:30 Micro: Microbiology 02/25/22 09:54 C.difficile Toxin B Gene (PCR) - Final Stool 02/18/22 20:45 Gram Stain - Final Amniotic Fluid Body Fluid Culture - Final Staphylococcus capitis subsp c 02/24/22 14:12 Gram Stain - Final Sputum - Endotracheal Wash Sputum Culture - Preliminary 02/23/22 13:30 Urine Culture - Final Urine Catheterized A&P Assessment and plan (1) Toxic metabolic encephalopathy: (2) Major neurologic dysfunction: (3) Meningitis: (4) Peritoneal dialysis status: (5) Gram-positive bacteremia: Plan Leukocytosis trending down Meningitis with encephalopathy Patient has been afebrile for last 72 hours Antibiotic de-escalated to cephalosporins only Repeat cultures negative He can be discharged to LTAC however family is wanting to wait a few more days to decide whether they would opt for LTAC versus hospice care Had multiple family meetings to discuss prognosis Dr. 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
[2022-02-26 11:43] LABS: Glucose Point of Care 276 mg/dL (70-110)
[2022-02-26] MEDS: famotidine 20 mg/2 mL INJ IVP (13:10)
[2022-02-26] MEDS: insulin glargine 100 units/1 mL 15 UNIT SUBCUT (13:12)
[2022-02-26 16:53] LABS: Glucose Point of Care 243 mg/dL (70-110)
[2022-02-26] MEDS: enoxaparin 100 mg/mL Syringe SUBCUT (18:23)
[2022-02-26] MEDS: atorvastatin 40 mg Tablet 20 MG PO (20:05)
[2022-02-26 21:37] LABS: Glucose Point of Care 227 mg/dL (70-110)
[2022-02-27] VITALS (15 sets, daily range): BP systolic 126–163; BP diastolic 61–75; PULSE 71–98; RESP 16–20; TEMP 36.6–37.6; O2SAT 95–98
[2022-02-27] MEDS: hyDRALAzine 25 mg Tablet PO ×4 (00:33→23:09)
[2022-02-27] MEDS: famotidine 20 mg/2 mL INJ IVP ×3 (00:33→23:10)
[2022-02-27] MEDS: Dianeal low Ca w/2.5% dex 2,000 mL Bag 2000 ML INTRAPERIT ×6 (00:45→20:12)
--- NOTE | 2022-02-27 02:30 | PC.NURSE ---
Changed patients bed sheets and placed fresh pillows. Patient neuro assesments have improved with patient now opening eyes to verbal command. Still unable to access any doper operator strength or follow any other commands.
[2022-02-27] MEDS: ipratropium-albuterol 3 mL Neb INHALATION ×4 (02:35→19:32)
[2022-02-27 05:28] LABS: Basophils # 0.1 10^3/uL (0.0-0.1); Basophils % 0.4 %; Eosinophils # 0.3 10^3/uL (0.0-0.8); Eosinophils % 1.8 %; Hematocrit 34.5 % (42.0-52.0); Hemoglobin 11.4 g/dL (11.7-16.6); Lymphocytes # 1.2 10^3/uL (0.8-4.8); Lymphocytes % 6.9 %; Mean Corpuscular Hemoglobin 30.7 pg (28.0-34.0); Mean Platelet Volume 12.9 fL (7.4-10.4); Monocytes # 1.4 10^3/uL (0.2-0.9); Monocytes % 8.5 %; Neutrophils # 13.52 10^3/uL (1.8-7.7); Neutrophils % 79.9 %; Nucleated Red Blood Cells % 0 %; Platelet Count 213 10^3/cmm (130-400); Red Blood Count 3.71 10^6/uL (4.1-5.3); Red Cell Distribution Width 13.7 % (12.1-15.1); White Blood Count 16.9 10^3/uL (4.0-10.0)
[2022-02-27 05:39] LABS: Alanine Aminotransferase 45 U/L (0-41); Albumin Level 2.9 g/dL (3.5-5.2); Alkaline Phosphatase 80 U/L (40-130); Anion Gap 18.7 (5-19); Aspartate Amino Transferase 70 U/L (0-40); Blood Urea Nitrogen 74 mg/dL (8-23); Calcium 8.9 mg/dL (8.5-10.5); Carbon Dioxide 27 mmol/L (22-29); Chloride 96 mmol/L (98-107); Globulin 2.8 g/dL (1.3-4.6); Glucose 237 mg/dL (65-115); Magnesium 2.5 mg/dL (1.7-2.3); Osmolality Calculated 316 mOsm/kg (285-295); Phosphorus 6.9 mg/dL (2.5-4.5); Potassium 3.7 mmol/L (3.5-5.1); Sodium 138 mmol/L (136-145); Total Bilirubin 0.2 mg/dL (0.15-1.2); Total Protein 5.7 g/dL (6.6-8.7)
--- NOTE | 2022-02-27 06:24 | PM.PN ---
Subjective Subjective: not verbal. moves and responds to pain. has an ng tube, edema Medications: Reviewed: Yes Medication Review Details: Current Medications Acetaminophen (Acetaminophen 325 Mg Supp) 650 mg AL Q6H PRN PRN Reason: pain, fever Last Admin: 02/22/22 05:34 Dose: 650 mg Albuterol/Ipratropium (Ipratropium-Albuterol 3 Ml Neb) 3 ml INHALATION Q6H.RESP [facility] Last Admin: 02/27/22 02:35 Dose: 3 ml Amlodipine Besylate (Amlodipine 5 Mg Tablet) 5 mg PO DAILY [facility] Last Admin: 02/26/22 09:22 Dose: 5 mg Atorvastatin Calcium (Atorvastatin 40 Mg Tablet) 20 mg PO BEDTIME [facility] Last Admin: 02/26/22 20:05 Dose: 20 mg Clonidine HCl (Clonidine 0.1 Mg/24 Hr Patch) 1 patch TRANSDERMA Q7D [facility] Last Admin: 02/20/22 10:25 Dose: 1 patch Clopidogrel Bisulfate (Clopidogrel 75 Mg Tablet) 75 mg PO DAILY [facility] Last Admin: 02/26/22 09:22 Dose: 75 mg Dextrose (Dextrose 50% Syringe 50 Ml) 25 ml IVP ONCE PRN; Protocol PRN Reason: hypoglycemia protocol Dextrose (Dextrose 50% Syringe 50 Ml) 50 ml IVP PRN PRN; Protocol PRN Reason: hypoglycemia protocol Dextrose (Dextrose 50% Syringe 50 Ml) 25 ml IVP ONCE PRN; Protocol PRN Reason: hypoglycemia protocol Dextrose (Dextrose 50% Syringe 50 Ml) 50 ml IVP PRN PRN; Protocol PRN Reason: hypoglycemia protocol Enoxaparin Sodium (Enoxaparin 100 Mg/Ml Syringe) 100 mg SUBCUT Q24H [facility] Last Admin: 02/26/22 18:23 Dose: 100 mg Famotidine (Famotidine 20 Mg/2 Ml Inj) 20 mg IVP Q12H [facility] Last Admin: 02/27/22 00:33 Dose: 20 mg Furosemide (Furosemide 10 Mg/Ml Sdv 2ml) 40 mg IVP Q12H [facility] Last Admin: 02/26/22 18:18 Dose: 40 mg Glucagon (Glucagon 1 Mg/Ml Inj 1 Ml) 1 mg IM ONCE PRN; Protocol PRN Reason: Adult Acute Hypoglycemia Prot. Glucagon (Glucagon 1 Mg/Ml Inj 1 Ml) 1 mg IM ONCE PRN; Protocol PRN Reason: Adult Acute Hypoglycemia Prot. Hydralazine HCl (Hydralazine 25 Mg Tablet) 25 mg PO Q8H [facility] Last Admin: 02/27/22 00:33 Dose: 25 mg Dextrose (D5w) 500 mls @ 100 mls/hr IV ONCE PRN; Protocol PRN Reason: Adult Acute Hypoglycemia Prot Dextrose (D5w) 500 mls @ 100 mls/hr IV ONCE PRN; Protocol PRN Reason: Adult Acute Hypoglycemia Prot Levetiracetam 500 mg/ Sodium (Chloride) 105 mls @ 420 mls/hr IV Q12H [facility] Last Infusion: 02/23/22 01:00 CDT Dose: Infused Ceftriaxone Sodium 2,000 mg/ (Sodium Chloride) 50 mls @ 100 mls/hr IV Q12H [facility]; Protocol Last Infusion: 02/26/22 21:17 Dose: Infused Insulin Glargine (Insulin Glargine 100 Units/1 Ml) 15 unit SUBCUT Q24H [facility] Last Admin: 02/26/22 13:12 Dose: 15 unit Insulin Human Lispro (Insulin Lispro 100 Unit/1 Ml) 0 unit SUBCUT WM&BEDTIME [facility]; Protocol Last Admin: 02/26/22 21:57 Dose: 6 unit Isosorbide Mononitrate (Isosorbide Mononitrate Er 30 Mg Tablet) 30 mg PO DAILY [facility] Last Admin: 02/26/22 09:22 Dose: 30 mg Labetalol HCl (Labetalol 5 Mg/Ml Sdv 20ml) 10 mg IVP Q4H PRN PRN Reason: SBP>180 or DBP>90 Last Admin: 02/20/22 09:26 Dose: 10 mg Lactulose (Lactulose Oral Liq 20 Gm/30 Ml Udc) 20 gm PO Q12H PRN PRN Reason: CONSTIPATION Lanolin (Lanolin Oint 7 Gm) 1 applic TOPICAL PRN PRN PRN Reason: DRYNESS Last Admin: 02/25/22 15:26 Dose: 1 applic Levothyroxine Sodium (Levothyroxine 88 Mcg Tablet) 88 mcg PO QAM [facility] Last Admin: 02/26/22 05:34 Dose: 88 mcg Metoprolol Tartrate (Metoprolol Tartrate 25 Mg Tablet) 50 mg PO Q12H [facility] Last Admin: 02/26/22 18:22 Dose: 50 mg Non-Formulary Medication (Free Water) 300 ml NG-TUBE BID@16 [facility] Last Admin: 02/26/22 18:23 Dose: 300 ml Ondansetron HCl (Ondansetron 2 Mg/Ml Sdv 2 Ml) 4 mg IVP Q8H PRN PRN Reason: vomiting, or N/V if npo Peritoneal Dialysis Solution (Dianeal Low Ca W/2.5% Dex 2,000 Ml Bag) 2,000 ml INTRAPERIT 6XD [facility] Last Admin: 02/27/22 00:45 Dose: 2,000 ml Sevelamer Carbonate (Sevelamer 800 Mg Tablet) 1,600 mg PO TID [facility] Last Admin: 02/26/22 20:05 Dose: 1,600 mg Vitals/I&O/Wt Last Vital Signs Temp 98.4 F 02/27/22 03:25 Pulse 90 02/27/22 06:00 Resp 20 H 02/27/22 03:25 BP 163/71 02/27/22 03:25 Pulse Ox 97 02/27/22 03:25 O2 Del Method 02/27/22 03:25 02/26/22 02/26/22 02/27/22 14:59 22:59 06:59 Intake Total 50 / 50 1150 / 1200 Output Total 350 / 350 350 / 700 Balance 50 / 50 800 / 850 -350 / 500 Weight last 48 hrs Weight 109.134 kg Weight 107.048 kg Weight 106.594 kg Weight 109.316 kg Physical Exam Narrative: examined w/ RN- telehealth visit obese man in bed, not verbal. he is moving, ng tube VS noted, afebrile heent- nc/at neck supple lungs crackles heart reg abd soft, nt, nd, + bs, +PD catheter ext arm > leg edema neuro- more alert. moving. not verbal. not following commands skin + rash Data : 02/27/22 04:55 02/27/22 04:55 Micro: Microbiology 02/24/22 14:12 Gram Stain - Final Sputum - Endotracheal Wash Sputum Culture - Final 02/21/22 12:30 Blood Culture - Final Blood NO GROWTH AFTER 5 DAYS 02/21/22 12:30 Blood Culture - Final Blood NO GROWTH AFTER 5 DAYS A&P Assessment and plan (1) Peritoneal dialysis status: Plan (1) End stage renal disease: 86 year old male w/ PMHX of ESRD on PD, IDDM,? 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 Pt was admitted , AMS, and weakness.?Getting PD 1. AMS and fevers- Meningitis , Management per primary team -wbc high, 16.9 2. ESRD-? CAPD - 6 exchanges a day- 2.5% gluc -lasix 3. hgb okay for ESRD- no MCKAY 5.? hypertension-bp elevated 6. dm control per medicine if needs a PEG, will need to transition form PD to HD seen and examined w/ RN- telehealth visit time spent 25 min Attestations Medical Necessity Statement*: per medicine Time Spent in Patient Care: 16 - 35 minutes (>than 50% of time spent in counselling and/or direct pt care on unit). Coding Level of Care Code Acute Resource Recovery Specialist for [facility] Diagnoses Peritoneal dialysis status Z99.2
[2022-02-27 06:29] LABS: Glucose Point of Care 275 mg/dL (70-110)
[2022-02-27] MEDS: metoprolol tartrate 25 mg Tablet 50 MG PO ×2 (06:40→18:04)
[2022-02-27] MEDS: levothyroxine 88 mcg Tablet PO (06:40)
[2022-02-27] MEDS: FUROsemide 10 mg/mL SDV 2mL 40 MG IVP ×2 (06:40→18:03)
[2022-02-27] MEDS: sevelamer 800 mg Tablet 1600 MG PO ×3 (08:21→20:12)
[2022-02-27] MEDS: insulin lispro 100 unit/1 mL SUBCUT ×4 (08:22→20:18)
[2022-02-27] MEDS: clopidogrel 75 mg Tablet PO (08:22)
[2022-02-27] MEDS: isosorbide mononitrate ER 30 mg Tablet PO (08:22)
[2022-02-27] MEDS: [UNRECOGNIZED DRUG - REMARK] 300 EACH NG-TUBE ×2 (08:22→18:04)
[2022-02-27] MEDS: amlodipine 5 mg Tablet PO (08:22)
--- NOTE | 2022-02-27 09:42 | PC.SOCIAL ---
IMM update IMM not updated as patient is expected to dc in the next 24-48 hours.
[2022-02-27 11:10] LABS: Glucose Point of Care 277 mg/dL (70-110)
[2022-02-27] MEDS: insulin glargine 100 units/1 mL 15 UNIT SUBCUT (11:36)
[2022-02-27] MEDS: cefTRIAXone 2,000 MG in sodium chloride 0.9% (plus) 50 ML 100 MG IV ×2 (11:51→23:12)
[2022-02-27] MEDS: cloNIDine 0.1 mg/24 hr Patch 1 PATCH TRANSDERMA (12:31)
--- NOTE | 2022-02-27 12:31 | PM.PN ---
Subjective Subjective: wants to monitor his clinical progress she still not feel comfortable with longterm placement Patient is nodding his head to verbal command to some extent Locating painful stimuli Vitals/I&O/Wt Last Vital Signs Temp 98.1 F 02/27/22 11:11 Pulse 86 02/27/22 11:11 Resp 20 H 02/27/22 11:11 BP 129/75 02/27/22 11:11 Pulse Ox 98 02/27/22 11:11 O2 Del Method 02/27/22 09:18 02/26/22 02/27/22 02/27/22 22:59 06:59 14:59 Intake Total 1150 / 1200 Output Total 350 / 350 350 / 700 Balance 800 / 850 -350 / 500 Weight last 48 hrs Weight 109.27 kg Weight 109.134 kg Weight 107.048 kg Weight 106.594 kg Weight 109.316 kg Physical Exam Narrative: Patient is able to locate painful stimuli Nodding his head Opens eyes does not make eye contact Lower extremity trace edema Abdomen distended with peritoneal dialysis catheter nontender Pupils are reactive to light Positive gag reflex S1, S2 Currently on room air Data : 02/27/22 04:55 02/27/22 04:55 Micro: Microbiology 02/24/22 14:12 Gram Stain - Final Sputum - Endotracheal Wash Sputum Culture - Final 02/21/22 12:30 Blood Culture - Final Blood NO GROWTH AFTER 5 DAYS 02/21/22 12:30 Blood Culture - Final Blood NO GROWTH AFTER 5 DAYS A&P Assessment and plan (1) Toxic metabolic encephalopathy: (2) Major neurologic dysfunction: (3) Meningitis: (4) Peritoneal dialysis status: (5) Gram-positive bacteremia: Plan Continue IV antibiotics Patient is making slight progress on daily basis, opening eyes, nodding his head, family wants to watch until this weekend to see if we see more recovery and if he is able to eat on his own Family does not want him to send him to a longterm for now Continue peritoneal dialysis They have not thought about putting a PEG tube up till now Afebrile, repeat blood cultures negative DNR/DNI Blood pressure under control Continue Lovenox therapeutic regimen He was taking Eliquis for A. 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
--- NOTE | 2022-02-27 15:03 | PM.PN ---
Subjective Subjective: Nurse reports that the patient is more alert. He has been nodding his head and opening his eyes but not communicating. Vitals/I&O/Wt Last Vital Signs Temp 98.1 F 02/27/22 11:11 Pulse 71 02/27/22 14:04 Resp 16 02/27/22 14:00 BP 126/71 02/27/22 14:16 Pulse Ox 95 02/27/22 14:00 O2 Del Method 02/27/22 14:00 02/27/22 02/27/22 02/27/22 06:59 14:59 22:59 Intake Total 50 / 50 Output Total 350 / 700 Balance -350 / 500 50 / 50 Weight last 48 hrs Weight 241 lb 11.2 oz Weight 240 lb 14.4 oz Weight 240 lb 9.6 oz Weight 236 lb Weight 235 lb Weight 241 lb Physical Exam Narrative: The family was not in the room. The history was reviewed with the nurse. He was sleeping quietly with his eyes closed. When the covers were pulled back he made a sound in his throat. He nodded his head when I asked him to say his name. He attempted to open his eyes to command or so it seemed. He does not make eye contact. He resists eye opening by forced eye closure. Eye movements spontaneously full. Grimace symmetric with stimulation of the face. 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 He was moving the upper extremities well with minimal stimulation. He has bilateral increased tone with paratonic rigidity. Data : 02/27/22 04:55 02/27/22 04:55 Micro: Microbiology 02/24/22 14:12 Gram Stain - Final Sputum - Endotracheal Wash Sputum Culture - Final 02/21/22 12:30 Blood Culture - Final Blood NO GROWTH AFTER 5 DAYS 02/21/22 12:30 Blood Culture - Final Blood NO GROWTH AFTER 5 DAYS A&P Assessment and plan (1) Toxic metabolic encephalopathy: Toxic metabolic encephalopathy secondary to meningitis. There is showing progressive improvement but is still not following commands. Events of the last 48 hours were reviewed. Agree with watching the patient over the weekend to see if he makes enough improvement to go home but I think he is going to need prolonged rehab in a prison situation even at best. (2) Meningitis: (3) Gram-positive bacteremia: Attestations Medical Necessity Statement*: Profound illness with definite meningitis in this gentleman with multiple comorbidities including renal failure requiring dialysis. Coding Level of Care Code Acute Straw Hat Brim Raiser Operator for [facility] Fwd Diagnoses Toxic metabolic encephalopathy G92.8 Meningitis G03.9 Gram-positive bacteremia R78.81
[2022-02-27 17:00] LABS: Glucose Point of Care 252 mg/dL (70-110)
[2022-02-27] MEDS: enoxaparin 100 mg/mL Syringe SUBCUT (18:03)
[2022-02-27 19:54] LABS: Glucose Point of Care 230 mg/dL (70-110)
[2022-02-27] MEDS: atorvastatin 40 mg Tablet 20 MG PO (20:12)
[2022-02-27 21:23] LABS: Glucose Point of Care 249 mg/dL (70-110)
[2022-02-28] VITALS (18 sets, daily range): BP systolic 70–133; BP diastolic 41–78; PULSE 72–105; RESP 16–26; TEMP 36.6–37.4; O2SAT 92–97
[2022-02-28] MEDS: Dianeal low Ca w/2.5% dex 2,000 mL Bag 2000 ML INTRAPERIT ×5 (00:12→22:18)
[2022-02-28] MEDS: ipratropium-albuterol 3 mL Neb INHALATION ×4 (02:07→19:58)
[2022-02-28 04:46] LABS: Basophils % 0.2 %; Eosinophils # 0.2 10^3/uL (0.0-0.8); Eosinophils % 0.8 %; Hematocrit 30.8 % (42.0-52.0); Lymphocytes # 0.9 10^3/uL (0.8-4.8); Lymphocytes % 4.7 %; Mean Corpuscular HGB Conc 32.5 g/dL (30.0-36.0); Mean Corpuscular Hemoglobin 30.4 pg (28.0-34.0); Mean Corpuscular Volume 93.6 fl (80-94); Mean Platelet Volume 13.4 fL (7.4-10.4); Monocytes # 1.3 10^3/uL (0.2-0.9); Monocytes % 6.8 %; Neutrophils # 16.76 10^3/uL (1.8-7.7); Neutrophils % 85.7 %; Nucleated Red Blood Cells % 0 %; Platelet Count 232 10^3/cmm (130-400); Red Blood Count 3.29 10^6/uL (4.1-5.3); Red Cell Distribution Width 13.4 % (12.1-15.1); White Blood Count 19.5 10^3/uL (4.0-10.0)
[2022-02-28 05:11] LABS: Alanine Aminotransferase 42 U/L (0-41); Albumin Level 2.8 g/dL (3.5-5.2); Alkaline Phosphatase 89 U/L (40-130); Aspartate Amino Transferase 64 U/L (0-40); Blood Urea Nitrogen 76 mg/dL (8-23); Carbon Dioxide 26 mmol/L (22-29); Chloride 97 mmol/L (98-107); Globulin 2.9 g/dL (1.3-4.6); Glucose 236 mg/dL (65-115); Magnesium 2.6 mg/dL (1.7-2.3); Osmolality Calculated 322 mOsm/kg (285-295); Phosphorus 7.3 mg/dL (2.5-4.5); Sodium 141 mmol/L (136-145); Total Bilirubin 0.3 mg/dL (0.15-1.2); Total Protein 5.7 g/dL (6.6-8.7)
[2022-02-28] MEDS: hyDRALAzine 25 mg Tablet PO ×3 (05:58→23:19)
[2022-02-28] MEDS: metoprolol tartrate 25 mg Tablet 50 MG PO ×2 (05:58→18:14)
[2022-02-28] MEDS: levothyroxine 88 mcg Tablet PO (05:58)
[2022-02-28] MEDS: FUROsemide 10 mg/mL SDV 2mL 40 MG IVP ×2 (06:02→18:13)
[2022-02-28 06:32] LABS: Glucose Point of Care 319 mg/dL (70-110)
[2022-02-28] MEDS: [UNRECOGNIZED DRUG - REMARK] 300 EACH NG-TUBE ×2 (09:15→15:45)
[2022-02-28] MEDS: insulin lispro 100 unit/1 mL SUBCUT ×3 (09:22→18:17)
[2022-02-28] MEDS: sevelamer 800 mg Tablet 1600 MG PO ×3 (09:23→20:38)
[2022-02-28] MEDS: isosorbide mononitrate ER 30 mg Tablet PO (09:23)
[2022-02-28] MEDS: amlodipine 5 mg Tablet PO (09:23)
[2022-02-28] MEDS: clopidogrel 75 mg Tablet PO (09:24)
--- NOTE | 2022-02-28 09:55 | P.PN_ITS ---
Subjective Subjective: mental status not improved Vitals/I&O/Wt Last Vital Signs Temp 98.9 F 02/28/22 07:29 Pulse 90 02/28/22 07:29 Resp 20 H 02/28/22 07:29 BP 132/78 02/28/22 07:29 Pulse Ox 94 02/28/22 07:29 O2 Del Method 02/28/22 07:29 02/27/22 02/28/22 02/28/22 22:59 06:59 14:59 Intake Total 450 / 500 Balance 450 / 500 Weight last 48 hrs Weight 109.633 kg Weight 109.633 kg Weight 109.27 kg Weight 109.134 kg Weight 107.048 kg Weight 106.594 kg Data : 02/28/22 02:10 02/28/22 02:10 Micro: Microbiology 02/23/22 08:42 Blood Culture - Final Blood NO GROWTH AFTER 5 DAYS 02/23/22 08:35 Blood Culture - Final Blood NO GROWTH AFTER 5 DAYS A&P Assessment and plan (1) Peritoneal dialysis status: Plan (1) End stage renal disease: 86 year old male w/ PMHX of ESRD on PD, IDDM,? 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 Pt was admitted , AMS, and weakness.?Getting PD 1. AMS and fevers- Meningitis , Management per primary team -wbc high, 16.9 2. ESRD-? CAPD - 6 exchanges a day- 2.5% gluc -lasix 3. hgb okay for ESRD- no MCKAY 5.? hypertension-bp elevated 6. dm control per medicine if needs a PEG, will need to transition form PD to HD Attestations Medical Necessity Statement*: Profound illness with definite meningitis in this gentleman with multiple comorbidities including renal failure requiring bentley lysis. Coding Level of Care Code Acute Enrollment Management Manager for [facility] Diagnoses Peritoneal dialysis status Z99.2
--- NOTE | 2022-02-28 10:08 | P.PN_ITS ---
Subjective Subjective: No fever Change NG tube feeding rate to 20 cc/h Added sliding scale Hypoglycemia Worsening leukocytosis Vitals/I&O/Wt Last Vital Signs Temp 98.9 F 02/28/22 07:29 Pulse 90 02/28/22 07:29 Resp 20 H 02/28/22 07:29 BP 132/78 02/28/22 07:29 Pulse Ox 94 02/28/22 07:29 O2 Del Method 02/28/22 07:29 02/27/22 02/28/22 02/28/22 22:59 06:59 14:59 Intake Total 450 / 500 Balance 450 / 500 Weight last 48 hrs Weight 109.633 kg Weight 109.633 kg Weight 109.27 kg Weight 109.134 kg Weight 107.048 kg Physical Exam Narrative: Patient moving his extremities not purposefully Locate pains Nausea has had Not able to communicate Pupils reactive Cough reflex present Patient Some time to time Abdomen's distended however nontender Peritoneal dialysis catheter in place No signs of edema Data : 02/28/22 02:10 02/28/22 02:10 Micro: Microbiology 02/23/22 08:42 Blood Culture - Final Blood NO GROWTH AFTER 5 DAYS 02/23/22 08:35 Blood Culture - Final Blood NO GROWTH AFTER 5 DAYS A&P Assessment and plan (1) Toxic metabolic encephalopathy: (2) Major neurologic dysfunction: (3) Meningitis: (4) Peritoneal dialysis status: (5) Gram-positive bacteremia: (6) Altered mental status: (7) Encephalopathy: (8) Atrial fibrillation, chronic: (9) S/P aortic valve replacement: (10) Atrial fibrillation: Qualifiers: Atrial fibrillation type: persistent (not longstanding) Qualified Code(s): I48.19 - Other persistent atrial fibrillation (11) Thyroid disease: (12) End stage renal disease: Plan Patient does show minimal signs of improvement He is still getting NG tube feeds, not able to eat on his own Prognostication depends on his recovery and ability to eat family does not want TPN or PEG tube placement for now Hyperglycemia noted decrease NG tube feeding rate Add a sliding scale A. fib without RVR Continue anticoagulating agent Family wants to wait until this weekend to make the final decision Palliative team has evaluated him as well Peritoneal dialysis end-stage renal disease Continue Lovenox Patient is on Lantus 15 units Attestations Medical Necessity Statement*: Continue medical management Time Spent in Patient Care: 15 Coding Level of Care Code Acute Insecticide Sprayer for [facility] Fwd Diagnoses Toxic metabolic encephalopathy G92.8 Major neurologic dysfunction R29.818 Meningitis G03.9 Peritoneal dialysis status Z99.2 Gram-positive bacteremia R78.81 Altered mental status R41.82 Encephalopathy G93.40 Atrial fibrillation, chronic I48.20 S/P aortic valve replacement Z95.2 Atrial fibrillation I48.19 Atrial fibrillation type: persistent (not longstanding) Thyroid disease E07.9 End stage renal disease N18.6
[2022-02-28 11:20] LABS: Glucose Point of Care 382 mg/dL (70-110)
[2022-02-28] MEDS: cefTRIAXone 2,000 MG in sodium chloride 0.9% (plus) 50 ML 100 MG IV ×2 (11:25→23:19)
[2022-02-28] MEDS: famotidine 20 mg/2 mL INJ IVP (12:10)
[2022-02-28] MEDS: insulin glargine 100 units/1 mL 15 UNIT SUBCUT (12:10)
[2022-02-28 16:02] LABS: Blastomyces AB Immunodiffusion Negative (Negative); Blastomyces Dermatitidis AB <1:8 titer (<1:8)
[2022-02-28 17:35] LABS: Glucose Point of Care 293 mg/dL (70-110)
[2022-02-28] MEDS: enoxaparin 100 mg/mL Syringe SUBCUT (18:13)
[2022-02-28 20:35] LABS: Glucose Point of Care 299 mg/dL (70-110)
[2022-02-28] MEDS: atorvastatin 40 mg Tablet 20 MG PO (20:37)
--- NOTE | 2022-03-01 00:02 | W.PM.EVENTAC ---
Event Note Event Note: I was notified this evening that he has been getting much less responsive, and to the point he cannot be awoken. Blood pressure noted becoming lower as well. Requested a small bolus for him and this 250 mL. Breathing also noted becoming more agonal, although saturating well on room air. Contacted his about change in condition. Discussing his goals of care, transfer to ICU, life support measures were not an option. She is on the way to the hospital due to severe downturn in his condition. I went to see him in the room. He was obtunded, on my evaluation unresponsive at the same time monitor showing he went into asystole. Did not appear in distress or discomfort. Pulse could not be palpated. No chest rise. No further resuscitation undertaken as per goals of care wishes, with TOD noted [id number]. Discussed with his again who is on the way to the hospital. They will be further discussing arrangements. Are not interested in autopsy.
--- NOTE | 2022-03-01 01:21 | PC.NURSE ---
At 2318 this nurse was at bedside administering scheduled medication via PEG tube. While in room the DIRECTOR GIFT was obtaining vital signs. The patients BP was 70/41. It was noted the patient was also experiencing a change in respiratory effort at this time. This nurse reported to charge to inform her of the change in blood pressure and respiratory changes. At 2331 This nurse called family and informed the of these changes and it would be best to be at the patient's bedside, and she stated she was on her way in. At 2333 the hospitalist was called and informed of the changes in blood pressure and respiratory efforts. Telephone order given to administer 250 mL IV bolus and to remove clonadine patch. Call ended at 2339 and new orders entered and acknowledged. The physician came to bedside at 2344 to examine patient and this nurse was about to pull IV bolus from pyxis when the traffic monitor specialist showed the patient in VTACH. This nurse left bedside to pull IV bolus from pyxis, when it was seen that patient showed asystole on the traffic monitor specialist. Nurse went back to bedside and informed physician of this. This nurse auscultated for heart sounds and found none. Then physician confirmed. JUSTYNA was called at 2346. The physician then left bedside to call the and inform her of patient passing. Patient was then cleaned and all invasive devices were removed. arrived with son at 0005 and sat with patient until 11. At this time this nurse had her sign the body release and provided condolences. At 0020 [facility] was called and notified of body retrieval. home arrived at 0108 and removed the body.
--- NOTE | 2022-03-01 01:47 | PC.NURSE ---
Patient belongings taken by at 0015.
--- NOTE | 2022-03-01 12:50 | P.DES_ITS ---
Discharge Providers DDS Date of Admission: 02/18/22 21:12 Date Summary Completed: 03/01/22 Attending Provider at Admission: Regina Yao MD Attending Provider at Discharge: Kelin William MD Primary Care Provider: John Kauffman MD DS Diagnoses Hospital Diagnoses (1) Toxic metabolic encephalopathy: (2) Major neurologic dysfunction: (3) Meningitis: (4) Peritoneal dialysis status: (5) Gram-positive bacteremia: (6) Altered mental status: (7) Encephalopathy: (8) Atrial fibrillation, chronic: (9) S/P aortic valve replacement: (10) Atrial fibrillation: Qualifiers: Atrial fibrillation type: persistent (not longstanding) Qualified Code(s): I48.19 - Other persistent atrial fibrillation (11) Thyroid disease: (12) End stage renal disease: Reason for Visit Reason for Visit Headache, slurred speech Summary Summary Summary: 86-year-old male who was admitted for management and evaluation of worsening of neurological status related to meningitis, MRI did reveal meningitis, he was not able to comprehend any command, he was not able to eat because of his neurological decline he was put on NG tube feed broad-spectrum antibiotics, his blood culture was positive for Streptococcus mitis oralis, antibiotics were de- escalated to cephalosporins, his antiviral antifungal antimicrobials were discontinued, he remained afebrile, his clinical progress was very slow and gradual, he started opening his eyes but was not able to make eye contact or comprehend verbal commands, Dr. Mccoy did evaluate him at the bedside multiple times and talk with the family. On 02/28 he had an episode of emesis N G tube feeding was discontinued, around 2347 he went into asystole, was at the bedside Cause of Meningoencephalitis Additional Data Confirmation of as documented by pronouncing clinician: no pulse, no respirations, no heart sounds and pupils fixed and dilated Family: at bedside Additional persons at bedside: nursing staff Attending/PCP notified?: I am attending Was code activated?: No Autopsy requested?: No Advance directives?: Yes Hospice patient?: Yes Discharge Plan Discharge Patient Disposition: Condition: Stable Probable Cause of Probable cause of : Cardiac arrest DS Attestations Time Spent in /Discharge Care*: less than 30 min Quality - AMI: AMI present?: No Quality - Stroke: CVA present?: No Quality - VTE: VTE present?: No Coding Level of Care Code Acute Student Development Dean for [facility] Diagnoses Toxic metabolic encephalopathy G92.8 Major neurologic dysfunction R29.818 Meningitis G03.9 Peritoneal dialysis status Z99.2 Gram-positive bacteremia R78.81 Altered mental status R41.82 Encephalopathy G93.40 Atrial fibrillation, chronic I48.20 S/P aortic valve replacement Z95.2 Atrial fibrillation I48.19 Atrial fibrillation type: persistent (not longstanding) Thyroid disease E07.9 End stage renal disease N18.6
[2022-03-03 13:41] LABS: HSV 1 DNA NOT DETECTED; HSV 2 DNA NOT DETECTED; HSV Source CEREBROSPINAL FLUID
[2022-03-04 15:57] LABS: Lyme Disease AB (IGG),IBL NO BANDS DETECTED; Lyme Disease AB (IGM), IBL NO BANDS DETECTED
[2022-03-06 17:23] LABS: Cryptococcal Source SERUM
[2022-03-06 22:18] LABS: Brucella AB Agglutination <1:80 titer
[2022-03-07 18:23] LABS: Coccidioides AB CF Serum <1:2
== END 2022-03-01 01:08 | disposition expired | DRG 94 ==
LOC: ER 21:18 → MEDSURG 21:32
PROVIDERS: Family Medicine; Internal Medicine Nephrology; Admitting Provider Student in an Organized Health Care Education/Training Program; Emergency Provider Emergency Medicine; PCP Family Medicine; Visit Provider Internal Medicine
DX: G04.2 Bacterial meningoencephalitis and meningomyelitis, not elsewhere classified (principal); G92.8 Other toxic encephalopathy; N18.6 End stage renal disease; I48.19 Other persistent atrial fibrillation; I12.0 Hypertensive chronic kidney disease with stage 5 chronic kidney disease or end stage renal disease; D68.32 Hemorrhagic disorder due to extrinsic circulating anticoagulants; I25.10 Atherosclerotic heart disease of native coronary artery without angina pectoris; Z95.1 Presence of aortocoronary bypass graft; Z95.5 Presence of coronary angioplasty implant and graft; Z95.2 Presence of prosthetic heart valve; E11.22 Type 2 diabetes mellitus with diabetic chronic kidney disease; Z99.2 Dependence on renal dialysis; E11.42 Type 2 diabetes mellitus with diabetic polyneuropathy; F03.90 Unspecified dementia, unspecified severity, without behavioral disturbance, psychotic disturbance, mood disturbance, and anxiety; K43.9 Ventral hernia without obstruction or gangrene; Z88.5 Allergy status to narcotic agent; Z88.8 Allergy status to other drugs, medicaments and biological substances; Z86.73 Personal history of transient ischemic attack (TIA), and cerebral infarction without residual deficits; E07.9 Disorder of thyroid, unspecified; I35.0 Nonrheumatic aortic (valve) stenosis; I65.23 Occlusion and stenosis of bilateral carotid arteries; I46.9 Cardiac arrest, cause unspecified; Z66 Do not resuscitate; B95.4 Other streptococcus as the cause of diseases classified elsewhere; G93.89 Other specified disorders of brain; T45.515A Adverse effect of anticoagulants, initial encounter; D63.1 Anemia in chronic kidney disease
CPT/HCPCS: 12345; 36415; 36416; 36430; 36600; 62328; 70450; 70551; 71045; 71250; 72125; 74176; 80048; 80051; 80053; 80074; 80202; 80306; 80503; 81001; 82140; 82330; 82533; 82805; 82945; 82962; 83516; 83605; 83735; 84100; 84145; 84157; 84315; 84439; 84443; 84481; 84484; 85025; 85610; 85730; 86140; 86403; 86480; 86606; 86612; 86617; 86622; 86635; 86664; 86665; 86787; 86850; 86900; 86927; 87015; 87040; 87070; 87075; 87077; 87086; 87116; 87186; 87205; 87206; 87305; 87327; 87426; 87493; 87530; 87635; 87641; 87798; 87801; 87804; 87806; 89050; 93005; 93880; 94640; 94799; 96365; 96372; 97110; 97162; 97530; 99285; C8929; J0133; J0290; J0360; J0637; J0696; J1630; J1644; J1650; J1815; J1940; J1953; J2185; J2543; J3370; J3465; J3480; J3490; J7030; J7042; J7050; P9017; Q3014; Q9956; Q9967